=== PATIENT | female | born 1940 | race Caucasian/White ===

== ENCOUNTER 2020-05-02 23:45 | Emergency (ER) | payer MEDICARE ==
[2020-05-03 00:02] VITALS: PULSE 72; TEMP 98.1
[2020-05-03 00:11] LABS: Glucose,Whole Blood 257 mg/dL (75-99)
[2020-05-03] MEDS ORDERED: ONDANSETRON 4 MG/2 ML VIAL IVP STA (01:34)
[2020-05-03] MEDS ORDERED: SODIUM CHLORIDE 0.9% 500 ML 500 ML IV STA (01:34)
--- NOTE | 2020-05-03 01:41 | ED ---
Nausea/Vomiting/Diarrhea HPI - General Chief complaint: Nausea/Vomiting/Diarrhea Stated complaint: dehydration Source: EMS Mode of arrival: EMS Limitations: no limitations - History of Present Illness Initial comments: This patient is a 79-year-old woman who presents to be evaluated for nausea. Patient reports that she had some milk that she thought was bad yesterday. As result she has been feeling nauseated and going on 24 hours. She also had some loose bowel movements. Patient denies seeing any blood or tarry stools. There has been no vomiting. The patient denies abdominal pain but states she has had some intermittent cramping. MD complaint: nausea, diarrhea Onset/Timin -: days(s) Description of Diarrhea: water Associated Abdominal Pain: No Radiation: none Quality: cramping Consistency: intermittent, now resolved Improves with: none Worsens with: none Context: possible food poisoning Associated Symptoms: denies other symptoms - Related Data Allergies Allergy/AdvReac Type Severity Reaction Status Date / Time nitrofurantoin Allergy Nausea & Verified 05/03/20 00:04 [From Macrobid] Vomiting & Diarrhea Penicillins Allergy Rash/Hives Verified 05/03/20 00:04 Sulfa (Sulfonamide Allergy Nausea & Verified 05/03/20 00:04 Antibiotics) Vomiting & Diarrhea Review of Systems ROS Statement: Those systems with pertinent positive or pertinent negative responses have been documented in the HPI. ROS Other: All systems not noted in ROS Statement are negative. Constitutional: Denies: fever, chills, weakness Respiratory: Denies: cough, dyspnea Cardiovascular: Denies: chest pain, palpitations, edema Gastrointestinal: Reports: as per HPI, nausea, diarrhea. Denies: vomiting, constipation, melena, hematochezia Genitourinary: Denies: dysuria, hematuria Musculoskeletal: Denies: back pain Skin: Denies: rash Neurological: Denies: headache, weakness Past Medical History Past Medical History: Chest Pain / Angina, COPD, Diabetes Mellitus, Hypertension Past Psychological History: Anxiety, Depression Smoking Status: Current every day smoker Past Alcohol Use History: None Reported Past Drug Use History: None Reported General Exam Limitations: no limitations General appearance: alert, in no apparent distress Head exam: Present: atraumatic, normocephalic Eye exam: Present: normal appearance ENT exam: Present: mucous membranes dry Neck exam: Present: normal inspection Respiratory exam: Present: normal lung sounds bilaterally. Absent: respiratory distress, wheezes, rales, rhonchi, stridor Cardiovascular Exam: Present: regular rate, normal rhythm, normal heart sounds. Absent: systolic murmur, diastolic murmur, rubs, gallop GI/Abdominal exam: Present: soft. Absent: distended, tenderness, guarding, rebound, rigid, mass Extremities exam: Present: normal inspection, normal capillary refill. Absent: pedal edema, calf tenderness Back exam: Present: normal inspection. Absent: CVA tenderness (R), CVA tenderness (L) Neurological exam: Present: alert Skin exam: Present: warm, dry, intact, normal color. Absent: rash Course Vital Signs 05/02/20 05/03/20 23:46 01:46 Temperature 98.1 F Pulse Rate 72 72 Respiratory 18 16 Rate Blood Pressure 190/63 173/54 O2 Sat by Pulse 96 96 Oximetry Medical Decision Making - Medical Decision Making Patient is feeling better, following Zofran and did tolerate oral intake. Again at this the abdominal examination there is no tenderness. The patient would like to go home. I discussed appropriate follow-up as well as return parameters. Also reinforced diabetic diet. - Lab Data Result diagrams: 05/03/20 01:37 05/03/20 01:37 Lab Results 05/03/20 05/03/20 05/03/20 Range/Units 00:09 01:37 01:37 WBC 11.9 H (3.8-10.6) k/uL RBC 5.03 (3.80-5.40) m/uL Hgb 15.3 (11.4-16.0) gm/dL Hct 46.8 H (34.0-46.0) % MCV 93.2 (80.0-100.0) fL MCH 30.4 (25.0-35.0) pg MCHC 32.6 (31.0-37.0) g/dL RDW 13.3 (11.5-15.5) % Plt Count 329 (150-450) k/uL Neutrophils % 64 % Lymphocytes % 26 % Monocytes % 6 % Eosinophils % 1 % Basophils % 1 % Neutrophils # 7.6 (1.3-7.7) k/uL Lymphocytes # 3.1 (1.0-4.8) k/uL Monocytes # 0.8 (0-1.0) k/uL Eosinophils # 0.2 (0-0.7) k/uL Basophils # 0.1 (0-0.2) k/uL Sodium 138 (137-145) mmol/L Potassium 3.9 (3.5-5.1) mmol/L Chloride 107 (98-107) mmol/L Carbon Dioxide 22 (22-30) mmol/L Anion Gap 9 mmol/L BUN 13 (7-17) mg/dL Creatinine 0.44 L (0.52-1.04) mg/dL Est GFR (CKD-EPI)AfAm >90 (>60 ml/min/1.73 sqM) Est GFR (CKD-EPI)NonAf >90 (>60 ml/min/1.73 sqM) Glucose 259 H (74-99) mg/dL POC Glucose (mg/dL) 257 H (75-99) mg/dL POC Glu [employer] Supervisor ID Yun Loya Calcium 9.0 (8.4-10.2) mg/dL Total Bilirubin 0.3 (0.2-1.3) mg/dL AST 16 (14-36) U/L ALT 14 (4-34) U/L Alkaline Phosphatase 47 (38-126) U/L Total Protein 6.6 (6.3-8.2) g/dL Albumin 3.9 (3.5-5.0) g/dL Amylase 31 (30-110) U/L Lipase 79 (23-300) U/L Urine Color Urine Appearance (Clear) Urine pH (5.0-8.0) Ur Specific [place] (1.001-1.035) Urine Protein (Negative) Urine Glucose (UA) (Negative) Urine Ketones (Negative) Urine Blood (Negative) Urine Nitrite (Negative) Urine Bilirubin (Negative) Urine Urobilinogen (<2.0) mg/dL Ur Leukocyte Esterase (Negative) Urine RBC (0-5) /hpf Urine WBC (0-5) /hpf Ur Squamous Epith Cells (0-4) /hpf 05/03/20 Range/Units 02:00 WBC (3.8-10.6) k/uL RBC (3.80-5.40) m/uL Hgb (11.4-16.0) gm/dL Hct (34.0-46.0) % MCV (80.0-100.0) fL MCH (25.0-35.0) pg MCHC (31.0-37.0) g/dL RDW (11.5-15.5) % Plt Count (150-450) k/uL Neutrophils % % Lymphocytes % % Monocytes % % Eosinophils % % Basophils % % Neutrophils # (1.3-7.7) k/uL Lymphocytes # (1.0-4.8) k/uL Monocytes # (0-1.0) k/uL Eosinophils # (0-0.7) k/uL Basophils # (0-0.2) k/uL Sodium (137-145) mmol/L Potassium (3.5-5.1) mmol/L Chloride (98-107) mmol/L Carbon Dioxide (22-30) mmol/L Anion Gap mmol/L BUN (7-17) mg/dL Creatinine (0.52-1.04) mg/dL Est GFR (CKD-EPI)AfAm (>60 ml/min/1.73 sqM) Est GFR (CKD-EPI)NonAf (>60 ml/min/1.73 sqM) Glucose (74-99) mg/dL POC Glucose (mg/dL) (75-99) mg/dL POC Glu Volunteer Services Supervisor ID Calcium (8.4-10.2) mg/dL Total Bilirubin (0.2-1.3) mg/dL AST (14-36) U/L ALT (4-34) U/L Alkaline Phosphatase (38-126) U/L Total Protein (6.3-8.2) g/dL Albumin (3.5-5.0) g/dL Amylase (30-110) U/L Lipase (23-300) U/L Urine Color Yellow Urine Appearance Clear (Clear) Urine pH 5.5 (5.0-8.0) Ur Specific [place] 1.013 (1.001-1.035) Urine Protein Trace H (Negative) Urine Glucose (UA) 3+ H (Negative) Urine Ketones Negative (Negative) Urine Blood Negative (Negative) Urine Nitrite Negative (Negative) Urine Bilirubin Negative (Negative) Urine Urobilinogen <2.0 (<2.0) mg/dL Ur Leukocyte Esterase Moderate H (Negative) Urine RBC 2 (0-5) /hpf Urine WBC 11 H (0-5) /hpf Ur Squamous Epith Cells <1 (0-4) /hpf Disposition Clinical Impression: Nausea, Hyperglycemia Disposition: HOME SELF-CARE Condition: Good Instructions (If sedation given, give patient instructions): Acute Nausea and Vomiting (ED) Is patient prescribed a controlled substance at d/c from ED?: No Referrals: Veena Spain DO [Primary Care Provider] - 1-2 days
[2020-05-03 01:47] VITALS: BP 173/54; RESP 16
[2020-05-03 01:47] LABS: Basophils # (A) 0.1 k/uL (0-0.2); Basophils % (A) 1 %; Eosinophils # (A) 0.2 k/uL (0-0.7); Eosinophils % (A) 1 %; HCT 46.8 % (34.0-46.0); HGB 15.3 gm/dL (11.4-16.0); Lymphocytes # (A) 3.1 k/uL (1.0-4.8); Lymphocytes % (A) 26 %; MCH 30.4 pg (25.0-35.0); MCHC 32.6 g/dL (31.0-37.0); MCV 93.2 fL (80.0-100.0); Mean Platelet Volume 8.1; Monocytes # (A) 0.8 k/uL (0-1.0); Monocytes % (A) 6 %; Neutrophils # (A) 7.6 k/uL (1.3-7.7); Neutrophils % (A) 64 %; Platelet Count 329 k/uL (150-450); RBC 5.03 m/uL (3.80-5.40); RDW 13.3 % (11.5-15.5); WBC 11.9 k/uL (3.8-10.6)
[2020-05-03 01:53] LABS: ALT 14 U/L (4-34); AST 16 U/L (14-36); African American GFR (CKD) >90 (>60 ml/min/1.73 sqM); Albumin 3.9 g/dL (3.5-5.0); Alkaline Phosphatase 47 U/L (38-126); Amylase 31 U/L (30-110); Anion Gap 9 mmol/L; Blood Urea Nitrogen 13 mg/dL (7-17); Carbon Dioxide 22 mmol/L (22-30); Chloride 107 mmol/L (98-107); Glucose 259 mg/dL (74-99); Non-African American GFR(CKD) >90 (>60 ml/min/1.73 sqM); Potassium 3.9 mmol/L (3.5-5.1); Sodium 138 mmol/L (137-145); Total Bilirubin 0.3 mg/dL (0.2-1.3); Total Protein 6.6 g/dL (6.3-8.2)
[2020-05-03 02:09] LABS: Appearance,Urine Clear (Clear); Bilirubin,Urine Negative (Negative); Blood,Urine Negative (Negative); Color,Urine Yellow; Glucose,Urine (UA) 3+ (Negative); Ketones,Urine Negative (Negative); Leukocyte Esterase,Urine Moderate (Negative); Nitrite,Urine Negative (Negative); PH, Urine 5.5 (5.0-8.0); Protein,Urine Trace (Negative); RBC,Urine 2 /hpf (0-5); Specific Gravity,Urine 1.013 (1.001-1.035); Squamous Epithelial Cell,Urine <1 /hpf (0-4); Urobilinogen,Urine <2.0 mg/dL (<2.0); WBC,Urine 11 /hpf (0-5)
== END 2020-05-03 02:34 | disposition home or self-care (01) ==
LOC: EC 23:45
DX: E11.65 Type 2 diabetes mellitus with hyperglycemia (principal); R19.7 Diarrhea, unspecified; E86.0 Dehydration; F17.200 Nicotine dependence, unspecified, uncomplicated; Z88.1 Allergy status to other antibiotic agents; Z88.0 Allergy status to penicillin; Z88.2 Allergy status to sulfonamides
CPT/HCPCS: 99284; 96374; 96361; 36415; 80053; 82150; 83690; 85025; 81001; 87086; 87077; 87186; J2405

== ENCOUNTER 2020-06-06 10:35 | Inpatient (IN) | payer MEDICARE ==
--- NOTE | 2020-06-06 10:47 | ED ---
General Adult HPI - General Chief complaint: Fall Stated complaint: Fall Time Seen by Provider: 06/06/20 10:40 Source: EMS Mode of arrival: EMS Limitations: no limitations - History of Present Illness Initial comments: 80-year-old female with history of NIDDM, COPD- home oxygen dependent presenting today with chief complaint of left hip pain after fall patient states she fell around 2:33 AM she called EMS who put her back in bed she states that she did not want to come to the hospital that time she denied hitting her head having neck pain or low back pain. Denies any loss of bowel bladder control. Patient states that she could not walk or get out of bed when she woke up and had severe left hip pain. Patient denies numbness, tingling or loss of sensation of the extremity. Denies knee, ankle or foot pain. Patient denies syncopal episode, chest pain or SOB prior to or after falling. Patient brought in by EMS for evaluation. - Related Data Home Medications Medication Instructions Recorded Confirmed Baclofen [Lioresal] 10 mg PO DAILY 06/06/20 06/06/20 DULoxetine HCL [Cymbalta] 60 mg PO DAILY 06/06/20 06/06/20 Empagliflozin [Jardiance] 10 mg PO DAILY 06/06/20 06/06/20 Glimepiride [Amaryl] 4 mg PO AC-BID 06/06/20 06/06/20 Isosorbide Mononitrate [Ismo] 10 mg PO BID 06/06/20 06/06/20 LORazepam [Ativan] 1 mg PO TID 06/06/20 06/06/20 lisinopriL 40 mg PO DAILY 06/06/20 06/06/20 sitaGLIPtin PHOS/metFORMIN HCL 1 tab PO DAILY 06/06/20 06/06/20 [Janumet Xr 100-1,000 mg Tablet] traMADol HCl [Ultram] 50 mg PO QID 06/06/20 06/06/20 Allergies Allergy/AdvReac Type Severity Reaction Status Date / Time doxycycline Allergy Unknown Verified 06/06/20 11:32 nitrofurantoin Allergy Nausea & Verified 06/06/20 11:25 [From Macrobid] Vomiting & Diarrhea Penicillins AdvReac Rash/Hives Verified 06/06/20 11:25 Sulfa (Sulfonamide AdvReac Nausea & Verified 06/06/20 11:25 Antibiotics) Vomiting & Diarrhea Review of Systems ROS Statement: Those systems with pertinent positive or pertinent negative responses have been documented in the HPI. ROS Other: All systems not noted in ROS Statement are negative. Past Medical History Past Medical History: Chest Pain / Angina, COPD, Diabetes Mellitus, Hypertension Past Surgical History: Unable to Obtain Past Psychological History: Anxiety, Depression Smoking Status: Former smoker Past Alcohol Use History: None Reported Past Drug Use History: None Reported General Exam - General Exam Comments Initial Comments: General: The patient is awake and alert, grimaces when moved Eye: +3 mm pupils are equal, round and reactive to light, extra-ocular movements are intact. No nystagmus. There is normal conjunctiva bilaterally. No signs of icterus. Ears, nose, mouth and throat: There are moist mucous membranes and no oral lesions. No raccoon or vidal sign. Neck: The neck is supple, there is no tenderness or JVD. No midline tenderness palpation of the cervical spine full range of motion the cervical spine Cardiovascular: There is a regular rate and rhythm. No murmur, rub or gallop is appreciated. Respiratory: Lungs are clear to auscultation, respirations are non-labored, breath sounds are equal. No wheezes, stridor, rales, or rhonchi. Gastrointestinal: Soft, non-distended, non-tender abdomen without masses or organomegaly noted. There is no rebound or guarding present. Musculoskeletal: Normal ROM, no tenderness. Strength 5/5. Sensation intact. Radial and DP pulses equal bilaterally 2+. Neurological: A&O x 3. CN II-XII intact, There are no obvious motor or sensory deficits. Coordination appears grossly intact. Speech is normal. Skin: Skin is warm and dry and no rashes or lesions are noted. No scalp hematoma. Psychiatric: Cooperative, appropriate mood & affect, normal judgment. Limitations: no limitations Course Vital Signs 06/06/20 06/06/20 10:37 12:40 Temperature 98.1 F 97.4 F L Pulse Rate 89 90 Respiratory 18 18 Rate Blood Pressure 173/80 160/76 O2 Sat by Pulse 94 L 91 L Oximetry Medical Decision Making - Medical Decision Making 80-year-old feel presenting today for chief complaint of trip and fall patient states she was up at 3AM tripped and fell. Patient could not ambulate--called ems brought to ER. She is neurovascularly intact. Nose shortening or rotation is appreciated. Denies any head or neck injury. XR no obvious fracture. CT revealed a nondisplaced left femoral neck. Patient given pain medications in the ER. Patient case discussed with orthodontic lab technician orthopedic PA working with Dr. Rollins who is agreeable to admission. Dr. Pizano agreeable to admission and care plan. - Lab Data Result diagrams: 06/06/20 11:31 06/06/20 11:31 Lab Results 06/06/20 06/06/20 06/06/20 Range/Units 11:31 11:31 11:31 WBC 20.4 H (3.8-10.6) k/uL RBC 5.22 (3.80-5.40) m/uL Hgb 15.4 (11.4-16.0) gm/dL Hct 48.4 H (34.0-46.0) % MCV 92.8 (80.0-100.0) fL MCH 29.5 (25.0-35.0) pg MCHC 31.7 (31.0-37.0) g/dL RDW 13.4 (11.5-15.5) % Plt Count 314 (150-450) k/uL Neutrophils % 82 % Lymphocytes % 10 % Monocytes % 5 % Eosinophils % 1 % Basophils % 1 % Neutrophils # 16.7 H (1.3-7.7) k/uL Lymphocytes # 2.1 (1.0-4.8) k/uL Monocytes # 1.1 H (0-1.0) k/uL Eosinophils # 0.2 (0-0.7) k/uL Basophils # 0.2 (0-0.2) k/uL PT 10.1 (9.0-12.0) sec INR 1.0 (<1.2) APTT 23.6 (22.0-30.0) sec Sodium 137 (137-145) mmol/L Potassium 4.9 (3.5-5.1) mmol/L Chloride 104 (98-107) mmol/L Carbon Dioxide 24 (22-30) mmol/L Anion Gap 9 mmol/L BUN 21 H (7-17) mg/dL Creatinine 0.47 L (0.52-1.04) mg/dL Est GFR (CKD-EPI)AfAm >90 (>60 ml/min/1.73 sqM) Est GFR (CKD-EPI)NonAf >90 (>60 ml/min/1.73 sqM) Glucose 434 H (74-99) mg/dL Calcium 9.0 (8.4-10.2) mg/dL Total Bilirubin 0.6 (0.2-1.3) mg/dL AST 27 (14-36) U/L ALT 25 (4-34) U/L Alkaline Phosphatase 70 (38-126) U/L Total Protein 6.7 (6.3-8.2) g/dL Albumin 4.0 (3.5-5.0) g/dL Disposition Clinical Impression: Fall, Fracture of femoral neck, left, Left hip pain, Chronic obstructive pulmonary disease, Elevated glucose Disposition: ADMITTED IP TO THIS [facility] Condition: Stable Is patient prescribed a controlled substance at d/c from ED?: No Time of Disposition: 12:22 Decision to Admit Reason: Admit from EC Decision Date: 06/06/20 Decision Time: 12:22
[2020-06-06] MEDS ORDERED: MORPHINE SULFATE 4 MG/ML SYRINGE IVP STA (11:22)
--- NOTE | 2020-06-06 11:23 | XR ---
EXAMINATION TYPE: XR Hip LT and AP Pelvis DATE OF EXAM: 06/06/2020 COMPARISON: NONE HISTORY: Pain TECHNIQUE: A single AP view of the pelvis is obtained. Two views of the left hip are obtained. FINDINGS: There is severe arthropathy of the hips bilaterally with hypertrophic changes involving th e acetabulum. Diffuse osteopenia. There is a findings suspicious for femoral acetabular impingement. Visualized pubic rami appear to be intact. SI joints symmetric sclerosis involving the SI joints like ly post arthritic. IMPRESSION: 1. 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 No acute fracture. If clinical roberson spicion is high correlate with CT scan.
[2020-06-06 11:39] LABS: Basophils # (A) 0.2 k/uL (0-0.2); Basophils % (A) 1 %; Eosinophils # (A) 0.2 k/uL (0-0.7); Eosinophils % (A) 1 %; HCT 48.4 % (34.0-46.0); HGB 15.4 gm/dL (11.4-16.0); Lymphocytes # (A) 2.1 k/uL (1.0-4.8); Lymphocytes % (A) 10 %; MCH 29.5 pg (25.0-35.0); MCHC 31.7 g/dL (31.0-37.0); MCV 92.8 fL (80.0-100.0); Mean Platelet Volume 8.6; Monocytes # (A) 1.1 k/uL (0-1.0); Monocytes % (A) 5 %; Neutrophils # (A) 16.7 k/uL (1.3-7.7); Neutrophils % (A) 82 %; Platelet Count 314 k/uL (150-450); RBC 5.22 m/uL (3.80-5.40); RDW 13.4 % (11.5-15.5); WBC 20.4 k/uL (3.8-10.6)
[2020-06-06 11:48] LABS: ALT 25 U/L (4-34); AST 27 U/L (14-36); African American GFR (CKD) >90 (>60 ml/min/1.73 sqM); Alkaline Phosphatase 70 U/L (38-126); Anion Gap 9 mmol/L; Blood Urea Nitrogen 21 mg/dL (7-17); Carbon Dioxide 24 mmol/L (22-30); Chloride 104 mmol/L (98-107); Glucose 434 mg/dL (74-99); Non-African American GFR(CKD) >90 (>60 ml/min/1.73 sqM); Potassium 4.9 mmol/L (3.5-5.1); Sodium 137 mmol/L (137-145); Total Bilirubin 0.6 mg/dL (0.2-1.3); Total Protein 6.7 g/dL (6.3-8.2)
[2020-06-06 11:52] LABS: Partial Thromboplastin Time 23.6 sec (22.0-30.0); Prothrombin Time 10.1 sec (9.0-12.0)
--- NOTE | 2020-06-06 12:12 | CT ---
EXAMINATION TYPE: CT hip LT wo con DATE OF EXAM: 06/06/2020 COMPARISON: Left hip and pelvis radiograph 06/06/2020 HISTORY: Left hip pain post fall CT DLP: 519.8 mGycm Automated exposure control for dose reduction was used. TECHNIQUE: Axial imaging of the left hip obtained without intravenous contrast. Coronal and sagittal reformatted images were obtained. FINDINGS: There is a nondisplaced fracture of the anterior cortex of the transverse left femoral neck. No evide nce of dislocation of the left hip. Diffusely decreased osseous mineralization. Severe arthropathy of the left hip. Degenerative change of the left sacroiliac joint and visualized spine. IMPRESSION: 1. Incomplete fracture of the anterior cortex of the left femoral neck. No significant displacement. 2. Severe left hip arthropathy. 3. Decreased osseous mineralization.
--- NOTE | 2020-06-06 12:12 | XR ---
EXAMINATION TYPE: XR femur LT DATE OF EXAM: 06/06/2020 CLINICAL HISTORY: Fall injury with pain. TECHNIQUE: Two views of the left femur are obtained. COMPARISON: Same day pelvic and left hip x-ray and CT. FINDINGS: There is no acute fracture or dislocation clearly seen in the left femur on x-ray. Left ac etabular overgrowth redemonstrated. Osseous structures are demineralized. Mild to moderate tricompart ment joint space loss in the left knee The overlying soft tissue appears unremarkable. IMPRESSION: Seen best on CT there is acute nondisplaced fracture through the anterior aspect femoral neck in the left proximal femur. No additional acute fracture identified mid to distal left femur
[2020-06-06] MEDS ORDERED: NALOXONE 0.4 MG/ML 1 ML VIAL IV PRN (12:22)
[2020-06-06 12:48] LABS: Appearance,Urine Clear (Clear); Bacteria,Urine Moderate /hpf; Bilirubin,Urine Negative (Negative); Blood,Urine Negative (Negative); Color,Urine Light Yellow; Glucose,Urine (UA) 4+ (Negative); Ketones,Urine 1+ (Negative); Leukocyte Esterase,Urine Trace (Negative); Mucus,Urine Rare /hpf; Nitrite,Urine Positive (Negative); Protein,Urine Trace (Negative); RBC,Urine <1 /hpf (0-5); Specific Gravity,Urine 1.031 (1.001-1.035); Squamous Epithelial Cell,Urine <1 /hpf (0-4); Urobilinogen,Urine <2.0 mg/dL (<2.0); WBC,Urine 7 /hpf (0-5)
[2020-06-06 13:07] LABS: Glucose,Whole Blood 400 mg/dL (75-99)
[2020-06-06] MEDS ORDERED: MORPHINE SULFATE 2 MG/ML SYRINGE IVP PRN (14:19)
[2020-06-06 14:49] LABS: Glucose,Whole Blood 397 mg/dL (75-99)
[2020-06-06] MEDS ORDERED: INSULIN ASPART (NovoLOG) 100 UNIT/ML VIAL SQ ONE ×2 (15:03→19:00)
[2020-06-06] MEDS: MORPHINE SULFATE 2 MG/ML SYRINGE IVP PRN ×2 (15:16→19:21)
[2020-06-06] MEDS ORDERED: HYDROcodone/APAP 5-325MG 1 EACH TAB PO PRN (15:24)
[2020-06-06] MEDS ORDERED: ACETAMINOPHEN TAB 500 MG TAB PO PRN (15:25)
--- NOTE | 2020-06-06 16:30 | P.HPOR ---
<Cortney Chandra - Last Filed: 06/06/20 16:15> History of Present Illness H&P Date: 06/06/20 Chief Complaint: Left hip fracture The patient is a 80-year-old female with a past medical history including asthma, diabetes, hypertension, COPD, anxiety, and depression who presented to the emergency department today after sustaining a fall at home early this morning. EMS was called to her house and she requested that they put her back in bed because she did not want to come to the hospital at that time. Later today, EMS was called and she was brought to the ER for further evaluation. the patient states she did not hit her head and she denies any other injuries. X- rays of the left hip revealed no fracture. CT of the left hip revealed a nondisplaced femoral neck fracture. The patient was admitted to orthopedics for pain control and further orthopedic evaluation. Internal medicine has been consulted for surgical clearance and medical management. UA reveals a possible UTI and a culture has been sent. Veloz catheter in place. Review of Systems Constitutional: Denies chills, Denies fever Cardiovascular: Denies chest pain, Denies shortness of breath Respiratory: Denies cough Gastrointestinal: Denies abdominal pain, Denies diarrhea, Denies nausea, Denies vomiting Musculoskeletal: left: hip pain, hip stiffness, hip swelling Past Medical History Past Medical History: Asthma, Chest Pain / Angina, COPD, Diabetes Mellitus, GERD/Reflux, Hypertension, Pneumonia, Respiratory Disorder, Skin Disorder Additional Past Medical History / Comment(s): Home oxygen at 4L/NC ATC, bronchit is, NIDDM type II, neuropathy bilateral feet, falls, IBS, diverticular disease, hiatal hernia, chronic low back pain, eczema History of Any Multi-Drug Resistant Organisms: None Reported Past Surgical History: Cholecystectomy, Hysterectomy, Tonsillectomy Additional Past Surgical History / Comment(s): colonoscopy Past Anesthesia/Blood Transfusion Reactions: No Reported Reaction Additional Past Anesthesia/Blood Transfusion Reaction / Comment(s): Pt states she has never received blood. Smoking Status: Current every day smoker - Past Family History Father Family Medical History: Cancer Additional Family Medical History / Comment(s): Father of colon cancer at the age of 54 yrs. Mother Family Medical History: CVA/TIA, Hyperlipidemia, Hypertension Additional Family Medical History / Comment(s): Mother lived to be 96yrs old. Medications and Allergies Home Medications Medication Instructions Recorded Confirmed Type Baclofen [Lioresal] 10 mg PO DAILY 06/06/20 06/06/20 History DULoxetine HCL [Cymbalta] 60 mg PO DAILY 06/06/20 06/06/20 History Empagliflozin [Jardiance] 10 mg PO DAILY 06/06/20 06/06/20 History Glimepiride [Amaryl] 4 mg PO AC-BID 06/06/20 06/06/20 History Isosorbide Mononitrate [Ismo] 10 mg PO BID 06/06/20 06/06/20 History LORazepam [Ativan] 1 mg PO TID 06/06/20 06/06/20 History lisinopriL 40 mg PO DAILY 06/06/20 06/06/20 History sitaGLIPtin PHOS/metFORMIN HCL 1 tab PO DAILY 06/06/20 06/06/20 History [Janumet Xr 100-1,000 mg Tablet] traMADol HCl [Ultram] 50 mg PO QID 06/06/20 06/06/20 History Allergies Allergy/AdvReac Type Severity Reaction Status Date / Time doxycycline Allergy Unknown Verified 06/06/20 11:32 nitrofurantoin Allergy Nausea & Verified 06/06/20 11:25 [From Macrobid] Vomiting & Diarrhea Penicillins AdvReac Rash/Hives Verified 06/06/20 11:25 Sulfa (Sulfonamide AdvReac Nausea & Verified 06/06/20 11:25 Antibiotics) Vomiting & Diarrhea Physical Examination The patient is a 80 year old female that is no acute distress. She is alert and oriented x3. She is very hard of hearing. The patient's head is normocephalic and atraumatic. Exam of the cervical spine reveals no pain upon palpation or r sukhi of motion. Exam of the bilateral upper extremities reveal no obvious deformities or pain upon range of motion. Exam of the right lower extremity reveals no pain upon palpation. Exam of the left lower extremity reveals no obvious deformity. Pain upon palpation to the lateral hip. There is pain upon logrolling and any range of motion of the leg. Bilateral calves are soft and nontender. Patient has good foot and ankle motion bilaterally. There is severe excoriation in her bilateral groin areas and onto her pannus. Neurological and circulatory status is intact. Results - Labs Labs: Abnormal Lab Results - Last 24 Hours (Table) 06/06/20 06/06/20 06/06/20 Range/Units 11:31 11:31 12:29 WBC 20.4 H (3.8-10.6) k/uL Hct 48.4 H (34.0-46.0) % Neutrophils # 16.7 H (1.3-7.7) k/uL Monocytes # 1.1 H (0-1.0) k/uL BUN 21 H (7-17) mg/dL Creatinine 0.47 L (0.52-1.04) mg/dL Glucose 434 H (74-99) mg/dL POC Glucose (mg/dL) (75-99) mg/dL Urine Protein Trace H (Negative) Urine Glucose (UA) 4+ H (Negative) Urine Ketones 1+ H (Negative) Urine Nitrite Positive H (Negative) Ur Leukocyte Esterase Trace H (Negative) Urine WBC 7 H (0-5) /hpf Urine WBC Clumps Few H (None) /hpf Urine Bacteria Moderate H (None) /hpf Urine Mucus Rare H (None) /hpf 06/06/20 06/06/20 Range/Units 13:04 14:43 WBC (3.8-10.6) k/uL Hct (34.0-46.0) % Neutrophils # (1.3-7.7) k/uL Monocytes # (0-1.0) k/uL BUN (7-17) mg/dL Creatinine (0.52-1.04) mg/dL Glucose (74-99) mg/dL POC Glucose (mg/dL) 400 H 397 H (75-99) mg/dL Urine Protein (Negative) Urine Glucose (UA) (Negative) Urine Ketones (Negative) Urine Nitrite (Negative) Ur Leukocyte Esterase (Negative) Urine WBC (0-5) /hpf Urine WBC Clumps (None) /hpf Urine Bacteria (None) /hpf Urine Mucus (None) /hpf H & H 06/06/20 Range/Units 11:31 Hgb 15.4 (11.4-16.0) gm/dL Hct 48.4 H (34.0-46.0) % Coagulation 06/06/20 Range/Units 11:31 INR 1.0 (<1.2) Result Diagrams: 06/06/20 11:31 06/06/20 11:31 - Diagnostic results Hip x-ray: image reviewed (x-rays of the left hip reveal no acute fracture seen. Osteoarthritis with spurring present) Hip CT: image reviewed (CT of the left hip reveals a nondisplaced anterior cortex left femoral neck fracture.) Assessment and Plan (1) Diabetes mellitus Current Visit: Yes Status: Acute Code(s): E11.9 - TYPE 2 DIABETES MELLITUS WITHOUT COMPLICATIONS SNOMED Code(s): 37964554 (2) Hypertension Current Visit: Yes Status: Acute Code(s): I10 - ESSENTIAL (PRIMARY) HYPERTENSION SNOMED Code(s): 83713124 (3) Anxiety Current Visit: Yes Status: Acute Code(s): F41.9 - ANXIETY DISORDER, UNSPECI FIED SNOMED Code(s): 84185200 (4) Depression Current Visit: Yes Status: Acute Code(s): F32.9 - MAJOR DEPRESSIVE DISORDER, SINGLE EPISODE, UNSPECIFIED SNOMED Code(s): 26942601 (5) Chronic obstructive pulmonary disease Current Visit: Yes Status: Acute Code(s): J44.9 - CHRONIC OBSTRUCTIVE PULMONARY DISEASE, UNSPECIFIED SNOMED Code(s): 68788675 (6) Elevated glucose Current Visit: Yes Status: Acute Code(s): R73.09 - OTHER ABNORMAL GLUCOSE SNOMED Code(s): 10165540 (7) Fall Current Visit: Yes Status: Acute Code(s): W19.XXXA - UNSPECIFIED FALL, INITIAL ENCOUNTER SNOMED Code(s): 1242272 (8) Fracture of femoral neck, left Current Visit: Yes Status: Acute Code(s): S72.002A - FRACTURE OF UNSP PART OF NECK OF LEFT FEMUR, INIT SNOMED Code(s): 2367340 (9) Left hip pain Current Visit: Yes Status: Acute Code(s): M25.552 - PAIN IN LEFT HIP SNOMED Code(s): 52849675 (10) Asthma Current Visit: Yes Status: Acute Code(s): J45.909 - UNSPECIFIED ASTHMA, UNCOMPLICATED SNOMED Code(s): 519126154 Plan: The clinical and x-ray findings were discussed with the patient. The case was also discussed at length with Dr. Rollins. No family is at the bedside at this time. This type of fracture requires surgical fixation to ensure stabilization of the femoral neck. The patient will remain on bedrest. Continue pain control as needed. Continue Veloz catheter. The patient will be NPO t onight. The patient will be scheduled for a left hip cephalomedullary nail tomorrow afternoon. We will await surgical clearance by internal medicine. We will continue to follow patient closely and make further recommendations as needed. <RiaMark Batool - Last Filed: 06/06/20 21:16> Results - Labs Labs: Abnormal Lab Results - Last 24 Hours (Table) 06/06/20 06/06/20 06/06/20 Range/Units 11:31 11:31 12:29 WBC 20.4 H (3.8-10.6) k/uL Hct 48.4 H (34.0-46.0) % Neutrophils # 16.7 H (1.3-7.7) k/uL Monocytes # 1.1 H (0-1.0) k/uL BUN 21 H (7-17) mg/dL Creatinine 0.47 L (0.52-1.04) mg/dL Glucose 434 H (74-99) mg/dL POC Glucose (mg/dL) (75-99) mg/dL Urine Protein Trace H (Negative) Urine Glucose (UA) 4+ H (Negative) Urine Ketones 1+ H (Negative) Urine Nitrite Positive H (Negative) Ur Leukocyte Esterase Trace H (Negative) Urine WBC 7 H (0-5) /hpf Urine WBC Clumps Few H (None) /hpf Urine Bacteria Moderate H (None) /hpf Urine Mucus Rare H (None) /hpf 06/06/20 06/06/20 06/06/20 Range/Units 13:04 14:43 16:56 WBC (3.8-10.6) k/uL Hct (34.0-46.0) % Neutrophils # (1.3-7.7) k/uL Monocytes # (0-1.0) k/uL BUN (7-17) mg/dL Creatinine (0.52-1.04) mg/dL Glucose (74-99) mg/dL POC Glucose (mg/dL) 400 H 397 H 318 H (75-99) mg/dL Urine Protein (Negative) Urine Glucose (UA) (Negative) Urine Ketones (Negative) Urine Nitrite (Negative) Ur Leukocyte Esterase (Negative) Urine WBC (0-5) /hpf Urine WBC Clumps (None) /hpf Urine Bacteria (None) /hpf Urine Mucus (None) /hpf 06/06/20 Range/Units 19:53 WBC (3.8-10.6) k/uL Hct (34.0-46.0) % Neutrophils # (1.3-7.7) k/uL Monocytes # (0-1.0) k/uL BUN (7-17) mg/dL Creatinine (0.52-1.04) mg/dL Glucose (74-99) mg/dL POC Glucose (mg/dL) 293 H (75-99) mg/dL Urine Protein (Negative) Urine Glucose (UA) (Negative) Urine Ketones (Negative) Urine Nitrite (Negative) Ur Leukocyte Esterase (Negative) Urine WBC (0-5) /hpf Urine WBC Clumps (None) /hpf Urine Bacteria (None) /hpf Urine Mucus (None) /hpf H & H 06/06/20 Range/Units 11:31 Hgb 15.4 (11.4-16.0) gm/dL Hct 48.4 H (34.0-46.0) % Coagulation 06/06/20 Range/Units 11:31 INR 1.0 (<1.2) Result Diagrams: 06/06/20 11:31 06/06/20 11:31 Assessment and Plan Plan: Discussed with CATHRYN Chandra and agree with above. The patient was also seen and examined by me. S: The patient states that she does not know specifically how she fell but she landed on her left side. She was unable to bear weight afterwards. She does admit to a fall about two weeks ago but was able to ambulate afterwards without difficulty. She typically uses either cane or walker to get around the house. She is currently on 4 L of home O2. She states that she does not take insulin for diabetes but her blood sugars have been over 400 since admission. O: No tenderness to palpation at the greater trochanter. Moderately significant pain with logroll as well as attempted active and passive hip flexion. Subjectively intact light touch sensation throughout the distal dermatomes of the left lower extremity. Intact gross motor function to the tibialis anterior, EHL and gastrocsoleus complex. Dorsalis pedis pulse is 2+. Imaging: Nondisplaced fracture involving the anterior cortex of the femoral neck with extension to the level of the lesser trochanter. Subtle trabecular disruption seen on axial cuts suggesting extension into the greater trochanter as well. A: 1. Nondisplaced incomplete left femoral neck fracture with intertrochanteric extension 2. Diabetes mellitus - poorly controlled 3. UTI 4. COPD on home oxygen 5. Prerenal azotemia P: I discussed the diagnosis and radiographic findings with the patient. We reviewed the pertinent anatomy and pathophysiology of the fracture. We discussed treatment options and I explained the rationale behind surgical intervention. She is quite symptomatic on exam. Given the intertrochanteric component of the fracture, I recommended surgical stabilization with a ceph alomedullary nail. We discussed the surgical plan as well as the expected postoperative course. Risks and benefits were reviewed including (but not limited to) the risks of infection, bleeding, blood clots, delayed or nonunion, anesthesia-related complications and possible need for additional surgery. Questions were invited and answered. The patient expressed understanding and wishes to proceed with surgery. The patient will be kept on bedrest. Continue PRN pain management. NPO after midnight. We will plan for surgery after preoperative evaluation by internal medicine. Thank you for allowing me to participate in the care of this patient. Mark Rollins D.O. [facility]
[2020-06-06 17:14] LABS: Glucose,Whole Blood 318 mg/dL (75-99)
[2020-06-06] MEDS: INSULIN ASPART (NovoLOG) 100 UNIT/ML VIAL SQ SCH ×2 (17:17→21:15)
[2020-06-06] MEDS ORDERED: IPRATROPIUM-ALBUTEROL 3 ML NEB INHALATION PRN (19:26)
[2020-06-06 19:54] LABS: Glucose,Whole Blood 293 mg/dL (75-99)
--- NOTE | 2020-06-06 20:17 | XR ---
EXAMINATION: XR chest 1V portable DATE AND TIME: 06/06/2020 7:22 PM CLINICAL INDICATION: PHH; surgery clearence TECHNIQUE: AP upright portable COMPARISON: None FINDINGS: The lungs are clear. The pleural spaces are negative. The cardiac silhouette is not enlarged. The remainder of the mediastinal silhouette is unremarkable. The skeletal structures and soft tissues are negative for acute findings. IMPRESSION: NO ACUTE PROCESS.
[2020-06-06] MEDS: BUDESONIDE 1 MG/2 ML NEBU INHALATION SCH (20:27)
[2020-06-06] MEDS: FORMOTEROL FUMARATE 20 MCG/2 ML NEBU INHALATION SCH (20:27)
[2020-06-06] MEDS: IPRATROPIUM-ALBUTEROL 3 ML NEB INHALATION SCH (20:27)
[2020-06-06] MEDS: SODIUM CHLORIDE 0.9% 1,000 ML IV SCH (21:14)
[2020-06-06] MEDS: ISOSORBIDE MONONITRATE 10 MG TAB PO SCH (21:15)
[2020-06-06] MEDS: INSULIN DETEMIR (LEVEMIR) 100 UNIT/ML SYR SQ SCH (21:15)
[2020-06-06] MEDS: HEPARIN SODIUM,PORCINE 5,000 UNIT/ML 1 ML VIAL SQ SCH (21:15)
[2020-06-06] MEDS: HYDROmorphone 0.5 MG/0.5 ML SYRINGE IVP PRN (21:16)
--- NOTE | 2020-06-06 21:20 | CONS ---
CONSULTATION REASON FOR CONSULTATION: Advice regarding COPD and multiple other medical problems and preoperative clearance requested by Orthopedic Surgery. HISTORY OF PRESENT ILLNESS: This 80-year-old woman with a past history of asthma, COPD, diabetes, GERD, history of chronic hypoxic respiratory failure being followed by Dr. Spain in the outpatient setting apparently had a fall yesterday. The patient was unable to get up. The patient complaining of left hip pain. The fall happened about 2:30 am and the EMS put her back into the bed and she says she does not want to come to the hospital. In the morning, the patient was not able to get out of the bed because of severe left hip pain and the patient taken to [facility] and the patient was admitted for further evaluation and treatment. The further evaluation including hip, pelvis x-rays and CT scan revealed severe arthropathy and as well as acute nondisplaced fracture through the anterior aspect of the femoral neck in the left proximal femur. Orthopedics planning surgery tomorrow. The blood sugars were more than 440, with insulin is coming down. The patient also had some shortness of breath also. White count is elevated to 24. UA shows evidence of UTI. The chest x-ray which was reviewed by me personally showed minimal increased bronchovascular markings. No acute changes. There is no history of fever, rigors or chills. No history of headache, loss of consciousness, seizures. PAST MEDICAL HISTORY: History of asthma, COPD, diabetes, hypertension, pneumonia, history of chronic hypoxic respiratory on 4 L nasal cannula. MEDICATIONS: 1. Ultram. 2. Ativan. 3. Jardiance. 4. Janumet. 5. Lisinopril. 6. ISMO. 8. Cymbalta. 9. Lioresal. ALLERGIES: DOXYCYCLINE, MACROBID, PENICILLIN, SULFA. FAMILY HISTORY: History of colon cancer in the family. SOCIAL HISTORY: History of smoking, continued ongoing. No history of alcohol intake. REVIEW OF SYSTEMS: ENT diminished vision. Diminished vision. CARDIOVASCULAR system as mentioned earlier. RESPIRATORY: As mentioned earlier. GI no nausea or vomiting. no dysuria. NERVOUS SYSTEM: No numbness or weakness. ALLERGY/IMMUNOLOGY: No asthma or hayfever. MUSCULOSKELETAL as mentioned earlier. HEMATOLOGY/ONCOLOGY: No history of anemia. ENDOCRINE: As mentioned earlier. CONSTITUTIONAL: As mentioned earlier. DERMATOLOGY: Negative. RHEUMATOLOGY: Negative. PSYCHIATRY: As mentioned earlier. PHYSICAL EXAMINATION: Alert and oriented times three. Pulse is 87. Blood pressure 117/70, respiration 20, temperature 97.6, pulse ox 98% on room air. HEENT is conjunctivae normal. NECK: No JVD. CARDIOVASCULAR: S1, S2 muffled. RESPIRATION: Breath sounds diminished in the bases. A few scattered rhonchi and crackles. ABDOMEN: Soft, nontender. No mass palpable. LEGS: Significant pain on movement of the left hip present. NERVOUS SYSTEM: Higher functions as mentioned earlier. Moves all 4 limbs except left lower limbs. Otherwise no focal deficits. LYMPHATICS: No lymph nodes palpable in the neck, axillae or groin. SKIN: No ulcer, no rashes and no bleeding. JOINTS: No active deforming arthropathy. LABS: WBC 20.5, hemoglobin 15.4, glucose 434, 400, 318. UA noted. ASSESSMENT: 1. Fall and acute nondisplaced left hip fracture with severe pain. 2. Diabetes mellitus type 2 uncontrolled with hyperglycemia. 3. Acute urinary tract infection present on admission. 4. Increased WBC. 5. Gait dysfunction. 6. History of asthma, chronic obstructive pulmonary disease. 7. Gastroesophageal reflux disease. 8. Hypertension. 9. History of chronic hypoxic respiratory on 4 L nasal cannula. 10.History of peripheral neuropathy. 11.History of irritable bowel syndrome. 12.History of cholecystectomy. 13.History of anxiety, depression. 14.History of nicotine dependence. 15.FULL CODE. RECOMMENDATIONS AND DISCUSSION: This 80-year-old woman who presented with multiple medical issues, at this time. We will optimize bronchodilator treatment. Otherwise, I would recommend resume the home medications and also recommend to control the blood sugar with insulin. Small dose of Lantus may be started at night for better sugar control. Otherwise, I would recommend to optimize the bronchodilator treatment. Patient cleared for surgery with some added risk because of the above mentioned medical issues and we will follow the patient closely with orthopedic surgery. See orders for details. MMODL / IJN: [id number] / MTDD
[2020-06-06] MEDS ORDERED: LORazepam 1 MG TAB PO PRN (22:00)
[2020-06-07 01:31] LABS: Hemoglobin A1C 12.4 % (4.0-6.0)
[2020-06-07] MEDS: HYDROmorphone 0.5 MG/0.5 ML SYRINGE IVP PRN ×6 (03:27→19:30)
[2020-06-07] MEDS: SODIUM CHLORIDE 0.9% 1,000 ML IV SCH ×2 (05:14→21:18)
[2020-06-07 07:02] LABS: Glucose,Whole Blood 309 mg/dL (75-99)
[2020-06-07] MEDS: GLIMEPIRIDE 4 MG TAB PO SCH ×2 (07:11→17:20)
[2020-06-07] MEDS: INSULIN ASPART (NovoLOG) 100 UNIT/ML VIAL SQ SCH ×4 (07:11→21:19)
[2020-06-07] MEDS: metFORMIN 500 MG TAB PO SCH ×2 (07:11→17:20)
[2020-06-07] MEDS: PANTOPRAZOLE 40 MG TABLET PO SCH (07:12)
[2020-06-07] MEDS: BUDESONIDE 1 MG/2 ML NEBU INHALATION SCH ×2 (07:26→20:45)
[2020-06-07] MEDS: FORMOTEROL FUMARATE 20 MCG/2 ML NEBU INHALATION SCH ×2 (07:26→20:45)
[2020-06-07] MEDS: IPRATROPIUM-ALBUTEROL 3 ML NEB INHALATION SCH ×4 (07:26→20:45)
[2020-06-07] MEDS: DULoxetine HCL 60 MG CAPSULE.DR PO SCH (08:27)
[2020-06-07] MEDS: lisinopriL 20 MG TAB PO SCH (08:27)
[2020-06-07] MEDS: HEPARIN SODIUM,PORCINE 5,000 UNIT/ML 1 ML VIAL SQ SCH ×2 (08:27→21:19)
[2020-06-07] MEDS: BACLOFEN 10 MG TAB PO SCH (08:27)
[2020-06-07] MEDS: LINAGLIPTIN 5 MG TABLET PO SCH (08:27)
[2020-06-07] MEDS: Empagliflozin [Jardiance] PO SCH (08:27)
[2020-06-07] MEDS: ISOSORBIDE MONONITRATE 10 MG TAB PO SCH ×2 (08:30→21:19)
[2020-06-07] MEDS ORDERED: INSULIN ASPART (NovoLOG) 100 UNIT/ML VIAL SQ ONE ×2 (11:11→11:25)
[2020-06-07 11:17] LABS: Glucose,Whole Blood 236 mg/dL (75-99)
[2020-06-07 11:37] LABS: Basophils # (A) 0.1 k/uL (0-0.2); Basophils % (A) 1 %; Eosinophils # (A) 0.1 k/uL (0-0.7); Eosinophils % (A) 1 %; HCT 43.1 % (34.0-46.0); HGB 13.7 gm/dL (11.4-16.0); Lymphocytes # (A) 1.8 k/uL (1.0-4.8); Lymphocytes % (A) 11 %; MCHC 31.7 g/dL (31.0-37.0); MCV 94.4 fL (80.0-100.0); Mean Platelet Volume 8.6; Monocytes # (A) 1.3 k/uL (0-1.0); Monocytes % (A) 8 %; Neutrophils # (A) 12.2 k/uL (1.3-7.7); Neutrophils % (A) 78 %; Platelet Count 279 k/uL (150-450); RBC 4.56 m/uL (3.80-5.40); RDW 13.4 % (11.5-15.5); WBC 15.6 k/uL (3.8-10.6)
[2020-06-07 11:46] LABS: African American GFR (CKD) >90 (>60 ml/min/1.73 sqM); Anion Gap 5 mmol/L; Blood Urea Nitrogen 29 mg/dL (7-17); Calcium 8.4 mg/dL (8.4-10.2); Carbon Dioxide 26 mmol/L (22-30); Chloride 107 mmol/L (98-107); Glucose 243 mg/dL (74-99); Non-African American GFR(CKD) 82 (>60 ml/min/1.73 sqM); Potassium 4.3 mmol/L (3.5-5.1); Sodium 138 mmol/L (137-145)
[2020-06-07 12:39] LABS: Glucose,Whole Blood 249 mg/dL (75-99)
--- NOTE | 2020-06-07 13:00 | P.CNPUL ---
History of Present Illness Consult date: 06/07/20 Reason for consult: COPD History of present illness: 80-year-old female patient with chronic hypoxic respiratory failure attributed to COPD and addition to diabetes and hypertension, comes in to the emergency department after sustaining a fall and a fracture to her left hip. Initial x- ray did not reveal the fracture and subsequent CAT scan of the left hip revealed a nondisplaced femoral neck fracture. The patient will be admitted to the op erating room at a later stage. In terms of her breathing, the patient has been smoking around a pack of cigarettes a day. She carries at least 50-[id number] smoking history. Chest x-ray shows no acute abnormalities. She has no cough or sputum production at this point in time. No signs of any respiratory distress. No acute bronchospasm or wheezing. No aspiration. She did not lose consciousne ss. She essentially tripped and fell. No angina. No palpitation. Hemodynamically stable. She is currently on 5 L of oxygen by nasal cannula which is essentially her baseline. Review of Systems Constitutional: Reports weakness Eyes: denies as per HPI, denies blurred vision, denies bulging eye, denies decreased vision, denies diplopia, denies discharge, denies dry eye, denies irritation, denies itching, denies pain, denies photophobia, denies loss of peripheral vision, denies loss of vision, denies tunnel vision/blind spots Ears: deny: decreased hearing, ear discharge, earache, tinnitus Ears, nose, mouth and throat: Reports as per HPI Breasts: absent: as per HPI, change in shape, gynecomastia, masses, nipple discharge, pain, skin changes, swelling Cardiovascular: Reports decreased exercise tolerance, Reports dyspnea on e xertion Respiratory: Reports dyspnea Gastrointestinal: Reports as per HPI Genitourinary: Reports as per HPI Menstruation: Reports as per HPI Musculoskeletal: Reports as per HPI Musculoskeletal: absent: ankle pain, ankle stiffness, ankle swelling Integumentary: Reports as per HPI Neurological: Reports as per HPI Psychiatric: Reports as per HPI Endocrine: Reports as per HPI Hematologic/Lymphatic: Reports as per HPI Allergic/Immunologic: Reports as per HPI Past Medical History Past Medical History: Asthma, Chest Pain / Angina, COPD, Diabetes Mellitus, GERD/Reflux, Hypertension, Pneumonia, Respiratory Disorder, Skin Disorder Additional Past Medical History / Comment(s): Home oxygen at 4L/[place] ATC, bronchitis, NIDDM type II, neuropathy bilateral feet, falls, IBS, diverticular disease, hiatal hernia, chronic low back pain, eczema History of Any Multi-Drug Resistant Organisms: None Reported Past Surgical History: Cholecystectomy, Hysterectomy, Tonsillectomy Additional Past Surgical History / Comment(s): colonoscopy Past Anesthesia/Blood Transfusion Reactions: No Reported Reaction Additional Past Anesthesia/Blood Transfusion Reaction / Comment(s): Pt states she has never received blood. Smoking Status: Current every day smoker - Past Family History Father Family Medical History: Cancer Additional Family Medical History / Comment(s): Father of colon cancer at the age of 54 yrs. Mother Family Medical History: CVA/TIA, Hyperlipidemia, Hypertension Additional Family Medical History / Comment(s): Mother lived to be 96yrs old. Medications and Allergies Home Medications Medication Instructions Recorded Confirmed Type Baclofen [Lioresal] 10 mg PO DAILY 06/06/20 06/06/20 History DULoxetine HCL [Cymbalta] 60 mg PO DAILY 06/06/20 06/06/20 History Empagliflozin [Jardiance] 10 mg PO DAILY 06/06/20 06/06/20 History Glimepiride [Amaryl] 4 mg PO AC-BID 06/06/20 06/06/20 History Isosorbide Mononitrate [Ismo] 10 mg PO BID 06/06/20 06/06/20 History LORazepam [Ativan] 1 mg PO TID 06/06/20 06/06/20 History lisinopriL 40 mg PO DAILY 06/06/20 06/06/20 History sitaGLIPtin PHOS/metFORMIN HCL 1 tab PO DAILY 06/06/20 06/06/20 History [Janumet Xr 100-1,000 mg Tablet] traMADol HCl [Ultram] 50 mg PO QID 06/06/20 06/06/20 History Allergies Allergy/AdvReac Type Severity Reaction Status Date / Time doxycycline Allergy Unknown Verified 06/06/20 11:32 nitrofurantoin Allergy Nausea & Verified 06/06/20 11:25 [From Macrobid] Vomiting & Diarrhea Penicillins AdvReac Rash/Hives Verified 06/06/20 11:25 Sulfa (Sulfonamide AdvReac Nausea & Verified 06/06/20 11:25 Antibiotics) Vomiting & Diarrhea Physical Exam Vitals: Vital Signs Temp Pulse Pulse Resp BP Pulse Ox 06/07/20 11:35 80 06/07/20 11:26 86 06/07/20 07:47 88 06/07/20 07:40 92 06/07/20 07:39 92 06/07/20 07:28 90 06/07/20 07:02 97.9 F 82 21 174/78 92 L 06/07/20 03:56 18 06/07/20 01:04 98.8 F 84 178/66 91 L 06/07/20 00:00 18 06/06/20 20:51 86 06/06/20 20:44 89 06/06/20 20:42 89 06/06/20 20:30 87 90 L 06/06/20 19:20 18 06/06/20 18:39 98.6 F 88 161/75 91 L 06/06/20 14:49 87 20 06/06/20 14:10 97.6 F 87 20 176/71 90 L Intake and Output 06/06/20 06/07/20 06/07/20 22:59 06:59 14:59 Intake Total 200 Output Total 200 125 Balance 0 -125 Intake: Oral 200 Output: Urine 200 125 Other: Voiding Method Indwelling Catheter Indwelling Catheter Indwelling Catheter The patient appeared well nourished and normally developed. Vital signs as documented. Head exam is unremarkable. No scleral icterus or corneal arcus noted. Neck is without jugular venous distension, thyromegaly, or carotid bruits. Carotid upstrokes are brisk bilaterally. Lungs are diminished breath sounds bilaterally yet there is no significant bronchospasm or wheezing. Cardiac exam reveals the PMI to be normally sized and situated. Rhythm is regular. First and second heart sounds normal. No murmurs, rubs or gallops. Abdominal exam reveals normal bowel sounds, no masses, no organomegaly and no aortic enlargement. Extremities are nonedematous and both femoral and pedal pulses are normal. Examination of the skin revealed no evidence of significant rashes, suspicious appearing nevi or other concerning lesions. Neurologically, the patient is awake and alert and the patient does not have any focal neurological deficit. Cranial nerves are essentially intact. Results - Laboratory Findings CBC and BMP: 06/07/20 11:20 06/07/20 11:20 PT/INR, D-dimer PT 10.1 sec (9.0-12.0) 06/06/20 11:31 INR 1.0 (<1.2) 06/06/20 11:31 Abnormal lab findings: Abnormal Labs 06/06/20 06/06/20 06/06/20 11:31 11:31 11:31 WBC 20.4 H Hct 48.4 H Neutrophils # 16.7 H Monocytes # 1.1 H BUN 21 H Creatinine 0.47 L Glucose 434 H POC Glucose (mg/dL) Hemoglobin A1c 12.4 H Urine Protein Urine Glucose (UA) Urine Ketones Urine Nitrite Ur Leukocyte Esterase Urine WBC Urine WBC Clumps Urine Bacteria Urine Mucus 06/06/20 06/06/20 06/06/20 12:29 13:04 14:43 WBC Hct Neutrophils # Monocytes # BUN Creatinine Glucose POC Glucose (mg/dL) 400 H 397 H Hemoglobin A1c Urine Protein Trace H Urine Glucose (UA) 4+ H Urine Ketones 1+ H Urine Nitrite Positive H Ur Leukocyte Esterase Trace H Urine WBC 7 H Urine WBC Clumps Few H Urine Bacteria Moderate H Urine Mucus Rare H 06/06/20 06/06/20 06/07/20 16:56 19:53 07:00 WBC Hct Neutrophils # Monocytes # BUN Creatinine Glucose POC Glucose (mg/dL) 318 H 293 H 309 H Hemoglobin A1c Urine Protein Urine Glucose (UA) Urine Ketones Urine Nitrite Ur Leukocyte Esterase Urine WBC Urine WBC Clumps Urine Bacteria Urine Mucus 06/07/20 06/07/20 06/07/20 11:16 11:20 11:20 WBC 15.6 H Hct Neutrophils # 12.2 H Monocytes # 1.3 H BUN 29 H Creatinine Glucose 243 H POC Glucose (mg/dL) 236 H Hemoglobin A1c Urine Protein Urine Glucose (UA) Urine Ketones Urine Nitrite Ur Leukocyte Esterase Urine WBC Urine WBC Clumps Urine Bacteria Urine Mucus 06/07/20 12:37 WBC Hct Neutrophils # Monocytes # BUN Creatinine Glucose POC Glucose (mg/dL) 249 H Hemoglobin A1c Urine Protein Urine Glucose (UA) Urine Ketones Urine Nitrite Ur Leukocyte Esterase Urine WBC Urine WBC Clumps Urine Bacteria Urine Mucus - Diagnostic Findings Chest x-ray: image reviewed Assessment and Plan Plan: 1 acute fall with subsequent nondisplaced incomplete left femoral neck fracture 2 advanced oxygen-dependent COPD currently inactive and stable. 3 chronic hypoxic respiratory failure maintained on oxygen between 4 and 5 L 4 diabetes mellitus, probably poorly controlled with peripheral neuropathy 5 hypertension 6 peripheral neuropathy 7 history of falls 8 history of diverticular disease in addition to IBS 9 chronic back pain Plan No pulmonary contraindications for this patient undergoes surgery. Spinal anesthesia preferred. Keep oxygen at 4 extremities with cannula and titrate the flow to maintain a saturation above 92% Offered the patient DuoNeb nebulized treatments around the clock Incentive spirometer Heparin subcu for DVT prophylaxis Dilantin for pain control Blood sugar management per medicine We'll continue to follow
[2020-06-07 13:55] VITALS: BMI 26.6
--- NOTE | 2020-06-07 16:35 | PN ---
PROGRESS NOTE DATE OF SERVICE: 06/07/2020 This is a 80-year-old woman who was admitted with left femoral fracture, had COPD. The patient also had elevated blood sugars. COPD has been optimized and sugars also improving significantly, WBC 15.2. Cultures are negative at this time. Multiple consultants are following the patient. The patient is slated for surgery today. PAST MEDICAL HISTORY: Reviewed. REVIEW OF SYSTEMS: CARDIOVASCULAR SYSTEM: As mentioned earlier. RESPIRATION: As mentioned earlier. GI: As mentioned earlier. : No dysuria. NERVOUS SYSTEM: No numbness or weakness. CURRENT MEDICATIONS ARE: Reviewed and include: 1. Tylenol p.r.n. 2. Anderson 5 mg. 3. DuoNeb. 4. Lioresal. 5. Pulmicort. 6. Symbicort. 7. Perforomist. 8. Heparin. 9. Dilaudid. 10.NovoLog. 11.Levemir. 12.ISMO. 13.Tradjenta. 14.Zestril. 15.Glucophage. 16.Narcan. 17.Protonix. PHYSICAL EXAM: Patient is alert and oriented x3. Pulse is 82. Blood pressure 130/60, respiration 16, temperature 97.9, pulse ox 91% on 5 L. HEENT: Conjunctivae normal. Oral mucosa moist. NECK: No jugular venous distension. CARDIOVASCULAR: S1, S2, muffled. RESPIRATION: Breath sounds diminished at the bases. Bilateral scattered rhonchi, no crackles. ABDOMEN: Soft, nontender. LEGS: No edema. No swelling. NERVOUS SYSTEM: No focal deficits. LABS: WBC is 15.6, glucose 143. The chest x-ray showed some minimal increased bronchovascular markings. ASSESSMENT: 1. Fall and acute nondisplaced left hip fracture with severe pain. 2. Diabetes mellitus type 2, uncontrolled with hyperglycemia. 3. Chronic obstructive pulmonary disease acute exacerbation with acute hypoxic respiratory failure, present on admission. 4. Acute urinary tract infection, present on admission. 5. Increased WBC. 6. Gait dysfunction. 7. History of asthma. 8. Gastroesophageal reflux disease. 9. Hypertension. 10.History of chronic hypoxic respiratory failure on 4 L nasal cannula. 11.History of peripheral neuropathy. 12.History of irritable bowel syndrome. 13.History of cholecystectomy. 14.History of anxiety, depression. 15.History of nicotine dependence. 16.FULL CODE. RECOMMENDATION: Recommend to continue current medications, symptomatic treatment. Otherwise, optimize bronchodilator treatment. Chest x-ray reviewed, did not show any evidence of any CHF at this time. Otherwise, incentive spirometry, DVT prophylaxis, closely follow. He is cleared for surgery with some extra risk because of the above-mentioned medical issues. Will closely monitor. Further recommendations to follow. LEONILA / LORNAN: [id number] /
--- NOTE | 2020-06-07 16:37 | P.PN ---
Subjective Progress Note Date: 06/07/20 The patient states that the hip pain is well-controlled at rest but still hurts when she moves. She denies chest pain, difficulty breathing, nausea or vomiting. She denies any other issues or concerns. Objective - Vital Signs Vital signs: Vital Signs Temp 97.9 F 06/07/20 13:45 Pulse 84 06/07/20 15:20 Resp 16 06/07/20 13:45 BP 130/67 06/07/20 13:45 Pulse Ox 91 L 06/07/20 13:45 Intake & Output 06/06/20 06/07/20 06/07/20 18:59 06:59 18:59 Intake Total 200 480 Output Total 325 Balance 200 -325 480 Weight 66.224 kg 66.224 kg Intake: Intake, IV Titration 480 Amount Sodium Chloride 0.9% 1, 480 000 ml @ 60 mls/hr IV . [id number] [facility] Rx#:[id number] Oral 200 Output: Urine 325 Other: Voiding Method Indwelling Catheter Indwelling Catheter Indwelling Catheter - Exam Geneneral: Patient is sitting reclines in bed. No acute distress Pulmonary: Mild conversational dyspnea. No audible wheeze. Abdomen: Soft and nontender Musculoskeletal: No ecchymosis about the left hip. Prominent pain with logroll. Leg lengths appear symmetric. Intact light touch sensation gross motor function distally. Foot is warm and dry. - Labs CBC & Chem 7: 06/07/20 11:20 06/07/20 11:20 Labs: Abnormal Lab Results - Last 24 Hours (Table) 06/06/20 06/06/20 06/06/20 Range/Units 11:31 16:56 19:53 WBC (3.8-10.6) k/uL Neutrophils # (1.3-7.7) k/uL Monocytes # (0-1.0) k/uL BUN (7-17) mg/dL Glucose (74-99) mg/dL POC Glucose (mg/dL) 318 H 293 H (75-99) mg/dL Hemoglobin A1c 12.4 H (4.0-6.0) % 06/07/20 06/07/20 06/07/20 Range/Units 07:00 11:16 11:20 WBC 15.6 H (3.8-10.6) k/uL Neutrophils # 12.2 H (1.3-7.7) k/uL Monocytes # 1.3 H (0-1.0) k/uL BUN (7-17) mg/dL Glucose (74-99) mg/dL POC Glucose (mg/dL) 309 H 236 H (75-99) mg/dL Hemoglobin A1c (4.0-6.0) % 06/07/20 06/07/20 Range/Units 11:20 12:37 WBC (3.8-10.6) k/uL Neutrophils # (1.3-7.7) k/uL Monocytes # (0-1.0) k/uL BUN 29 H (7-17) mg/dL Glucose 243 H (74-99) mg/dL POC Glucose (mg/dL) 249 H (75-99) mg/dL Hemoglobin A1c (4.0-6.0) % Microbiology - Last 24 Hours (Table) 06/06/20 14:57 Urine Culture - Preliminary Urine,Clean Catch Assessment and Plan Assessment: 1. Nondisplaced incomplete left femoral neck fracture with intertrochanteric extension 2. Diabetes mellitus - poorly controlled 3. UTI 4. COPD on home oxygen Plan: P: The case was rescheduled for tomorrow due to other urgent operative cases. Continue present care with IV fluid supplementation, oxygen therapy and as- needed pain management. Nonweightbearing - left lower extremity. Hold anticoagulants in preparation for planned spinal anesthesia. NPO after midnight.
[2020-06-07 16:51] LABS: Glucose,Whole Blood 150 mg/dL (75-99)
[2020-06-07 20:18] LABS: Glucose,Whole Blood 205 mg/dL (75-99)
[2020-06-07] MEDS: INSULIN DETEMIR (LEVEMIR) 100 UNIT/ML SYR SQ SCH (21:19)
[2020-06-08] MEDS: HYDROmorphone 0.5 MG/0.5 ML SYRINGE IVP PRN ×3 (05:32→21:39)
[2020-06-08 06:46] LABS: Glucose,Whole Blood 213 mg/dL (75-99)
[2020-06-08] MEDS: IPRATROPIUM-ALBUTEROL 3 ML NEB INHALATION SCH ×4 (07:39→20:48)
[2020-06-08] MEDS: FORMOTEROL FUMARATE 20 MCG/2 ML NEBU INHALATION SCH ×2 (07:39→20:48)
[2020-06-08] MEDS: BUDESONIDE 1 MG/2 ML NEBU INHALATION SCH ×2 (07:39→20:48)
[2020-06-08] MEDS: INSULIN ASPART (NovoLOG) 100 UNIT/ML VIAL SQ SCH ×4 (08:20→20:44)
[2020-06-08] MEDS: metFORMIN 500 MG TAB PO SCH ×2 (08:24→18:15)
[2020-06-08] MEDS: Empagliflozin [Jardiance] PO SCH (08:24)
[2020-06-08] MEDS: HEPARIN SODIUM,PORCINE 5,000 UNIT/ML 1 ML VIAL SQ SCH (08:24)
[2020-06-08] MEDS: PANTOPRAZOLE 40 MG TABLET PO SCH (08:24)
[2020-06-08] MEDS: GLIMEPIRIDE 4 MG TAB PO SCH ×2 (08:24→18:15)
[2020-06-08 08:49] LABS: Basophils # (A) 0.1 k/uL (0-0.2); Basophils % (A) 1 %; Eosinophils # (A) 0.1 k/uL (0-0.7); Eosinophils % (A) 1 %; HGB 14.7 gm/dL (11.4-16.0); Lymphocytes # (A) 2.6 k/uL (1.0-4.8); Lymphocytes % (A) 16 %; MCH 29.1 pg (25.0-35.0); MCHC 30.7 g/dL (31.0-37.0); MCV 94.7 fL (80.0-100.0); Mean Platelet Volume 8.8; Monocytes # (A) 1.1 k/uL (0-1.0); Monocytes % (A) 7 %; Neutrophils % (A) 74 %; Platelet Count 277 k/uL (150-450); RBC 5.06 m/uL (3.80-5.40); RDW 13.6 % (11.5-15.5); WBC 16.2 k/uL (3.8-10.6)
[2020-06-08 08:57] LABS: African American GFR (CKD) >90 (>60 ml/min/1.73 sqM); Anion Gap 4 mmol/L; Blood Urea Nitrogen 25 mg/dL (7-17); Calcium 8.4 mg/dL (8.4-10.2); Carbon Dioxide 23 mmol/L (22-30); Chloride 110 mmol/L (98-107); Glucose 218 mg/dL (74-99); Non-African American GFR(CKD) >90 (>60 ml/min/1.73 sqM); Sodium 137 mmol/L (137-145)
[2020-06-08 09:02] LABS: Potassium 4.5 mmol/L (3.5-5.1)
[2020-06-08] MEDS: LINAGLIPTIN 5 MG TABLET PO SCH (09:58)
[2020-06-08] MEDS: lisinopriL 20 MG TAB PO SCH (09:59)
[2020-06-08] MEDS: ISOSORBIDE MONONITRATE 10 MG TAB PO SCH ×2 (11:05→20:20)
[2020-06-08 11:13] LABS: Glucose,Whole Blood 201 mg/dL (75-99)
[2020-06-08] MEDS ORDERED: fentaNYL (PF) 50 MCG/ML 2 ML AMP IV PRN (11:51)
[2020-06-08] MEDS ORDERED: MIDAZOLAM 2 MG/2 ML VIAL IV PRN (11:51)
[2020-06-08] MEDS: SODIUM CHLORIDE 0.9% 1,000 ML IV SCH ×2 (12:12→16:33)
[2020-06-08] MEDS: DULoxetine HCL 60 MG CAPSULE.DR PO SCH (12:13)
--- NOTE | 2020-06-08 12:16 | P.PN ---
Subjective Progress Note Date: 06/08/20 Principal diagnosis: Acute exacerbation of COPD. Acute left hip fracture 80-year-old female patient with chronic hypoxic respiratory failure attributed to COPD and addition to diabetes and hypertension, comes in to the emergency department after sustaining a fall and a fracture to her left hip. Initial x- ray did not reveal the fracture and subsequent CAT scan of the left hip revealed a nondisplaced femoral neck fracture. The patient will be admitted to the operating room at a later stage. In terms of her breathing, the patient has been smoking around a pack of cigarettes a day. She carries at least 16-[id number] smoking history. Chest x-ray shows no acute abnormalities. She has no cough or sputum production at this point in time. No signs of any respiratory distress. No acute bronchospasm or wheezing. No aspiration. She did not lose consciousness. She essentially tripped and fell. No angina. No palpitation. Hemodynamically stable. She is currently on 5 L of oxygen by nasal cannula which is essentially her baseline. The patient is seen today 06/08/2020 in follow-up on the regular medical floor. She is awake and alert in no acute distress. No worsening shortness of breath, cough or congestion. She is maintaining O2 saturations in the low 90s on 3 L/m per nasal cannula. She remains afebrile. Urine culture positive for gram- negative bacilli. White count 16.2. Hemoglobin 14.7. Sodium 137. Potassium 4.5. Creatinine 0.49. Plan is for surgical repair of the left hip fracture today. Objective - Vital Signs Vital signs: Vital Signs Temp 98.3 F 06/08/20 07:00 Pulse 80 06/08/20 11:19 Resp 16 06/08/20 07:00 BP 175/68 06/08/20 07:00 Pulse Ox 91 L 06/08/20 07:00 Intake & Output 06/07/20 06/08/20 06/08/20 18:59 06:59 18:59 Intake Total 480 400 Output Total 425 Balance 480 -25 Weight 66.224 kg Intake: Intake, IV Titration 480 200 Amount Sodium Chloride 0.9% 1, 480 200 000 ml @ 60 mls/hr IV . [id number] [facility] Rx#:[id number] Oral 200 Output: Urine 425 Other: Voiding Method Indwelling Catheter Indwelling Catheter Indwelling Catheter # Bowel Movements 1 - Exam The patient appeared well nourished and normally developed 80-year-old female patient. Vital signs as documented. Head exam is unremarkable. No scleral icterus or corneal arcus noted. Neck is without jugular venous distension, thyromegaly, or carotid bruits. Carotid upstrokes are brisk bilaterally. Lungs are diminished breath sounds bilaterally yet there is no significant bronchospasm or wheezing. Cardiac exam reveals the PMI to be normally sized and situated. Rhythm is regular. First and second heart sounds normal. No murmurs, rubs or gallops. Abdominal exam reveals normal bowel sounds, no masses, no organomegaly and no aortic enlargement. Extremities are nonedematous and both femoral and pedal pulses are normal. Examination of the skin revealed no evid ence of significant rashes, suspicious appearing nevi or other concerning lesions. Neurologically, the patient is awake and alert and the patient does not have any focal neurological deficit. Cranial nerves are essentially intact. - Labs CBC & Chem 7: 06/08/20 08:10 06/08/20 08:10 Labs: Abnormal Lab Results - Last 24 Hours (Table) 06/07/20 06/07/20 06/07/20 Range/Units 12:37 16:49 20:17 WBC (3.8-10.6) k/uL Hct (34.0-46.0) % MCHC (31.0-37.0) g/dL Neutrophils # (1.3-7.7) k/uL Monocytes # (0-1.0) k/uL Chloride (98-107) mmol/L BUN (7-17) mg/dL Creatinine (0.52-1.04) mg/dL Glucose (74-99) mg/dL POC Glucose (mg/dL) 249 H 150 H 205 H (75-99) mg/dL 06/08/20 06/08/20 06/08/20 Range/Units 06:44 08:10 08:10 WBC 16.2 H (3.8-10.6) k/uL Hct 48.0 H (34.0-46.0) % MCHC 30.7 L (31.0-37.0) g/dL Neutrophils # 12.0 H (1.3-7.7) k/uL Monocytes # 1.1 H (0-1.0) k/uL Chloride 110 H (98-107) mmol/L BUN 25 H (7-17) mg/dL Creatinine 0.49 L (0.52-1.04) mg/dL Glucose 218 H (74-99) mg/dL POC Glucose (mg/dL) 213 H (75-99) mg/dL 06/08/20 Range/Units 11:12 WBC (3.8-10.6) k/uL Hct (34.0-46.0) % MCHC (31.0-37.0) g/dL Neutrophils # (1.3-7.7) k/uL Monocytes # (0-1.0) k/uL Chloride (98-107) mmol/L BUN (7-17) mg/dL Creatinine (0.52-1.04) mg/dL Glucose (74-99) mg/dL POC Glucose (mg/dL) 201 H (75-99) mg/dL Microbiology - Last 24 Hours (Table) 06/06/20 14:57 Urine Culture - Preliminary Urine,Clean Catch Gram Neg Bacilli Assessment and Plan Assessment: 1 acute fall with subsequent nondisplaced incomplete left femoral neck fracture 2 advanced oxygen-dependent COPD currently inactive and stable. 3 chronic hypoxic respiratory failure maintained on oxygen between 4 and 5 L 4 diabetes mellitus, probably poorly controlled with peripheral neuropathy 5 hypertension 6 peripheral neuropathy 7 history of falls 8 history of diverticular disease in addition to IBS 9 chronic back pain 10 gram-negative bacilli UTI Plan The patient was seen and evaluated by Dr. Khoury She is stable from the pulmonary standpoint Plan is for surgical repair of the hip fracture today. Spinal anesthesia prefered Gram negative bacilli UTI, initiate Rocephin We'll continue to follow I, the cosigning physician, performed a history & physical examination of the patient. Lungs sounds are clear, diminished. Maintaining good O2 saturations in the 90s on 3 L/m per nasal cannula. I discussed the assessment and plan of care with my nurse practitioner, Karen Barahona. I attest to the above note as dictated by her.
[2020-06-08] MEDS ORDERED: IV FLUID CONTINUATION 1,000 ML IV ONE (14:18)
[2020-06-08] MEDS ORDERED: ONDANSETRON 4 MG/2 ML VIAL IVP ONE (14:34)
[2020-06-08] MEDS ORDERED: SODIUM CHLORIDE 0.9% 1,000 ML IV ONE (14:54)
[2020-06-08] MEDS ORDERED: MIDAZOLAM 2 MG/2 ML VIAL ONE (14:55)
[2020-06-08] MEDS ORDERED: PROPOFOL 10 MG/ML 20 ML VIAL IV ONE (14:55)
[2020-06-08] MEDS ORDERED: KETAMINE 10 MG/ML 20 ML VIAL ONE (14:55)
[2020-06-08] MEDS ORDERED: ONDANSETRON 4 MG/2 ML VIAL IVP PRN (15:01)
[2020-06-08] MEDS ORDERED: HYDROmorphone 0.5 MG/0.5 ML SYRINGE IVP PRN ×2 (15:01)
[2020-06-08] MEDS ORDERED: HYDROcodone/APAP 5-325MG 1 EACH TAB PO PRN (15:01)
[2020-06-08] MEDS ORDERED: MAGNESIUM HYDROXIDE 2,400 MG/10 ML CUP PO PRN (15:01)
[2020-06-08] MEDS ORDERED: NALOXONE 0.4 MG/ML 1 ML VIAL IV PRN (15:01)
[2020-06-08] MEDS ORDERED: SODIUM CHLORIDE 0.9% 50 ML with ceFAZolin 1,000 MG IV ONE ×2 (15:14)
--- NOTE | 2020-06-08 15:54 | P.OP ---
Date of Procedure: 06/08/20 Preoperative Diagnosis: Intertrochanteric fracture left hip Postoperative Diagnosis: Intertrochanteric fracture left hip Procedure(s) Performed: Close reduction and intramedullary nailing of the left hip Implants: [employer] Intertan nail 125, 11.5 mm x 18 cm. [employer] Intertan integrated-interlocking lag screw, 90 mm lag screw, 85 mm compression screw. [employer] L-P screw, 5.0 mm x 30 mm. Anesthesia: spinal Surgeon: García Saunders Aging Room Hand #1: Teresa Barron Estimated Blood Loss (ml): 100 Pathology: none sent Condition: stable Disposition: PACU Indications for Procedure: This is a 80-year-old female that slipped and fell and sustained a minimally displaced intertrochanteric fracture of her left hip. The fracture is confirmed with computed tomography scan. After discussing the surgical and nonsurgical treatment options with her at length I've recommended a close reduction and intramedullary hip nailing of her left hip. Informed consent was obtained. Operative Findings: The operative findings are consistent with a minimally displaced intertrochanteric fracture of the left hip. Description of Procedure: The patient was seen in the preoperative area, consent was reviewed, and the operative site was marked with a skin marker. The surgical procedure was discussed at length with both the patient and the family at the bedside. All questions were answered to the best of my ability. The patient was brought to the operating room and placed on the fracture table. Anesthesia was administered by the anesthesia department. 2 g of Ancef were administered intravenously. The patient was placed supine on the fracture table with the fractured extremity in traction boot. The other extremity was placed in a well leg august and the bony prominences were well padded. A universal timeout was then performed which confirmed the patient's name, surgical site, ALLERGIES, and consent. Fracture reduction was performed with a traction and abduction maneuver which was confirmed with fluoroscopy, both AP and lateral views.. After reduction was performed, the extremity was then prepped with ChloraPrep solution and draped in the usual sterile fashion. Utilizing fluoroscopy to identify the tip of the greater trochanter, a 3 cm longitudinal incision was made just proximal to the greater trochanter. Incision was carried through the fascia to the tip of the greater trochanter. Utilizing a curved awl, the entry point was created at the tip of the greater trochanter and centralized in the AP and lateral planes. These locations were confirmed by fluoroscopy. A guidewire was then inserted down the medullary canal. Sequentially reaming of the femur was performed to 13 mm distally and 17 mm proximally with the channel reamer. After reaming, appropriate size nail was inserted over the guidewire. The nail was inserted to the appropriate depth and the guidewire was removed. Placement of the aniyah was confirmed with both AP and lateral fluoroscopic views. The lag screw drill sleeve was placed in the jig and a small skin incision was made on the lateral aspect of the leg and the lag screw drill sleeve was locked into the guide. The 3.2 mm guide pin sleeve was inserted through the lag screw drill sleeve down to bone. A 3.2 mm distally threaded guidewire was inserted through the guide pin sleeve. The guidewire was inserted in the desired position in the femoral head, both anterior and posterior. The lag screw length cage was inserted over the guidepin to the back of the lag screw drill sleeve. Lag screw length was then measured from the cage. Next, the 7.0 mm compression screw starter drill was inserted in the lag screw drill sleeve beneath the guidepin. The compression screw starter drill was advanced under power until it abutted the back and of the lag screw drill sleeve. The 7.0 mm compression screw drill was inserted through the lag screw drill sleeve into the hole created by the compression screw starter drill. This was advanced under fluoroscopy to a depth 5 mm less and the measurement taken for the guidepin. The compression screw drill was removed and the antirotation bar was inserted into the same hole. The 3.2 mm guide pin sleeve was then removed from the drill guide. The lag screw drill was then inserted to a depth that was measured by the lag screw gauge. This was done under fluoroscopy. The lag screw was inserted over the guidewire to the appropriate depth using fluoroscopy. Traction was then released. The antirotation bar was then removed and the compression screw was advanced through the lag screw drill sleeve beneath the lag screw. This was advanced to the appropriate compression was achieved. The proximal drill guide was then removed and the distal drill guide was then inserted in the jig. Skin incision was made down to bone and the distal drill guide was then placed. Distal hole was then drilled with a 4.0 mm drill an d measured to the appropriate depth. Distal screw was then placed. The entire assembly was then removed and final fluoroscopic x-rays were obtained. The wounds were then irrigated copiously with saline solution. Fascia was closed with 0-Vicryl. Subcutaneous tissues were closed with 2-0 Vicryl and the skin was closed with sheela. Sterile dressings were applied. The patient was transported to the recovery room in stable condition. The assistant financial accountant IOANA Robbins was required due the complexity of surgery the need for skilled surgical assistant certified for positioning draping retraction and fracture reduction.
--- NOTE | 2020-06-08 16:16 | XR ---
EXAMINATION TYPE: XR Hip Limited LT DATE OF EXAM: 06/08/2020 COMPARISON: 06/06/2020 HISTORY: Hip surgery TECHNIQUE: Single view FINDINGS: There is intramedullary aniyah in the proximal femur with transverse screws fixing the intertr ochanteric left femur. Components are in good position. IMPRESSION: No complicating process seen.
[2020-06-08] MEDS: BACLOFEN 10 MG TAB PO SCH (16:29)
[2020-06-08 16:30] LABS: Glucose,Whole Blood 147 mg/dL (75-99)
[2020-06-08 17:09] LABS: Glucose,Whole Blood 153 mg/dL (75-99)
[2020-06-08 17:20] LABS: Basophils # (A) 0.1 k/uL (0-0.2); Basophils % (A) 1 %; Eosinophils # (A) 0.2 k/uL (0-0.7); Eosinophils % (A) 1 %; HCT 47.4 % (34.0-46.0); HGB 14.6 gm/dL (11.4-16.0); Hypochromasia Slight; Lymphocytes # (A) 2.4 k/uL (1.0-4.8); Lymphocytes % (A) 12 %; MCH 29.7 pg (25.0-35.0); MCHC 30.8 g/dL (31.0-37.0); MCV 96.3 fL (80.0-100.0); Mean Platelet Volume 9.1; Monocytes # (A) 1.3 k/uL (0-1.0); Monocytes % (A) 6 %; Neutrophils # (A) 16.2 k/uL (1.3-7.7); Neutrophils % (A) 80 %; Platelet Count 293 k/uL (150-450); RBC 4.92 m/uL (3.80-5.40); RDW 13.3 % (11.5-15.5); WBC 20.4 k/uL (3.8-10.6)
[2020-06-08] MEDS: CLINDAMYCIN 900 MG in DEXTROSE 5% IN WATER 50 ML IVPB SCH ×2 (18:15)
[2020-06-08] MEDS: LACTATED RINGERS 1,000 ML IV SCH (18:16)
[2020-06-08] MEDS: NICOTINE 14MG/24HR PATCH TRANSDERM SCH (19:14)
[2020-06-08] MEDS: HYDROcodone/APAP 5-325MG 1 EACH TAB PO PRN (19:14)
[2020-06-08 20:08] LABS: Glucose,Whole Blood 145 mg/dL (75-99)
[2020-06-08] MEDS: SENNOSIDES-DOCUSATE SODIUM 1 EACH TAB PO SCH (20:20)
[2020-06-08] MEDS: INSULIN DETEMIR (LEVEMIR) 100 UNIT/ML SYR SQ SCH (20:44)
--- NOTE | 2020-06-08 23:44 | P.PN ---
Subjective Progress Note Date: 06/08/20 Principal diagnosis: left hip fracture, UTI Ms. Hassan is a 80-year-old female with a past medical history of asthma, COPD, diabetes mellitus, GERD, hypertension, chronic respiratory failure on 4 L of oxygen at home admitted to the hospital with left femur fracture. Patient had closed reduction and intramedullary nailing of the left hip done today. She is comfortably resting in bed her is at bedside. Patient's vitals postop have been stable. Patient denies having any new complaints. Labs from this morning show an elevated white count of 20.4 her blood sugars have been running on the higher side in 200s to 300s.On review of systems patient denies having any fevers chills or rigors. No cough or difficulty breathing. She is on 4 L of nasal cannula at home. No chest pain or palpitations. Denies having any abdominal pain nausea vomiting or diarrhea. Active Medications Acetaminophen (Tylenol Tab) 500 mg PO Q4HR PRN PRN Reason: Fever and/ or Pain Hydrocodone Bitart/Acetaminophen ([place] 5-325) 1 each PO Q6HR PRN PRN Reason: Pain Scale 1 to 5 Hydrocodone Bitart/Acetaminophen ([place] 5-325) 2 each PO Q6HR PRN PRN Reason: Pain Scale 6 to 10 Last Admin: 06/09/20 11:54 Dose: 2 each Documented by: Albuterol/Ipratropium (Duoneb 0.5 Mg-3 Mg/3 Ml Soln) 3 ml INHALATION RT-QID [facility] Last Admin: 06/09/20 12:34 Dose: 3 ml Documented by: Albuterol/Ipratropium (Duoneb 0.5 Mg-3 Mg/3 Ml Soln) 3 ml INHALATION RT-QID PRN PRN Reason: Shortness Of Breath Or Wheezing Baclofen (Lioresal) 10 mg PO DAILY [facility] Last Admin: 06/09/20 10:24 Dose: 10 mg Documented by: Budesonide (Pulmicort) 1 mg INHALATION RT-BID [facility] Last Admin: 06/09/20 09:17 Dose: 1 mg Documented by: Duloxetine HCl (Cymbalta) 60 mg PO DAILY [facility] Last Admin: 06/09/20 10:24 Dose: 60 mg Documented by: Formoterol Fumarate (Perforomist) 20 mcg INHALATION RT-BID [facility] Last Admin: 06/09/20 09:17 Dose: 20 mcg Documented by: Glimepiride (Amaryl) 4 mg PO AC-BID [facility] Last Admin: 06/09/20 08:29 Dose: Not Given Documented by: Hydromorphone HCl (Dilaudid) 0.125 mg IVP Q3HR PRN PRN Reason: Pain Scale 1 to 3 Hydromorphone HCl (Dilaudid) 0.25 mg IVP Q3HR PRN PRN Reason: Pain Scale 4 to 6 Last Admin: 06/09/20 00:46 Dose: 0.25 mg Documented by: Hydromorphone HCl (Dilaudid) 0.5 mg IVP Q3HR PRN PRN Reason: Pain Scale 7 to 10 Last Admin: 06/09/20 07:45 Dose: 0.5 mg Documented by: Ceftriaxone Sodium 1 gm/ (Sodium Chloride) 50 mls @ 100 mls/hr IVPB Q24HR [facility] Last Admin: 06/09/20 10:24 Dose: 100 mls/hr Documented by: Lactated Ringer's (Lactated Ringers) 1,000 mls @ 20 mls/hr IV .Q24H [facility] Last Admin: 06/09/20 12:26 Dose: Not Given Documented by: Sodium Chloride (Saline 0.9%) 1,000 mls @ 65 mls/hr IV .[id number] [facility] Last Admin: 06/09/20 10:24 Dose: 65 mls/hr Documented by: Insulin Aspart (Novolog) 0 unit SQ ACHS [facility]; Protocol Last Admin: 06/09/20 12:23 Dose: 3 unit Documented by: Insulin Detemir (Levemir) 15 unit SQ HS [facility] Last Admin: 06/08/20 20:44 Dose: 15 unit Documented by: Isosorbide Mononitrate (Ismo) 10 mg PO BID [facility] Last Admin: 06/09/20 10:25 Dose: 10 mg Documented by: Linagliptin (Tradjenta) 5 mg PO DAILY [facility] Last Admin: 06/09/20 08:29 Dose: Not Given Documented by: Lisinopril (Zestril) 40 mg PO DAILY [facility] Last Admin: 06/09/20 10:25 Dose: 40 mg Documented by: Lorazepam (Ativan) 1 mg PO TID PRN PRN Reason: Anxiety Magnesium Hydroxide (Milk Of Magnesia) 2,400 mg PO DAILY PRN PRN Reason: Constipation Metformin HCl (Glucophage) 500 mg PO BID-W/MEALS [facility] Last Admin: 06/09/20 10:24 Dose: 500 mg Documented by: Naloxone HCl (Narcan) 0.2 mg IV Q2M PRN PRN Reason: Opioid Reversal Nicotine (Habitrol 14mg/24hr Patch) 1 patch TRANSDERM DAILY [facility] Last Admin: 06/09/20 10:27 Dose: Not Given Documented by: Empagliflozin [ (Jardiance]) 10 mg PO DAILY [facility] Last Admin: 06/09/20 10:25 Dose: Not Given Documented by: Ondansetron HCl (Zofran) 4 mg IVP Q8H PRN PRN Reason: Nausea And Vomiting Pantoprazole Sodium (Protonix) 40 mg PO AC-BRKFST [facility] Last Admin: 06/09/20 10:25 Dose: 40 mg Documented by: Rivaroxaban (Xarelto) 10 mg PO DAILY [facility] Last Admin: 06/09/20 10:24 Dose: 10 mg Documented by: Senna/Docusate Sodium (Senokot-S) 2 each PO HS [facility] Last Admin: 06/08/20 20:20 Dose: 2 each Documented by: Objective - Vital Signs Vital signs: Vital Signs Temp 97.6 F 06/08/20 16:44 Pulse 85 06/08/20 16:44 Resp 16 06/08/20 16:31 BP 161/83 06/08/20 16:44 Pulse Ox 93 L 06/08/20 16:44 Intake & Output 06/07/20 06/08/20 06/08/20 18:59 06:59 18:59 Intake Total 480 400 850 Output Total 425 800 Balance 480 -25 50 Weight 66.224 kg Intake: IV 850 Intake, IV Titration 480 200 Amount Sodium Chloride 0.9% 1, 480 200 000 ml @ 60 mls/hr IV . [id number] [facility] Rx#:[id number] Oral 200 Output: Urine 425 700 Estimated Blood Loss 100 Other: Voiding Method Indwelling Catheter Indwelling Catheter Indwelling Catheter # Bowel Movements 1 - Exam PHYSICAL EXAM General: The patient is awake and alert, no acute distress HEENT: No pallor, no icterus, Cardiovascular: There is a regular rate and rhythm. No murmur, rub or gallop is appreciated. Respiratory: diminished breath sounds at the lower lung morrison. No wheezes. Gastrointestinal: Soft, non-distended, non-tender abdomen without masses or org anomegaly noted. Veloz's catheter in place. Musculoskeletal: Left leg neurovascularly intact . No pedla edema. Neurological: A&O x 3. No obvious motor or sensory or focal deficits. Psychiatric: Cooperative, appropriate mood & affect, normal judgment. - Labs CBC & Chem 7: 06/09/20 06:57 06/09/20 06:57 Labs: Abnormal Lab Results - Last 24 Hours (Table) 06/07/20 06/08/20 06/08/20 Range/Units 20:17 06:44 08:10 WBC 16.2 H (3.8-10.6) k/uL Hct 48.0 H (34.0-46.0) % MCHC 30.7 L (31.0-37.0) g/dL Neutrophils # 12.0 H (1.3-7.7) k/uL Monocytes # 1.1 H (0-1.0) k/uL Chloride (98-107) mmol/L BUN (7-17) mg/dL Creatinine (0.52-1.04) mg/dL Glucose (74-99) mg/dL POC Glucose (mg/dL) 205 H 213 H (75-99) mg/dL 06/08/20 06/08/20 06/08/20 Range/Units 08:10 11:12 16:28 WBC (3.8-10.6) k/uL Hct (34.0-46.0) % MCHC (31.0-37.0) g/dL Neutrophils # (1.3-7.7) k/uL Monocytes # (0-1.0) k/uL Chloride 110 H (98-107) mmol/L BUN 25 H (7-17) mg/dL Creatinine 0.49 L (0.52-1.04) mg/dL Glucose 218 H (74-99) mg/dL POC Glucose (mg/dL) 201 H 147 H (75-99) mg/dL 06/08/20 06/08/20 Range/Units 16:58 17:07 WBC 20.4 H (3.8-10.6) k/uL Hct 47.4 H (34.0-46.0) % MCHC 30.8 L (31.0-37.0) g/dL Neutrophils # 16.2 H (1.3-7.7) k/uL Monocytes # 1.3 H (0-1.0) k/uL Chloride (98-107) mmol/L BUN (7-17) mg/dL Creatinine (0.52-1.04) mg/dL Glucose (74-99) mg/dL POC Glucose (mg/dL) 153 H (75-99) mg/dL Microbiology - Last 24 Hours (Table) 06/06/20 14:57 Urine Culture - Preliminary Urine,Clean Catch Gram Neg Bacilli Assessment and Plan Assessment: ASSESSMENT Acute nondisplaced displaced left hip fracture status post fall Status post closed reduction and intramedullary nailing of the left hip done today Acute hypoxic respiratory failure due to acute COPD exacerbation Acute UTI GERD Chronic hypoxic respiratory failure on 4 L of nasal cannula Peripheral neuropathy Irritable bowel syndrome Anxiety with depression Current everyday smoker PLAN: Patient had closed reduction and intramedullary nailing of the left hip done today. Patient will be continued on ceftriaxone for UTI. As the patient's blood sugars have been running high will adjust the dose of insulin. Continue with breathing treatments and further recommendations to follow depending on the progress of the patient.
[2020-06-09] MEDS: CLINDAMYCIN 900 MG in DEXTROSE 5% IN WATER 50 ML IVPB SCH ×2 (00:46)
[2020-06-09] MEDS: HYDROcodone/APAP 5-325MG 1 EACH TAB PO PRN ×3 (04:19→18:02)
[2020-06-09 07:34] LABS: Basophils # (A) 0.1 k/uL (0-0.2); Basophils % (A) 1 %; Eosinophils # (A) 0.1 k/uL (0-0.7); Eosinophils % (A) 1 %; HCT 42.4 % (34.0-46.0); HGB 13.2 gm/dL (11.4-16.0); Lymphocytes # (A) 2.4 k/uL (1.0-4.8); Lymphocytes % (A) 15 %; MCH 29.2 pg (25.0-35.0); MCHC 31.1 g/dL (31.0-37.0); MCV 94.1 fL (80.0-100.0); Mean Platelet Volume 9.1; Monocytes # (A) 1.3 k/uL (0-1.0); Monocytes % (A) 8 %; Neutrophils # (A) 12.5 k/uL (1.3-7.7); Neutrophils % (A) 75 %; Platelet Count 277 k/uL (150-450); RDW 13.5 % (11.5-15.5); WBC 16.6 k/uL (3.8-10.6)
[2020-06-09] MEDS: INSULIN ASPART (NovoLOG) 100 UNIT/ML VIAL SQ SCH ×4 (07:35→20:47)
[2020-06-09] MEDS: HYDROmorphone 0.5 MG/0.5 ML SYRINGE IVP PRN (07:45)
[2020-06-09 07:48] LABS: African American GFR (CKD) >90 (>60 ml/min/1.73 sqM); Anion Gap 6 mmol/L; Blood Urea Nitrogen 20 mg/dL (7-17); Carbon Dioxide 23 mmol/L (22-30); Chloride 112 mmol/L (98-107); Glucose 63 mg/dL (74-99); Non-African American GFR(CKD) 90 (>60 ml/min/1.73 sqM); Sodium 141 mmol/L (137-145)
[2020-06-09 08:00] LABS: Glucose,Whole Blood 76 mg/dL (75-99)
[2020-06-09 08:00] LABS: Glucose,Whole Blood 69 mg/dL (75-99)
[2020-06-09] MEDS: GLIMEPIRIDE 4 MG TAB PO SCH ×2 (08:29→18:03)
[2020-06-09] MEDS: LINAGLIPTIN 5 MG TABLET PO SCH (08:29)
--- NOTE | 2020-06-09 08:51 | XR ---
EXAMINATION TYPE: XR Hip Complete LT DATE OF EXAM: 06/08/2020 COMPARISON: Left femur radiograph 06/06/2020 HISTORY: ORIF left hip TECHNIQUE: Fluoroscopy. FINDINGS: Fluoroscopic guidance was provided during procedure performed by Dr. Saunders. A total of 47 seconds of fluoroscopic time was utilized during the procedure and 2 spot images was acquired. Pl ease see operative report for additional details. IMPRESSION: As Above.
[2020-06-09] MEDS: BUDESONIDE 1 MG/2 ML NEBU INHALATION SCH ×2 (09:17→19:05)
[2020-06-09] MEDS: FORMOTEROL FUMARATE 20 MCG/2 ML NEBU INHALATION SCH ×2 (09:17→19:17)
[2020-06-09] MEDS: IPRATROPIUM-ALBUTEROL 3 ML NEB INHALATION SCH ×4 (09:17→19:05)
--- NOTE | 2020-06-09 09:52 | P.PN ---
Subjective Progress Note Date: 06/09/20 This is a 80-year-old female who is status post closed reduction and intramedullary nailing of the left hip. This is postoperative day #1 and patient is seen and evaluated at bedside. Patient is confused this morning. No acute events overnight. Objective - Vital Signs Vital signs: Vital Signs Temp 98.2 F 06/09/20 08:15 Pulse 84 06/09/20 09:39 Resp 20 06/09/20 08:15 BP 180/63 06/09/20 08:15 Pulse Ox 90 L 06/09/20 08:15 Intake & Output 06/08/20 06/09/20 06/09/20 18:59 06:59 18:59 Intake Total 850 Output Total 800 1375 Balance 50 -1375 Intake: IV 850 Output: Urine 700 1375 Estimated Blood Loss 100 Other: Voiding Method Indwelling Catheter Indwelling Catheter # Bowel Movements 1 1 - Exam Vital signs are stable. Patient is in no acute distress and is alert and oriented 3. Calf is soft and nontender to palpation. Dressing is clean, dry, and intact. Patient has full foot and ankle motion without pain or difficulty. Neurovascular status and circulatory status are intact. - Labs CBC & Chem 7: 06/09/20 06:57 06/09/20 06:57 Labs: Abnormal Lab Results - Last 24 Hours (Table) 06/08/20 06/08/20 06/08/20 Range/Units 11:12 16:28 16:58 WBC 20.4 H (3.8-10.6) k/uL Hct 47.4 H (34.0-46.0) % MCHC 30.8 L (31.0-37.0) g/dL Neutrophils # 16.2 H (1.3-7.7) k/uL Monocytes # 1.3 H (0-1.0) k/uL Chloride (98-107) mmol/L BUN (7-17) mg/dL Glucose (74-99) mg/dL POC Glucose (mg/dL) 201 H 147 H (75-99) mg/dL Calcium (8.4-10.2) mg/dL 06/08/20 06/08/20 06/09/20 Range/Units 17:07 20:05 06:57 WBC 16.6 H (3.8-10.6) k/uL Hct (34.0-46.0) % MCHC (31.0-37.0) g/dL Neutrophils # 12.5 H (1.3-7.7) k/uL Monocytes # 1.3 H (0-1.0) k/uL Chloride (98-107) mmol/L BUN (7-17) mg/dL Glucose (74-99) mg/dL POC Glucose (mg/dL) 153 H 145 H (75-99) mg/dL Calcium (8.4-10.2) mg/dL 06/09/20 06/09/20 Range/Units 06:57 07:29 WBC (3.8-10.6) k/uL Hct (34.0-46.0) % MCHC (31.0-37.0) g/dL Neutrophils # (1.3-7.7) k/uL Monocytes # (0-1.0) k/uL Chloride 112 H (98-107) mmol/L BUN 20 H (7-17) mg/dL Glucose 63 L (74-99) mg/dL POC Glucose (mg/dL) 69 L (75-99) mg/dL Calcium 8.0 L (8.4-10.2) mg/dL Microbiology - Last 24 Hours (Table) 06/06/20 14:57 Urine Culture - Final Urine,Clean Catch Escherichia coli Assessment and Plan Assessment: Status post closed reduction and intramedullary nailing of the left hip. (1) Closed left hip fracture Current Visit: Yes Status: Acute Code(s): S72.002A - FRACTURE OF UNSP PART OF NECK OF LEFT FEMUR, INIT SNOMED Code(s): 416325538 (2) Fall Current Visit: Yes Status: Acute Code(s): W19.XXXA - UNSPECIFIED FALL, INITIAL ENCOUNTER SNOMED Code(s): 1671963 Plan: Continue routine postop care and pain control. Continue anticoagulation with Xarelto. Weightbearing as tolerated with a walker. Daily dressing changes. Appreciate input from medicine. Anticipate discharge to [facility] in the next 24-48 hours.
[2020-06-09] MEDS: SODIUM CHLORIDE 0.9% 1,000 ML IV SCH (10:24)
[2020-06-09] MEDS: metFORMIN 500 MG TAB PO SCH ×2 (10:24→18:02)
[2020-06-09] MEDS: DULoxetine HCL 60 MG CAPSULE.DR PO SCH (10:24)
[2020-06-09] MEDS: BACLOFEN 10 MG TAB PO SCH (10:24)
[2020-06-09] MEDS: RIVAROXABAN 10 MG TAB PO SCH (10:24)
[2020-06-09] MEDS: PANTOPRAZOLE 40 MG TABLET PO SCH (10:25)
[2020-06-09] MEDS: Empagliflozin [Jardiance] PO SCH (10:25)
[2020-06-09] MEDS: lisinopriL 20 MG TAB PO SCH (10:25)
[2020-06-09] MEDS: ISOSORBIDE MONONITRATE 10 MG TAB PO SCH ×2 (10:25→20:49)
[2020-06-09] MEDS: NICOTINE 14MG/24HR PATCH TRANSDERM SCH (10:27)
--- NOTE | 2020-06-09 11:55 | P.PN ---
Subjective Progress Note Date: 06/09/20 Principal diagnosis: Acute exacerbation of COPD. Acute left hip fracture 80-year-old female patient with chronic hypoxic respiratory failure attributed to COPD and addition to diabetes and hypertension, comes in to the emergency department after sustaining a fall and a fracture to her left hip. Initial x- ray did not reveal the fracture and subsequent CAT scan of the left hip revealed a nondisplaced femoral neck fracture. The patient will be admitted to the operating room at a later stage. In terms of her breathing, the patient has been smoking around a pack of cigarettes a day. She carries at least 27-tolo-pfth smoking history. Chest x-ray shows no acute abnormalities. She has no cough or sputum production at this point in time. No signs of any respiratory distress. No acute bronchospasm or wheezing. No aspiration. She did not lose consciousness. She essentially tripped and fell. No angina. No palpitation. Hemodynamically stable. She is currently on 5 L of oxygen by nasal cannula which is essentially her baseline. The patient is seen today 06/08/2020 in follow-up on the regular medical floor. She is awake and alert in no acute distress. No worsening shortness of breath, cough or congestion. She is maintaining O2 saturations in the low 90s on 3 L/m per nasal cannula. She remains afebrile. Urine culture positive for gram- negative bacilli. White count 16.2. Hemoglobin 14.7. Sodium 137. Potassium 4.5. Creatinine 0.49. Plan is for surgical repair of the left hip fracture today. The patient is seen today 06/19/2020 follow-up on the regular medical floor. She is currently sitting up in a chair at the bedside. She is awake and alert in no acute distress. She did undergo closed reduction and intramedullary nailing of the left hip yesterday. She tolerated procedure well. She currently denies any worsening shortness of breath, cough or congestion. She is working well with the incentive spirometer. Maintaining O2 saturations in the low 90s on 4 L/m per nasal cannula. She's afebrile. Urine culture was positive for E. coli. She remains on ceftriaxone. White count 16.6. Hemoglobin 13.2. Sodium 141. Potassium 4.0. Creatinine 0.55. She remains on bronchodilators, NicoDerm patch in place, anticoagulated with Xarelto. Objective - Vital Signs Vital signs: Vital Signs Temp 98.2 F 06/09/20 08:15 Pulse 84 06/09/20 09:39 Resp 20 06/09/20 08:15 BP 180/63 06/09/20 08:15 Pulse Ox 90 L 06/09/20 08:15 Intake & Output 06/08/20 06/09/20 06/09/20 18:59 06:59 18:59 Intake Total 850 Output Total 800 1375 Balance 50 -1375 Intake: IV 850 Output: Urine 700 1375 Estimated Blood Loss 100 Other: Voiding Method Indwelling Catheter Indwelling Catheter Indwelling Catheter # Bowel Movements 1 1 - Exam The patient appeared well nourished and normally developed 80-year-old female patient. Vital signs as documented. Head exam is unremarkable. No scleral icterus or corneal arcus noted. Neck is without jugular venous distension, thyromegaly, or carotid bruits. Carotid upstrokes are brisk bilaterally. Lungs are diminished breath sounds bilaterally yet there is no significant bronchospasm or wheezing. Cardiac exam reveals the PMI to be normally sized and situated. Rhythm is regular. First and second heart sounds normal. No murmurs, rubs or gallops. Abdominal exam reveals normal bowel sounds, no masses, no organomegaly and no aortic enlargement. Dressing to the left hip is dry and intact. Extremities are nonedematous and both femoral and pedal pulses are normal. Examination of the skin revealed no evidence of significant rashes, suspicious appearing nevi or other concerning lesions. Neurologically, the patient is awake and alert and the patient does not have any focal neurological deficit. Cranial nerves are essentially intact. - Labs CBC & Chem 7: 06/09/20 06:57 06/09/20 06:57 Labs: Abnormal Lab Results - Last 24 Hours (Table) 06/08/20 06/08/20 06/08/20 Range/Units 16:28 16:58 17:07 WBC 20.4 H (3.8-10.6) k/uL Hct 47.4 H (34.0-46.0) % MCHC 30.8 L (31.0-37.0) g/dL Neutrophils # 16.2 H (1.3-7.7) k/uL Monocytes # 1.3 H (0-1.0) k/uL Chloride (98-107) mmol/L BUN (7-17) mg/dL Glucose (74-99) mg/dL POC Glucose (mg/dL) 147 H 153 H (75-99) mg/dL Calcium (8.4-10.2) mg/dL 06/08/20 06/09/20 06/09/20 Range/Units 20:05 06:57 06:57 WBC 16.6 H (3.8-10.6) k/uL Hct (34.0-46.0) % MCHC (31.0-37.0) g/dL Neutrophils # 12.5 H (1.3-7.7) k/uL Monocytes # 1.3 H (0-1.0) k/uL Chloride 112 H (98-107) mmol/L BUN 20 H (7-17) mg/dL Glucose 63 L (74-99) mg/dL POC Glucose (mg/dL) 145 H (75-99) mg/dL Calcium 8.0 L (8.4-10.2) mg/dL 06/09/20 Range/Units 07:29 WBC (3.8-10.6) k/uL Hct (34.0-46.0) % MCHC (31.0-37.0) g/dL Neutrophils # (1.3-7.7) k/uL Monocytes # (0-1.0) k/uL Chloride (98-107) mmol/L BUN (7-17) mg/dL Glucose (74-99) mg/dL POC Glucose (mg/dL) 69 L (75-99) mg/dL Calcium (8.4-10.2) mg/dL Microbiology - Last 24 Hours (Table) 06/06/20 14:57 Urine Culture - Final Urine,Clean Catch Escherichia coli Assessment and Plan Assessment: 1 acute fall with subsequent nondisplaced incomplete left femoral neck fracture, status post closed reduction and intramedullary nailing. Postoperative day #1. 2 advanced oxygen-dependent COPD currently inactive and stable. 3 chronic hypoxic respiratory failure maintained on oxygen between 4 and 5 L 4 diabetes mellitus, probably poorly controlled with peripheral neuropathy 5 hypertension 6 peripheral neuropathy 7 history of falls 8 history of diverticular disease in addition to IBS 9 chronic back pain 10 gram-negative bacilli UTI Plan The patient was seen and evaluated by Dr. Khoury She is stable from the pulmonary standpoint Encouraged regarding the increased use of the incentive spirometer and cough and deep breathing exercises Again educated regarding the importance of complete smoking cessation, NicoDerm patches in place Increase her activity as tolerated We'll continue to follow I, the cosigning physician, performed a history & physical examination of the patient. Lungs sounds are clear, diminished. Maintaining good O2 saturations in the 90s on 4 L/m per nasal cannula. I discussed the assessment and plan of care with my nurse practitioner, Karen Barahona. I attest to the above note as dictated by her.
[2020-06-09 12:02] LABS: Glucose,Whole Blood 222 mg/dL (75-99)
[2020-06-09] MEDS: LACTATED RINGERS 1,000 ML IV SCH (12:26)
--- NOTE | 2020-06-09 14:45 | P.PN ---
Subjective Progress Note Date: 06/09/20 Principal diagnosis: left hip fracture, UTI Ms. Hassan is a 80-year-old female with a past medical history of asthma, COPD, diabetes mellitus, GERD, hypertension, chronic respiratory failure on 4 L of oxygen at home admitted to the hospital with left femur fracture. Patient had closed reduction and intramedullary nailing of the left hip done today. She is comfortably resting in bed her is at bedside. Patient's vitals postop have been stable. Patient denies having any new complaints. Labs from this morning show an elevated white count of 20.4 her blood sugars have been running on the higher side in 200s to 300s.On review of systems patient denies having any fevers chills or rigors. No cough or difficulty breathing. She is on 4 L of nasal cannula at home. No chest pain or palpitations. Denies having any abdominal pain nausea vomiting or diarrhea. Active medications Acetaminophen (Tylenol Tab) 500 mg PO Q4HR PRN PRN Reason: Fever and/ or Pain Hydrocodone Bitart/Acetaminophen ([place] 5-325) 1 each PO Q6HR PRN PRN Reason: Pain Scale 1 to 5 Hydrocodone Bitart/Acetaminophen ([place] 5-325) 2 each PO Q6HR PRN PRN Reason: Pain Scale 6 to 10 Last Admin: 06/09/20 11:54 Dose: 2 each Documented by: Albuterol/Ipratropium (Duoneb 0.5 Mg-3 Mg/3 Ml Soln) 3 ml INHALATION RT-QID [facility] Last Admin: 06/09/20 12:34 Dose: 3 ml Documented by: Albuterol/Ipratropium (Duoneb 0.5 Mg-3 Mg/3 Ml Soln) 3 ml INHALATION RT-QID PRN PRN Reason: Shortness Of Breath Or Wheezing Baclofen (Lioresal) 10 mg PO DAILY [facility] Last Admin: 06/09/20 10:24 Dose: 10 mg Documented by: Budesonide (Pulmicort) 1 mg INHALATION RT-BID [facility] Last Admin: 06/09/20 09:17 Dose: 1 mg Documented by: Duloxetine HCl (Cymbalta) 60 mg PO DAILY [facility] Last Admin: 06/09/20 10:24 Dose: 60 mg Documented by: Formoterol Fumarate (Perforomist) 20 mcg INHALATION RT-BID [facility] Last Admin: 06/09/20 09:17 Dose: 20 mcg Documented by: Glimepiride (Amaryl) 4 mg PO AC-BID [facility] Last Admin: 06/09/20 08:29 Dose: Not Given Documented by: Hydromorphone HCl (Dilaudid) 0.125 mg IVP Q3HR PRN PRN Reason: Pain Scale 1 to 3 Hydromorphone HCl (Dilaudid) 0.25 mg IVP Q3HR PRN PRN Reason: Pain Scale 4 to 6 Last Admin: 06/09/20 00:46 Dose: 0.25 mg Documented by: Hydromorphone HCl (Dilaudid) 0.5 mg IVP Q3HR PRN PRN Reason: Pain Scale 7 to 10 Last Admin: 06/09/20 07:45 Dose: 0.5 mg Documented by: Ceftriaxone Sodium 1 gm/ (Sodium Chloride) 50 mls @ 100 mls/hr IVPB Q24HR [facility] Last Admin: 06/09/20 10:24 Dose: 100 mls/hr Documented by: Lactated Ringer's (Lactated Ringers) 1,000 mls @ 20 mls/hr IV .Q24H [facility] Last Admin: 06/09/20 12:26 Dose: Not Given Documented by: Sodium Chloride (Saline 0.9%) 1,000 mls @ 65 mls/hr IV .[id number] [facility] Last Admin: 06/09/20 10:24 Dose: 65 mls/hr Documented by: Insulin Aspart (Novolog) 0 unit SQ ACHS [facility]; Protocol Last Admin: 06/09/20 12:23 Dose: 3 unit Documented by: Insulin Detemir (Levemir) 15 unit SQ HS [facility] Last Admin: 06/08/20 20:44 Dose: 15 unit Documented by: Isosorbide Mononitrate (Ismo) 10 mg PO BID [facility] Last Admin: 06/09/20 10:25 Dose: 10 mg Documented by: Linagliptin (Tradjenta) 5 mg PO DAILY [facility] Last Admin: 06/09/20 08:29 Dose: Not Given Documented by: Lisinopril (Zestril) 40 mg PO DAILY [facility] Last Admin: 06/09/20 10:25 Dose: 40 mg Documented by: Lorazepam (Ativan) 1 mg PO TID PRN PRN Reason: Anxiety Magnesium Hydroxide (Milk Of Magnesia) 2,400 mg PO DAILY PRN PRN Reason: Constipation Metformin HCl (Glucophage) 500 mg PO BID-W/MEALS [facility] Last Admin: 06/09/20 10:24 Dose: 500 mg Documented by: Naloxone HCl (Narcan) 0.2 mg IV Q2M PRN PRN Reason: Opioid Reversal Nicotine (Habitrol 14mg/24hr Patch) 1 patch TRANSDERM DAILY [facility] Last Admin: 06/09/20 10:27 Dose: Not Given Documented by: Empagliflozin [ (Jardiance]) 10 mg PO DAILY [facility] Last Admin: 06/09/20 10:25 Dose: Not Given Documented by: Ondansetron HCl (Zofran) 4 mg IVP Q8H PRN PRN Reason: Nausea And Vomiting Pantoprazole Sodium (Protonix) 40 mg PO AC-BRKFST [facility] Last Admin: 06/09/20 10:25 Dose: 40 mg Documented by: Rivaroxaban (Xarelto) 10 mg PO DAILY [facility] Last Admin: 06/09/20 10:24 Dose: 10 mg Documented by: Senna/Docusate Sodium (Senokot-S) 2 each PO HS [facility] Last Admin: 06/08/20 20:20 Dose: 2 each Documented by: Objective - Vital Signs Vital signs: Vital Signs Temp 98.2 F 06/09/20 08:15 Pulse 88 06/09/20 12:45 Resp 20 06/09/20 08:15 BP 180/63 06/09/20 08:15 Pulse Ox 90 L 06/09/20 08:15 Intake & Output 06/08/20 06/09/20 06/09/20 18:59 06:59 18:59 Intake Total 850 520 Output Total 800 1375 Balance 50 -1375 520 Intake: IV 850 520 Sodium Chloride 0.9% 1, 520 000 ml @ 65 mls/hr IV . [id number] [facility] Rx#:[id number] Output: Urine 700 1375 Estimated Blood Loss 100 Other: Voiding Method Indwelling Catheter Indwelling Catheter Indwelling Catheter # Bowel Movements 1 1 - Exam PHYSICAL EXAM General: The patient is awake and alert, no acute distress HEENT: No pallor, no icterus, Cardiovascular: There is a regular rate and rhythm. No murmur, rub or gallop is appreciated. Respiratory: diminished breath sounds at the lower lung morrison. No wheezes. Gastrointestinal: Soft, non-distended, non-tender abdomen without masses or organomegaly noted. Veloz's catheter in place. Musculoskeletal: Left leg neurovascularly intact . No pedla edema. Neurological: A&O x 3. No obvious motor or sensory or focal deficits. Skin: the skin around her vaginal area looks raw and inflamed. Psychiatric: Cooperative, appropriate mood & affect, normal judgment. - Labs CBC & Chem 7: 06/09/20 06:57 06/09/20 06:57 Labs: Abnormal Lab Results - Last 24 Hours (Table) 06/08/20 06/08/20 06/08/20 Range/Units 16:28 16:58 17:07 WBC 20.4 H (3.8-10.6) k/uL Hct 47.4 H (34.0-46.0) % MCHC 30.8 L (31.0-37.0) g/dL Neutrophils # 16.2 H (1.3-7.7) k/uL Monocytes # 1.3 H (0-1.0) k/uL Chloride (98-107) mmol/L BUN (7-17) mg/dL Glucose (74-99) mg/dL POC Glucose (mg/dL) 147 H 153 H (75-99) mg/dL Calcium (8.4-10.2) mg/dL 06/08/20 06/09/20 06/09/20 Range/Units 20:05 06:57 06:57 WBC 16.6 H (3.8-10.6) k/uL Hct (34.0-46.0) % MCHC (31.0-37.0) g/dL Neutrophils # 12.5 H (1.3-7.7) k/uL Monocytes # 1.3 H (0-1.0) k/uL Chloride 112 H (98-107) mmol/L BUN 20 H (7-17) mg/dL Glucose 63 L (74-99) mg/dL POC Glucose (mg/dL) 145 H (75-99) mg/dL Calcium 8.0 L (8.4-10.2) mg/dL 06/09/20 06/09/20 Range/Units 07:29 11:56 WBC (3.8-10.6) k/uL Hct (34.0-46.0) % MCHC (31.0-37.0) g/dL Neutrophils # (1.3-7.7) k/uL Monocytes # (0-1.0) k/uL Chloride (98-107) mmol/L BUN (7-17) mg/dL Glucose (74-99) mg/dL POC Glucose (mg/dL) 69 L 222 H (75-99) mg/dL Calcium (8.4-10.2) mg/dL Microbiology - Last 24 Hours (Table) 06/06/20 14:57 Urine Culture - Final Urine,Clean Catch Escherichia coli Assessment and Plan Assessment: ASSESSMENT Acute nondisplaced displaced left hip fracture status post fall Status post closed reduction and intramedullary nailing of the left hip done today Acute hypoxic respiratory failure due to acute COPD exacerbation Acute UTI GERD Chronic hypoxic respiratory failure on 4 L of nasal cannula Peripheral neuropathy Irritable bowel syndrome Anxiety with depression Current everyday smoker PLAN: Patient had closed reduction and intramedullary nailing of the left hip done today. Patient will be continued on ceftriaxone for UTI, urine cultures positive for E. coli, pending susceptibilities. As the patient's blood sugars have been running high will adjust the dose of insulin. Continue with breathing treatments and further recommendations to follow depending on the progress of the patient.
--- NOTE | 2020-06-09 15:07 | FL ---
EXAMINATION TYPE: FL guidance operating room DATE OF EXAM: 06/08/2020 COMPARISON: Left femur radiograph 06/06/2020 HISTORY: ORIF left hip TECHNIQUE: Fluoroscopy. FINDINGS: Fluoroscopic guidance was provided during procedure for performing physician Dr. Saunders. A total of 47 seconds of fluoroscopic time was utilized during the procedure and 2 spot images was a cquired. Please see operative report for additional details. IMPRESSION: As Above.
[2020-06-09 17:18] LABS: Glucose,Whole Blood 169 mg/dL (75-99)
[2020-06-09 20:37] LABS: Glucose,Whole Blood 194 mg/dL (75-99)
[2020-06-09] MEDS: INSULIN DETEMIR (LEVEMIR) 100 UNIT/ML SYR SQ SCH (20:49)
[2020-06-09] MEDS: SENNOSIDES-DOCUSATE SODIUM 1 EACH TAB PO SCH (20:50)
[2020-06-10] MEDS: HYDROcodone/APAP 5-325MG 1 EACH TAB PO PRN ×3 (02:24→13:07)
[2020-06-10] MEDS: SODIUM CHLORIDE 0.9% 1,000 ML IV SCH ×2 (02:26→02:27)
[2020-06-10 07:03] LABS: Glucose,Whole Blood 69 mg/dL (75-99)
[2020-06-10] MEDS: metFORMIN 500 MG TAB PO SCH (07:08)
[2020-06-10] MEDS: INSULIN ASPART (NovoLOG) 100 UNIT/ML VIAL SQ SCH ×2 (07:08→12:02)
[2020-06-10] MEDS: GLIMEPIRIDE 4 MG TAB PO SCH (07:08)
[2020-06-10] MEDS: Empagliflozin [Jardiance] PO SCH (07:09)
[2020-06-10] MEDS: LINAGLIPTIN 5 MG TABLET PO SCH (07:09)
[2020-06-10] MEDS: NICOTINE 14MG/24HR PATCH TRANSDERM SCH ×2 (07:18→07:19)
[2020-06-10] MEDS: BACLOFEN 10 MG TAB PO SCH (07:18)
[2020-06-10] MEDS: ISOSORBIDE MONONITRATE 10 MG TAB PO SCH (07:19)
[2020-06-10] MEDS: lisinopriL 20 MG TAB PO SCH (07:19)
[2020-06-10] MEDS: PANTOPRAZOLE 40 MG TABLET PO SCH (07:19)
[2020-06-10] MEDS: RIVAROXABAN 10 MG TAB PO SCH (07:19)
[2020-06-10] MEDS: DULoxetine HCL 60 MG CAPSULE.DR PO SCH (07:20)
[2020-06-10 07:37] LABS: Glucose,Whole Blood 122 mg/dL (75-99)
[2020-06-10 07:52] VITALS: RESP 20; TEMP 98.2
[2020-06-10] MEDS: BUDESONIDE 1 MG/2 ML NEBU INHALATION SCH (07:56)
[2020-06-10] MEDS: IPRATROPIUM-ALBUTEROL 3 ML NEB INHALATION SCH ×3 (07:57→15:46)
[2020-06-10] MEDS: FORMOTEROL FUMARATE 20 MCG/2 ML NEBU INHALATION SCH (07:57)
[2020-06-10 08:09] LABS: Basophils # (A) 0.1 k/uL (0-0.2); Basophils % (A) 1 %; Eosinophils # (A) 0.2 k/uL (0-0.7); Eosinophils % (A) 1 %; HCT 37.4 % (34.0-46.0); HGB 11.5 gm/dL (11.4-16.0); Hypochromasia Moderate; Lymphocytes # (A) 1.8 k/uL (1.0-4.8); Lymphocytes % (A) 14 %; MCH 29.5 pg (25.0-35.0); MCHC 30.7 g/dL (31.0-37.0); Mean Platelet Volume 9.3; Monocytes # (A) 1.1 k/uL (0-1.0); Monocytes % (A) 8 %; Neutrophils # (A) 9.6 k/uL (1.3-7.7); Neutrophils % (A) 74 %; Platelet Count 311 k/uL (150-450); RDW 13.5 % (11.5-15.5); WBC 13.1 k/uL (3.8-10.6)
[2020-06-10 08:22] LABS: African American GFR (CKD) >90 (>60 ml/min/1.73 sqM); Anion Gap 5 mmol/L; Blood Urea Nitrogen 16 mg/dL (7-17); Calcium 7.7 mg/dL (8.4-10.2); Carbon Dioxide 20 mmol/L (22-30); Chloride 114 mmol/L (98-107); Glucose 126 mg/dL (74-99); Non-African American GFR(CKD) >90 (>60 ml/min/1.73 sqM); Potassium 4.2 mmol/L (3.5-5.1); Sodium 139 mmol/L (137-145)
[2020-06-10 08:38] VITALS: BP 143/93
[2020-06-10] MEDS: LACTATED RINGERS 1,000 ML IV SCH (08:53)
[2020-06-10 11:27] LABS: Glucose,Whole Blood 209 mg/dL (75-99)
--- NOTE | 2020-06-10 11:49 | P.DS ---
Providers Date of admission: 06/06/20 12:19 Expected date of discharge: 06/10/20 Attending physician: García Saunders Consults: 06/06/20 14:13 Consult Physician Routine Consulting Provider: Delmer Graham Consult Reason/Comments: New admission, medical Do you want consulting provider notified?: Already Contacted 06/06/20 19:27 Consult Physician Routine Consulting Provider: Lyudmila Khoury Consult Reason/Comments: copd Do you want consulting provider notified?: Yes Primary care physician: Veena Spain - Discharge Diagnosis(es) (1) Closed left hip fracture Current Visit: Yes Status: Acute (2) Fall Current Visit: Yes Status: Acute Hospital Course: This is a 80-year-old female who sustained an intertrochanteric fracture of the left femur after a fall on 06/06/2020. The patient presented for evaluation in the emergency room. After discussion and consideration patient elects to proceed with closed reduction and intramedullary nailing of the left hip. The patient is seen preoperatively by Dr. Saunedrs and cleared for surgery by internal medicine. Patient is admitted to [facility] on 06/06/2020 and closed reduction and intramedullary nailing of the left hip is performed on 06/08/2020. The procedures performed without complication or sequelae. The patient is doing well postoperatively. Labs and vital signs are stable on day of discharge. On day of discharge patient's hip incision is healing well. There is minimal erythema. There is no drainage noted at this time. There is minimal soft tissue swelling to the hip and thigh. Patient has full foot and ankle motion without difficulty or pain. Neurovascular status to the left lower extremity is intact. Patient is discharged to rehab in good condition. Please see med rec for accurate list of home medications. Patient Condition at Discharge: Stable Plan - Discharge Summary Discharge Rx Participant: No New Discharge Prescriptions: New HYDROcodone/APAP 5-325MG [[place] 5-325] 1 - 2 tab PO Q6HR PRN #48 tab PRN Reason: Pain Sennosides [Senokot] 2 tab PO DAILY PRN #60 tablet PRN Reason: Constipation Rivaroxaban [Xarelto] 10 mg PO DAILY #33 tab No Action traMADol HCl [Ultram] 50 mg PO QID LORazepam [Ativan] 1 mg PO TID sitaGLIPtin PHOS/metFORMIN HCL [Janumet Xr 100-1,000 mg Tablet] 1 tab PO DAILY lisinopriL 40 mg PO DAILY Isosorbide Mononitrate [Ismo] 10 mg PO BID Glimepiride [Amaryl] 4 mg PO AC-BID DULoxetine HCL [Cymbalta] 60 mg PO DAILY Baclofen [Lioresal] 10 mg PO DAILY Empagliflozin [Jardiance] 10 mg PO DAILY Discharge Medication List Baclofen [Lioresal] 10 mg PO DAILY 06/06/20 [History] DULoxetine HCL [Cymbalta] 60 mg PO DAILY 06/06/20 [History] Empagliflozin [Jardiance] 10 mg PO DAILY 06/06/20 [History] Glimepiride [Amaryl] 4 mg PO AC-BID 06/06/20 [History] Isosorbide Mononitrate [Ismo] 10 mg PO BID 06/06/20 [History] LORazepam [Ativan] 1 mg PO TID 06/06/20 [History] lisinopriL 40 mg PO DAILY 06/06/20 [History] sitaGLIPtin PHOS/metFORMIN HCL [Janumet Xr 100-1,000 mg Tablet] 1 tab PO DAILY 06/06/20 [History] traMADol HCl [Ultram] 50 mg PO QID 06/06/20 [History] HYDROcodone/APAP 5-325MG [[place] 5-325] 1 - 2 tab PO Q6HR PRN #48 tab 06/10/20 [Rx] Rivaroxaban [Xarelto] 10 mg PO DAILY #33 tab 06/10/20 [Rx] Sennosides [Senokot] 2 tab PO DAILY PRN #60 tablet 06/10/20 [Rx] Follow up Appointment(s)/Referral(s): Veena Spain DO [Primary Care Provider] - 1-2 days García Saunders DO [Doctor of Osteopathic Medicine] - 1 Week [facility] Visiting Nurse, [NON-STAFF] - 1-2 Days Activity/Diet/Wound Care/Special Instructions: Weightbearing as tolerated with walker. Daily dressing changes. The shower in 24-48 hours if no drainage from the incision. Please take medications as prescribed. Recommend use of compression stockings daily until follow up to help prevent swelling and blood clots. May remove at night before sleeping. Please follow-up with [facility] in 2 weeks and call with any questions or concerns, . Discharge Disposition: TRANSFER TO SNF/ECF
--- NOTE | 2020-06-10 13:35 | P.PN ---
Subjective Progress Note Date: 06/10/20 Principal diagnosis: Acute exacerbation of COPD, acute left hip fracture 80-year-old female patient with chronic hypoxic respiratory failure attributed to COPD and addition to diabetes and hypertension, comes in to the emergency department after sustaining a fall and a fracture to her left hip. Initial x- ray did not reveal the fracture and subsequent CAT scan of the left hip revealed a nondisplaced femoral neck fracture. The patient will be admitted to the operating room at a later stage. In terms of her breathing, the patient has been smoking around a pack of cigarettes a day. She carries at least [id number] smoking history. Chest x-ray shows no acute abnormalities. She has no cough or sputum production at this point in time. No signs of any respiratory distress. No acute bronchospasm or wheezing. No aspiration. She did not lose consciousness. She essentially tripped and fell. No angina. No palpitation. Hemodynamically stable. She is currently on 5 L of oxygen by nasal cannula which is essentially her baseline. The patient is seen today 06/08/2020 in follow-up on the regular medical floor. She is awake and alert in no acute distress. No worsening shortness of breath, cough or congestion. She is maintaining O2 saturations in the low 90s on 3 L/m per nasal cannula. She remains afebrile. Urine culture positive for gram- negative bacilli. White count 16.2. Hemoglobin 14.7. Sodium 137. Potassium 4.5. Creatinine 0.49. Plan is for surgical repair of the left hip fracture today. The patient is seen today 06/19/2020 follow-up on the regular medical floor. She is currently sitting up in a chair at the bedside. She is awake and alert in no acute distress. She did undergo closed reduction and intramedullary nailing of the left hip yesterday. She tolerated procedure well. She currently denies any worsening shortness of breath, cough or congestion. She is working well with the incentive spirometer. Maintaining O2 saturations in the low 90s on 4 L/m per nasal cannula. She's afebrile. Urine culture was positive for E. coli. She remains on ceftriaxone. White count 16.6. Hemoglobin 13.2. Sodium 141. Potassium 4.0. Creatinine 0.55. She remains on bronchodilators, NicoDerm patch in place, anticoagulated with Xarelto. On 06/10/2020 patient seen in follow-up on [facility], she is awake alert, she sitting up in the chair, she is on 4 L of oxygen and this is the amount of oxygen she is usually on at home. Denies any pain, vital signs are stable, no fever or chills, her left hip covered with surgical dressing, patient has been participating with physical therapy, she has had no acute events overnight, he is on nebulized bronchodilators including Pulmicort and Perforomist, she is on antibiotics in the form of Rocephin for E. coli urinary tract infection, her breathing is comfortable, no chest pain or palpitations, no abdominal pain and nausea vomiting or diarrhea. Objective - Vital Signs Vital signs: Vital Signs Temp 98.2 F 06/10/20 07:00 Pulse 106 H 06/10/20 08:38 Resp 20 06/10/20 07:00 BP 143/93 06/10/20 08:38 Pulse Ox 92 L 06/10/20 07:00 Intake & Output 06/09/20 06/10/20 06/10/20 18:59 06:59 18:59 Intake Total 520 840 250 Output Total 450 Balance 520 390 250 Intake: IV 520 Sodium Chloride 0.9% 1, 520 000 ml @ 65 mls/hr IV . [id number] [facility] Rx#:[id number] Intake, IV Titration 750 Amount Sodium Chloride 0.9% 1, 750 000 ml @ 65 mls/hr IV . [id number] [facility] Rx#:[id number] Oral 90 250 Output: Urine 450 Other: Voiding Method Indwelling Catheter Diaper Diaper Incontinent Incontinent # Voids 1 - Exam GENERAL EXAM: Alert, very pleasant, 80-year-old white female, in 4 L of oxygen with a pulse ox of 92% comfortable in no apparent distress. HEAD: Normocephalic/atraumatic. EYES: Normal reaction of pupils, equal size. Conjunctiva pink, sclera white. NOSE: Clear with pink turbinates. THROAT: No erythema or exudates. NECK: No masses, no JVD, no thyroid enlargement, no adenopathy. CHEST: No chest wall deformity. Symmetrical expansion. LUNGS: Equal air entry with no crackles, wheeze, rhonchi or dullness. CVS: Regular rate and rhythm, normal S1 and S2, no gallops, no murmurs, no rubs ABDOMEN: Soft, nontender. No hepatosplenomegaly, normal bowel sounds, no guarding or rigidity. EXTREMITIES: No clubbing, no edema, no cyanosis, 2+ pulses and upper and lower extremities. MUSCULOSKELETAL: Muscle strength and tone normal. SPINE: No scoliosis or deformity SKIN: No rashes left hip incision clean dry and intact, covered with surgical dressing CENTRAL NERVOUS SYSTEM: Alert and oriented -3. No focal deficits, tone is normal in all 4 extremities. PSYCHIATRIC: Alert and oriented -3. Appropriate affect. Intact judgment and insight. - Labs CBC & Chem 7: 06/10/20 07:40 06/10/20 07:40 Labs: Abnormal Lab Results - Last 24 Hours (Table) 06/09/20 06/09/20 06/10/20 Range/Units 17:04 20:35 06:57 WBC (3.8-10.6) k/uL MCHC (31.0-37.0) g/dL Neutrophils # (1.3-7.7) k/uL Monocytes # (0-1.0) k/uL Chloride (98-107) mmol/L Carbon Dioxide (22-30) mmol/L Creatinine (0.52-1.04) mg/dL Glucose (74-99) mg/dL POC Glucose (mg/dL) 169 H 194 H 69 L (75-99) mg/dL Calcium (8.4-10.2) mg/dL 06/10/20 06/10/20 06/10/20 Range/Units 07:29 07:40 07:40 WBC 13.1 H (3.8-10.6) k/uL MCHC 30.7 L (31.0-37.0) g/dL Neutrophils # 9.6 H (1.3-7.7) k/uL Monocytes # 1.1 H (0-1.0) k/uL Chloride 114 H (98-107) mmol/L Carbon Dioxide 20 L (22-30) mmol/L Creatinine 0.42 L (0.52-1.04) mg/dL Glucose 126 H (74-99) mg/dL POC Glucose (mg/dL) 122 H (75-99) mg/dL Calcium 7.7 L (8.4-10.2) mg/dL 08/10/20 Range/Units 11:26 WBC (3.8-10.6) k/uL MCHC (31.0-37.0) g/dL Neutrophils # (1.3-7.7) k/uL Monocytes # (0-1.0) k/uL Chloride (98-107) mmol/L Carbon Dioxide (22-30) mmol/L Creatinine (0.52-1.04) mg/dL Glucose (74-99) mg/dL POC Glucose (mg/dL) 209 H (75-99) mg/dL Calcium (8.4-10.2) mg/dL Assessment and Plan Plan: Assessment: 1 acute fall with subsequent nondisplaced incomplete left femoral neck fracture, status post closed reduction and intramedullary nailing. Postoperative day #2. 2 advanced oxygen-dependent COPD currently inactive and stable. 3 chronic hypoxic respiratory failure maintained on oxygen between 4 and 5 L 4 diabetes mellitus, probably poorly controlled with peripheral neuropathy 5 hypertension 6 peripheral neuropathy 7 history of falls 8 history of diverticular disease in addition to IBS 9 chronic back pain 10 E. coli urinary tract infection on Rocephin Plan: Patient is doing well, stable from pulmonary perspective, she is on her home oxygen at 4 L, she is maintaining stable O2 saturations, encourage deep b reathing and coughing, continue nebulized bronchodilators, no acute events overnight, she is on antibiotics for urinary tract infection, she is anticipated to be discharged home, follow-up with Dr. Khoury in the office in 7-10 days I performed a history & physical examination of the patient and discussed their management with my nurse practitioner, Lydia Taylor. I reviewed the nurse practitioner's note and agree with the documented findings and plan of care. Lung sounds are positive for diffuse wheezes throughout the lung morrison. The findings and the impression was discussed with the patient. I attest to the documentation by the nurse practitioner. Time with Patient: Less than 30
[2020-06-10 15:59] VITALS: PULSE 82
[2020-06-10 16:31] LABS: Glucose,Whole Blood 209 mg/dL (75-99)
--- NOTE | 2020-06-10 22:44 | P.PN ---
Subjective Progress Note Date: 06/10/20 Principal diagnosis: Left hip fracture, UTI Ms. Hassan is a 80-year-old female with a past medical history of asthma, COPD, diabetes mellitus, GERD, hypertension, chronic respiratory failure on 4 L of oxygen at home admitted to the hospital with left femur fracture. Patient had closed reduction and intramedullary nailing of the left hip done on 06/08/20 . On 06/10/2020 -patient is comfortably sitting in the bed. No acute events reported overnight. Appears to be in no acute distress. She is saturating on 4 L of oxygen, which is what she is on at home. Patient's last set of vitals showing temperature of 98.2, blood pressure 143.83, satting at 92% on 4 L. Patient's urine culture is positive for E. coli. On reviewing her labs from this morning there is a downtrend of white count of 13.1. Her electrolytes have been within normal limits. She is being discharged by orthopedic surgery to [facility] today. Objective - Vital Signs Vital signs: Vital Signs Temp 98.2 F 06/10/20 07:00 Pulse 106 H 06/10/20 08:38 Resp 20 06/10/20 07:00 BP 143/93 06/10/20 08:38 Pulse Ox 92 L 06/10/20 07:00 Intake & Output 06/09/20 06/10/20 06/10/20 18:59 06:59 18:59 Intake Total 520 840 250 Output Total 450 Balance 520 390 250 Intake: IV 520 Sodium Chloride 0.9% 1, 520 000 ml @ 65 mls/hr IV . [id number] BALDEV Rx#:[id number] Intake, IV Titration 750 Amount Sodium Chloride 0.9% 1, 750 000 ml @ 65 mls/hr IV . [id number] BALDEV Rx#:[id number] Oral 90 250 Output: Urine 450 Other: Voiding Method Indwelling Catheter Diaper Diaper Incontinent Incontinent # Voids 1 - Exam PHYSICAL EXAM General: The patient is awake and alert, no acute distress HEENT: No pallor, no icterus, Cardiovascular: There is a regular rate and rhythm. No murmur, rub or gallop is appreciated. Respiratory: diminished breath sounds at the lower lung morrison. No wheezes. Gastrointestinal: Soft, non-distended, non-tender abdomen without masses or organomegaly noted. Musculoskeletal: Left leg neurovascularly intact . No pedal edema. Neurological: A&O x 3. No obvious motor or sensory or focal deficits. Psychiatric: Cooperative, appropriate mood & affect, normal judgment. - Labs CBC & Chem 7: 06/10/20 07:40 06/10/20 07:40 Labs: Abnormal Lab Results - Last 24 Hours (Table) 06/09/20 06/09/20 06/10/20 Range/Units 17:04 20:35 06:57 WBC (3.8-10.6) k/uL MCHC (31.0-37.0) g/dL Neutrophils # (1.3-7.7) k/uL Monocytes # (0-1.0) k/uL Chloride (98-107) mmol/L Carbon Dioxide (22-30) mmol/L Creatinine (0.52-1.04) mg/dL Glucose (74-99) mg/dL POC Glucose (mg/dL) 169 H 194 H 69 L (75-99) mg/dL Calcium (8.4-10.2) mg/dL 06/10/20 06/10/20 06/10/20 Range/Units 07:29 07:40 07:40 WBC 13.1 H (3.8-10.6) k/uL MCHC 30.7 L (31.0-37.0) g/dL Neutrophils # 9.6 H (1.3-7.7) k/uL Monocytes # 1.1 H (0-1.0) k/uL Chloride 114 H (98-107) mmol/L Carbon Dioxide 20 L (22-30) mmol/L Creatinine 0.42 L (0.52-1.04) mg/dL Glucose 126 H (74-99) mg/dL POC Glucose (mg/dL) 122 H (75-99) mg/dL Calcium 7.7 L (8.4-10.2) mg/dL 06/10/20 Range/Units 11:26 WBC (3.8-10.6) k/uL MCHC (31.0-37.0) g/dL Neutrophils # (1.3-7.7) k/uL Monocytes # (0-1.0) k/uL Chloride (98-107) mmol/L Carbon Dioxide (22-30) mmol/L Creatinine (0.52-1.04) mg/dL Glucose (74-99) mg/dL POC Glucose (mg/dL) 209 H (75-99) mg/dL Calcium (8.4-10.2) mg/dL Assessment and Plan Assessment: ASSESSMENT Acute nondisplaced displaced left hip fracture status post fall Status post closed reduction and intramedullary nailing of the left hip done today Acute hypoxic respiratory failure due to acute COPD exacerbation Acute UTI GERD Chronic hypoxic respiratory failure on 4 L of nasal cannula Peripheral neuropathy Irritable bowel syndrome Anxiety with depression Current everyday smoker PLAN: Patient had closed reduction and intramedullary nailing of the left hip done today. Patient will be continued on ceftriaxone for UTI, urine cultures positive for E. coli.Patient's urine culture is back with susceptibilities it is resistant to ciprofloxacin, levofloxacin and Bactrim. It is sensitive to second-generation cephalosporins. So she is being discharged on Ceftin 500 mg p.o. twice daily for 4 more days.Patient's medication reconciliation has been d one at the time of discharge.
--- NOTE | 2020-06-11 13:06 | CDI ---
Documentation Clarification Form Date: 06/11/20 From: Mildred Driver Phone: If you have a question about this query, please contact Rebecca Luna, Machine Whitener at [phone] between 8am and 5pm. Admit Date: 06/06/20 Discharge Date:06/10/20 Patient Name: Sabina Hassan Visit Number: [id number] ATTENTION: The Clinical Documentation Specialists (CDI) and [facility] Coding Staff appreciate your assistance in clarifying documentation. Please respond to the clarification below the line at the bottom and electronically sign. The CDI & [facility] Coding staff will review the response and follow-up if needed. Please note: Queries are made part of the Legal Health Record. If you have any questions, please contact the author of this message via ITS. Dear Dr. Nunes Your patient has a documented diagnosis of acute hypoxic respiratory failure due to acute COPD exacerbation - which may lack sufficient clinical evidence/support. History/Risk Factors: Chronic hypoxic respiratory failure, COPD, anxiety, fracture of left hip Clinical Indicators: Shortness of breath Tobacco Use: Current cigarette smoker Home Oxygen: Home oxygen dependent at 4L/NC ATC Vital signs: T. 98.1, P. 89, R. 18, BP 173/80 Pulse Ox: 94% on admit, then down to 90% later in the day Lung/Breathing assessment: Breath sounds diminished at the bases. bilateral scattered rhonchi, no crackles. Treatment: Breathing tx: Optimize bronchodilator treatement O2: 3L/min by NC at admit. 6 L/min by NC on 06/08 Based on the clinical evidence and your professional judgment, do you feel Acute Respiratory Failure is a valid diagnosis? Yes, acute hypoxic respiratory failure present/active during this admission as evidence by (additional clinical support): No, acute hypoxic respiratory failure was ruled out. Other (please specify diagnosis) Unable to determine No, acute hypoxic respiratory failure was ruled out. MTDD
--- NOTE | 2020-07-03 07:31 | CDI ---
Documentation Clarification Form Date: 07/03/20 From: Mildred Driver Phone: If you have a question about this query, please contact Rebecca Luna, Finance Controller at [phone] between 8am and 5pm. Admit Date: 06/06/20 Discharge Date:06/10/20 Patient Name: Sabina Hassan Visit Number: [id number] ATTENTION: The Clinical Documentation Specialists (CDI) and [facility] Coding Staff appreciate your assistance in clarifying documentation. Please respond to the clarification below the line at the bottom and electronically sign. The CDI & [facility] Coding staff will review the response and follow-up if needed. Please note: Queries are made part of the Legal Health Record. If you have any questions, please contact the author of this message via ITS. Dear Dr. Saunders Patient is confused this morning was documented in your 06/09 progress note. History/Risk Factors: Closed left hip fracture, status post closed reduction and IM nailing, UTI from E.coli, DM uncontrolled with hyperglycemia Clinical Indicators: Confused Labs: Glucose 63, chloride 112, WBC 16.2 Treatment: IV Ceftriaxone, Insulin adjustment on 06/09 for elevated blood sugar In your professional opinion, please clarify the etiology of the Altered Mental Status, if known. Delirium (specify cause): Dementia (if know, specify Type and if with/without Behavioral Disturbance) Encephalopathy (specify Type and Underlying Medical Illness) Other condition (please specify) Unable to determine this is a query for the medical doctor MTDD
--- NOTE | 2020-07-05 14:13 | CDI ---
Documentation Clarification Form Date: 07/05/20 From: Mildred Driver Phone: If you have a question about this query, please contact Rebecca Luna, Lye Treater at [phone] between 8am and 5pm. Admit Date: 06/06/20 Discharge Date:06/10/20 Patient Name: Sabina Hassan Visit Number: [id number] ATTENTION: The Clinical Documentation Specialists (CDI) and [facility] Coding Staff appreciate your assistance in clarifying documentation. Please respond to the clarification below the line at the bottom and electronically sign. The CDI & [facility] Coding staff will review the response and follow-up if needed. Please note: Queries are made part of the Legal Health Record. If you have any questions, please contact the author of this message via ITS. Dear Dr. Saunders Thank you for signing the previous query. Please document a response before signing this query. Patient is confused this morning was documented in your 06/09 progress note. History/Risk Factors: Closed left hip fracture, status post closed reduction and IM nailing, UTI from E.coli, DM uncontrolled with hyperglycemia Clinical Indicators: Confused Labs: Glucose 63, chloride 112, WBC 16.2 Treatment: IV Ceftriaxone, Insulin adjustment on 06/09 for elevated blood sugar In your professional opinion, please clarify the etiology of the Altered Mental Status, if known. Delirium (specify cause): Dementia (if know, specify Type and if with/without Behavioral Disturbance) Encephalopathy (specify Type and Underlying Medical Illness) Other condition (please specify) Unable to determine This is a question for medicine, not orthopedics MTDD
--- NOTE | 2020-07-12 10:02 | CDI ---
Documentation Clarification Form Date: 07/12/20 From: Mildred Driver Phone: If you have a question about this query, please contact Rebecca Luna, Plastic Products Sales Representative at [phone] between 8am and 5pm. Admit Date: 06/06/20 Discharge Date:06/10/20 Patient Name: Sabina Hassan Visit Number: [id number] ATTENTION: The Clinical Documentation Specialists (CDI) and [facility] Coding Staff appreciate your assistance in clarifying documentation. Please respond to the clarification below the line at the bottom and electronically sign. The CDI & [facility] Coding staff will review the response and follow-up if needed. Please note: Queries are made part of the Legal Health Record. If you have any questions, please contact the author of this message via ITS. Dear Dr. Graham Patient is confused this morning was documented in the orthopedic 06/09 progress note. History/Risk Factors: Closed left hip fracture, status post closed reduction and IM nailing, UTI from E.coli, DM uncontrolled with hyperglycemia Clinical Indicators: Confused Labs: Glucose 63, chloride 112, WBC 16.2 Treatment: IV Ceftriaxone, Insulin adjustment on 06/09 for elevated blood sugar In your professional opinion, please clarify the etiology of the Altered Mental Status, if known. Delirium (specify cause): Dementia (if know, specify Type and if with/without Behavioral Disturbance) Encephalopathy (specify Type and Underlying Medical Illness) Other condition (please specify) Unable to determine Delirium multifactorial MTDD
== END 2020-06-10 17:49 | DRG 481 ==
LOC: EC 10:35 → 4SSUR 12:19
PROVIDERS: ADMIT Orthopaedic Surgery; ATTEND Orthopaedic Surgery
PROC: 0QS736Z Reposition Left Upper Femur with Intramedullary Internal Fixation Device, Percutaneous Approach (ICD-10-PCS; principal; 2020-06-08 13:45)
DX: S72.142A Displaced intertrochanteric fracture of left femur, initial encounter for closed fracture (principal); J44.1 Chronic obstructive pulmonary disease with (acute) exacerbation; J96.11 Chronic respiratory failure with hypoxia; N39.0 Urinary tract infection, site not specified; E11.42 Type 2 diabetes mellitus with diabetic polyneuropathy; E11.65 Type 2 diabetes mellitus with hyperglycemia; B96.20 Unspecified Escherichia coli [E. coli] as the cause of diseases classified elsewhere; F17.210 Nicotine dependence, cigarettes, uncomplicated; Z20.828 Contact with and (suspected) exposure to other viral communicable diseases; R41.0 Disorientation, unspecified; F41.9 Anxiety disorder, unspecified; F32.9 Major depressive disorder, single episode, unspecified; G89.29 Other chronic pain; I10 Essential (primary) hypertension; R32 Unspecified urinary incontinence; K21.9 Gastro-esophageal reflux disease without esophagitis; K58.9 Irritable bowel syndrome, unspecified; K44.9 Diaphragmatic hernia without obstruction or gangrene; K57.90 Diverticulosis of intestine, part unspecified, without perforation or abscess without bleeding; M54.5 Low back pain; R26.9 Unspecified abnormalities of gait and mobility; L30.9 Dermatitis, unspecified; R79.89 Other specified abnormal findings of blood chemistry; H54.7 Unspecified visual loss; H91.90 Unspecified hearing loss, unspecified ear; D72.829 Elevated white blood cell count, unspecified; Z79.01 Long term (current) use of anticoagulants; Z79.899 Other long term (current) drug therapy; Z79.84 Long term (current) use of oral hypoglycemic drugs; Z79.891 Long term (current) use of opiate analgesic; Z99.81 Dependence on supplemental oxygen; Z91.81 History of falling; Z90.710 Acquired absence of both cervix and uterus; Z90.49 Acquired absence of other specified parts of digestive tract; Z87.01 Personal history of pneumonia (recurrent); Z88.1 Allergy status to other antibiotic agents; Z88.0 Allergy status to penicillin; Z88.2 Allergy status to sulfonamides; Z80.0 Family history of malignant neoplasm of digestive organs; Z82.49 Family history of ischemic heart disease and other diseases of the circulatory system; Z82.3 Family history of stroke; Z83.49 Family history of other endocrine, nutritional and metabolic diseases; W01.0XXA Fall on same level from slipping, tripping and stumbling without subsequent striking against object, initial encounter; Y92.009 Unspecified place in unspecified non-institutional (private) residence as the place of occurrence of the external cause
CPT/HCPCS: 36415; 71045; 73501; 73502; 80048; 80053; 81001; 82550; 82553; 83036; 85025; 85610; 85730; 87077; 87086; 87186; 93005; 94640; 94760; 96374; 99285

== ENCOUNTER 2020-08-20 21:33 | Emergency (ER) | payer MEDICARE ==
[2020-08-20] MEDS ORDERED: SODIUM CHLORIDE 0.9% 1,000 ML IV STA (22:11)
[2020-08-20 22:41] LABS: Basophils # (A) 0.2 k/uL (0-0.2); Basophils % (A) 1 %; Eosinophils # (A) 0.3 k/uL (0-0.7); Eosinophils % (A) 2 %; HCT 43.9 % (34.0-46.0); HGB 14.3 gm/dL (11.4-16.0); Lymphocytes # (A) 3.2 k/uL (1.0-4.8); Lymphocytes % (A) 23 %; MCH 30.6 pg (25.0-35.0); MCHC 32.5 g/dL (31.0-37.0); MCV 94.3 fL (80.0-100.0); Mean Platelet Volume 7.9; Monocytes # (A) 0.8 k/uL (0-1.0); Monocytes % (A) 6 %; Neutrophils # (A) 9.8 k/uL (1.3-7.7); Neutrophils % (A) 68 %; Platelet Count 419 k/uL (150-450); RBC 4.65 m/uL (3.80-5.40); RDW 13.6 % (11.5-15.5); WBC 14.4 k/uL (3.8-10.6)
[2020-08-20 22:50] LABS: ALT 12 U/L (4-34); AST 21 U/L (14-36); African American GFR (CKD) >90 (>60 ml/min/1.73 sqM); Anion Gap 5 mmol/L; Blood Urea Nitrogen 19 mg/dL (7-17); Calcium 9.6 mg/dL (8.4-10.2); Carbon Dioxide 22 mmol/L (22-30); Chloride 111 mmol/L (98-107); Glucose 133 mg/dL (74-99); Non-African American GFR(CKD) 86 (>60 ml/min/1.73 sqM); Potassium 4.5 mmol/L (3.5-5.1); Sodium 138 mmol/L (137-145); Total Bilirubin 0.4 mg/dL (0.2-1.3); Total Protein 6.8 g/dL (6.3-8.2)
[2020-08-20 22:51] LABS: Alkaline Phosphatase 56 U/L (38-126)
[2020-08-20] MEDS ORDERED: LORazepam 1 MG TAB PO STA (23:05)
[2020-08-20 23:06] LABS: Appearance,Urine Turbid (Clear); Bacteria,Urine Many /hpf; Bilirubin,Urine Negative (Negative); Blood,Urine Trace (Negative); Budding Yeast,Urine Occasional /hpf; Color,Urine Yellow; Glucose,Urine (UA) 4+ (Negative); Hyaline Casts,Urine 6 /lpf (0-2); Ketones,Urine Trace (Negative); Leukocyte Esterase,Urine Large (Negative); Mucus,Urine Occasional /hpf; Nitrite,Urine Positive (Negative); Protein,Urine 1+ (Negative); RBC,Urine 15 /hpf (0-5); Squamous Epithelial Cell,Urine 15 /hpf (0-4); Urobilinogen,Urine <2.0 mg/dL (<2.0); WBC,Urine 35 /hpf (0-5)
[2020-08-20] MEDS ORDERED: cefTRIAXone IN SWFI 1,000 MG/10 ML SYRINGE IVP STA (23:16)
--- NOTE | 2020-08-20 23:53 | ED ---
Female Urogenital HPI - General Chief complaint: Urogenital Stated complaint: Fever Time Seen by Provider: 08/20/20 21:44 Source: patient, EMS Mode of arrival: ambulatory - History of Present Illness Initial comments: Patient is a 80-year-old female, history heart disease, COPD, on home oxygen, presenting to the emergency department via EMS with complaints of a possible UTI. Patient states she has a history of UTIs and generally knows when she is starting to get one. Patient states yesterday she started feeling a little weak, no appetite. Patient states today she noticed burning with urination and continues to feel weak. Patient denies any fever, chills, abdominal pain or vomiting. Patient states she lives with her son who is just recovering from Covid and she is also nervous about that. She has history of COPD but does not feel like she is having any changes in her breathing. She denies any chest pain. She has no further complaints at this time. Upon arrival to the ER, her vital signs are stable, afebrile. - Related Data Home Medications Medication Instructions Recorded Confirmed Baclofen [Lioresal] 10 mg PO DAILY 06/06/20 06/06/20 DULoxetine HCL [Cymbalta] 60 mg PO DAILY 06/06/20 06/06/20 Empagliflozin [Jardiance] 10 mg PO DAILY 06/06/20 06/06/20 Glimepiride [Amaryl] 4 mg PO AC-BID 06/06/20 06/06/20 Isosorbide Mononitrate [Ismo] 10 mg PO BID 06/06/20 06/06/20 lisinopriL 40 mg PO DAILY 06/06/20 06/06/20 sitaGLIPtin PHOS/metFORMIN HCL 1 tab PO DAILY 06/06/20 06/06/20 [Janumet Xr 100-1,000 mg Tablet] Previous Rx's Medication Instructions Recorded Budesonide [Pulmicort] 1 mg INHALATION RT-BID #25 ml 06/10/20 Cefuroxime Axetil [Ceftin] 500 mg PO BID 4 Days #8 tab 06/10/20 HYDROcodone/APAP 5-325MG [[place] 1 - 2 tab PO Q6HR PRN #48 tab 06/10/20 5-325] Nicotine 14Mg/24Hr Patch [Habitrol] 1 patch TRANSDERM DAILY 30 Days 06/10/20 #30 patch Rivaroxaban [Xarelto] 10 mg PO DAILY #33 tab 06/10/20 Sennosides [Senokot] 2 tab PO DAILY PRN #60 tablet 06/10/20 Cephalexin [Keflex] 500 mg PO BID 7 Days #14 cap 08/20/20 Allergies Allergy/AdvReac Type Severity Reaction Status Date / Time doxycycline Allergy Unknown Verified 06/06/20 11:32 nitrofurantoin Allergy Nausea & Verified 06/06/20 11:25 [From Macrobid] Vomiting & Diarrhea Penicillins AdvReac Rash/Hives Verified 06/06/20 11:25 Sulfa (Sulfonamide AdvReac Nausea & Verified 06/06/20 11:25 Antibiotics) Vomiting & Diarrhea Review of Systems ROS Statement: Those systems with pertinent positive or pertinent negative responses have been documented in the HPI. ROS Other: All systems not noted in ROS Statement are negative. Past Medical History Past Medical History: Asthma, Chest Pain / Angina, COPD, Diabetes Mellitus, GERD/Reflux, Hypertension, Pneumonia, Respiratory Disorder, Skin Disorder Additional Past Medical History / Comment(s): Home oxygen at 4L/NC ATC, bronchitis, NIDDM type II, neuropathy bilateral feet, falls, IBS, diverticular disease, hiatal hernia, chronic low back pain, eczema History of Any Multi-Drug Resistant Organisms: None Reported Past Surgical History: Cholecystectomy, Hysterectomy, Tonsillectomy Additional Past Surgical History / Comment(s): colonoscopy Past Anesthesia/Blood Transfusion Reactions: No Reported Reaction Additional Past Anesthesia/Blood Transfusion Reaction / Comment(s): Pt states she has never received blood. Past Psychological History: Anxiety, Depression Smoking Status: Current every day smoker - Past Family History Father Family Medical History: Cancer Additional Family Medical History / Comment(s): Father of colon cancer at the age of 54 yrs. Mother Family Medical History: CVA/TIA, Hyperlipidemia, Hypertension Additional Family Medical History / Comment(s): Mother lived to be 96yrs old. General Exam - General Exam Comments Initial Comments: GENERAL: Patient is well-developed and well-nourished. Patient is nontoxic and in no acute distress. HEAD: Atraumatic, normocephalic. EYES: Pupils equal round and reactive to light, extraocular movements intact, sclera anicteric, conjunctiva are normal. Eyelids were unremarkable. ENT: TMs normal, nares patent, oropharynx clear without exudates. Moist mucous membranes. NECK: Normal range of motion, supple without lymphadenopathy or JVD. LUNGS: Unlabored respirations. Breath sounds clear to auscultation bilaterally and equal. No wheezes rales or rhonchi. HEART: Regular rate and rhythm without murmurs, rubs or gallops. ABDOMEN: Soft, nontender, normoactive bowel sounds. No guarding, no rebound. No masses appreciated. : Deferred MUSCULOSKELETAL: Normal extremities with adequate strength and normal range of motion, no pitting or edema. No clubbing or cyanosis. NEUROLOGICAL: Patient is alert and oriented x 3. Motor and sensory are also intact. Normal speech, normal gait. PSYCH: Normal mood, normal affect. SKIN: Warm, Dry, normal turgor, no rashes or lesions noted. Course Vital Signs 08/20/20 08/21/20 21:37 00:14 Temperature 98.8 F 98.7 F Pulse Rate 84 82 Respiratory 16 22 Rate Blood Pressure 120/73 149/59 O2 Sat by Pulse 95 98 Oximetry Medical Decision Making - Medical Decision Making Patient is a 80-year-old female here for signs and symptoms consistent with a UTI. Her son is also recovering from Covid and she is nervous that she is weak because of possible COVID. Her vital signs are stable upon arrival. Her exam is unremarkable. Labs reveal slight leukocytosis of 14.4, kidney function is stable. Urine does show signs of a significant UTI with positive nitrates, WBCs, many bacteria. COVID test is pending. I did give patient a liter bolus as well as 1 g or Rocephin. Patient has been eating and drinking water in the ER. She is stable for discharge. I will continue her on Keflex outpatient. She will follow up with his PCP. She is in agreement with this plan of care. Return parameters were discussed with the patient and she verbalized understanding. Case discussed with Dr. Schwab. - Lab Data Result diagrams: 08/20/20 22:32 08/20/20 22:32 Lab Results 08/20/20 08/20/20 08/20/20 Range/Units 22:32 22:32 22:53 WBC 14.4 H (3.8-10.6) k/uL RBC 4.65 (3.80-5.40) m/uL Hgb 14.3 (11.4-16.0) gm/dL Hct 43.9 (34.0-46.0) % MCV 94.3 (80.0-100.0) fL MCH 30.6 (25.0-35.0) pg MCHC 32.5 (31.0-37.0) g/dL RDW 13.6 (11.5-15.5) % Plt Count 419 (150-450) k/uL Neutrophils % 68 % Lymphocytes % 23 % Monocytes % 6 % Eosinophils % 2 % Basophils % 1 % Neutrophils # 9.8 H (1.3-7.7) k/uL Lymphocytes # 3.2 (1.0-4.8) k/uL Monocytes # 0.8 (0-1.0) k/uL Eosinophils # 0.3 (0-0.7) k/uL Basophils # 0.2 (0-0.2) k/uL Sodium 138 (137-145) mmol/L Potassium 4.5 (3.5-5.1) mmol/L Chloride 111 H (98-107) mmol/L Carbon Dioxide 22 (22-30) mmol/L Anion Gap 5 mmol/L BUN 19 H (7-17) mg/dL Creatinine 0.63 (0.52-1.04) mg/dL Est GFR (CKD-EPI)AfAm >90 (>60 ml/min/1.73 sqM) Est GFR (CKD-EPI)NonAf 86 (>60 ml/min/1.73 sqM) Glucose 133 H (74-99) mg/dL Calcium 9.6 (8.4-10.2) mg/dL Total Bilirubin 0.4 (0.2-1.3) mg/dL AST 21 (14-36) U/L ALT 12 (4-34) U/L Alkaline Phosphatase 56 (38-126) U/L Total Protein 6.8 (6.3-8.2) g/dL Albumin 4.0 (3.5-5.0) g/dL Urine Color Yellow Urine Appearance Turbid H (Clear) Urine pH 5.0 (5.0-8.0) Ur Specific [place] 1.030 (1.001-1.035) Urine Protein 1+ H (Negative) Urine Glucose (UA) 4+ H (Negative) Urine Ketones Trace H (Negative) Urine Blood Trace H (Negative) Urine Nitrite Positive H (Negative) Urine Bilirubin Negative (Negative) Urine Urobilinogen <2.0 (<2.0) mg/dL Ur Leukocyte Esterase Large H (Negative) Urine RBC 15 H (0-5) /hpf Urine WBC 35 H (0-5) /hpf Ur Squamous Epith Cells 15 H (0-4) /hpf Urine Bacteria Many H (None) /hpf Hyaline Casts 6 H (0-2) /lpf Urine Mucus Occasional H (None) /hpf Urine Yeast (Budding) Occasional H (None) /hpf Disposition Clinical Impression: Urinary tract infection Disposition: HOME SELF-CARE Condition: Stable Instructions (If sedation given, give patient instructions): Urinary Tract Infection in Women (ED) Additional Instructions: Please return to the Emergency Department if symptoms worsen or any other concerns. Take antibiotics as prescribed, please finish all medication. Drink plenty of fluids. Follow-up with PCP. Prescriptions: Cephalexin [Keflex] 500 mg PO BID 7 Days #14 cap Is patient prescribed a controlled substance at d/c from ED?: No Referrals: Veena Spain DO [Primary Care Provider] - 1-2 days
[2020-08-21 00:15] VITALS: BP 149/59; PULSE 82; RESP 22; TEMP 98.7
== END 2020-08-21 00:20 | disposition home or self-care (01) ==
LOC: EC 21:33
DX: N39.0 Urinary tract infection, site not specified (principal); U07.1 COVID-19; D72.829 Elevated white blood cell count, unspecified; K21.9 Gastro-esophageal reflux disease without esophagitis; I10 Essential (primary) hypertension; J44.9 Chronic obstructive pulmonary disease, unspecified; I25.2 Old myocardial infarction; E11.42 Type 2 diabetes mellitus with diabetic polyneuropathy; F41.9 Anxiety disorder, unspecified; F32.9 Major depressive disorder, single episode, unspecified; Z79.899 Other long term (current) drug therapy; Z79.84 Long term (current) use of oral hypoglycemic drugs; Z88.1 Allergy status to other antibiotic agents; Z88.8 Allergy status to other drugs, medicaments and biological substances; Z88.0 Allergy status to penicillin; Z88.2 Allergy status to sulfonamides; Z99.81 Dependence on supplemental oxygen; Z90.49 Acquired absence of other specified parts of digestive tract
CPT/HCPCS: 36415; 80053; 85025; 81001; 87086; 87077; 87186; 99283; 96374; 96361; U0003; J0696

== ENCOUNTER 2021-05-13 04:50 | Observation (INO) | payer MEDICARE ==
[2021-05-13 06:23] LABS: Appearance,Urine Clear (Clear); Color,Urine Light Yellow; PH, Urine 5.5 (5.0-8.0); Protein,Urine Negative (Negative); Specific Gravity,Urine 1.012 (1.001-1.035)
[2021-05-13 06:24] LABS: Bacteria,Urine Rare /hpf; Bilirubin,Urine Negative (Negative); Blood,Urine Negative (Negative); Glucose,Urine (UA) 4+ (Negative); Hyaline Casts,Urine 1 /lpf (0-2); Ketones,Urine Negative (Negative); Leukocyte Esterase,Urine Moderate (Negative); Mucus,Urine Rare /hpf; Nitrite,Urine Negative (Negative); RBC,Urine 2 /hpf (0-5); Squamous Epithelial Cell,Urine 1 /hpf (0-4); Urobilinogen,Urine <2.0 mg/dL (<2.0); WBC,Urine 49 /hpf (0-5)
[2021-05-13] MEDS ORDERED: Acetaminophen-Codeine 300-30mg TAB PO STA (07:06)
--- NOTE | 2021-05-13 07:10 | ED ---
General Adult HPI - General Chief complaint: Urogenital Stated complaint: ABD Pain Time Seen by Provider: 05/13/21 05:20 Source: patient, EMS Mode of arrival: EMS Limitations: no limitations - History of Present Illness Initial comments: This patient is an 81-year-old woman who presents to be evaluated for which she believes is urinary tract infection. She states she had been seen by her clinic doctor and started Keflex yesterday but has not had improvement yet. She states that she is having bilateral arm and leg aches as well. She has also been feeling cold at times. She has not noted a fever. No chest pain, dyspnea, cough, nausea or vomiting. No change in bowel movements. Onset/Timin -: days(s) Location: left, right, upper extremity, lower extremity Radiation: non-radiation Quality: aching Consistency: constant Improves with: none Worsens with: none - Related Data Home Medications Medication Instructions Recorded Confirmed Baclofen [Lioresal] 10 mg PO DAILY 06/06/20 06/06/20 DULoxetine HCL [Cymbalta] 60 mg PO DAILY 06/06/20 06/06/20 Empagliflozin [Jardiance] 10 mg PO DAILY 06/06/20 06/06/20 Glimepiride [Amaryl] 4 mg PO AC-BID 06/06/20 06/06/20 Isosorbide Mononitrate [Ismo] 10 mg PO BID 06/06/20 06/06/20 lisinopriL 40 mg PO DAILY 06/06/20 06/06/20 sitaGLIPtin PHOS/metFORMIN HCL 1 tab PO DAILY 06/06/20 06/06/20 [Janumet Xr 100-1,000 mg Tablet] Previous Rx's Medication Instructions Recorded Budesonide [Pulmicort] 1 mg INHALATION RT-BID #25 ml 06/10/20 Cefuroxime Axetil [Ceftin] 500 mg PO BID 4 Days #8 tab 06/10/20 HYDROcodone/APAP 5-325MG [[place] 1 - 2 tab PO Q6HR PRN #48 tab 06/10/20 5-325] Nicotine 14Mg/24Hr Patch [Habitrol] 1 patch TRANSDERM DAILY 30 Days 06/10/20 #30 patch Rivaroxaban [Xarelto] 10 mg PO DAILY #33 tab 06/10/20 Sennosides [Senokot] 2 tab PO DAILY PRN #60 tablet 06/10/20 Cephalexin [Keflex] 500 mg PO BID 7 Days #14 cap 08/20/20 Allergies Allergy/AdvReac Type Severity Reaction Status Date / Time doxycycline Allergy Unknown Verified 06/06/20 11:32 nitrofurantoin Allergy Nausea & Verified 06/06/20 11:25 [From Macrobid] Vomiting & Diarrhea Penicillins AdvReac Rash/Hives Verified 06/06/20 11:25 Sulfa (Sulfonamide AdvReac Nausea & Verified 06/06/20 11:25 Antibiotics) Vomiting & Diarrhea Review of Systems ROS Statement: Those systems with pertinent positive or pertinent negative responses have been documented in the HPI. ROS Other: All systems not noted in ROS Statement are negative. Constitutional: Reports: chills. Denies: fever Respiratory: Denies: cough, dyspnea Cardiovascular: Denies: chest pain, palpitations, syncope Gastrointestinal: Denies: abdominal pain, nausea, vomiting, diarrhea, constipation Genitourinary: Reports: as per HPI, dysuria, frequency Musculoskeletal: Reports: as per HPI, myalgia. Denies: back pain Skin: Denies: rash Neurological: Denies: headache, weakness Past Medical History Past Medical History: Asthma, Chest Pain / Angina, COPD, Diabetes Mellitus, GERD/Reflux, Hypertension, Pneumonia, Respiratory Disorder, Skin Disorder Additional Past Medical History / Comment(s): Home oxygen at 4L/[place] ATC, bronchitis, NIDDM type II, neuropathy bilateral feet, falls, IBS, diverticular disease, hiatal hernia, chronic low back pain, eczema History of Any Multi-Drug Resistant Organisms: None Reported Past Surgical History: Cholecystectomy, Hysterectomy, Tonsillectomy Additional Past Surgical History / Comment(s): colonoscopy Past Anesthesia/Blood Transfusion Reactions: No Reported Reaction Additional Past Anesthesia/Blood Transfusion Reaction / Comment(s): Pt states she has never received blood. Past Psychological History: Anxiety, Depression Smoking Status: Current every day smoker Past Alcohol Use History: Rare Past Drug Use History: None Reported - Past Family History Father Family Medical History: Cancer Additional Family Medical History / Comment(s): Father of colon cancer at the age of 54 yrs. Mother Family Medical History: CVA/TIA, Hyperlipidemia, Hypertension Additional Family Medical History / Comment(s): Mother lived to be 96yrs old. General Exam Limitations: no limitations General appearance: alert, in no apparent distress Head exam: Present: atraumatic, normocephalic Eye exam: Present: normal appearance. Absent: scleral icterus, conjunctival injection Neck exam: Present: normal inspection Respiratory exam: Present: normal lung sounds bilaterally. Absent: respiratory distress, wheezes, rales, rhonchi, stridor Cardiovascular Exam: Present: regular rate, normal rhythm, normal heart sounds. Absent: systolic murmur, diastolic murmur, rubs, gallop GI/Abdominal exam: Present: soft. Absent: distended, tenderness, guarding, rebound, rigid, mass Extremities exam: Present: normal inspection, normal capillary refill. Absent: pedal edema, calf tenderness Back exam: Present: normal inspection. Absent: CVA tenderness (R), CVA tenderness (L) Neurological exam: Present: alert Skin exam: Present: warm, dry, intact, normal color. Absent: rash Course Vital Signs 05/13/21 04:52 Temperature 97.8 F Pulse Rate 82 Respiratory 18 Rate Blood Pressure 151/66 O2 Sat by Pulse 93 L Oximetry Medical Decision Making - Medical Decision Making This patient is an 81-year-old woman with urinary tract infection. I did offer admission to the patient, at this point she would prefer to continue antibiotic treatment as outpatient. She states she is here today to see if we can give her something to help with the aches she is having. - Lab Data Lab Results 05/13/21 Range/Units 05:50 Urine Color Light Yellow Urine Appearance Clear (Clear) Urine pH 5.5 (5.0-8.0) Ur Specific [place] 1.012 (1.001-1.035) Urine Protein Negative (Negative) Urine Glucose (UA) 4+ H (Negative) Urine Ketones Negative (Negative) Urine Blood Negative (Negative) Urine Nitrite Negative (Negative) Urine Bilirubin Negative (Negative) Urine Urobilinogen <2.0 (<2.0) mg/dL Ur Leukocyte Esterase Moderate H (Negative) Urine RBC 2 (0-5) /hpf Urine WBC 49 H (0-5) /hpf Urine WBC Clumps Rare H (None) /hpf Ur Squamous Epith Cells 1 (0-4) /hpf Urine Bacteria Rare H (None) /hpf Hyaline Casts 1 (0-2) /lpf Urine Mucus Rare H (None) /hpf Disposition Clinical Impression: Urinary tract infection Disposition: HOME SELF-CARE Condition: Good Instructions (If sedation given, give patient instructions): Urinary Tract Infection in Women (ED) Is patient prescribed a controlled substance at d/c from ED?: No Referrals: Veena Spain DO [Primary Care Provider] - 1-2 days
[2021-05-13 07:36] LABS: Basophils # (A) 0.1 k/uL (0-0.2); Basophils % (A) 1 %; Eosinophils # (A) 0.2 k/uL (0-0.7); Eosinophils % (A) 2 %; HCT 45.1 % (34.0-46.0); HGB 14.9 gm/dL (11.4-16.0); Lymphocytes # (A) 2.6 k/uL (1.0-4.8); Lymphocytes % (A) 24 %; MCH 29.8 pg (25.0-35.0); MCV 90.2 fL (80.0-100.0); Mean Platelet Volume 7.8; Monocytes # (A) 0.6 k/uL (0-1.0); Monocytes % (A) 6 %; Neutrophils # (A) 7.1 k/uL (1.3-7.7); Neutrophils % (A) 66 %; Platelet Count 339 k/uL (150-450); RDW 13.7 % (11.5-15.5); WBC 10.8 k/uL (3.8-10.6)
[2021-05-13 07:54] LABS: ALT 14 U/L (4-34); AST 19 U/L (14-36); African American GFR (CKD) >90 (>60 ml/min/1.73 sqM); Albumin 3.8 g/dL (3.5-5.0); Alkaline Phosphatase 53 U/L (38-126); Anion Gap 5 mmol/L; Blood Urea Nitrogen 15 mg/dL (7-17); Calcium 8.9 mg/dL (8.4-10.2); Carbon Dioxide 26 mmol/L (22-30); Chloride 111 mmol/L (98-107); Glucose 116 mg/dL (74-99); Non-African American GFR(CKD) >90 (>60 ml/min/1.73 sqM); Potassium 4.1 mmol/L (3.5-5.1); Sodium 142 mmol/L (137-145); Total Bilirubin 0.2 mg/dL (0.2-1.3); Total Protein 6.2 g/dL (6.3-8.2)
[2021-05-13] MEDS ORDERED: NALOXONE 0.4 MG/ML 1 ML VIAL IV PRN (08:00)
[2021-05-13 08:49] LABS: Glucose,Whole Blood 112 mg/dL (75-99)
[2021-05-13] MEDS: SODIUM CHLORIDE 0.9% 1,000 ML IV SCH (10:09)
[2021-05-13] MEDS: traMADol 50 MG TAB PO PRN ×2 (10:35→17:03)
[2021-05-13] MEDS ORDERED: NYSTATIN 100,000UNIT/GM CREAM 30 GM TUBE TOPICAL PRN (11:58)
[2021-05-13] MEDS ORDERED: polyethylene glycoL 3350 17 GM POWD.PACK PO PRN (11:58)
[2021-05-13] MEDS ORDERED: HYDROCORTISONE 1% CREAM 30 GM TUBE TOPICAL PRN (11:58)
[2021-05-13] MEDS ORDERED: traMADol 50 MG TAB PO PRN (12:00)
--- NOTE | 2021-05-13 12:13 | P.HPIM ---
History of Present Illness 81-year-old female came in with compensative generalized body aches patient denied any fever chills patient doesn't have any leukocytosis patient was seen by Dr. Ny her primary care physician and the she was told that patient has urinary tract infection because of which patient was started on Keflex and patient believes patient is not improving with Keflex because of which patient came to ER. Patient symptoms of for generalized body aches started yesterday. Patient continues to smoke and does have history of COPD uses around the 4 L of oxygen at home lives with the and son who takes care of the patient. Patient is usually functional, does use walker. She denied any dysuria or increased urinary frequency and suprapubic pain. Patient doesn't have any leukocytosis or fever here patient TIA is minimally abn ormal with the white blood cell in the urine. Patient's urine cultures in 2019 showed pansensitive E. coli. Patient had UTIs in the past. REVIEW OF SYSTEMS: CONSTITUTIONAL: No fever, no malaise, no fatigue. HEENT: No recent visual problems or hearing problems. Denied any sore throat. CARDIOVASCULAR: No chest pain, orthopnea, PND, no palpitations, no syncope. PULMONARY: No shortness of breath, no cough, no hemoptysis. GASTROINTESTINAL: No diarrhea, no nausea, no vomiting, no abdominal pain. NEUROLOGICAL: No headaches, no weakness, no numbness. HEMATOLOGICAL: Denies any bleeding or petechiae. GENITOURINARY: Denies any burning micturition, frequency, or urgency. MUSCULOSKELETAL/RHEUMATOLOGICAL: Denies any joint pain, swelling, or any muscle pain. ENDOCRINE: Denies any polyuria or polydipsia. The rest of the 14-point review of systems is negative. PHYSICAL EXAMINATION: GENERAL: The patient is alert and oriented x3, not in any acute distress. Well developed, well nourished. HEENT: Pupils are round and equally reacting to light. EOMI. No scleral icterus. No conjunctival pallor. Normocephalic, atraumatic. No pharyngeal erythema. No thyromegaly. CARDIOVASCULAR: S1 and S2 present. No murmurs, rubs, or gallops. PULMONARY: He missed air entry into bilateral lung morrison ABDOMEN: Soft, nontender, nondistended, normoactive bowel sounds. No palpable organomegaly. MUSCULOSKELETAL: No joint swelling or deformity. EXTREMITIES: No cyanosis, clubbing, or pedal edema. NEUROLOGICAL: Gross neurological examination did not reveal any focal deficits. SKIN: No rashes. Assessment and plan -Generalized body aches: Etiology is not clear we'll obtain a chest x-ray to rule out any viral pneumonia . Covid 19 test will be obtained. Monitor her for overnight. Fevers my suspicion for UTIs low as patient doesn't have any symptoms patient may have a symptomatically bacteriuria. For now will continue with antibiotics. -Mostly symptomatic bacteriuria patient will be continued on antibiotics for now but I do not expect Urine cultures to be positive considering the patient is already on Keflex at home. 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 Patient yet and Past Medical History Past Medical History: Asthma, Chest Pain / Angina, COPD, Diabetes Mellitus, GERD/Reflux, Hypertension, Pneumonia, Respiratory Disorder, Skin Disorder Additional Past Medical History / Comment(s): Home oxygen at 4L/[place] ATC, bronchitis, NIDDM type II, neuropathy bilateral feet, falls, IBS, diverticular disease, hiatal hernia, chronic low back pain, eczema History of Any Multi-Drug Resistant Organisms: None Reported Past Surgical History: Cholecystectomy, Hysterectomy, Tonsillectomy Additional Past Surgical History / Comment(s): colonoscopy Past Anesthesia/Blood Transfusion Reactions: No Reported Reaction Additional Past Anesthesia/Blood Transfusion Reaction / Comment(s): Pt states she has never received blood. Past Psychological History: Anxiety, Depression Smoking Status: Current every day smoker Past Alcohol Use History: Rare Past Drug Use History: None Reported - Past Family History Father Family Medical History: Cancer Additional Family Medical History / Comment(s): Father of colon cancer at the age of 54 yrs. Mother Family Medical History: CVA/TIA, Hyperlipidemia, Hypertension Additional Family Medical History / Comment(s): Mother lived to be 96yrs old. Medications and Allergies Home Medications Medication Instructions Recorded Confirmed Type Baclofen [Lioresal] 10 mg PO DAILY 06/06/20 05/13/21 History DULoxetine HCL [Cymbalta] 60 mg PO DAILY 06/06/20 05/13/21 History Glimepiride [Amaryl] 4 mg PO BID 06/06/20 05/13/21 History Isosorbide Mononitrate [Ismo] 10 mg PO BID 06/06/20 05/13/21 History lisinopriL 40 mg PO DAILY 06/06/20 05/13/21 History Rivaroxaban [Xarelto] 10 mg PO DAILY #33 tab 06/10/20 05/13/21 Rx Aspirin EC [Ecotrin Low Dose] 81 mg PO DAILY 05/13/21 05/13/21 History Budesonide/Formoterol Fumarate 2 puff INHALATION RT-BID 05/13/21 05/13/21 History [Symbicort 160-4.5 Mcg Inhaler] Cephalexin [Keflex] 500 mg PO BID 05/13/21 05/13/21 History Empagliflozin [Jardiance] 25 mg PO DAILY 05/13/21 05/13/21 History Hydrocortisone Cream 1 applic TOPICAL DAILY PRN 05/13/21 05/13/21 History [Hydrocortisone 1% Cream] LORazepam [Ativan] 1 mg PO TID 05/13/21 05/13/21 History Nystatin 1 applic TOPICAL BID PRN 05/13/21 05/13/21 History amLODIPine [Norvasc] 10 mg PO HS 05/13/21 05/13/21 History hydrALAZINE HCL [Apresoline] 25 mg PO TID 05/13/21 05/13/21 History polyethylene glycoL 3350 [Miralax] 17 gm PO DAILY PRN 05/13/21 05/13/21 History sitaGLIPtin PHOS/metFORMIN HCL 1 tab PO BID 05/13/21 05/13/21 History [Janumet Xr 50-1,000 mg Tablet] traMADol HCL 50 mg PO BID PRN 05/13/21 05/13/21 History Allergies Allergy/AdvReac Type Severity Reaction Status Date / Time doxycycline Allergy Unknown Verified 05/13/21 08:51 nitrofurantoin Allergy Nausea & Verified 05/13/21 08:51 [From Macrobid] Vomiting & Diarrhea Penicillins AdvReac Rash/Hives Verified 05/13/21 08:51 Sulfa (Sulfonamide AdvReac Nausea & Verified 05/13/21 08:51 Antibiotics) Vomiting & Diarrhea Physical Exam Vitals: Vital Signs Temp Pulse Pulse Resp BP BP Pulse Ox 05/13/21 10:13 98.8 F 74 18 157/54 100 05/13/21 04:52 97.8 F 82 18 151/66 93 L Intake and Output 05/12/21 05/13/21 05/13/21 22:59 06:59 14:59 Other: Weight 58.06 kg Results CBC & Chem 7: 05/13/21 07:22 05/13/21 07:22 Labs: Abnormal Lab Results - Last 24 Hours (Table) 05/13/21 05/13/21 05/13/21 Range/Units 05:50 07:22 07:22 WBC 10.8 H (3.8-10.6) k/uL Chloride 111 H (98-107) mmol/L Creatinine 0.50 L (0.52-1.04) mg/dL Glucose 116 H (74-99) mg/dL POC Glucose (mg/dL) (75-99) mg/dL Total Protein 6.2 L (6.3-8.2) g/dL Urine Glucose (UA) 4+ H (Negative) Ur Leukocyte Esterase Moderate H (Negative) Urine WBC 49 H (0-5) /hpf Urine WBC Clumps Rare H (None) /hpf Urine Bacteria Rare H (None) /hpf Urine Mucus Rare H (None) /hpf 05/13/21 Range/Units 08:47 WBC (3.8-10.6) k/uL Chloride (98-107) mmol/L Creatinine (0.52-1.04) mg/dL Glucose (74-99) mg/dL POC Glucose (mg/dL) 112 H (75-99) mg/dL Total Protein (6.3-8.2) g/dL Urine Glucose (UA) (Negative) Ur Leukocyte Esterase (Negative) Urine WBC (0-5) /hpf Urine WBC Clumps (None) /hpf Urine Bacteria (None) /hpf Urine Mucus (None) /hpf Microbiology - Last 24 Hours (Table) 05/13/21 05:50 Urine Culture - Preliminary Urine,Voided
--- NOTE | 2021-05-13 14:30 | XR ---
EXAMINATION TYPE: XR chest 2V DATE OF EXAM: 05/13/2021 COMPARISON: 06/06/2020 HISTORY: Pneumonia TECHNIQUE: Frontal and lateral views of the chest are obtained. FINDINGS: There are possible nodular densities in the lateral left mid and lower lung zone. CT may be helpful f or further evaluation. Cardiac silhouette is not enlarged. IMPRESSION: There are possible nodular densities in the lateral left mid and lower lung zone. CT may be helpful f or further evaluation.
[2021-05-13 17:02] LABS: Glucose,Whole Blood 116 mg/dL (75-99)
[2021-05-13] MEDS: DULoxetine HCL 60 MG CAPSULE.DR PO SCH (17:03)
[2021-05-13] MEDS: NICOTINE 14MG/24HR PATCH TRANSDERM SCH (17:04)
[2021-05-13] MEDS: INSULIN ASPART (NovoLOG) 100 UNIT/ML VIAL SQ SCH ×2 (17:53→20:15)
[2021-05-13] MEDS: GLIMEPIRIDE 4 MG TAB PO SCH (17:56)
[2021-05-13] MEDS ORDERED: ONDANSETRON 4 MG/2 ML VIAL IVP PRN (19:19)
[2021-05-13 20:07] LABS: Glucose,Whole Blood 157 mg/dL (75-99)
[2021-05-13] MEDS: ISOSORBIDE MONONITRATE 10 MG TAB PO SCH (20:16)
[2021-05-13] MEDS: HYDROcodone/APAP 5-325MG 1 EACH TAB PO PRN (20:16)
[2021-05-13] MEDS: SYMBICORT 160-4.5 MCG INHALER INHALATION SCH (20:31)
[2021-05-13] MEDS ORDERED: amLODIPine 10 MG TAB PO SCH (21:00)
[2021-05-14] MEDS: HYDROcodone/APAP 5-325MG 1 EACH TAB PO PRN (02:14)
[2021-05-14 07:07] LABS: Glucose,Whole Blood 98 mg/dL (75-99)
[2021-05-14 07:44] VITALS: RESP 18
[2021-05-14] MEDS: INSULIN ASPART (NovoLOG) 100 UNIT/ML VIAL SQ SCH ×2 (07:47→13:42)
[2021-05-14] MEDS: SYMBICORT 160-4.5 MCG INHALER INHALATION SCH (07:50)
[2021-05-14] MEDS: NICOTINE 14MG/24HR PATCH TRANSDERM SCH (07:57)
[2021-05-14] MEDS: DULoxetine HCL 60 MG CAPSULE.DR PO SCH (07:58)
[2021-05-14] MEDS: ISOSORBIDE MONONITRATE 10 MG TAB PO SCH (07:58)
[2021-05-14] MEDS: GLIMEPIRIDE 4 MG TAB PO SCH (07:58)
[2021-05-14] MEDS ORDERED: NON FORMULARY DRUG (Lisinopril [Lisinopril] 40 MG Tablet) PO SCH (09:00)
[2021-05-14] MEDS ORDERED: RIVAROXABAN 10 MG TAB PO SCH (09:00)
[2021-05-14] MEDS ORDERED: BACLOFEN 10 MG TAB PO SCH (09:00)
[2021-05-14] MEDS ORDERED: lisinopriL 10 MG TAB PO SCH (09:00)
[2021-05-14] MEDS ORDERED: ASPIRIN 81 MG PO SCH (09:00)
[2021-05-14] MEDS: SODIUM CHLORIDE 0.9% 1,000 ML IV SCH (10:03)
[2021-05-14 11:53] LABS: Glucose,Whole Blood 147 mg/dL (75-99)
[2021-05-14 14:26] VITALS: BP 122/55; TEMP 98.1
[2021-05-14 14:27] VITALS: PULSE 72
[2021-05-14 15:02] VITALS: BMI 23.3
--- NOTE | 2021-05-14 15:16 | P.DS ---
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 Patient will follow-up with Dr. Escalante in the outpatient setting upon discharge. Total time taken is greater than 35 minutes. Hospital course 81-year-old female came in with compensative generalized body aches patient denied any fever chills patient doesn't have any leukocytosis patient was seen by Dr. Escalante her primary care physician and the she was told that patient has urinary tract infection because of which patient was started on Keflex and patient believes patient is not improving with Keflex because of which patient came to ER. Patient symptoms of for generalized body aches started yesterday. Patient continues to smoke and does have history of COPD uses around the 4 L of oxygen at home lives with the and son who takes care of the patient. Patient is usually functional, does use walker. She denied any dysuria or increased urinary frequency and suprapubic pain. Patient doesn't have any leukocytosis or fever here patient urine is minimally abnormal with the white blood cell in the urine. Patient's urine cultures in 2019 showed pansensitive E. coli. Patient had UTIs in the past. 05/14/2021 Patient is seen in follow-up this morning and was given a dose of ceftriaxone. Urine cultures finalized showing no growth. Patient denies any dysuria or difficulty in urination or pain with urination. Patient states she felt overall tired with generalized body aches but improved from yesterday. Currently no reports of chest pain, shortness of breath, or palpitations. Patient is afebrile. No reports of nausea or vomiting and patient is tolerating diet. Patient will be discharged home today. On exam vital signs are stable. Cardio S1, S2 are muffled. Respiratory system shows diminished breath sounds at the bases with no wheezing or rhonchi noted. Abdomen is soft and nontender. Nervous system shows no focal deficits. Please refer to medication reconciliation sheet for a list of medications. Patient Condition at Discharge: Good Plan - Discharge Summary New Discharge Prescriptions: New Nicotine 14Mg/24Hr Patch [Habitrol] 1 patch TRANSDERM DAILY #20 patch Lisinopril [Zestril] 20 mg PO DAILY 30 Days #60 tab HYDROcodone/APAP 5-325MG [[place] 5-325] 1 each PO Q6HR PRN #10 tab PRN Reason: Pain Continue Isosorbide Mononitrate [Ismo] 10 mg PO BID Glimepiride [Amaryl] 4 mg PO BID DULoxetine HCL [Cymbalta] 60 mg PO DAILY Baclofen [Lioresal] 10 mg PO DAILY Budesonide/Formoterol Fumarate [Symbicort 160-4.5 Mcg Inhaler] 2 puff INHALATION RT-BID amLODIPine [Norvasc] 10 mg PO HS Hydrocortisone Cream [Hydrocortisone 1% Cream] 1 applic TOPICAL DAILY PRN PRN Reason: Rash polyethylene glycoL 3350 [Miralax] 17 gm PO DAILY PRN PRN Reason: Constipation traMADol HCL 50 mg PO BID PRN PRN Reason: Pain Nystatin 1 applic TOPICAL BID PRN PRN Reason: Rash LORazepam [Ativan] 1 mg PO TID Empagliflozin [Jardiance] 25 mg PO DAILY sitaGLIPtin PHOS/metFORMIN HCL [Janumet Xr 50-1,000 mg Tablet] 1 tab PO BID Aspirin EC [Ecotrin Low Dose] 81 mg PO DAILY Discontinued lisinopriL 40 mg PO DAILY Rivaroxaban [Xarelto] 10 mg PO DAILY #33 tab Cephalexin [Keflex] 500 mg PO BID hydrALAZINE HCL [Apresoline] 25 mg PO TID Discharge Medication List Baclofen [Lioresal] 10 mg PO DAILY 06/06/20 [History] DULoxetine HCL [Cymbalta] 60 mg PO DAILY 06/06/20 [History] Glimepiride [Amaryl] 4 mg PO BID 06/06/20 [History] Isosorbide Mononitrate [Ismo] 10 mg PO BID 06/06/20 [History] Aspirin EC [Ecotrin Low Dose] 81 mg PO DAILY 05/13/21 [History] Budesonide/Formoterol Fumarate [Symbicort 160-4.5 Mcg Inhaler] 2 puff INHALATION RT-BID 05/13/21 [History] Empagliflozin [Jardiance] 25 mg PO DAILY 05/13/21 [History] Hydrocortisone Cream [Hydrocortisone 1% Cream] 1 applic TOPICAL DAILY PRN 05/13/21 [History] LORazepam [Ativan] 1 mg PO TID 05/13/21 [History] Nystatin 1 applic TOPICAL BID PRN 05/13/21 [History] amLODIPine [Norvasc] 10 mg PO HS 05/13/21 [History] polyethylene glycoL 3350 [Miralax] 17 gm PO DAILY PRN 05/13/21 [History] sitaGLIPtin PHOS/metFORMIN HCL [Janumet Xr 50-1,000 mg Tablet] 1 tab PO BID 05/13/21 [History] traMADol HCL 50 mg PO BID PRN 05/13/21 [History] HYDROcodone/APAP 5-325MG [[place] 5-325] 1 each PO Q6HR PRN #10 tab 05/14/21 [Rx] Lisinopril [Zestril] 20 mg PO DAILY 30 Days #60 tab 05/14/21 [Rx] Nicotine 14Mg/24Hr Patch [Habitrol] 1 patch TRANSDERM DAILY #20 patch 05/14/21 [Rx] Follow up Appointment(s)/Referral(s): Veena Escalante DO [Primary Care Provider] - 05/16/21 8:40 am Patient Instructions/Handouts: Urinary Tract Infection in Women (ED), Heart Healthy Diet (DC), Meal Planning with Diabetes Exchanges (DC) Activity/Diet/Wound Care/Special Instructions: Activity Limited until follow-up Follow-up with primary care provider upon discharge Continue with medications as prescribed continue heart healthy consistent carbohydrate diet Encourage fluids Discharge Disposition: HOME SELF-CARE
== END 2021-05-14 16:25 | disposition home or self-care (01) ==
LOC: EC 04:50 → 6NMEDSUR 08:00
PROVIDERS: ADMIT Hospitalist; ATTEND Hospitalist
DX: R82.71 Bacteriuria (principal); M79.602 Pain in left arm; M79.601 Pain in right arm; M79.605 Pain in left leg; M79.604 Pain in right leg; E11.9 Type 2 diabetes mellitus without complications; I10 Essential (primary) hypertension; J44.9 Chronic obstructive pulmonary disease, unspecified; J96.12 Chronic respiratory failure with hypercapnia; E11.42 Type 2 diabetes mellitus with diabetic polyneuropathy; K21.9 Gastro-esophageal reflux disease without esophagitis; G89.29 Other chronic pain; M54.5 Low back pain; K44.9 Diaphragmatic hernia without obstruction or gangrene; K57.90 Diverticulosis of intestine, part unspecified, without perforation or abscess without bleeding; K58.9 Irritable bowel syndrome, unspecified; L30.9 Dermatitis, unspecified; F32.9 Major depressive disorder, single episode, unspecified; F41.9 Anxiety disorder, unspecified; F17.200 Nicotine dependence, unspecified, uncomplicated; D72.829 Elevated white blood cell count, unspecified; Z20.822 Contact with and (suspected) exposure to COVID-19; Z79.01 Long term (current) use of anticoagulants; Z79.84 Long term (current) use of oral hypoglycemic drugs; Z79.82 Long term (current) use of aspirin; Z79.51 Long term (current) use of inhaled steroids; Z79.899 Other long term (current) drug therapy; Z88.0 Allergy status to penicillin; Z88.1 Allergy status to other antibiotic agents; Z88.2 Allergy status to sulfonamides; Z87.01 Personal history of pneumonia (recurrent); Z87.440 Personal history of urinary (tract) infections; Z91.81 History of falling; Z90.49 Acquired absence of other specified parts of digestive tract; Z90.710 Acquired absence of both cervix and uterus; Z98.890 Other specified postprocedural states; Z82.3 Family history of stroke; Z83.49 Family history of other endocrine, nutritional and metabolic diseases; Z82.49 Family history of ischemic heart disease and other diseases of the circulatory system; Z80.0 Family history of malignant neoplasm of digestive organs
CPT/HCPCS: 96365; 99285; 36415; 94640 ×2; 80053; 85025; 81001; 87086; 87635; 71046; G0378 ×2; S4990 ×2; J0696

== ENCOUNTER 2021-05-20 15:12 | Emergency (ER) | payer MEDICARE ==
[2021-05-20 15:26] VITALS: RESP 18
[2021-05-20] MEDS ORDERED: SODIUM CHLORIDE 0.9% 500 ML 500 ML IV STA (15:35)
[2021-05-20] MEDS ORDERED: SODIUM CHLORIDE 0.9% 1,000 ML IV STA (15:35)
[2021-05-20 16:19] LABS: Basophils # (A) 0.1 k/uL (0-0.2); Basophils % (A) 1 %; Eosinophils # (A) 0.1 k/uL (0-0.7); Eosinophils % (A) 1 %; HCT 47.6 % (34.0-46.0); HGB 14.8 gm/dL (11.4-16.0); Lymphocytes # (A) 3.2 k/uL (1.0-4.8); Lymphocytes % (A) 24 %; MCH 29.6 pg (25.0-35.0); Mean Platelet Volume 7.9; Monocytes # (A) 0.6 k/uL (0-1.0); Monocytes % (A) 5 %; Neutrophils % (A) 68 %; Platelet Count 330 k/uL (150-450); RBC 4.99 m/uL (3.80-5.40); RDW 13.8 % (11.5-15.5); WBC 13.3 k/uL (3.8-10.6)
[2021-05-20 16:28] LABS: INR 0.9 (<1.2); Partial Thromboplastin Time 24.1 sec (22.0-30.0); Prothrombin Time 10.2 sec (9.0-12.0)
[2021-05-20 16:31] LABS: ALT 14 U/L (4-34); AST 17 U/L (14-36); African American GFR (CKD) >90 (>60 ml/min/1.73 sqM); Albumin 4.1 g/dL (3.5-5.0); Alkaline Phosphatase 62 U/L (38-126); Anion Gap 6 mmol/L; Blood Urea Nitrogen 14 mg/dL (7-17); Calcium 8.8 mg/dL (8.4-10.2); Carbon Dioxide 27 mmol/L (22-30); Chloride 109 mmol/L (98-107); Glucose 98 mg/dL (74-99); Magnesium 1.9 mg/dL (1.6-2.3); Non-African American GFR(CKD) >90 (>60 ml/min/1.73 sqM); Phosphorus 3.8 mg/dL (2.5-4.5); Potassium 4.5 mmol/L (3.5-5.1); Sodium 142 mmol/L (137-145); Total Bilirubin 0.2 mg/dL (0.2-1.3); Total Protein 6.7 g/dL (6.3-8.2)
[2021-05-20 16:38] LABS: MCV 95.4 fL (80.0-100.0)
[2021-05-20 17:33] LABS: Appearance,Urine Clear (Clear); Bilirubin,Urine Negative (Negative); Blood,Urine Negative (Negative); Color,Urine Light Yellow; Glucose,Urine (UA) 3+ (Negative); Ketones,Urine Negative (Negative); Leukocyte Esterase,Urine Negative (Negative); Nitrite,Urine Negative (Negative); PH, Urine 5.5 (5.0-8.0); Protein,Urine Negative (Negative); Specific Gravity,Urine 1.014 (1.001-1.035); Urobilinogen,Urine <2.0 mg/dL (<2.0)
[2021-05-20] MEDS ORDERED: PHENAZOPYRIDINE 200 MG TAB PO STA (18:10)
--- NOTE | 2021-05-20 18:15 | ED ---
Female Urogenital HPI - General Chief complaint: Urogenital Stated complaint: UTI, dehydration Source: patient, EMS Mode of arrival: EMS Limitations: no limitations - History of Present Illness Initial comments: This 81-year-old female presents with a complaint of some urinary frequency and urgency. She states that this started over the last 2 days. She was just hospitalized last week with a possible urinary tract infection although her cultures eventually came back negative. She complains of some diffuse myalgias. She does complain of some mild fatigue as well. She relates that she has had intermittent urinary tract infections for the last 2 years. She had previously seen a urologist out of [place]. She is looking for urologist in this area. She denies any abdominal or flank pain. There has been no fevers. No other complaints or modifying factors. - Related Data Home Medications Medication Instructions Recorded Confirmed Baclofen [Lioresal] 10 mg PO DAILY 06/06/20 05/20/21 DULoxetine HCL [Cymbalta] 60 mg PO DAILY 06/06/20 05/20/21 Glimepiride [Amaryl] 4 mg PO BID 06/06/20 05/20/21 Isosorbide Mononitrate [Ismo] 10 mg PO BID 06/06/20 05/20/21 Aspirin EC [Ecotrin Low Dose] 81 mg PO DAILY 05/13/21 05/20/21 Budesonide/Formoterol Fumarate 2 puff INHALATION RT-BID 05/13/21 05/20/21 [Symbicort 160-4.5 Mcg Inhaler] Empagliflozin [Jardiance] 25 mg PO DAILY 05/13/21 05/20/21 Hydrocortisone Cream 1 applic TOPICAL DAILY PRN 05/13/21 05/20/21 [Hydrocortisone 1% Cream] LORazepam [Ativan] 1 mg PO TID 05/13/21 05/20/21 Nystatin 1 applic TOPICAL BID PRN 05/13/21 05/20/21 amLODIPine [Norvasc] 10 mg PO HS 05/13/21 05/20/21 polyethylene glycoL 3350 [Miralax] 17 gm PO DAILY PRN 05/13/21 05/20/21 sitaGLIPtin PHOS/metFORMIN HCL 1 tab PO BID 05/13/21 05/20/21 [Janumet Xr 50-1,000 mg Tablet] traMADol HCL 50 mg PO BID PRN 05/13/21 05/20/21 HYDROcodone/APAP 5-325MG [[place] 1 tab PO Q6HR PRN 05/20/21 05/20/21 5-325] Nicotine 14Mg/24Hr Patch [Habitrol] 1 patch TRANSDERM DAILY PRN 05/20/21 05/20/21 lisinopriL 20 mg PO DAILY 05/20/21 05/20/21 Previous Rx's Medication Instructions Recorded Phenazopyridine [Pyridium] 200 mg PO TID #9 tablet 05/20/21 Allergies Allergy/AdvReac Type Severity Reaction Status Date / Time doxycycline Allergy Unknown Verified 05/20/21 15:26 nitrofurantoin Allergy Nausea & Verified 05/20/21 15:26 [From Macrobid] Vomiting & Diarrhea Penicillins AdvReac Rash/Hives Verified 05/20/21 15:26 Sulfa (Sulfonamide AdvReac Nausea & Verified 05/20/21 15:26 Antibiotics) Vomiting & Diarrhea Review of Systems ROS Statement: Those systems with pertinent positive or pertinent negative responses have been documented in the HPI. ROS Other: All systems not noted in ROS Statement are negative. Past Medical History Past Medical History: Asthma, Chest Pain / Angina, COPD, Diabetes Mellitus, GERD/Reflux, Hypertension, Pneumonia, Respiratory Disorder, Skin Disorder Additional Past Medical History / Comment(s): Home oxygen at 4L/[place] ATC, bronchitis, NIDDM type II, neuropathy bilateral feet, falls, IBS, diverticular disease, hiatal hernia, chronic low back pain, eczema History of Any Multi-Drug Resistant Organisms: None Reported Past Surgical History: Cholecystectomy, Hysterectomy, Tonsillectomy Additional Past Surgical History / Comment(s): colonoscopy. 12/03/2020 surgery for bowel obstruction at [facility] Past Anesthesia/Blood Transfusion Reactions: No Reported Reaction Additional Past Anesthesia/Blood Transfusion Reaction / Comment(s): Pt states she has never received blood. Past Psychological History: Anxiety, Depression Smoking Status: Current every day smoker, Heavy tobacco smoker Past Alcohol Use History: Rare Past Drug Use History: None Reported - Past Family History Father Family Medical History: Cancer Additional Family Medical History / Comment(s): Father of colon cancer at the age of 54 yrs. Mother Family Medical History: CVA/TIA, Hyperlipidemia, Hypertension Additional Family Medical History / Comment(s): Mother lived to be 96yrs old. General Exam - General Exam Comments Initial Comments: GENERAL: The patient is well nourished and well hydrated. VITAL SIGNS: Heart rate, blood pressure, respiratory rate reviewed as recorded in nurse's notes. EYES: Pupils are round and reactive. Extraocular movements are intact. No conjunctival / lid redness or swelling. ENT: No external evidence of injury, swelling, or ecchymosis. Airway is patent. Throat is clear. NECK: Nontender. No swelling or evidence of injury. No subcutaneous emphysema. Trachea is midline. No thyroid mass. HEART: Regular rate and rhythm. Good peripheral pulses. LUNGS/CHEST: Breath sounds clear and equal bilaterally. No rales, rhonchi, or wheezes. No ecchymosis, subcutaneous emphysema, or tenderness. ABDOMEN: Abdomen soft without tenderness. No palpable masses or organomegaly. No peritoneal signs. No abdominal wall swelling or ecchymosis. EXTREMITIES: No extremity tenderness. Normal muscle tone and function. No thoracolumbar tenderness. NEUROLOGIC: Sensation is grossly intact. Cranial nerve exam reveals face is symmetrical, tongue is midline, speech is clear. SKIN: No abrasions or ecchymosis is noted. No induration or masses noted. PSYCHIATRIC: Alert and oriented. Appropriate behavior and judgment. Limitations: no limitations Course Vital Signs 05/20/21 15:23 Pulse Rate 70 Respiratory 18 Rate Blood Pressure 148/63 O2 Sat by Pulse 98 Oximetry Medical Decision Making - Medical Decision Making The patient was seen and examined. All diagnostics were reviewed. The EKG shows a normal sinus rhythm at a rate of 69. There is no acute ST-T wave changes identified. The TN intervals 154, castration is 82, and the QTC intervals 437. The patient's laboratory was all essentially within normal limits except for a slight leukocytosis which appears to be a degree chronic for her. The urinalysis did not show any evidence of infection. She is still taking Keflex currently. The exact cause of her dysuria and frequency is not definitively determine but it is felt as though she stable for discharge home. She may benefit from a trial of Pyridium. She is agreeable with this plan. She requests referral to urologist in our area due to her recurrence of urinary tract infection symptoms. Return parameters are discussed. Close follow-up recommended. - Lab Data Result diagrams: 05/20/21 16:06 05/20/21 16:06 Lab Results 05/20/21 05/20/21 05/20/21 Range/Units 16:06 16:06 16:06 WBC 13.3 H (3.8-10.6) k/uL RBC 4.99 (3.80-5.40) m/uL Hgb 14.8 (11.4-16.0) gm/dL Hct 47.6 H (34.0-46.0) % MCV 95.4 D (80.0-100.0) fL MCH 29.6 (25.0-35.0) pg MCHC 31.0 (31.0-37.0) g/dL RDW 13.8 (11.5-15.5) % Plt Count 330 (150-450) k/uL MPV 7.9 Neutrophils % 68 % Lymphocytes % 24 % Monocytes % 5 % Eosinophils % 1 % Basophils % 1 % Neutrophils # 9.0 H (1.3-7.7) k/uL Lymphocytes # 3.2 (1.0-4.8) k/uL Monocytes # 0.6 (0-1.0) k/uL Eosinophils # 0.1 (0-0.7) k/uL Basophils # 0.1 (0-0.2) k/uL PT 10.2 (9.0-12.0) sec INR 0.9 (<1.2) APTT 24.1 (22.0-30.0) sec Sodium 142 (137-145) mmol/L Potassium 4.5 (3.5-5.1) mmol/L Chloride 109 H (98-107) mmol/L Carbon Dioxide 27 (22-30) mmol/L Anion Gap 6 mmol/L BUN 14 (7-17) mg/dL Creatinine 0.49 L (0.52-1.04) mg/dL Est GFR (CKD-EPI)AfAm >90 (>60 ml/min/1.73 sqM) Est GFR (CKD-EPI)NonAf >90 (>60 ml/min/1.73 sqM) Glucose 98 (74-99) mg/dL Plasma Lactic Acid Collins (0.7-2.0) mmol/L Calcium 8.8 (8.4-10.2) mg/dL Phosphorus 3.8 (2.5-4.5) mg/dL Magnesium 1.9 (1.6-2.3) mg/dL Total Bilirubin 0.2 (0.2-1.3) mg/dL AST 17 (14-36) U/L ALT 14 (4-34) U/L Alkaline Phosphatase 62 (38-126) U/L Total Protein 6.7 (6.3-8.2) g/dL Albumin 4.1 (3.5-5.0) g/dL Urine Color Urine Appearance (Clear) Urine pH (5.0-8.0) Ur Specific [place] (1.001-1.035) Urine Protein (Negative) Urine Glucose (UA) (Negative) Urine Ketones (Negative) Urine Blood (Negative) Urine Nitrite (Negative) Urine Bilirubin (Negative) Urine Urobilinogen (<2.0) mg/dL Ur Leukocyte Esterase (Negative) 05/20/21 05/20/21 Range/Units 16:06 17:26 WBC (3.8-10.6) k/uL RBC (3.80-5.40) m/uL Hgb (11.4-16.0) gm/dL Hct (34.0-46.0) % MCV (80.0-100.0) fL MCH (25.0-35.0) pg MCHC (31.0-37.0) g/dL RDW (11.5-15.5) % Plt Count (150-450) k/uL MPV Neutrophils % % Lymphocytes % % Monocytes % % Eosinophils % % Basophils % % Neutrophils # (1.3-7.7) k/uL Lymphocytes # (1.0-4.8) k/uL Monocytes # (0-1.0) k/uL Eosinophils # (0-0.7) k/uL Basophils # (0-0.2) k/uL PT (9.0-12.0) sec INR (<1.2) APTT (22.0-30.0) sec Sodium (137-145) mmol/L Potassium (3.5-5.1) mmol/L Chloride (98-107) mmol/L Carbon Dioxide (22-30) mmol/L Anion Gap mmol/L BUN (7-17) mg/dL Creatinine (0.52-1.04) mg/dL Est GFR (CKD-EPI)AfAm (>60 ml/min/1.73 sqM) Est GFR (CKD-EPI)NonAf (>60 ml/min/1.73 sqM) Glucose (74-99) mg/dL Plasma Lactic Acid Collins 1.0 (0.7-2.0) mmol/L Calcium (8.4-10.2) mg/dL Phosphorus (2.5-4.5) mg/dL Magnesium (1.6-2.3) mg/dL Total Bilirubin (0.2-1.3) mg/dL AST (14-36) U/L ALT (4-34) U/L Alkaline Phosphatase (38-126) U/L Total Protein (6.3-8.2) g/dL Albumin (3.5-5.0) g/dL Urine Color Light Yellow Urine Appearance Clear (Clear) Urine pH 5.5 (5.0-8.0) Ur Specific [place] 1.014 (1.001-1.035) Urine Protein Negative (Negative) Urine Glucose (UA) 3+ H (Negative) Urine Ketones Negative (Negative) Urine Blood Negative (Negative) Urine Nitrite Negative (Negative) Urine Bilirubin Negative (Negative) Urine Urobilinogen <2.0 (<2.0) mg/dL Ur Leukocyte Esterase Negative (Negative) Disposition Clinical Impression: Urinary frequency, Dysuria Disposition: HOME SELF-CARE Condition: Good Instructions (If sedation given, give patient instructions): Dysuria (ED) Prescriptions: Phenazopyridine [Pyridium] 200 mg PO TID #9 tablet Is patient prescribed a controlled substance at d/c from ED?: No Referrals: Veena Spain DO [Primary Care Provider] - 1-2 days Mark Nice MD [STAFF PHYSICIAN] - 1-2 days Time of Disposition: 18:15
[2021-05-20 18:32] VITALS: BP 130/76; PULSE 74; TEMP 98
== END 2021-05-20 19:05 | disposition home or self-care (01) ==
LOC: EC 15:12
DX: R35.0 Frequency of micturition (principal); R30.0 Dysuria; R39.15 Urgency of urination; M79.10 Myalgia, unspecified site; I10 Essential (primary) hypertension; J44.9 Chronic obstructive pulmonary disease, unspecified; E11.40 Type 2 diabetes mellitus with diabetic neuropathy, unspecified; K21.9 Gastro-esophageal reflux disease without esophagitis; K58.9 Irritable bowel syndrome, unspecified; F41.9 Anxiety disorder, unspecified; F32.9 Major depressive disorder, single episode, unspecified; F17.210 Nicotine dependence, cigarettes, uncomplicated; Z87.440 Personal history of urinary (tract) infections; Z79.51 Long term (current) use of inhaled steroids; Z79.82 Long term (current) use of aspirin; Z79.84 Long term (current) use of oral hypoglycemic drugs; Z79.899 Other long term (current) drug therapy; Z88.0 Allergy status to penicillin; Z88.1 Allergy status to other antibiotic agents; Z88.2 Allergy status to sulfonamides
CPT/HCPCS: 36415; 80053; 81003; 83605; 83735; 84100; 85025; 85610; 85730; 93005; 96360; 96361; 99284

== ENCOUNTER 2021-05-27 18:10 | Inpatient (IN) | payer MEDICARE ==
[2021-05-27] MEDS ORDERED: LORazepam 2 MG/ML INJ IV STA (18:37)
--- NOTE | 2021-05-27 19:08 | ED ---
Psych HPI - General Chief Complaint: Psychiatric Symptoms Stated Complaint: suicidal ideations Time Seen by Provider: 05/27/21 18:15 Source: patient, EMS Mode of arrival: EMS - History of Present Illness Initial Comments: Sabina is an 81-year-old female is brought to the ER today by ambulance for suicidal thoughts. Patient is 81 years old she lives at home with her elderly , they have become unable to care for themselves, the stay is supposed to ride a performance improvement director but has not been available. Patient states she hasn't been taking her medications. She states that she thinks God is mad at her because she allowed her 16-year-old daughter have an . - Related Data Home Medications Medication Instructions Recorded Confirmed Baclofen [Lioresal] 10 mg PO DAILY 06/06/20 05/27/21 DULoxetine HCL [Cymbalta] 60 mg PO DAILY 06/06/20 05/27/21 Glimepiride [Amaryl] 4 mg PO BID 06/06/20 05/27/21 Isosorbide Mononitrate [Ismo] 10 mg PO BID 06/06/20 05/27/21 Aspirin EC [Ecotrin Low Dose] 81 mg PO DAILY 05/13/21 05/27/21 Budesonide/Formoterol Fumarate 2 puff INHALATION RT-BID 05/13/21 05/27/21 [Symbicort 160-4.5 Mcg Inhaler] Empagliflozin [Jardiance] 25 mg PO DAILY 05/13/21 05/27/21 Hydrocortisone Cream 1 applic TOPICAL DAILY PRN 05/13/21 05/27/21 [Hydrocortisone 1% Cream] LORazepam [Ativan] 1 mg PO TID 05/13/21 05/27/21 Nystatin 1 applic TOPICAL BID PRN 05/13/21 05/27/21 amLODIPine [Norvasc] 10 mg PO HS 05/13/21 05/27/21 polyethylene glycoL 3350 [Miralax] 17 gm PO DAILY PRN 05/13/21 05/27/21 sitaGLIPtin PHOS/metFORMIN HCL 1 tab PO BID 05/13/21 05/27/21 [Janumet Xr 50-1,000 mg Tablet] traMADol HCL 50 mg PO BID PRN 05/13/21 05/27/21 HYDROcodone/APAP 5-325MG [[place] 1 tab PO Q6HR PRN 05/20/21 05/27/21 5-325] Nicotine 14Mg/24Hr Patch [Habitrol] 1 patch TRANSDERM DAILY PRN 05/20/21 05/27/21 lisinopriL 20 mg PO DAILY 05/20/21 05/27/21 Previous Rx's Medication Instructions Recorded Phenazopyridine [Pyridium] 200 mg PO TID #9 tablet 05/20/21 Allergies Allergy/AdvReac Type Severity Reaction Status Date / Time doxycycline Allergy Unknown Verified 05/27/21 19:01 nitrofurantoin Allergy Nausea & Verified 05/27/21 19:01 [From Macrobid] Vomiting & Diarrhea Penicillins AdvReac Rash/Hives Verified 05/27/21 19:01 Sulfa (Sulfonamide AdvReac Nausea & Verified 05/27/21 19:01 Antibiotics) Vomiting & Diarrhea Review of Systems ROS Statement: Those systems with pertinent positive or pertinent negative responses have been documented in the HPI. ROS Other: All systems not noted in ROS Statement are negative. Past Medical History Past Medical History: Asthma, Chest Pain / Angina, COPD, Diabetes Mellitus, GERD/Reflux, Hypertension, Pneumonia, Respiratory Disorder, Skin Disorder Additional Past Medical History / Comment(s): Home oxygen at 4L/[place] ATC, bronchitis, NIDDM type II, neuropathy bilateral feet, falls, IBS, diverticular disease, hiatal hernia, chronic low back pain, eczema History of Any Multi-Drug Resistant Organisms: None Reported Past Surgical History: Cholecystectomy, Hysterectomy, Tonsillectomy Additional Past Surgical History / Comment(s): colonoscopy. 12/03/2020 surgery for bowel obstruction at [facility] Past Anesthesia/Blood Transfusion Reactions: No Reported Reaction Additional Past Anesthesia/Blood Transfusion Reaction / Comment(s): Pt states she has never received blood. Past Psychological History: Anxiety, Depression Smoking Status: Current every day smoker, Heavy tobacco smoker Past Alcohol Use History: Rare Past Drug Use History: None Reported - Past Family History Father Family Medical History: Cancer Additional Family Medical History / Comment(s): Father of colon cancer at the age of 54 yrs. Mother Family Medical History: CVA/TIA, Hyperlipidemia, Hypertension Additional Family Medical History / Comment(s): Mother lived to be 96yrs old. General Exam - General Exam Comments Initial Comments: Physical Exam GENERAL: Elderly female, crying Poor personal hygiene HENT: Normocephalic, Atraumatic. EYES: PERRL, EOMI PULMONARY: Unlabored respirations. CARDIOVASCULAR: RRR Warm and well perfused extremities ABDOMEN: Non-distended SKIN: No rashes or bruising : skin breakdown of external genitalia NEUROLOGIC: Alert and oriented MUSCULOSKELETAL: Moving all extremities with no apparent injury PSYCHIATRIC: Tearful crying, states she wants to Limitations: no limitations Course Vital Signs 05/27/21 18:15 Temperature 98.6 F Pulse Rate 79 Respiratory 22 Rate Blood Pressure 166/53 O2 Sat by Pulse 89 L Oximetry Medical Decision Making - Medical Decision Making Patient seen and evaluated 81-year-old female, she is very unclean on arrival she is tearful she states she can't care for herself at home Patient has underpants that of been soiled, she has some skin breakdown in her perineal region Labs are obtained she is mild leukocytosis, mildly elevated potassium likely related to hemolysis Patient urinated in bed multiple times unable to provide a urine sample straight cath ordered She'll be admitted for failure to thrive because of the psychiatry for depression and consult to social work - Lab Data Result diagrams: 05/27/21 19:13 05/27/21 19:13 Lab Results 05/27/21 05/27/21 Range/Units 19:13 19:13 WBC 12.0 H (3.8-10.6) k/uL RBC 5.29 (3.80-5.40) m/uL Hgb 15.5 (11.4-16.0) gm/dL Hct 50.2 H (34.0-46.0) % MCV 94.9 (80.0-100.0) fL MCH 29.3 (25.0-35.0) pg MCHC 30.8 L (31.0-37.0) g/dL RDW 14.2 (11.5-15.5) % Plt Count 376 (150-450) k/uL MPV 8.0 Neutrophils % 65 % Lymphocytes % 26 % Monocytes % 5 % Eosinophils % 2 % Basophils % 1 % Neutrophils # 7.8 H (1.3-7.7) k/uL Lymphocytes # 3.1 (1.0-4.8) k/uL Monocytes # 0.6 (0-1.0) k/uL Eosinophils # 0.2 (0-0.7) k/uL Basophils # 0.1 (0-0.2) k/uL Sodium 143 (137-145) mmol/L Potassium 5.4 H (3.5-5.1) mmol/L Chloride 111 H (98-107) mmol/L Carbon Dioxide 22 (22-30) mmol/L Anion Gap 10 mmol/L BUN 23 H (7-17) mg/dL Creatinine 0.46 L (0.52-1.04) mg/dL Est GFR (CKD-EPI)AfAm >90 (>60 ml/min/1.73 sqM) Est GFR (CKD-EPI)NonAf >90 (>60 ml/min/1.73 sqM) Glucose 135 H (74-99) mg/dL Calcium 9.4 (8.4-10.2) mg/dL Total Bilirubin 0.6 (0.2-1.3) mg/dL AST 33 (14-36) U/L ALT 15 (4-34) U/L Alkaline Phosphatase 51 (38-126) U/L Total Protein 7.3 (6.3-8.2) g/dL Albumin 4.5 (3.5-5.0) g/dL TSH 0.865 (0.465-4.680) mIU/L Salicylates <1.0 mg/dL Acetaminophen <10.0 ug/mL Serum Alcohol <10 mg/dL Disposition Clinical Impression: Depression, Adjustment reaction of adult life, Leukocytosis, Urinary incontinence Disposition: ADMITTED IP TO THIS [facility] Condition: Stable Is patient prescribed a controlled substance at d/c from ED?: No Referrals: Veena Spain DO [Primary Care Provider] - 1-2 days
[2021-05-27 19:17] LABS: Basophils # (A) 0.1 k/uL (0-0.2); Basophils % (A) 1 %; Eosinophils # (A) 0.2 k/uL (0-0.7); Eosinophils % (A) 2 %; HCT 50.2 % (34.0-46.0); HGB 15.5 gm/dL (11.4-16.0); Lymphocytes # (A) 3.1 k/uL (1.0-4.8); Lymphocytes % (A) 26 %; MCH 29.3 pg (25.0-35.0); MCHC 30.8 g/dL (31.0-37.0); MCV 94.9 fL (80.0-100.0); Monocytes # (A) 0.6 k/uL (0-1.0); Monocytes % (A) 5 %; Neutrophils # (A) 7.8 k/uL (1.3-7.7); Neutrophils % (A) 65 %; Platelet Count 376 k/uL (150-450); RBC 5.29 m/uL (3.80-5.40); RDW 14.2 % (11.5-15.5)
[2021-05-27 19:25] LABS: ALT 15 U/L (4-34); AST 33 U/L (14-36); Acetaminophen <10.0 ug/mL; African American GFR (CKD) >90 (>60 ml/min/1.73 sqM); Albumin 4.5 g/dL (3.5-5.0); Alcohol <10 mg/dL; Alkaline Phosphatase 51 U/L (38-126); Anion Gap 10 mmol/L; Blood Urea Nitrogen 23 mg/dL (7-17); Calcium 9.4 mg/dL (8.4-10.2); Carbon Dioxide 22 mmol/L (22-30); Chloride 111 mmol/L (98-107); Glucose 135 mg/dL (74-99); Non-African American GFR(CKD) >90 (>60 ml/min/1.73 sqM); Potassium 5.4 mmol/L (3.5-5.1); Salicylate <1.0 mg/dL; Sodium 143 mmol/L (137-145); Total Bilirubin 0.6 mg/dL (0.2-1.3); Total Protein 7.3 g/dL (6.3-8.2)
[2021-05-27] MEDS ORDERED: NALOXONE 0.4 MG/ML 1 ML VIAL IV PRN (22:50)
[2021-05-28] MEDS ORDERED: diphenhydrAMINE 50 MG/ML 1 ML VIAL IVP PRN (06:17)
[2021-05-28] MEDS ORDERED: IPRATROPIUM-ALBUTEROL 3 ML NEB INHALATION STA (06:17)
[2021-05-28] MEDS ORDERED: MORPHINE SULFATE 4 MG/ML SYRINGE IVP STA (06:17)
[2021-05-28] MEDS ORDERED: diphenhydrAMINE 50 MG/ML 1 ML VIAL IVP STA (06:17)
[2021-05-28] MEDS ORDERED: LORazepam 2 MG/ML INJ IV STA (06:17)
[2021-05-28 11:24] LABS: African American GFR (CKD) >90 (>60 ml/min/1.73 sqM); Anion Gap 8 mmol/L; Blood Urea Nitrogen 25 mg/dL (7-17); Calcium 9.4 mg/dL (8.4-10.2); Carbon Dioxide 24 mmol/L (22-30); Chloride 111 mmol/L (98-107); Glucose 257 mg/dL (74-99); Non-African American GFR(CKD) >90 (>60 ml/min/1.73 sqM); Sodium 143 mmol/L (137-145)
[2021-05-28 11:25] LABS: Basophils # (A) 0.1 k/uL (0-0.2); Basophils % (A) 1 %; Eosinophils # (A) 0.2 k/uL (0-0.7); Eosinophils % (A) 1 %; HCT 48.6 % (34.0-46.0); HGB 15.2 gm/dL (11.4-16.0); Lymphocytes # (A) 3.4 k/uL (1.0-4.8); Lymphocytes % (A) 26 %; MCH 29.9 pg (25.0-35.0); MCHC 31.3 g/dL (31.0-37.0); MCV 95.5 fL (80.0-100.0); Mean Platelet Volume 9.1; Monocytes % (A) 7 %; Neutrophils # (A) 8.1 k/uL (1.3-7.7); Neutrophils % (A) 63 %; Platelet Count 284 k/uL (150-450); RBC 5.09 m/uL (3.80-5.40); RDW 13.7 % (11.5-15.5); WBC 12.9 k/uL (3.8-10.6)
[2021-05-28 11:30] LABS: Potassium 4.6 mmol/L (3.5-5.1)
[2021-05-28] MEDS: MORPHINE SULFATE 4 MG/ML SYRINGE IVP PRN ×3 (12:07→20:21)
--- NOTE | 2021-05-28 12:35 | P.CN ---
Psychiatric Consult - . Consult date: 05/28/21 Consult:: 05/28/21 10:58 IDENTIFYING DATA: This patient is a 81-year-old female who currently lives at home with her REASON FOR REFERRAL: Psychiatry was consulted for depression HISTORY OF PRESENT ILLNESS: The patient presented to the hospital via EMS for suicidal ideations according to ER report. Patient had claimed that she had been living with her and they are unable to take care of themselves. She apparently has not been taking her medications and was found to be fairly tearful, unkempt and wearing soiled clothing. She is admitted to the medical floors for failure to thrive. Patient was seen today by database report writer today at the bedside and had a one-to-one sitter at her side. Patient appeared to be disheveled in appearance, was tearful and had different stains all over her clothing. She was concrete and appeared to be depressed. She claimed that she "didn't want to live anymore". She states that she signed a for her 16-year-old daughter and "can't forgive myself". She states that her daughter did forgive her however she's been struggling with this "my whole life". She also claims that she does want to live to see her new baby great-grandson. She does claim that she is feeling depressed and anxious and admits to not taking her medications. She states that she was on Cymbalta and Ativan however believes that the Cymbalta has not been helping her. She was alert and oriented 3 and knows who the current president is. At this time patient denies any current suicidal or homical ideations, intent or plan. Patient denies any auditory, visual hallucinations and denies any paranoia or delusions. Patients admits to using cigarettes daily however no other recreational drugs. PAST PSYCHIATRIC HISTORY: Patient has a a history of depression and anxiety. Patient was previously on Cymbalta 60 mg daily and Ativan 1 mg 3 times a day. Patient denies any previous psychiatric hospitalizations. Patient denies any psychiatric outpatient follow-up. Patient denies any history of suicide attempts in the past. PAST MEDICAL HISTORY: Asthma, Chest Pain / Angina, COPD, Diabetes Mellitus, GERD/Reflux, Hypertension, Pneumonia, Respiratory Disorder, Skin Disorder Additional Past Medical History / Comment(s): Home oxygen at 4L/[place] ATC, bronchitis, NIDDM type II, neuropathy bilateral feet, falls, IBS, diverticular disease, hiatal hernia, chronic low back pain, eczema ALLERGIES: as per EMR. CHEMICAL DEPENDENCY HISTORY: as per HPI. FAMILY PSYCHIATRIC/SUBSTANCE USE HISTORY: She states that her father had some form of mental illness. SOCIAL HISTORY: Patient was born and raised in [facility]. She states that she completed high school. 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 She claims that she currently lives with her in a home and her son helps take care of them. MENTAL STATUS EXAM: General Appearance: Patient appears to be elderly, disheveled in appearance, unkempt, alert, tearful however attempts to cooperate. Patient appears to have poor hygiene and grooming wearing hospital gown with fair eye contact. Behavior: Patient is tearful however cooperative. Speech: Patient's speech is fluent and nonpressured. concrete Mood/Affect: Patient reports their mood is "depressed", affect is congruent and tearful Suicidality/Homicidality: Patient denies having any suicidal or homicidal ideation intent or plan. Perceptions: Patient denies any visual hallucinations and denies any auditory hallucinations Though content/process: There is no evidence of any delusional thought content. themes of guilt. concrete. Memory and concentration: AOX3, grossly intact for the purposes of this session. fair attention span Judgment and insight: poor IMPRESSIONS: Failure to thrive Major depressive disorder, without psychotic features anxiety disorder unspecified nicotine dependence PLAN: -At this time patient DOES NOT meet criteria for inpatient psychiatric however patient is clinically depressed and will require psychiatric treatment while she is on the medical floors. -Delirium precautions recommended with patient including - avoiding use of narcotics and [employer]UN[employer] HE[employer] NAVIGATOR sedatives, limit anticholinergic medications when possible, frequent re-orientation, minimize use of restraints, open window shades during the day and close them at night -Would recommend the following medication changes/additions: Start Zoloft 25 mg by mouth daily for mood/anxiety with plan to titrate up as needed/tolerated. Remeron 15 mg daily at bedtime for insomnia/appetite/mood. -Continue 1:1 sitter for safety. This can be reevaluated tomorrow to see if it can be discontinued or not. -telephone sex worker to provide patient with outpatient mental health/psychiatry resources for appropriate follow up upon discharge -telephone sex worker consult to asses failure to thrive and home envt, to collect furhter collateral info and if it is safe for patient to return or if she will need placement. -Communicated plan to patient's nurse -Will continue to follow along -Please contact with any questions.
[2021-05-28] MEDS: SERTRALINE 25 MG TAB PO SCH (13:41)
[2021-05-28] MEDS: LORazepam 2 MG/ML INJ IV PRN (18:01)
[2021-05-28] MEDS: IPRATROPIUM-ALBUTEROL 3 ML NEB INHALATION PRN (18:17)
[2021-05-28] MEDS: NICOTINE 21MG/24HR PATCH TRANSDERM SCH (18:26)
[2021-05-28] MEDS: MIRTAZAPINE 15 MG TAB PO SCH (20:21)
--- NOTE | 2021-05-28 23:17 | P.HPIM ---
History of Present Illness H&P Date: 05/28/21 Chief Complaint: Depression Patient is a 81-year-old female with a known history of COPD on 4 L oxygen via nasal cannula, diabetes type 2 szv-auqucyk-jnknvcira, diabetic peripheral neuropathy GERD, hypertension, chronic low back pain, anxiety/depression and currently everyday smoker and other multiple medical problems was brought to the hospital by ER by ambulance due to suicidal thoughts. Patient is currently staying with her elderly and is unable to to take care of themselves. They were not able to arrange a planning consultant. Patient is very depressed and was having suicidal thoughts. Patient also states that she signed for her 16-year-old daughter to have an and is feeling depressed about it. Patient also became emotional and was crying at times. Otherwise denied any chest pain or shortness of breath. No nausea vomiting or abdominal pain or diarrhea. No cough or sputum production. No fever no chills. Patient was recently admitted to hospital due to E. coli urinary tract infection. Laboratory data showed WBC 12.0 hemoglobin 15.5 and platelets 376 Sodium 143 potassium 5.4 chloride 111 BUN 29. Creatinine 0.46 Serum drug screen is negative. Alcohol less than 10. Review of Systems Complete review of systems could not be obtained from the patient except as per HPI. Past Medical History Past Medical History: Asthma, Chest Pain / Angina, COPD, Diabetes Mellitus, GERD/Reflux, Hypertension, Pneumonia, Respiratory Disorder, Skin Disorder Additional Past Medical History / Comment(s): Home oxygen at 4L/[place] ATC, bronchitis, NIDDM type II, neuropathy bilateral feet, falls, IBS, diverticular disease, hiatal hernia, chronic low back pain, eczema History of Any Multi-Drug Resistant Organisms: None Reported Past Surgical History: Cholecystectomy, Hysterectomy, Tonsillectomy Additional Past Surgical History / Comment(s): colonoscopy. 12/03/2020 surgery for bowel obstruction at [facility] Past Anesthesia/Blood Transfusion Reactions: No Reported Reaction Additional Past Anesthesia/Blood Transfusion Reaction / Comment(s): Pt states she has never received blood. Past Psychological History: Anxiety, Depression Smoking Status: Current every day smoker, Heavy tobacco smoker Past Alcohol Use History: Rare Past Drug Use History: None Reported - Past Family History Father Family Medical History: Cancer Additional Family Medical History / Comment(s): Father of colon cancer at the age of 54 yrs. Mother Family Medical History: CVA/TIA, Hyperlipidemia, Hypertension Additional Family Medical History / Comment(s): Mother lived to be 96yrs old. Medications and Allergies Home Medications Medication Instructions Recorded Confirmed Type Baclofen [Lioresal] 10 mg PO DAILY 06/06/20 05/27/21 History DULoxetine HCL [Cymbalta] 60 mg PO DAILY 06/06/20 05/27/21 History Glimepiride [Amaryl] 4 mg PO BID 06/06/20 05/27/21 History Isosorbide Mononitrate [Ismo] 10 mg PO BID 06/06/20 05/27/21 History Aspirin EC [Ecotrin Low Dose] 81 mg PO DAILY 05/13/21 05/27/21 History Budesonide/Formoterol Fumarate 2 puff INHALATION RT-BID 05/13/21 05/27/21 History [Symbicort 160-4.5 Mcg Inhaler] Empagliflozin [Jardiance] 25 mg PO DAILY 05/13/21 05/27/21 History Hydrocortisone Cream 1 applic TOPICAL DAILY PRN 05/13/21 05/27/21 History [Hydrocortisone 1% Cream] LORazepam [Ativan] 1 mg PO TID 05/13/21 05/27/21 History Nystatin 1 applic TOPICAL BID PRN 05/13/21 05/27/21 History amLODIPine [Norvasc] 10 mg PO HS 05/13/21 05/27/21 History polyethylene glycoL 3350 [Miralax] 17 gm PO DAILY PRN 05/13/21 05/27/21 History sitaGLIPtin PHOS/metFORMIN HCL 1 tab PO BID 05/13/21 05/27/21 History [Janumet Xr 50-1,000 mg Tablet] traMADol HCL 50 mg PO BID PRN 05/13/21 05/27/21 History HYDROcodone/APAP 5-325MG [[place] 1 tab PO Q6HR PRN 05/20/21 05/27/21 History 5-325] Nicotine 14Mg/24Hr Patch [Habitrol] 1 patch TRANSDERM DAILY PRN 05/20/21 05/27/21 History Phenazopyridine [Pyridium] 200 mg PO TID #9 tablet 05/20/21 05/27/21 Rx lisinopriL 20 mg PO DAILY 05/20/21 05/27/21 History Allergies Allergy/AdvReac Type Severity Reaction Status Date / Time doxycycline Allergy Unknown Verified 05/27/21 19:01 nitrofurantoin Allergy Nausea & Verified 05/27/21 19:01 [From Macrobid] Vomiting & Diarrhea Penicillins AdvReac Rash/Hives Verified 05/27/21 19:01 Sulfa (Sulfonamide AdvReac Nausea & Verified 05/27/21 19:01 Antibiotics) Vomiting & Diarrhea Physical Exam Vitals: Vital Signs Temp Pulse Resp BP Pulse Ox 05/28/21 09:49 77 16 142/76 97 05/28/21 07:41 72 16 173/67 94 L 05/28/21 07:20 74 16 05/28/21 07:07 70 16 05/27/21 18:15 98.6 F 79 22 166/53 89 L Intake and Output 05/27/21 05/28/21 05/28/21 22:59 06:59 14:59 Other: Weight 58.06 kg PHYSICAL EXAMINATION: Patient is lying in the bed comfortably, no acute distress, awake alert and oriented.. HEENT: Normocephalic. Neck is supple. Pupils reactive. Nostrils clear. Oral cavity is moist. Neck reveals no JVD, carotid bruits, or thyromegaly. CHEST EXAMINATION: Trachea is central. Symmetrical expansion. Lung morrison clear to auscultation and percussion. CARDIAC: Normal S1, S2 with no gallops. No murmurs ABDOMEN: Soft. Bowel sounds normal. No organomegaly. No abdominal bruits. Extremities: reveal no edema. No clubbing or cyanosis Neurologically awake, alert, oriented x2-3 with well-coordinated movements. No focal deficits noted Skin: No rash or skin lesions. Psychiatric: Coperative. depressed Musculoskeletal: No joint swelling or deformity. Normal range of motion. Results CBC & Chem 7: 05/28/21 11:00 05/28/21 11:00 Labs: Abnormal Lab Results - Last 24 Hours (Table) 05/27/21 05/27/21 05/28/21 Range/Units 19:13 19:13 11:00 WBC 12.0 H 12.9 H (3.8-10.6) k/uL Hct 50.2 H 48.6 H (34.0-46.0) % MCHC 30.8 L (31.0-37.0) g/dL Neutrophils # 7.8 H 8.1 H (1.3-7.7) k/uL Potassium 5.4 H (3.5-5.1) mmol/L Chloride 111 H (98-107) mmol/L BUN 23 H (7-17) mg/dL Creatinine 0.46 L (0.52-1.04) mg/dL Glucose 135 H (74-99) mg/dL 05/28/21 Range/Units 11:00 WBC (3.8-10.6) k/uL Hct (34.0-46.0) % MCHC (31.0-37.0) g/dL Neutrophils # (1.3-7.7) k/uL Potassium (3.5-5.1) mmol/L Chloride 111 H (98-107) mmol/L BUN 25 H (7-17) mg/dL Creatinine 0.47 L (0.52-1.04) mg/dL Glucose 257 H (74-99) mg/dL Thrombosis Risk Factor Assmnt - DVT/VTE Prophylaxis DVT/VTE Prophylaxis: Pharmacologic Prophylaxis ordered Assessment and Plan Assessment: Major depression with suicidal thoughts. Failure to thrive Recent admission with urinary tract infection E. coli COPD on home oxygen at 4 L via nasal cannula Ongoing nicotine addiction Diabetes type 2 [id number]-sclodjfiz Hyperglycemia GERD Hypertension Diabetic peripheral neuropathy Anxiety/depression history DVT prophylaxis with heparin subcu Plan: Patient will be continued suicide precautions. Psychiatry was consulted. Was started on Remeron and Zoloft. Patient does not meet inpatient psychiatric admission criteria. Patient is unable to take care of herself at home. We will check TSH, A1c and folate and B12 levels. Continue to follow closely. Currently denying suicidal ideation. Social work was consulted and may need placement. Time with Patient: Greater than 30
[2021-05-29] MEDS: LORazepam 2 MG/ML INJ IV PRN ×4 (01:39→23:55)
[2021-05-29 02:29] LABS: Appearance,Urine Clear (Clear); Bilirubin,Urine Negative (Negative); Blood,Urine Negative (Negative); Color,Urine Light Yellow; Glucose,Urine (UA) 4+ (Negative); Ketones,Urine Negative (Negative); Leukocyte Esterase,Urine Negative (Negative); Nitrite,Urine Negative (Negative); PH, Urine 5.5 (5.0-8.0); Protein,Urine Negative (Negative); Specific Gravity,Urine 1.017 (1.001-1.035); Urobilinogen,Urine <2.0 mg/dL (<2.0)
[2021-05-29] MEDS: MORPHINE SULFATE 4 MG/ML SYRINGE IVP PRN ×2 (05:54→10:53)
[2021-05-29 06:09] LABS: Basophils # (A) 0.1 k/uL (0-0.2); Basophils % (A) 1 %; Eosinophils # (A) 0.2 k/uL (0-0.7); Eosinophils % (A) 2 %; HGB 13.8 gm/dL (11.4-16.0); Lymphocytes # (A) 2.8 k/uL (1.0-4.8); Lymphocytes % (A) 32 %; MCH 30.2 pg (25.0-35.0); MCHC 31.4 g/dL (31.0-37.0); Mean Platelet Volume 8.8; Monocytes # (A) 0.7 k/uL (0-1.0); Monocytes % (A) 8 %; Neutrophils # (A) 4.7 k/uL (1.3-7.7); Neutrophils % (A) 55 %; Platelet Count 297 k/uL (150-450); RBC 4.58 m/uL (3.80-5.40); RDW 13.6 % (11.5-15.5); WBC 8.7 k/uL (3.8-10.6)
[2021-05-29] MEDS: IPRATROPIUM-ALBUTEROL 3 ML NEB INHALATION PRN ×3 (07:13→15:23)
[2021-05-29 07:34] LABS: Glucose,Whole Blood 172 mg/dL (75-99)
[2021-05-29] MEDS: NICOTINE 21MG/24HR PATCH TRANSDERM SCH (07:57)
[2021-05-29] MEDS: SERTRALINE 25 MG TAB PO SCH (07:57)
[2021-05-29] MEDS: INSULIN ASPART (NovoLOG) 100 UNIT/ML VIAL SQ SCH ×4 (07:58→20:32)
[2021-05-29] MEDS ORDERED: NYSTATIN 100,000UNIT/GM CREAM 30 GM TUBE TOPICAL PRN (11:47)
[2021-05-29] MEDS ORDERED: polyethylene glycoL 3350 17 GM POWD.PACK PO PRN (11:47)
[2021-05-29] MEDS ORDERED: HYDROCORTISONE 1% CREAM 30 GM TUBE TOPICAL PRN (11:47)
[2021-05-29 12:13] LABS: Glucose,Whole Blood 183 mg/dL (75-99)
[2021-05-29] MEDS: GLIMEPIRIDE 4 MG TAB PO SCH ×2 (12:46→20:32)
[2021-05-29] MEDS: HYDROcodone/APAP 5-325MG 1 EACH TAB PO PRN (12:46)
[2021-05-29] MEDS: lisinopriL 20 MG TAB PO SCH (12:46)
--- NOTE | 2021-05-29 14:37 | P.PN ---
Subjective Progress Note Date: 05/29/21 Patient is a 81-year-old female with a known history of COPD on 4 L oxygen via nasal cannula, diabetes type 2 [id number], diabetic peripheral neuropathy GERD, hypertension, chronic low back pain, anxiety/depression and currently everyday smoker and other multiple medical problems was brought to the hospital by ER by ambulance due to suicidal thoughts. Patient is currently staying with her elderly and is unable to to take care of themselves. They were not able to arrange a plastic boat patcher. Patient is very depressed and was having suicidal thoughts. Patient also states that she signed for her 16-year-old daughter to have an and is feeling depressed about it. Patient also became emotional and was crying at times. Otherwise denied any chest pain or shortness of breath. No nausea vomiting or abdominal pain or diarrhea. No cough or sputum production. No fever no chills. Patient was recently admitted to hospital due to E. coli urinary tract infection. Laboratory data showed WBC 12.0 hemoglobin 15.5 and platelets 376 Sodium 143 potassium 5.4 chloride 111 BUN 29. Creatinine 0.46 Serum drug screen is negative. Alcohol less than 10. 05/29/2021 Patient is seen in follow-up this morning continues with a suicide sitter at the bedside and awaiting for psychiatry reevaluation. Patient states she is not suicidal or having any thoughts of suicide or harming herself or others. Patient continues to be weak and will have PT/OT evaluate the patient for possible ECF for strength and mobility. Patient blood sugars have been variable and elevated and will continue sliding scale along with some oral antidiabetic agents. Hemoglobin A1c was ordered and pending. Discussed with patient about possible ECF as patient has been having difficulty managing her self-care and being compliant with medications. Patient does have chronic pain and takes multiple medications including narcotics and will limit the use if possible. Patient continues to state she has bilateral leg pain and weakness and gait dysfunction. Patient is afebrile. No reports of chest pain or shortness of breath noted. Patient continues on 3 L of oxygen via nasal cannula and states she does use this at home as she has COPD. Review of systems: Constitutional: reports of fatigue, no reports of fever, or chills Cardiovascular: No reports of chest pain or palpitations Respiratory: No reports of shortness of breath or cough GI: No reports of nausea, vomiting, or diarrhea : No reports of dysuria or retention Neurovascular: Ports generalized weakness and bilateral leg pain right more than left All medications have been reviewed Objective - Vital Signs Vital signs: Vital Signs Temp 97.9 F 05/29/21 04:22 Pulse 68 05/29/21 11:13 Resp 16 05/29/21 04:22 BP 169/75 05/29/21 04:22 Pulse Ox 98 05/29/21 04:22 Intake & Output 05/28/21 05/29/21 05/29/21 18:59 06:59 18:59 Intake Total 600 Balance 600 Weight 58.06 kg Intake: Oral 600 Other: Voiding Method Diaper Diaper Incontinent Incontinent # Voids 1 - Exam Patient is lying in the bed comfortably, no acute distress, awake alert and oriented.. HEENT: Normocephalic. Neck is supple. Pupils reactive. Nostrils clear. Oral cavity is moist. Neck reveals no JVD, carotid bruits, or thyromegaly. CHEST EXAMINATION: Trachea is central. Symmetrical expansion. Diminished breath sounds bilaterally with some mild expiratory wheezing noted CARDIAC: Normal S1, S2 with no gallops. No murmurs ABDOMEN: Soft. Bowel sounds normal. No organomegaly. No abdominal bruits. Extremities: reveal no edema. No clubbing or cyanosis Neurologically awake, alert, oriented x2-3 with well-coordinated movements. No focal deficits noted, few slightly weak Skin: No rash or skin lesions. Psychiatric: Cooperative. depressed, denies suicidal ideation Musculoskeletal: No joint swelling or deformity. Normal range of motion. - Labs CBC & Chem 7: 05/29/21 05:06 05/28/21 11:00 Labs: Abnormal Lab Results - Last 24 Hours (Table) 05/29/21 05/29/21 Range/Units 02:00 07:33 POC Glucose (mg/dL) 172 H (75-99) mg/dL Urine Glucose (UA) 4+ H (Negative) Assessment and Plan Assessment: Major depression with suicidal thoughts. Failure to thrive Recent admission with urinary tract infection E. coli COPD on home oxygen at 4 L via nasal cannula Ongoing nicotine addiction Diabetes type 2 lhz-tepnnck-aoqwwcemu, uncontrolled with hyperglycemia GERD Hypertension Diabetic peripheral neuropathy Anxiety/depression history DVT prophylaxis with heparin subcu Full code Plan: Patient will be continued suicide precautions. Psychiatry following. Patient denies thoughts of suicide or wanting to harm herself or others. Was started on Remeron and Zoloft. Patient does not meet inpatient psychiatric admission criteria. Patient is unable to take care of herself at home. Discussed with the patient about possible ECF placement she continues to be weak and have gait dysfunction and will have PT/OT evaluate the patient. Patient is agreeable to possible rehab for strength and mobility. TSH, A1c and folate and B12 levels pending. White blood count within normal limits at 8.7. Urinalysis is negative. Continue to follow closely. Social work consulted and following and working on placement for accepting facilities pending PT/OT therapy notes and possible insurance authorization. Will continue to monitor closely. Prognosis is guarded.
--- NOTE | 2021-05-29 15:36 | P.CON ---
Consult Note - . Consult date: 05/29/21 Assessment/Plan:: Clinical Problems: Unspecified depressive disorder, inability to care for herself and her elderly , rule out major depressive disorder, tobacco use disorder Interim history: I reviewed the medical record and interviewed the patient. She is an 81-year-old female admitted to medicine with a diagnosis of failure to thrive. She presented to the ED initially with complaints of suicidal ideation that she attributed to her inability to care for herself, her home or care for her elderly disabled . According to history she had not been caring for herself, take her medication and was found tearful, unkempt and wearing soiled clothing. When I asked her about suicidal thoughts she responded that she is not suicidal she "just doesn't want to live like this anymore." She denied that she had suicidal plan or intent. She talked about no longer being able to take care of herself or her . The only assistance she receives is from her disabled son. She does note receive home care services including assistance with meals, housekeeping, or medical assistance for her or her . As we talked about possible home care services for mood brightened substantially. She replied that if she would greatly appreciate any help at home for her and her . She denied side effects to the current dose is Zoloft or Remeron. Mental status exam: She presented as a frail and disheveled appearing elderly woman who was sitting comfortably in bed. She had audible wheezing. She made eye contact and appeared to attend to interview. She was very hard hearing and I had to shout for her to understand. She had a depressed but reactive facial expression. She was alert and oriented to person, place and time. She had psychomotor retardation but no abnormal involuntary movements. Her speech was spontaneous and she appeared dyspneic when she spoke. Her affect was depressed and slightly reactive. She denied suicidal ideation but expressed wishes. She denied homicidal ideation. She expressed feelings of helplessness and hopelessness but denied feeling worthless. She ruminated about her physical disability and her inability to care for herself with her . She did not express ideas reference, paranoid ideation or delusions. Her thinking was abstract and associations were coherent, logical and goal directed. She denied hallucinations did not appear to be responding to internal stimuli. Global impression is average. We completed the [employer] Orientation Memory and Concentration Test. Her total weighted error score was 4; total weighted error score greater than 10 is consistent with a dementia. She knew the month and the year. She was able to repeat the memory phrase "Jayme Ahuja, [address] [place] [address]." She is able to count backwards from 20-1 and name the months of the year in reverse beginning with October. She recalled 3 elements of memory phrase. Assessment: She is an elderly woman with multiple medical problems who [facility] with complaints of suicidal ideation, impaired self-care and complained of inability to care for herself or . She expressed wishes that she related to her on inability to care for herself or her . There is no evidence of confusion or fluctuations of attention suggestive of delirium. There is no evidence of dementia. She has signs and symptoms of depressive disorder. However, her mood brightened only talked about the possibility of home care services. Plan: She does not need inpatient mental health services at this time. Discontinue one-to-one supervision. Continue Zoloft 25 mg daily and Remeron 50 mg at bedtime. Both medications will need to be titrated as an outpatient. She is referred for outpatient mental health services and for home care services. Psychiatry will follow.
[2021-05-29] MEDS: ACETAMINOPHEN TAB 325 MG TAB PO PRN (15:59)
[2021-05-29 17:15] LABS: Glucose,Whole Blood 160 mg/dL (75-99)
[2021-05-29 17:25] LABS: Hemoglobin A1C 7.6 % (4.0-6.0)
[2021-05-29] MEDS: SYMBICORT 160-4.5 MCG INHALER INHALATION SCH (19:56)
[2021-05-29 20:06] LABS: African American GFR (CKD) 99.8 (60.0-200.0); Anion Gap 11.8 mmol/L (4.00-12.00); BUN/Creat Ratio 46.67 Ratio (12.00-20.00); Carbon Dioxide 21.2 mmol/L (21.6-31.8); Non-African American GFR(CKD) 86.1 (60.0-200.0); Potassium 4.6 mmol/L (3.5-5.5)
[2021-05-29 20:30] LABS: Glucose,Whole Blood 146 mg/dL (75-99)
[2021-05-29] MEDS: amLODIPine 10 MG TAB PO SCH (20:32)
[2021-05-29] MEDS: ISOSORBIDE MONONITRATE 10 MG TAB PO SCH (20:32)
[2021-05-29] MEDS: traMADol 50 MG TAB PO PRN (21:12)
[2021-05-29] MEDS: MIRTAZAPINE 15 MG TAB PO SCH (21:12)
[2021-05-30 01:27] LABS: Urine Alcohol Negative (Negative); Urine Barbiturate Negative (Negative); Urine Cocaine Negative (Negative); Urine Methadone Negative (Negative); Urine Opiates Positive (Negative); Urine Phencyclidine Negative (Negative)
[2021-05-30] MEDS: HYDROcodone/APAP 5-325MG 1 EACH TAB PO PRN ×2 (04:17→18:14)
[2021-05-30 07:29] LABS: Glucose,Whole Blood 173 mg/dL (75-99)
[2021-05-30] MEDS: GLIMEPIRIDE 4 MG TAB PO SCH ×2 (08:06→20:28)
[2021-05-30] MEDS: SERTRALINE 25 MG TAB PO SCH (08:06)
[2021-05-30] MEDS: ISOSORBIDE MONONITRATE 10 MG TAB PO SCH ×2 (08:06→20:28)
[2021-05-30] MEDS: NICOTINE 21MG/24HR PATCH TRANSDERM SCH (08:06)
[2021-05-30] MEDS: INSULIN ASPART (NovoLOG) 100 UNIT/ML VIAL SQ SCH ×4 (08:06→20:28)
[2021-05-30] MEDS: traMADol 50 MG TAB PO PRN (08:07)
[2021-05-30] MEDS: lisinopriL 20 MG TAB PO SCH (08:07)
[2021-05-30] MEDS: ASPIRIN 81 MG PO SCH (08:07)
[2021-05-30] MEDS: SYMBICORT 160-4.5 MCG INHALER INHALATION SCH ×2 (08:23→19:05)
[2021-05-30] MEDS: LORazepam 2 MG/ML INJ IV PRN ×2 (10:47→20:28)
[2021-05-30 11:58] LABS: Glucose,Whole Blood 189 mg/dL (75-99)
[2021-05-30] MEDS: MORPHINE SULFATE 4 MG/ML SYRINGE IVP PRN (13:43)
--- NOTE | 2021-05-30 16:05 | P.PN ---
Subjective Progress Note Date: 05/30/21 Patient is a 81-year-old female with a known history of COPD on 4 L oxygen via nasal cannula, diabetes type 2 [id number]-ubxhmpscf, diabetic peripheral neuropathy GERD, hypertension, chronic low back pain, anxiety/depression and currently everyday smoker and other multiple medical problems was brought to the hospital by ER by ambulance due to suicidal thoughts. Patient is currently staying with her elderly and is unable to to take care of themselves. They were not able to arrange a veterinary pathologist. Patient is very depressed and was having suicidal thoughts. Patient also states that she signed for her 16-year-old daughter to have an and is feeling depressed about it. Patient also became emotional and was crying at times. Otherwise denied any chest pain or shortness of breath. No nausea vomiting or abdominal pain or diarrhea. No cough or sputum production. No fever no chills. Patient was recently admitted to hospital due to E. coli urinary tract infection. Laboratory data showed WBC 12.0 hemoglobin 15.5 and platelets 376 Sodium 143 potassium 5.4 chloride 111 BUN 29. Creatinine 0.46 Serum drug screen is negative. Alcohol less than 10. 05/29/2021 Patient is seen in follow-up this morning continues with a suicide sitter at the bedside and awaiting for psychiatry reevaluation. Patient states she is not suicidal or having any thoughts of suicide or harming herself or others. Patient continues to be weak and will have PT/OT evaluate the patient for possible ECF for strength and mobility. Patient blood sugars have been variable and elevated and will continue sliding scale along with some oral antidiabetic agents. Hemoglobin A1c was ordered and pending. Discussed with patient about possible ECF as patient has been having difficulty managing her self-care and being compliant with medications. Patient does have chronic pain and takes multiple medications including narcotics and will limit the use if possible. Patient continues to state she has bilateral leg pain and weakness and gait dysfunction. Patient is afebrile. No reports of chest pain or shortness of breath noted. Patient continues on 3 L of oxygen via nasal cannula and states she does use this at home as she has COPD. 05/30/2021 Patient is seen in follow-up with no acute overnight issues. Suicide sitter has been discontinued and psychiatry evaluated the patient. Patient continues to be weak requiring assistance with gait and has been accepted at [facility] pending insurance authorization. Patient has recently had multiple hospitalizations and visits to the emergency room related to inability to care for herself and noncompliance with medications and follow-up and will require more than a two night hospitalization stay while awaiting for placement. Patient continues to have lower extremity pain and lower back pain which is chronic. Patient is tolerating diet with no reports of nausea or vomiting noted. Patient denies any suicidal ideations at this time. Review of systems: Constitutional: reports of fatigue, no reports of fever, or chills Cardiovascular: No reports of chest pain or palpitations Respiratory: No reports of shortness of breath or cough GI: No reports of nausea, vomiting, or diarrhea : No reports of dysuria or retention Neurovascular: Reports generalized weakness and bilateral leg pain right more than left along with chronic back pain All medications have been reviewed Objective - Vital Signs Vital signs: Vital Signs Temp 98.3 F 05/30/21 04:18 Pulse 69 05/30/21 04:18 Resp 18 05/30/21 04:18 BP 147/66 05/30/21 04:18 Pulse Ox 94 L 05/30/21 04:18 Intake & Output 05/29/21 05/30/21 05/30/21 18:59 06:59 18:59 Intake Total 1600 Balance 1600 Intake: Oral 1600 Other: Voiding Method Diaper Diaper Diaper Incontinent Incontinent Incontinent # Voids 3 5 - Exam Patient is sitting up in the bed comfortably, no acute distress, awake alert and oriented.. HEENT: Normocephalic. Neck is supple. Pupils reactive. Nostrils clear. Oral cavity is moist. Neck reveals no JVD, carotid bruits, or thyromegaly. CHEST EXAMINATION: Trachea is central. Symmetrical expansion. Diminished breath sounds bilaterally with some mild expiratory wheezing noted CARDIAC: Normal S1, S2 with no gallops. No murmurs ABDOMEN: Soft. Bowel sounds normal. No organomegaly. No abdominal bruits. Extremities: reveal no edema. No clubbing or cyanosis Neurologically awake, alert, oriented x2-3 with well-coordinated movements. No focal deficits noted, diffusely weak Skin: No rash or skin lesions. Psychiatric: Cooperative. depressed, denies suicidal ideation Musculoskeletal: No joint swelling or deformity. Normal range of motion. - Labs CBC & Chem 7: 05/29/21 05:06 05/29/21 05:06 Labs: Abnormal Lab Results - Last 24 Hours (Table) 05/29/21 05/29/21 05/29/21 Range/Units 02:00 05:06 05:06 Chloride 112 H (96-109) mmol/L Carbon Dioxide 21.2 L (21.6-31.8) mmol/L BUN 28.0 H (9.0-27.0) mg/dL BUN/Creatinine Ratio 46.67 H (12.00-20.00) Ratio Glucose 164 H (70-110) mg/dL POC Glucose (mg/dL) (75-99) mg/dL Hemoglobin A1c 7.6 H (4.0-6.0) % Urine Opiates Screen Positive A (Negative) ng/mL 05/29/21 05/29/21 05/29/21 Range/Units 12:12 17:13 20:28 Chloride (96-109) mmol/L Carbon Dioxide (21.6-31.8) mmol/L BUN (9.0-27.0) mg/dL BUN/Creatinine Ratio (12.00-20.00) Ratio Glucose (70-110) mg/dL POC Glucose (mg/dL) 183 H 160 H 146 H (75-99) mg/dL Hemoglobin A1c (4.0-6.0) % Urine Opiates Screen (Negative) ng/mL 05/30/21 Range/Units 07:27 Chloride (96-109) mmol/L Carbon Dioxide (21.6-31.8) mmol/L BUN (9.0-27.0) mg/dL BUN/Creatinine Ratio (12.00-20.00) Ratio Glucose (70-110) mg/dL POC Glucose (mg/dL) 173 H (75-99) mg/dL Hemoglobin A1c (4.0-6.0) % Urine Opiates Screen (Negative) ng/mL Assessment and Plan Assessment: Major depression with suicidal thoughts. Failure to thrive Recent admission with urinary tract infection E. coli COPD on home oxygen at 4 L via nasal cannula Ongoing nicotine addiction Diabetes type 2 smp-tddrbne-hepzjgtrd, uncontrolled with hyperglycemia GERD Hypertension Diabetic peripheral neuropathy Anxiety/depression history DVT prophylaxis with heparin subcu Full code Plan: Patient denies thoughts of suicide or wanting to harm herself or others and psychiatry has evaluated the patient. Suicide sitter removed. Patient continues to be weak requiring assistance and will be going to ECF with an accepting facility and currently awaiting insurance authorization. Patient has a history of multiple hospitalizations recently due to noncompliance of medications and follow-up and inability care for herself. Continue current medication regimen. Will repeat labs in continue to monitor closely. Patient is unable to take care of herself at home. Patient will require more than 2 night stay in the hospital. Social work following and working on placement for accepting facilities and insurance authorization. Will continue to monitor closely. Prognosis is guarded.
[2021-05-30 17:17] LABS: Glucose,Whole Blood 95 mg/dL (75-99)
[2021-05-30 19:59] LABS: Glucose,Whole Blood 238 mg/dL (75-99)
[2021-05-30] MEDS: MIRTAZAPINE 15 MG TAB PO SCH (20:28)
[2021-05-30] MEDS: amLODIPine 10 MG TAB PO SCH (20:28)
[2021-05-31] MEDS: HYDROcodone/APAP 5-325MG 1 EACH TAB PO PRN ×3 (04:27→23:38)
[2021-05-31 07:19] LABS: Glucose,Whole Blood 178 mg/dL (75-99)
[2021-05-31] MEDS: SYMBICORT 160-4.5 MCG INHALER INHALATION SCH ×2 (07:23→19:19)
[2021-05-31] MEDS: INSULIN ASPART (NovoLOG) 100 UNIT/ML VIAL SQ SCH ×4 (08:18→20:43)
[2021-05-31] MEDS: lisinopriL 20 MG TAB PO SCH (08:19)
[2021-05-31] MEDS: ISOSORBIDE MONONITRATE 10 MG TAB PO SCH ×2 (08:19→20:43)
[2021-05-31] MEDS: GLIMEPIRIDE 4 MG TAB PO SCH ×2 (08:19→20:43)
[2021-05-31] MEDS: ASPIRIN 81 MG PO SCH (08:19)
[2021-05-31] MEDS: SERTRALINE 25 MG TAB PO SCH (08:19)
[2021-05-31] MEDS: NICOTINE 21MG/24HR PATCH TRANSDERM SCH (08:20)
[2021-05-31 12:02] LABS: Glucose,Whole Blood 238 mg/dL (75-99)
[2021-05-31 12:13] LABS: African American GFR (CKD) >90 (>60 ml/min/1.73 sqM); Anion Gap 10 mmol/L; Blood Urea Nitrogen 36 mg/dL (7-17); Calcium 9.7 mg/dL (8.4-10.2); Carbon Dioxide 24 mmol/L (22-30); Chloride 106 mmol/L (98-107); Glucose 298 mg/dL (74-99); Non-African American GFR(CKD) 88 (>60 ml/min/1.73 sqM); Potassium 5.6 mmol/L (3.5-5.1); Sodium 140 mmol/L (137-145)
[2021-05-31] MEDS: LORazepam 1 MG TAB PO PRN ×2 (12:36→19:14)
[2021-05-31 17:05] LABS: Glucose,Whole Blood 195 mg/dL (75-99)
[2021-05-31 20:33] LABS: Glucose,Whole Blood 284 mg/dL (75-99)
[2021-05-31] MEDS: MIRTAZAPINE 15 MG TAB PO SCH (20:43)
[2021-05-31] MEDS: amLODIPine 10 MG TAB PO SCH (20:43)
[2021-06-01 07:09] LABS: Glucose,Whole Blood 174 mg/dL (75-99)
[2021-06-01] MEDS: IPRATROPIUM-ALBUTEROL 3 ML NEB INHALATION PRN ×3 (07:42→17:39)
[2021-06-01] MEDS: SYMBICORT 160-4.5 MCG INHALER INHALATION SCH ×2 (07:42→17:39)
[2021-06-01] MEDS: GLIMEPIRIDE 4 MG TAB PO SCH ×2 (08:19→20:41)
[2021-06-01] MEDS: SERTRALINE 25 MG TAB PO SCH (08:20)
[2021-06-01] MEDS: INSULIN ASPART (NovoLOG) 100 UNIT/ML VIAL SQ SCH ×4 (08:20→20:42)
[2021-06-01] MEDS: NICOTINE 21MG/24HR PATCH TRANSDERM SCH (08:20)
[2021-06-01] MEDS: ISOSORBIDE MONONITRATE 10 MG TAB PO SCH ×2 (08:20→20:41)
[2021-06-01] MEDS: lisinopriL 20 MG TAB PO SCH (08:20)
[2021-06-01] MEDS: ASPIRIN 81 MG PO SCH (08:20)
[2021-06-01] MEDS: LORazepam 1 MG TAB PO PRN ×2 (10:31→18:47)
[2021-06-01] MEDS: HYDROcodone/APAP 5-325MG 1 EACH TAB PO PRN ×2 (10:37→16:18)
[2021-06-01 11:42] LABS: Glucose,Whole Blood 215 mg/dL (75-99)
[2021-06-01 17:21] LABS: Glucose,Whole Blood 184 mg/dL (75-99)
[2021-06-01] MEDS ORDERED: SODIUM POLYSTYRENE SULFONATE 15 GM/60 ML BOTTLE PO ONE (18:05)
[2021-06-01 20:09] LABS: Glucose,Whole Blood 282 mg/dL (75-99)
[2021-06-01] MEDS: amLODIPine 10 MG TAB PO SCH (20:41)
[2021-06-01] MEDS: MIRTAZAPINE 15 MG TAB PO SCH (20:41)
[2021-06-01] MEDS: ACETAMINOPHEN TAB 325 MG TAB PO PRN (20:41)
[2021-06-02] MEDS: LORazepam 1 MG TAB PO PRN ×2 (00:36→09:20)
--- NOTE | 2021-06-02 00:59 | P.PN ---
Subjective Progress Note Date: 05/31/21 Patient is a 81-year-old female with a known history of COPD on 4 L oxygen via nasal cannula, diabetes type 2 [id number]-[id number], diabetic peripheral neuropathy GERD, hypertension, chronic low back pain, anxiety/depression and currently everyday smoker and other multiple medical problems was brought to the hospital by ER by ambulance due to suicidal thoughts. Patient is currently staying with her elderly and is unable to to take care of themselves. They were not able to arrange a school services officer. Patient is very depressed and was having suicidal thoughts. Patient also states that she signed for her 16-year-old daughter to have an and is feeling depressed about it. Patient also became emotional and was crying at times. Otherwise denied any chest pain or shortness of breath. No nausea vomiting or abdominal pain or diarrhea. No cough or sputum production. No fever no chills. Patient was recently admitted to hospital due to E. coli urinary tract infection. Laboratory data showed WBC 12.0 hemoglobin 15.5 and platelets 376 Sodium 143 potassium 5.4 chloride 111 BUN 29. Creatinine 0.46 Serum drug screen is negative. Alcohol less than 10. 05/29/2021 Patient is seen in follow-up this morning continues with a suicide sitter at the bedside and awaiting for psychiatry reevaluation. Patient states she is not suicidal or having any thoughts of suicide or harming herself or others. Patient continues to be weak and will have PT/OT evaluate the patient for possible ECF for strength and mobility. Patient blood sugars have been variable and elevated and will continue sliding scale along with some oral antidiabetic agents. Hemoglobin A1c was ordered and pending. Discussed with patient about possible ECF as patient has been having difficulty managing her self-care and being compliant with medications. Patient does have chronic pain and takes multiple medications including narcotics and will limit the use if possible. Patient continues to state she has bilateral leg pain and weakness and gait dysfunction. Patient is afebrile. No reports of chest pain or shortness of breath noted. Patient continues on 3 L of oxygen via nasal cannula and states she does use this at home as she has COPD. 05/30/2021 Patient is seen in follow-up with no acute overnight issues. Suicide sitter has been discontinued and psychiatry evaluated the patient. Patient continues to be weak requiring assistance with gait and has been accepted at [facility] pending insurance authorization. Patient has recently had multiple hospitalizations and visits to the emergency room related to inability to care for herself and noncompliance with medications and follow-up and will require more than a two night hospitalization stay while awaiting for placement. Patient continues to have lower extremity pain and lower back pain which is chronic. Patient is tolerating diet with no reports of nausea or vomiting noted. Patient denies any suicidal ideations at this time. 05/31/2021 Patient is currently sitting on the side of the bed. Awake alert but confused. Patient was seen by psychiatry and recommends no inpatient psychiatric admission. Continue with Zoloft and Remeron. Recommends outpatient mental health clinic follow-up. Otherwise patient denied any complaints of chest pain or shortness breath. Tolerating oral diet. No nausea vomiting abdominal pain or diarrhea. Creatinine to be transferred to external care facility. Review of systems: Constitutional: reports of fatigue, no reports of fever, or chills Cardiovascular: No reports of chest pain or palpitations Respiratory: No reports of shortness of breath or cough GI: No reports of nausea, vomiting, or diarrhea : No reports of dysuria or retention Neurovascular: Reports generalized weakness and bilateral leg pain right more than left along with chronic back pain All medications have been reviewed Objective - Vital Signs Vital signs: Vital Signs Temp 98.1 F 05/31/21 19:55 Pulse 71 05/31/21 19:55 Resp 16 05/31/21 19:55 BP 150/67 05/31/21 19:55 Pulse Ox 93 L 05/31/21 19:55 Intake & Output 05/31/21 05/31/21 06/01/21 06:59 18:59 06:59 Intake Total 240 Balance 240 Intake: Oral 240 Other: Voiding Method Diaper Diaper Incontinent Incontinent # Voids 1 1 # Bowel Movements 1 1 - Exam Patient is sitting up in the bed comfortably, no acute distress, awake alert and oriented.. HEENT: Normocephalic. Neck is supple. Pupils reactive. Nostrils clear. Oral cavity is moist. Neck reveals no JVD, carotid bruits, or thyromegaly. CHEST EXAMINATION: Trachea is central. Symmetrical expansion. Diminished breath sounds bilaterally with some mild expiratory wheezing noted CARDIAC: Normal S1, S2 with no gallops. No murmurs ABDOMEN: Soft. Bowel sounds normal. No organomegaly. No abdominal bruits. Extremities: reveal no edema. No clubbing or cyanosis Neurologically awake, alert, oriented x2-3 with well-coordinated movements. No focal deficits noted, diffusely weak Skin: No rash or skin lesions. Psychiatric: Cooperative. depressed, denies suicidal ideation Musculoskeletal: No joint swelling or deformity. Normal range of motion. - Labs CBC & Chem 7: 05/29/21 05:06 06/01/21 17:17 Labs: Abnormal Lab Results - Last 24 Hours (Table) 05/31/21 05/31/21 05/31/21 Range/Units 07:16 11:01 11:56 Potassium 5.6 H (3.5-5.1) mmol/L BUN 36 H (7-17) mg/dL Glucose 298 H (74-99) mg/dL POC Glucose (mg/dL) 178 H 238 H (75-99) mg/dL 05/31/21 05/31/21 Range/Units 16:56 20:31 Potassium (3.5-5.1) mmol/L BUN (7-17) mg/dL Glucose (74-99) mg/dL POC Glucose (mg/dL) 195 H 284 H (75-99) mg/dL Assessment and Plan Assessment: Major depression with suicidal thoughts. Failure to thrive Recent admission with urinary tract infection E. coli COPD on home oxygen at 4 L via nasal cannula Ongoing nicotine addiction Diabetes type 2 zud-oyyafrz-idteyxqzp, uncontrolled with hyperglycemia GERD Hypertension Diabetic peripheral neuropathy Anxiety/depression history DVT prophylaxis with heparin subcu Full code Plan: Patient will be continued suicide precautions. Psychiatry following. Patient denies thoughts of suicide or wanting to harm herself or others. Was started on Remeron and Zoloft. Patient does not meet inpatient psychiatric admission criteria. Patient is unable to take care of herself at home. Discussed with the patient about possible ECF placement she continues to be weak and have gait dysfunction and will have PT/OT evaluate the patient. Patient is agreeable to possible rehab for strength and mobility. TSH, A1c and folate and B12 levels pending. White blood count within normal limits at 8.7. Urinalysis is negative. Continue to follow closely. Social work consulted and following and working on placement for accepting facilities pending PT/OT therapy notes and possible insurance authorization. Will continue to monitor closely. Prognosis is guarded.
--- NOTE | 2021-06-02 01:02 | P.PN ---
Subjective Progress Note Date: 06/01/21 Patient is a 81-year-old female with a known history of COPD on 4 L oxygen via nasal cannula, diabetes type 2 [id number]-yyzqvbrzc, diabetic peripheral neuropathy GERD, hypertension, chronic low back pain, anxiety/depression and currently everyday smoker and other multiple medical problems was brought to the hospital by ER by ambulance due to suicidal thoughts. Patient is currently staying with her elderly and is unable to to take care of themselves. They were not able to arrange a acquisition advisor. Patient is very depressed and was having suicidal thoughts. Patient also states that she signed for her 16-year-old daughter to have an and is feeling depressed about it. Patient also became emotional and was crying at times. Otherwise denied any chest pain or shortness of breath. No nausea vomiting or abdominal pain or diarrhea. No cough or sputum production. No fever no chills. Patient was recently admitted to hospital due to E. coli urinary tract infection. Laboratory data showed WBC 12.0 hemoglobin 15.5 and platelets 376 Sodium 143 potassium 5.4 chloride 111 BUN 29. Creatinine 0.46 Serum drug screen is negative. Alcohol less than 10. 05/29/2021 Patient is seen in follow-up this morning continues with a suicide sitter at the bedside and awaiting for psychiatry reevaluation. Patient states she is not suicidal or having any thoughts of suicide or harming herself or others. Patient continues to be weak and will have PT/OT evaluate the patient for possible ECF for strength and mobility. Patient blood sugars have been variable and elevated and will continue sliding scale along with some oral antidiabetic agents. Hemoglobin A1c was ordered and pending. Discussed with patient about possible ECF as patient has been having difficulty managing her self-care and being compliant with medications. Patient does have chronic pain and takes multiple medications including narcotics and will limit the use if possible. Patient continues to state she has bilateral leg pain and weakness and gait dysfunction. Patient is afebrile. No reports of chest pain or shortness of breath noted. Patient continues on 3 L of oxygen via nasal cannula and states she does use this at home as she has COPD. 05/30/2021 Patient is seen in follow-up with no acute overnight issues. Suicide sitter has been discontinued and psychiatry evaluated the patient. Patient continues to be weak requiring assistance with gait and has been accepted at [facility] pending insurance authorization. Patient has recently had multiple hospitalizations and visits to the emergency room related to inability to care for herself and noncompliance with medications and follow-up and will require more than a two night hospitalization stay while awaiting for placement. Patient continues to have lower extremity pain and lower back pain which is chronic. Patient is tolerating diet with no reports of nausea or vomiting noted. Patient denies any suicidal ideations at this time. 05/31/2021 Patient is currently sitting on the side of the bed. Awake alert but confused. Patient was seen by psychiatry and recommends no inpatient psychiatric admission. Continue with Zoloft and Remeron. Recommends outpatient mental health clinic follow-up. Otherwise patient denied any complaints of chest pain or shortness breath. Tolerating oral diet. No nausea vomiting abdominal pain or diarrhea. Creatinine to be transferred to external care facility. 06/01/2021 Patient is currently sitting on side of the bed.. No complaints of chest pain or shortness of. No nausea vomiting or abdominal pain. Patient has been afebrile. Blood sugar is still elevated at 230. Potassium is 5.7 today. Patient was given a dose of Kayexalate. Denies any complaints of nausea or vomiting. will hold lisinopril we will repeat potassium levels still elevated. Continued on insulin sliding scale for better blood sugar control. Review of systems: Constitutional: reports of fatigue, no reports of fever, or chills Cardiovascular: No reports of chest pain or palpitations Respiratory: No reports of shortness of breath or cough GI: No reports of nausea, vomiting, or diarrhea : No reports of dysuria or retention Neurovascular: Reports generalized weakness and bilateral leg pain right more than left along with chronic back pain All medications have been reviewed Objective - Vital Signs Vital signs: Vital Signs Temp 97.7 F 06/01/21 19:48 Pulse 71 06/01/21 19:48 Resp 16 06/01/21 19:48 BP 133/84 06/01/21 19:48 Pulse Ox 90 L 06/01/21 19:48 Intake & Output 06/01/21 06/01/21 06/02/21 06:59 18:59 06:59 Intake Total 360 Balance 360 Intake: Oral 360 Other: Voiding Method Diaper Diaper Diaper Incontinent Incontinent Incontinent # Voids 2 1 # Bowel Movements 1 - Exam Patient is sitting up in the bed comfortably, no acute distress, awake alert and oriented.. HEENT: Normocephalic. Neck is supple. Pupils reactive. Nostrils clear. Oral cavity is moist. Neck reveals no JVD, carotid bruits, or thyromegaly. CHEST EXAMINATION: Trachea is central. Symmetrical expansion. Diminished breath sounds bilaterally with some mild expiratory wheezing noted CARDIAC: Normal S1, S2 with no gallops. No murmurs ABDOMEN: Soft. Bowel sounds normal. No organomegaly. No abdominal bruits. Extremities: reveal no edema. No clubbing or cyanosis Neurologically awake, alert, oriented x2-3 with well-coordinated movements. No focal deficits noted, diffusely weak Skin: No rash or skin lesions. Psychiatric: Cooperative. depressed, denies suicidal ideation Musculoskeletal: No joint swelling or deformity. Normal range of motion. - Labs CBC & Chem 7: 05/29/21 05:06 06/01/21 17:17 Labs: Abnormal Lab Results - Last 24 Hours (Table) 06/01/21 06/01/21 06/01/21 Range/Units 07:04 11:09 17:16 Potassium (3.5-5.1) mmol/L POC Glucose (mg/dL) 174 H 215 H 184 H (75-99) mg/dL 06/01/21 06/01/21 Range/Units 17:17 20:07 Potassium 5.7 H (3.5-5.1) mmol/L POC Glucose (mg/dL) 282 H (75-99) mg/dL Assessment and Plan Assessment: Major depression with suicidal thoughts. Failure to thrive Recent admission with urinary tract infection E. coli COPD on home oxygen at 4 L via nasal cannula Ongoing nicotine addiction Diabetes type 2 tno-fkurhrm-izztvwhrx, uncontrolled with hyperglycemia GERD Hypertension Diabetic peripheral neuropathy Anxiety/depression history DVT prophylaxis with heparin subcu Full code Plan: Patient will be continued suicide precautions. Psychiatry following. Patient denies thoughts of suicide or wanting to harm herself or others. Was started on Remeron and Zoloft. Patient does not meet inpatient psychiatric admission criteria. Patient is unable to take care of herself at home. Discussed with the patient about possible ECF placement she continues to be weak and have gait dysfunction and will have PT/OT evaluate the patient. Patient is agreeable to possible rehab for strength and mobility. TSH, A1c and folate and B12 levels pending. White blood count within normal limits at 8.7. Urinalysis is negative. Continue to follow closely. Social work consulted and following and working on placement for accepting facilities pending PT/OT therapy notes and possible insurance authorization. Will continue to monitor closely. Prognosis is guarded. Time with Patient: Greater than 30
[2021-06-02 05:27] LABS: Basophils # (A) 0.1 k/uL (0-0.2); Basophils % (A) 1 %; Eosinophils # (A) 0.2 k/uL (0-0.7); Eosinophils % (A) 2 %; HCT 43.6 % (34.0-46.0); HGB 13.8 gm/dL (11.4-16.0); Lymphocytes # (A) 2.8 k/uL (1.0-4.8); Lymphocytes % (A) 34 %; MCH 30.4 pg (25.0-35.0); MCHC 31.7 g/dL (31.0-37.0); MCV 95.8 fL (80.0-100.0); Mean Platelet Volume 8.5; Monocytes # (A) 0.6 k/uL (0-1.0); Monocytes % (A) 7 %; Neutrophils # (A) 4.4 k/uL (1.3-7.7); Neutrophils % (A) 54 %; Platelet Count 296 k/uL (150-450); RBC 4.56 m/uL (3.80-5.40); RDW 14.1 % (11.5-15.5); WBC 8.2 k/uL (3.8-10.6)
[2021-06-02 05:33] LABS: ALT 33 U/L (4-34); AST 22 U/L (14-36); African American GFR (CKD) >90 (>60 ml/min/1.73 sqM); Albumin 3.6 g/dL (3.5-5.0); Albumin/Globulin Ratio 1.4; Alkaline Phosphatase 66 U/L (38-126); Anion Gap 7 mmol/L; Blood Urea Nitrogen 45 mg/dL (7-17); Calcium 9.1 mg/dL (8.4-10.2); Carbon Dioxide 25 mmol/L (22-30); Chloride 110 mmol/L (98-107); Globulin 2.5 g/dL; Glucose 196 mg/dL (74-99); Non-African American GFR(CKD) 87 (>60 ml/min/1.73 sqM); Potassium 5.1 mmol/L (3.5-5.1); Sodium 142 mmol/L (137-145); Total Bilirubin <0.1 mg/dL (0.2-1.3); Total Protein 6.1 g/dL (6.3-8.2)
[2021-06-02] MEDS: SYMBICORT 160-4.5 MCG INHALER INHALATION SCH (07:13)
[2021-06-02] MEDS: IPRATROPIUM-ALBUTEROL 3 ML NEB INHALATION PRN ×2 (07:13→10:43)
[2021-06-02 07:23] LABS: Glucose,Whole Blood 176 mg/dL (75-99)
[2021-06-02] MEDS: ISOSORBIDE MONONITRATE 10 MG TAB PO SCH (08:02)
[2021-06-02] MEDS: SERTRALINE 25 MG TAB PO SCH (08:02)
[2021-06-02] MEDS: HYDROcodone/APAP 5-325MG 1 EACH TAB PO PRN (08:02)
[2021-06-02] MEDS: ASPIRIN 81 MG PO SCH (08:02)
[2021-06-02] MEDS: INSULIN ASPART (NovoLOG) 100 UNIT/ML VIAL SQ SCH ×2 (08:02→13:28)
[2021-06-02] MEDS: GLIMEPIRIDE 4 MG TAB PO SCH (08:03)
[2021-06-02] MEDS: NICOTINE 21MG/24HR PATCH TRANSDERM SCH (08:03)
[2021-06-02] MEDS: lisinopriL 20 MG TAB PO SCH (08:03)
[2021-06-02] MEDS: traMADol 50 MG TAB PO PRN (11:42)
[2021-06-02 11:49] LABS: Glucose,Whole Blood 233 mg/dL (75-99)
[2021-06-02 12:21] VITALS: PULSE 68; RESP 19; TEMP 97.8
[2021-06-02 12:23] VITALS: BP 128/56
--- NOTE | 2021-06-02 15:18 | CDI ---
Documentation Clarification Form Date: 06/02/2021 03:02:58 PM From: Maren Best RN CCDS Admit Date: 05/30/2021 04:05:00 PM Patient Name: Sabina Hassan Visit Number: [id number] Discharge Date: ATTENTION: The Clinical Documentation Specialists (CDI) and [facility] Coding Staff appreciate your assistance in clarifying documentation. Please respond to the clarification below the line at the bottom and electronically sign. The CDI & [facility] Coding staff will review the response and follow-up if needed. Please note: Queries are made part of the Legal Health Record. If you have any questions, please contact the author of this message via ITS. Dr. Nona Meadows Your patient has COPD on home oxygen at 4L via nasal cannula, 05/28, H&P. Based on this information and the findings below, is there an additional diagnosis that is clinically appropriate for this patient? History/Risk Factors: 81-year-old female presents to the ED with suicidal thoughts and unable to care for herself. Medical History: Asthma, COPD on 4L oxygen via nasal cannula, DM Type 2 and current everyday smoker. H&P 05/28 Tobacco use: Every day smoker. H&P 05/28 Home oxygen: 4L nasal cannula. H&P 05/28 Clinical Indicators: Vital signs: 05/27 B/P 166/53; HR 79; Temp 98.6F Oral; RR 22; SpO2 89% room air Pulse oximetry: 05/28 RR 16; 94% SpO2 3L nasal cannula. Lung/Breathing assessment: Symmetrical expansion. Lung morrison clear to auscultation and percussion. H&P 05/28 Treatment: 05/29 Symbicort 160-4.5 Mcg Inhaler 2 puff inhalation RT BID BALDEV to current. 05/28 3L oxygen nasal cannula to current. Is there an additional diagnosis that is clinically appropriate for this patient? [ ] Chronic Respiratory Failure [ ] Other Diagnosis, please specify [ ] Unable to determine Documented chronic hypoxic respiratory failure on home oxygen 4L nc ALLISON (INSURANCE BUSINESS ANALYST) Dr. Garcia (Template Last Revised: December 2020) JOSE
[2021-06-02] MEDS: ACETAMINOPHEN TAB 325 MG TAB PO PRN (15:29)
--- NOTE | 2021-06-04 03:01 | P.DS ---
Providers Date of admission: 05/30/21 16:05 Expected date of discharge: 06/02/21 Attending physician: Delmer Graham Consults: 05/27/21 22:51 Consult Physician Routine Consulting Provider: Shoaib Hardy Consult Reason/Comments: depression, states she wants to Do you want consulting provider notified?: Yes, Notify in am Primary care physician: Veena Ny Hospital Course: Final Diagnosis Major depression with suicidal thoughts. Failure to thrive Recent admission with urinary tract infection E. coli COPD, not in acute exacerbation Chronic hypoxic respiratory failure on home oxygen at 4 L via nasal cannula Ongoing nicotine addiction Diabetes type 2 [id number], uncontrolled with hyperglycemia GERD Hypertension Diabetic peripheral neuropathy Anxiety/depression history DVT prophylaxis Full code Discharge disposition Patient is being discharged in a stable condition with guarded prognosis to home and will continue with home care. Patient will follow-up with Dr. Ny in the outpatient setting upon discharge. Total time taken is greater than 35 minutes. Hospital course Patient is a 81-year-old female with a known history of COPD on 4 L oxygen via nasal cannula, diabetes type 2 [id number], diabetic peripheral neuropathy GERD, hypertension, chronic low back pain, anxiety/depression and currently everyday smoker and other multiple medical problems was brought to the hospital by ER by ambulance due to suicidal thoughts. Patient is currently staying with her elderly and is unable to to take care of themselves. They were not able to arrange a funnel setter. Patient is very depressed and was having suicidal thoughts. Patient also states that she signed for her 16-year-old daughter to have an and is feeling depressed about it. Patient also became emotional and was crying at times. Otherwise denied any chest pain or shortness of breath. No nausea vomiting or abdominal pain or diarrhea. No cough or sputum production. No fever no chills. Patient was recently admitted to hospital due to E. coli urinary tract infection. Laboratory data showed WBC 12.0 hemoglobin 15.5 and platelets 376 Sodium 143 potassium 5.4 chloride 111 BUN 29. Creatinine 0.46 Serum drug screen is negative. Alcohol less than 10. 05/29/2021 Patient is seen in follow-up this morning continues with a suicide sitter at the bedside and awaiting for psychiatry reevaluation. Patient states she is not suicidal or having any thoughts of suicide or harming herself or others. Patient continues to be weak and will have PT/OT evaluate the patient for possible ECF for strength and mobility. Patient blood sugars have been variable and elevated and will continue sliding scale along with some oral antidiabetic agents. Hemoglobin A1c was ordered and pending. Discussed with patient about possible ECF as patient has been having difficulty managing her self-care and being compliant with medications. Patient does have chronic pain and takes multiple medications including narcotics and will limit the use if possible. Patient continues to state she has bilateral leg pain and weakness and gait dysfunction. Patient is afebrile. No reports of chest pain or shortness of breath noted. Patient continues on 3 L of oxygen via nasal cannula and states she does use this at home as she has COPD. 05/30/2021 Patient is seen in follow-up with no acute overnight issues. Suicide sitter has been discontinued and psychiatry evaluated the patient. Patient continues to be weak requiring assistance with gait and has been accepted at [facility] pending insurance authorization. Patient has recently had multiple hospitalizations and visits to the emergency room related to inability to care for herself and noncompliance with medications and follow-up and will require more than a two night hospitalization stay while awaiting for placement. Patient continues to have lower extremity pain and lower back pain which is chronic. Patient is tolerating diet with no reports of nausea or vomiting noted. Patient denies any suicidal ideations at this time. 05/31/2021 Patient is currently sitting on the side of the bed. Awake alert but confused. Patient was seen by psychiatry and recommends no inpatient psychiatric admission. Continue with Zoloft and Remeron. Recommends outpatient mental health clinic follow-up. Otherwise patient denied any complaints of chest pain or shortness breath. Tolerating oral diet. No nausea vomiting abdominal pain or diarrhea. Creatinine to be transferred to external care facility. 06/01/2021 Patient is currently sitting on side of the bed.. No complaints of chest pain or shortness of. No nausea vomiting or abdominal pain. Patient has been afebrile. Blood sugar is still elevated at 230. Potassium is 5.7 today. Patient was given a dose of Kayexalate. Denies any complaints of nausea or vomiting. will hold lisinopril we will repeat potassium levels still elevated. Continued on insulin sliding scale for better blood sugar control. 06/02/2021 Patient is seen in follow-up with no acute overnight issues noted. Patient continues to be weak and evaluated by PT/OT recommending [facility] for rehab and attempts of peer to peer for insurance authorization was denied as patient most recent PT notes do not qualify her for continued PT/OT therapy at [facility]. Patient will be set up with community resources along with home care and son will be here to pick her up. Currently no reports of chest pain, shortness of breath, or palpitations. Patient is afebrile. No reports of nausea or vomiting and pat ient is tolerating diet. Patient will be discharged home. Guarded prognosis due to multiple readmissions for non-compliance and failed follow up. On exam vital signs are stable. Cardio S1, S2 are muffled. Respiratory system shows diminished breath sounds at the bases with no wheezing or rhonchi noted. Abdomen is soft and nontender. Nervous system shows no focal deficit. Please refer to medication reconciliation sheet for a list of medications. Patient Condition at Discharge: Stable Plan - Discharge Summary Discharge Rx Participant: No New Discharge Prescriptions: New Acetaminophen Tab [Tylenol] 650 mg PO Q6HR PRN tab PRN Reason: Fever And/ Or Pain Sertraline [Zoloft] 25 mg PO DAILY #30 tab Continue Isosorbide Mononitrate [Ismo] 10 mg PO BID Glimepiride [Amaryl] 4 mg PO BID Budesonide/Formoterol Fumarate [Symbicort 160-4.5 Mcg Inhaler] 2 puff INHALATION RT-BID amLODIPine [Norvasc] 10 mg PO HS Hydrocortisone Cream [Hydrocortisone 1% Cream] 1 applic TOPICAL DAILY PRN PRN Reason: Rash Nicotine 14Mg/24Hr Patch [Habitrol] 1 patch TRANSDERM DAILY PRN PRN Reason: NICOTINE ADDICTION polyethylene glycoL 3350 [Miralax] 17 gm PO DAILY PRN PRN Reason: Constipation traMADol HCL 50 mg PO BID PRN PRN Reason: Pain Nystatin 1 applic TOPICAL BID PRN PRN Reason: Rash LORazepam [Ativan] 1 mg PO TID sitaGLIPtin PHOS/metFORMIN HCL [Janumet Xr 50-1,000 mg Tablet] 1 tab PO BID Aspirin EC [Ecotrin Low Dose] 81 mg PO DAILY lisinopriL 20 mg PO DAILY HYDROcodone/APAP 5-325MG [[place]aven 5-325] 1 tab PO Q6HR PRN PRN Reason: Pain Changed Empagliflozin [Jardiance] 50 mg PO DAILY 30 Days #60 tab Discontinued DULoxetine HCL [Cymbalta] 60 mg PO DAILY Baclofen [Lioresal] 10 mg PO DAILY Phenazopyridine [Pyridium] 200 mg PO TID #9 tablet Discharge Medication List Glimepiride [Amaryl] 4 mg PO BID 06/06/20 [History] Isosorbide Mononitrate [Ismo] 10 mg PO BID 06/06/20 [History] Aspirin EC [Ecotrin Low Dose] 81 mg PO DAILY 05/13/21 [History] Budesonide/Formoterol Fumarate [Symbicort 160-4.5 Mcg Inhaler] 2 puff INHALATION RT-BID 05/13/21 [History] Hydrocortisone Cream [Hydrocortisone 1% Cream] 1 applic TOPICAL DAILY PRN 05/13/21 [History] LORazepam [Ativan] 1 mg PO TID 05/13/21 [History] Nystatin 1 applic TOPICAL BID PRN 05/13/21 [History] amLODIPine [Norvasc] 10 mg PO HS 05/13/21 [History] polyethylene glycoL 3350 [Miralax] 17 gm PO DAILY PRN 05/13/21 [History] sitaGLIPtin PHOS/metFORMIN HCL [Janumet Xr 50-1,000 mg Tablet] 1 tab PO BID 05/13/21 [History] traMADol HCL 50 mg PO BID PRN 05/13/21 [History] HYDROcodone/APAP 5-325MG [[place]aven 5-325] 1 tab PO Q6HR PRN 05/20/21 [History] Nicotine 14Mg/24Hr Patch [Habitrol] 1 patch TRANSDERM DAILY PRN 05/20/21 [History] lisinopriL 20 mg PO DAILY 05/20/21 [History] Acetaminophen Tab [Tylenol] 650 mg PO Q6HR PRN tab 06/02/21 [Rx] Empagliflozin [Jardiance] 50 mg PO DAILY 30 Days #60 tab 06/02/21 [Rx] Sertraline [Zoloft] 25 mg PO DAILY #30 tab 06/02/21 [Rx] Follow up Appointment(s)/Referral(s): [facility] [employer] [Outside] - 06/09/21 8:00 am (Britney or Nereyda would contact patient next week to scheduled an appointment) Grabiel,Veena, DO [Primary Care Provider] - 1-2 days (Please call office to schedule an appointment date/time. ) [facility], [NON-STAFF] - 1 Week (Agency will contact you.) Patient Instructions/Handouts: Depression (DC), Type 2 Diabetes in the Older Adult (DC) Activity/Diet/Wound Care/Special Instructions: Activity Limited until follow-up Follow-up with primary care provider upon discharge and discuss possible psychiatrist outpatient Continue to monitor blood sugars closely and keep a diary for primary care follow-up Take medications as prescribed Follow-up with outpatient psychiatry or counseling with referrals from primary care provider as [facility] is unable to provide services due to having private insurance Continue current diet Continue to avoid tobacco use Discharge Disposition: HOME WITH HOME HEALTH SERVICES
== END 2021-06-02 15:50 | disposition home health service (06) | DRG 881 ==
LOC: EC 18:10 → 6NMEDSUR 22:51 → 5NMEDONC 05-28 13:55 → OBSVTOIN 05-30 16:05
PROVIDERS: ADMIT Hospitalist; ATTEND Hospitalist
DX: F32.9 Major depressive disorder, single episode, unspecified (principal); R45.851 Suicidal ideations; Z79.82 Long term (current) use of aspirin; Z79.84 Long term (current) use of oral hypoglycemic drugs; Z79.51 Long term (current) use of inhaled steroids; F17.200 Nicotine dependence, unspecified, uncomplicated; Z80.0 Family history of malignant neoplasm of digestive organs; Z82.49 Family history of ischemic heart disease and other diseases of the circulatory system; D72.829 Elevated white blood cell count, unspecified; R62.7 Adult failure to thrive; F43.22 Adjustment disorder with anxiety; R32 Unspecified urinary incontinence; K21.9 Gastro-esophageal reflux disease without esophagitis; J44.9 Chronic obstructive pulmonary disease, unspecified; Z82.3 Family history of stroke; E11.42 Type 2 diabetes mellitus with diabetic polyneuropathy; Z91.14 Patient's other noncompliance with medication regimen; G89.29 Other chronic pain; F03.90 Unspecified dementia, unspecified severity, without behavioral disturbance, psychotic disturbance, mood disturbance, and anxiety; E11.65 Type 2 diabetes mellitus with hyperglycemia; I10 Essential (primary) hypertension; Z79.899 Other long term (current) drug therapy; Z90.710 Acquired absence of both cervix and uterus; Z99.81 Dependence on supplemental oxygen
CPT/HCPCS: 36415; 80048; 80053; 80143; 80179; 80306; 80320; 81003; 82075; 82747; 83036; 84132; 84443; 85025; 94640; 94760; 96374; 99285

== ENCOUNTER 2021-06-06 04:01 | Emergency (ER) | payer MEDICARE ==
[2021-06-06 04:26] VITALS: TEMP 97.9
--- NOTE | 2021-06-06 06:54 | ED ---
Psych HPI - General Chief Complaint: Psychiatric Symptoms Stated Complaint: Mental Health Time Seen by Provider: 06/06/21 04:09 Source: patient, EMS Mode of arrival: EMS - History of Present Illness Initial Comments: Patient is an 81-year-old woman here because she is having recurring dreams about her own . She states she is not feeling suicidal but she is having significant anxiety about these recurring nightmares. MD Complaint: feels depressed -: week(s) Associated Psychiatric Symptoms: depression History of same: Yes Quality: getting worse Improves With: none Worsens With: none Associated Symptoms: denies other symptoms - Related Data Home Medications Medication Instructions Recorded Confirmed Glimepiride [Amaryl] 4 mg PO BID 06/06/20 05/27/21 Isosorbide Mononitrate [Ismo] 10 mg PO BID 06/06/20 05/27/21 Aspirin EC [Ecotrin Low Dose] 81 mg PO DAILY 05/13/21 05/27/21 Budesonide/Formoterol Fumarate 2 puff INHALATION RT-BID 05/13/21 05/27/21 [Symbicort 160-4.5 Mcg Inhaler] Hydrocortisone Cream 1 applic TOPICAL DAILY PRN 05/13/21 05/27/21 [Hydrocortisone 1% Cream] LORazepam [Ativan] 1 mg PO TID 05/13/21 05/27/21 Nystatin 1 applic TOPICAL BID PRN 05/13/21 05/27/21 amLODIPine [Norvasc] 10 mg PO HS 05/13/21 05/27/21 polyethylene glycoL 3350 [Miralax] 17 gm PO DAILY PRN 05/13/21 05/27/21 sitaGLIPtin PHOS/metFORMIN HCL 1 tab PO BID 05/13/21 05/27/21 [Janumet Xr 50-1,000 mg Tablet] traMADol HCL 50 mg PO BID PRN 05/13/21 05/27/21 HYDROcodone/APAP 5-325MG [[place] 1 tab PO Q6HR PRN 05/20/21 05/27/21 5-325] Nicotine 14Mg/24Hr Patch [Habitrol] 1 patch TRANSDERM DAILY PRN 05/20/21 05/27/21 lisinopriL 20 mg PO DAILY 05/20/21 05/27/21 Previous Rx's Medication Instructions Recorded Acetaminophen Tab [Tylenol] 650 mg PO Q6HR PRN tab 06/02/21 Empagliflozin [Jardiance] 50 mg PO DAILY 30 Days #60 tab 06/02/21 Sertraline [Zoloft] 25 mg PO DAILY #30 tab 06/02/21 Allergies Allergy/AdvReac Type Severity Reaction Status Date / Time doxycycline Allergy Unknown Verified 05/27/21 19:01 nitrofurantoin Allergy Nausea & Verified 05/27/21 19:01 [From Macrobid] Vomiting & Diarrhea Penicillins AdvReac Rash/Hives Verified 05/27/21 19:01 Sulfa (Sulfonamide AdvReac Nausea & Verified 05/27/21 19:01 Antibiotics) Vomiting & Diarrhea Review of Systems ROS Statement: Those systems with pertinent positive or pertinent negative responses have been documented in the HPI. ROS Other: All systems not noted in ROS Statement are negative. Constitutional: Denies: fever, weakness Respiratory: Denies: cough, dyspnea Cardiovascular: Denies: chest pain, palpitations, syncope Gastrointestinal: Denies: abdominal pain, vomiting, diarrhea Musculoskeletal: Denies: back pain Skin: Denies: rash Neurological: Denies: headache Psychiatric: Reports: anxiety, depression. Denies: auditory hallucinations, visual hallucinations, homicidal thoughts, suicidal thoughts Past Medical History Past Medical History: Asthma, Chest Pain / Angina, COPD, Diabetes Mellitus, GERD/Reflux, Hypertension, Pneumonia, Respiratory Disorder, Skin Disorder Additional Past Medical History / Comment(s): Home oxygen at 4L/[place] ATC, bronchitis, NIDDM type II, neuropathy bilateral feet, falls, IBS, diverticular disease, hiatal hernia, chronic low back pain, eczema History of Any Multi-Drug Resistant Organisms: None Reported Past Surgical History: Cholecystectomy, Hysterectomy, Tonsillectomy Additional Past Surgical History / Comment(s): colonoscopy. 12/03/2020 surgery for bowel obstruction at [facility] Past Anesthesia/Blood Transfusion Reactions: No Reported Reaction Additional Past Anesthesia/Blood Transfusion Reaction / Comment(s): Pt states she has never received blood. Past Psychological History: Anxiety, Depression Smoking Status: Current every day smoker, Heavy tobacco smoker Past Alcohol Use History: Rare Past Drug Use History: None Reported - Past Family History Father Family Medical History: Cancer Additional Family Medical History / Comment(s): Father of colon cancer at the age of 54 yrs. Mother Family Medical History: CVA/TIA, Hyperlipidemia, Hypertension Additional Family Medical History / Comment(s): Mother lived to be 96yrs old. General Exam Limitations: no limitations General appearance: alert, in no apparent distress Head exam: Present: atraumatic, normocephalic Eye exam: Present: normal appearance. Absent: scleral icterus, conjunctival injection Neck exam: Present: normal inspection Respiratory exam: Present: normal lung sounds bilaterally. Absent: respiratory distress, wheezes, rales, rhonchi, stridor Cardiovascular Exam: Present: regular rate, normal rhythm, normal heart sounds. Absent: systolic murmur, diastolic murmur, rubs, gallop GI/Abdominal exam: Present: soft. Absent: distended, tenderness, guarding, rebound, rigid Extremities exam: Present: normal inspection, normal capillary refill Neurological exam: Present: alert, normal gait Psychiatric exam: Present: normal affect. Absent: agitated, anxious, flat affect, manic, homicidal ideation, suicidal ideation Skin exam: Present: warm, dry, intact, normal color. Absent: rash Course Vital Signs 06/06/21 04:18 Temperature 97.9 F Pulse Rate 70 Respiratory 19 Rate Blood Pressure 138/56 O2 Sat by Pulse 93 L Oximetry Disposition Clinical Impression: Acute anxiety Disposition: HOME SELF-CARE Condition: Good Instructions (If sedation given, give patient instructions): Anxiety (ED) Is patient prescribed a controlled substance at d/c from ED?: No Referrals: Veena Spain DO [Primary Care Provider] - 1-2 days
[2021-06-06 08:53] VITALS: RESP 18
[2021-06-06 11:55] VITALS: BP 129/68; PULSE 66
== END 2021-06-06 11:55 | disposition home or self-care (01) ==
LOC: EC 04:01
DX: F41.9 Anxiety disorder, unspecified (principal); F32.9 Major depressive disorder, single episode, unspecified; F51.5 Nightmare disorder; J44.9 Chronic obstructive pulmonary disease, unspecified; I10 Essential (primary) hypertension; E11.40 Type 2 diabetes mellitus with diabetic neuropathy, unspecified; F17.290 Nicotine dependence, other tobacco product, uncomplicated; Z79.82 Long term (current) use of aspirin; Z79.84 Long term (current) use of oral hypoglycemic drugs; Z79.51 Long term (current) use of inhaled steroids
CPT/HCPCS: 82075; 99284

== ENCOUNTER 2021-06-11 19:10 | Emergency (ER) | payer MEDICARE ==
--- NOTE | 2021-06-11 19:47 | ED ---
General Adult HPI <Rivera Mackay - Last Filed: 06/12/21 13:01> - General Source: EMS Mode of arrival: EMS Limitations: no limitations <Wilian Camara - Last Filed: 06/14/21 07:12> - General Chief complaint: Psychiatric Symptoms Stated complaint: Suicidal Time Seen by Provider: 06/11/21 19:18 - History of Present Illness Initial comments: Dictation was produced using [employer] dictation software. please excuse any grammatical, word or spelling errors. Chief Complaint: 81-year-old female presents with suicidal ideation History of Present Illness: Patient is an 81-year-old female presents to the emergency Department for suicidal ideation. Patient was brought here by EMS. She allegedly had made suicidal comments to her son. Sinus while going to sign a petition on patient's behalf. Patient states she is suicidal but does not have a specific plan. She is frustrated because she has insomnia and does not have any Ativan to take at home. Denies any visual or auditory hallucinations The ROS documented in this emergency department record has been reviewed and confirmed by me. Those systems with pertinent positive or negative responses have been documented in the HPI. All other systems are other negative and/or noncontributory. PHYSICAL EXAM: General Impression: Alert and oriented x3, not in acute distress HEENT: Normocephalic atraumatic, extra-ocular movements intact, pupils equal and reactive to light bilaterally, mucous membranes moist. Cardiovascular: Heart regular rate and rhythm Chest: Able to complete full sentences, no retractions, no tachypnea Abdomen: abdomen soft, non-tender, non-distended, no organomegaly Musculoskeletal: Pulses present and equal in all extremities, no peripheral edema Motor: no focal deficits noted Neurological: CN II-XII grossly intact, no focal motor or sensory deficits noted Skin: Intact with no visualized rashes Psych: Normal affect and mood ED course: 81-year-old female presents with suicidal ideation. Vital signs upon arrival are within acceptable limits. Physical examination is benign. Patient medically cleared for EPS evaluation Patient was invited by EPS. They recommend [facility] psychiatric transfer. Cer tification was completed. Psychiatry recommended increasing her Zoloft to 50 mg daily. Pending transfer to inpatient geriatric psychiatry (Wilian Camara) - Related Data Home Medications Medication Instructions Recorded Confirmed Glimepiride [Amaryl] 4 mg PO BID 06/06/20 06/11/21 Isosorbide Mononitrate [Ismo] 10 mg PO BID 06/06/20 06/11/21 Aspirin EC [Ecotrin Low Dose] 81 mg PO DAILY 05/13/21 06/11/21 Budesonide/Formoterol Fumarate 2 puff INHALATION RT-BID 05/13/21 06/11/21 [Symbicort 160-4.5 Mcg Inhaler] Hydrocortisone Cream 1 applic TOPICAL DAILY PRN 05/13/21 06/11/21 [Hydrocortisone 1% Cream] LORazepam [Ativan] 1 mg PO TID 05/13/21 06/11/21 Nystatin 1 applic TOPICAL BID PRN 05/13/21 06/11/21 amLODIPine [Norvasc] 10 mg PO HS 05/13/21 06/11/21 polyethylene glycoL 3350 [Miralax] 17 gm PO DAILY PRN 05/13/21 06/11/21 sitaGLIPtin PHOS/metFORMIN HCL 1 tab PO BID 05/13/21 06/11/21 [Janumet Xr 50-1,000 mg Tablet] traMADol HCL 50 mg PO BID PRN 05/13/21 06/11/21 Nicotine 14Mg/24Hr Patch [Habitrol] 1 patch TRANSDERM DAILY PRN 05/20/21 06/11/21 lisinopriL 40 mg PO DAILY 05/20/21 06/11/21 Previous Rx's Medication Instructions Recorded Acetaminophen Tab [Tylenol] 650 mg PO Q6HR PRN tab 06/02/21 Empagliflozin [Jardiance] 50 mg PO DAILY 30 Days #60 tab 06/02/21 Sertraline [Zoloft] 25 mg PO DAILY #30 tab 06/02/21 Allergies Allergy/AdvReac Type Severity Reaction Status Date / Time doxycycline Allergy Unknown Verified 06/11/21 19:42 Penicillins Allergy Rash/Hives Verified 06/11/21 19:42 nitrofurantoin AdvReac Nausea & Verified 06/11/21 19:42 [From Macrobid] Vomiting & Diarrhea Sulfa (Sulfonamide AdvReac Nausea & Verified 06/11/21 19:42 Antibiotics) Vomiting & Diarrhea Review of Systems ROS Other: All systems not noted in ROS Statement are negative. <Rivera Mackay - Last Filed: 06/12/21 13:01> ROS Other: All systems not noted in ROS Statement are negative. <Wilian Camara - Last Filed: 06/14/21 07:12> ROS Statement: Those systems with pertinent positive or pertinent negative responses have been documented in the HPI. Past Medical History Past Medical History: Asthma, Chest Pain / Angina, COPD, Diabetes Mellitus, GERD/Reflux, Hypertension, Pneumonia, Respiratory Disorder, Skin Disorder Additional Past Medical History / Comment(s): Home oxygen at 4L/[place] ATC, bronchitis, NIDDM type II, neuropathy bilateral feet, falls, IBS, diverticular disease, hiatal hernia, chronic low back pain, eczema History of Any Multi-Drug Resistant Organisms: None Reported Past Surgical History: Cholecystectomy, Hysterectomy, Tonsillectomy Additional Past Surgical History / Comment(s): colonoscopy. 12/03/2020 surgery for bowel obstruction at [facility] Past Anesthesia/Blood Transfusion Reactions: No Reported Reaction Additional Past Anesthesia/Blood Transfusion Reaction / Comment(s): Pt states she has never received blood. Past Psychological History: Anxiety, Depression Smoking Status: Current every day smoker, Heavy tobacco smoker Past Alcohol Use History: Rare Past Drug Use History: None Reported - Past Family History Father Family Medical History: Cancer Additional Family Medical History / Comment(s): Father of colon cancer at the age of 54 yrs. Mother Family Medical History: CVA/TIA, Hyperlipidemia, Hypertension Additional Family Medical History / Comment(s): Mother lived to be 96yrs old. <Wilian Camara - Last Filed: 06/14/21 07:12> General Exam Limitations: no limitations <Wilian Camara - Last Filed: 06/14/21 07:12> Course Vital Signs 06/11/21 06/12/21 06/12/21 19:32 02:20 07:18 Temperature 98.2 F 98.0 F 97.7 F Pulse Rate 69 69 70 Respiratory 20 18 18 Rate Blood Pressure 127/77 149/57 170/69 O2 Sat by Pulse 92 L 93 L 94 L Oximetry 06/12/21 12:48 Temperature Pulse Rate 80 Respiratory 18 Rate Blood Pressure 151/71 O2 Sat by Pulse 93 L Oximetry Medical Decision Making - Lab Data Result diagrams: 06/11/21 22:02 06/11/21 22:02 <Rivera Mackay Last Filed: 06/12/21 13:01> - Lab Data Result diagrams: 06/11/21 22:02 06/11/21 22:02 <Wilian Camara - Last Filed: 06/14/21 07:12> - Medical Decision Making Patient was evaluated by the EPS service and will be transferred to a geriatric psychiatric facility. I did fill out the transfer forms. (Rivera Mackay) - Lab Data Lab Results 06/11/21 06/11/21 06/11/21 Range/Units 20:05 21:52 22:02 WBC 14.2 H (3.8-10.6) k/uL RBC 4.79 (3.80-5.40) m/uL Hgb 14.3 (11.4-16.0) gm/dL Hct 45.1 (34.0-46.0) % MCV 94.2 (80.0-100.0) fL MCH 29.8 (25.0-35.0) pg MCHC 31.6 (31.0-37.0) g/dL RDW 14.1 (11.5-15.5) % Plt Count 403 (150-450) k/uL MPV 8.5 Neutrophils % 65 % Lymphocytes % 25 % Monocytes % 6 % Eosinophils % 2 % Basophils % 1 % Neutrophils # 9.3 H (1.3-7.7) k/uL Lymphocytes # 3.5 (1.0-4.8) k/uL Monocytes # 0.8 (0-1.0) k/uL Eosinophils # 0.3 (0-0.7) k/uL Basophils # 0.1 (0-0.2) k/uL Sodium (137-145) mmol/L Potassium (3.5-5.1) mmol/L Chloride (98-107) mmol/L Carbon Dioxide (22-30) mmol/L Anion Gap mmol/L BUN (7-17) mg/dL Creatinine (0.52-1.04) mg/dL Est GFR (CKD-EPI)AfAm (>60 ml/min/1.73 sqM) Est GFR (CKD-EPI)NonAf (>60 ml/min/1.73 sqM) Glucose (74-99) mg/dL POC Glucose (mg/dL) (75-99) mg/dL POC Glu Business Planner ID Calcium (8.4-10.2) mg/dL Total Bilirubin (0.2-1.3) mg/dL AST (14-36) U/L ALT (4-34) U/L Alkaline Phosphatase (38-126) U/L Total Protein (6.3-8.2) g/dL Albumin (3.5-5.0) g/dL Urine Opiates Screen Detected H (NotDetected) Ur Oxycodone Screen Not Detected (NotDetected) Urine Methadone Screen Not Detected (NotDetected) Ur Propoxyphene Screen Not Detected (NotDetected) Ur Barbiturates Screen Not Detected (NotDetected) U Tricyclic Antidepress Not Detected (NotDetected) Ur Phencyclidine Scrn Not Detected (NotDetected) Ur Amphetamines Screen Not Detected (NotDetected) U Methamphetamines Scrn Not Detected (NotDetected) U Benzodiazepines Scrn Detected H (NotDetected) Urine Cocaine Screen Not Detected (NotDetected) U Marijuana (THC) Screen Not Detected (NotDetected) Coronavirus (PCR) Not Detected (Not Detectd) 06/11/21 06/12/21 Range/Units 22:02 08:28 WBC (3.8-10.6) k/uL RBC (3.80-5.40) m/uL Hgb (11.4-16.0) gm/dL Hct (34.0-46.0) % MCV (80.0-100.0) fL MCH (25.0-35.0) pg MCHC (31.0-37.0) g/dL RDW (11.5-15.5) % Plt Count (150-450) k/uL MPV Neutrophils % % Lymphocytes % % Monocytes % % Eosinophils % % Basophils % % Neutrophils # (1.3-7.7) k/uL Lymphocytes # (1.0-4.8) k/uL Monocytes # (0-1.0) k/uL Eosinophils # (0-0.7) k/uL Basophils # (0-0.2) k/uL Sodium 140 (137-145) mmol/L Potassium 4.0 (3.5-5.1) mmol/L Chloride 109 H (98-107) mmol/L Carbon Dioxide 20 L (22-30) mmol/L Anion Gap 11 mmol/L BUN 19 H (7-17) mg/dL Creatinine 0.58 (0.52-1.04) mg/dL Est GFR (CKD-EPI)AfAm >90 (>60 ml/min/1.73 sqM) Est GFR (CKD-EPI)NonAf 88 (>60 ml/min/1.73 sqM) Glucose 171 H (74-99) mg/dL POC Glucose (mg/dL) 137 H (75-99) mg/dL POC Glu Business Planner ID Madelyn Mayorga Calcium 9.4 (8.4-10.2) mg/dL Total Bilirubin <0.1 L (0.2-1.3) mg/dL AST 18 (14-36) U/L ALT 14 (4-34) U/L Alkaline Phosphatase 59 (38-126) U/L Total Protein 6.5 (6.3-8.2) g/dL Albumin 4.0 (3.5-5.0) g/dL Urine Opiates Screen (NotDetected) Ur Oxycodone Screen (NotDetected) Urine Methadone Screen (NotDetected) Ur Propoxyphene Screen (NotDetected) Ur Barbiturates Screen (NotDetected) U Tricyclic Antidepress (NotDetected) Ur Phencyclidine Scrn (NotDetected) Ur Amphetamines Screen (NotDetected) U Methamphetamines Scrn (NotDetected) U Benzodiazepines Scrn (NotDetected) Urine Cocaine Screen (NotDetected) U Marijuana (THC) Screen (NotDetected) Coronavirus (PCR) (Not Detectd) Disposition <Rivera Mackay - Last Filed: 06/12/21 13:01> <Wilian Camara - Last Filed: 06/14/21 07:12> Clinical Impression: Depression, Suicidal ideation Disposition: TRANSFER TO PSYCH HOSP/UNIT Condition: Stable Referrals: Veena Spain DO [Primary Care Provider] - 1-2 days
[2021-06-11] MEDS ORDERED: ACETAMINOPHEN TAB 500 MG TAB PO STA (20:02)
[2021-06-11 20:25] LABS: Amphetamine Screen,Urine Not Detected (NotDetected); Barbiturate Screen,Urine Not Detected (NotDetected); Benzodiazepines Screen,Urine Detected (NotDetected); Cocaine Screen,Urine Not Detected (NotDetected); Methadone Screen, Urine Not Detected (NotDetected); Opiate Screen,Urine Detected (NotDetected); Oxycodone Screen, Urine Not Detected (NotDetected); Phencyclidine Screen,Urine Not Detected (NotDetected); Tricyclic Antidepressant,Urine Not Detected (NotDetected); Urn Cannabinoid Scrn Not Detected (NotDetected)
[2021-06-11] MEDS ORDERED: traMADol 50 MG TAB PO PRN (21:45)
[2021-06-11] MEDS ORDERED: NICOTINE 14MG/24HR PATCH TRANSDERM PRN (21:45)
[2021-06-11] MEDS ORDERED: ACETAMINOPHEN TAB 325 MG TAB PO PRN (21:45)
[2021-06-11] MEDS ORDERED: polyethylene glycoL 3350 17 GM POWD.PACK PO PRN (21:45)
[2021-06-11] MEDS: LORazepam 1 MG TAB PO SCH (22:09)
[2021-06-11 22:16] LABS: Basophils # (A) 0.1 k/uL (0-0.2); Basophils % (A) 1 %; Eosinophils # (A) 0.3 k/uL (0-0.7); Eosinophils % (A) 2 %; HCT 45.1 % (34.0-46.0); HGB 14.3 gm/dL (11.4-16.0); Lymphocytes # (A) 3.5 k/uL (1.0-4.8); Lymphocytes % (A) 25 %; MCH 29.8 pg (25.0-35.0); MCHC 31.6 g/dL (31.0-37.0); MCV 94.2 fL (80.0-100.0); Mean Platelet Volume 8.5; Monocytes # (A) 0.8 k/uL (0-1.0); Monocytes % (A) 6 %; Neutrophils # (A) 9.3 k/uL (1.3-7.7); Neutrophils % (A) 65 %; Platelet Count 403 k/uL (150-450); RBC 4.79 m/uL (3.80-5.40); RDW 14.1 % (11.5-15.5); WBC 14.2 k/uL (3.8-10.6)
[2021-06-11 22:25] LABS: ALT 14 U/L (4-34); AST 18 U/L (14-36); African American GFR (CKD) >90 (>60 ml/min/1.73 sqM); Alkaline Phosphatase 59 U/L (38-126); Anion Gap 11 mmol/L; Blood Urea Nitrogen 19 mg/dL (7-17); Calcium 9.4 mg/dL (8.4-10.2); Carbon Dioxide 20 mmol/L (22-30); Chloride 109 mmol/L (98-107); Glucose 171 mg/dL (74-99); Non-African American GFR(CKD) 88 (>60 ml/min/1.73 sqM); Sodium 140 mmol/L (137-145); Total Bilirubin <0.1 mg/dL (0.2-1.3); Total Protein 6.5 g/dL (6.3-8.2)
[2021-06-12 02:24] VITALS: RESP 18
[2021-06-12 07:20] VITALS: TEMP 97.7
[2021-06-12] MEDS ORDERED: SIMETHICONE 80 MG CHEWABLE PO STA (07:22)
[2021-06-12] MEDS ORDERED: SYMBICORT 160-4.5 MCG INHALER INHALATION SCH (08:00)
[2021-06-12 08:29] LABS: Glucose,Whole Blood 137 mg/dL (75-99)
[2021-06-12] MEDS: LORazepam 1 MG TAB PO SCH (08:30)
[2021-06-12] MEDS ORDERED: NON FORMULARY DRUG (Empagliflozin [Jardiance] 25 MG Tablet) PO SCH (09:00)
[2021-06-12] MEDS ORDERED: ISOSORBIDE MONONITRATE 10 MG TAB PO SCH (09:00)
[2021-06-12] MEDS ORDERED: ASPIRIN 81 MG PO SCH (09:00)
[2021-06-12] MEDS ORDERED: SERTRALINE 50 MG TAB PO SCH (09:00)
[2021-06-12] MEDS ORDERED: metFORMIN 500 MG TAB PO SCH (09:00)
[2021-06-12] MEDS ORDERED: GLIMEPIRIDE 4 MG TAB PO SCH (09:00)
[2021-06-12] MEDS ORDERED: LINAGLIPTIN 5 MG TABLET PO SCH (09:00)
[2021-06-12] MEDS ORDERED: lisinopriL 20 MG TAB PO SCH (09:00)
[2021-06-12 12:49] VITALS: BP 151/71; PULSE 80
[2021-06-12] MEDS ORDERED: amLODIPine 10 MG TAB PO SCH (21:00)
== END 2021-06-12 13:57 ==
LOC: EC 19:10
DX: R45.851 Suicidal ideations (principal); F32.9 Major depressive disorder, single episode, unspecified; E11.40 Type 2 diabetes mellitus with diabetic neuropathy, unspecified; I10 Essential (primary) hypertension; J44.9 Chronic obstructive pulmonary disease, unspecified; K21.9 Gastro-esophageal reflux disease without esophagitis; F41.9 Anxiety disorder, unspecified; F17.200 Nicotine dependence, unspecified, uncomplicated; Z79.84 Long term (current) use of oral hypoglycemic drugs; Z79.82 Long term (current) use of aspirin; Z79.899 Other long term (current) drug therapy; Z88.0 Allergy status to penicillin; Z88.1 Allergy status to other antibiotic agents; Z88.2 Allergy status to sulfonamides; Z88.8 Allergy status to other drugs, medicaments and biological substances; Z82.49 Family history of ischemic heart disease and other diseases of the circulatory system
CPT/HCPCS: 82075; 36415 ×2; 94640; 80053; 85025; 80306; 87635; 99285; S4990

== ENCOUNTER 2021-06-23 13:20 | Observation (INO) | payer MEDICARE ==
[2021-06-23] MEDS ORDERED: SODIUM CHLORIDE 0.9% 1,000 ML IV STA (14:24)
[2021-06-23 15:01] LABS: Basophils # (A) 0.1 k/uL (0-0.2); Basophils % (A) 1 %; Eosinophils # (A) 0.2 k/uL (0-0.7); Eosinophils % (A) 2 %; HCT 43.3 % (34.0-46.0); HGB 13.9 gm/dL (11.4-16.0); Lymphocytes # (A) 2.9 k/uL (1.0-4.8); Lymphocytes % (A) 22 %; MCHC 32.1 g/dL (31.0-37.0); MCV 93.5 fL (80.0-100.0); Mean Platelet Volume 8.3; Monocytes # (A) 0.7 k/uL (0-1.0); Monocytes % (A) 5 %; Neutrophils # (A) 9.1 k/uL (1.3-7.7); Neutrophils % (A) 69 %; Platelet Count 336 k/uL (150-450); RBC 4.63 m/uL (3.80-5.40); RDW 13.9 % (11.5-15.5); WBC 13.2 k/uL (3.8-10.6)
--- NOTE | 2021-06-23 15:01 | ED ---
General Adult HPI - General Chief complaint: Nausea/Vomiting/Diarrhea Stated complaint: Diarrhea Time Seen by Provider: 06/23/21 14:17 Source: patient, EMS, old records reviewed Mode of arrival: EMS Limitations: physical limitation - History of Present Illness Initial comments: 81-year-old female with history of oxygen-dependent COPD on 4 L at home pres enting to the emergency department with a chief complaint abdominal cramping and diarrhea. Patient reports symptoms and I want since yesterday. States her stools are loose and yellow in color. States she was recently put on multiple medications after being discharged from the psychiatric ac on . Patient reports lower abdominal cramping without any radiation. Denies any vaginal urinary symptoms. Denies any fevers or chills. Denies any nausea vomiting. Still smoker. - Related Data Home Medications Medication Instructions Recorded Confirmed Aspirin EC [Ecotrin Low Dose] 81 mg PO DAILY 05/13/21 06/23/21 LORazepam [Ativan] 1 mg PO TID PRN 05/13/21 06/23/21 Nystatin 1 applic TOPICAL BID PRN 05/13/21 06/23/21 amLODIPine [Norvasc] 10 mg PO HS 05/13/21 06/23/21 polyethylene glycoL 3350 [Miralax] 17 gm PO DAILY PRN 05/13/21 06/23/21 sitaGLIPtin PHOS/metFORMIN HCL 1 tab PO BID 05/13/21 06/23/21 [Janumet Xr 50-1,000 mg Tablet] traMADol HCL 50 mg PO BID PRN 05/13/21 06/23/21 lisinopriL 40 mg PO DAILY 05/20/21 06/23/21 DULoxetine HCL [Cymbalta] 60 mg PO DAILY 06/23/21 06/23/21 Empagliflozin [Jardiance] 25 mg PO DAILY 06/23/21 06/23/21 Glimepiride [Amaryl] 2 mg PO BID 06/23/21 06/23/21 Isosorbide Dinitrate 10 mg PO BID 06/23/21 06/23/21 Linagliptin [Tradjenta] 5 mg PO DAILY 06/23/21 06/23/21 Mirtazapine 7.5 mg PO HS 06/23/21 06/23/21 Sertraline HCl [Zoloft] 100 mg PO DAILY 06/23/21 06/23/21 clonazePAM 0.25 mg PO BID PRN 06/23/21 06/23/21 hydrALAZINE HCL [Apresoline] 25 mg PO TID 06/23/21 06/23/21 metFORMIN HCL [Glucophage] 500 mg PO BID 06/23/21 06/23/21 Previous Rx's Medication Instructions Recorded Acetaminophen Tab [Tylenol] 650 mg PO Q6HR PRN tab 06/02/21 Allergies Allergy/AdvReac Type Severity Reaction Status Date / Time doxycycline Allergy Unknown Verified 06/23/21 17:32 Penicillins Allergy Rash/Hives Verified 06/23/21 17:32 nitrofurantoin AdvReac Nausea & Verified 06/23/21 17:32 [From Macrobid] Vomiting & Diarrhea Sulfa (Sulfonamide AdvReac Nausea & Verified 06/23/21 17:32 Antibiotics) Vomiting & Diarrhea Review of Systems ROS Statement: Those systems with pertinent positive or pertinent negative responses have been documented in the HPI. ROS Other: All systems not noted in ROS Statement are negative. Past Medical History Past Medical History: Asthma, Chest Pain / Angina, COPD, Diabetes Mellitus, GERD/Reflux, Hypertension, Pneumonia, Respiratory Disorder, Skin Disorder Additional Past Medical History / Comment(s): Home oxygen at 4L/[place] ATC, bronchitis, NIDDM type II, neuropathy bilateral feet, falls, IBS, diverticular disease, hiatal hernia, chronic low back pain, eczema History of Any Multi-Drug Resistant Organisms: None Reported Past Surgical History: Cholecystectomy, Hysterectomy, Tonsillectomy Additional Past Surgical History / Comment(s): colonoscopy. 12/03/2020 surgery for bowel obstruction at [facility] Past Anesthesia/Blood Transfusion Reactions: No Reported Reaction Additional Past Anesthesia/Blood Transfusion Reaction / Comment(s): Pt states she has never received blood. Past Psychological History: Anxiety, Depression Smoking Status: Current every day smoker, Heavy tobacco smoker Past Alcohol Use History: Rare Past Drug Use History: None Reported - Past Family History Father Family Medical History: Cancer Additional Family Medical History / Comment(s): Father of colon cancer at the age of 54 yrs. Mother Family Medical History: CVA/TIA, Hyperlipidemia, Hypertension Additional Family Medical History / Comment(s): Mother lived to be 96yrs old. General Exam Limitations: physical limitation General appearance: alert, in no apparent distress Head exam: Present: atraumatic, normocephalic, normal inspection Eye exam: Present: normal appearance, PERRL, EOMI Pupils: Present: normal accommodation ENT exam: Present: normal exam, normal oropharynx, mucous membranes moist Neck exam: Present: normal inspection, full ROM. Absent: tenderness, lymphadeno kassy Respiratory exam: Present: normal lung sounds bilaterally, wheezes (Mild diffuse bilateral wheezing). Absent: respiratory distress, rales, rhonchi, stridor, chest wall tenderness Cardiovascular Exam: Present: regular rate, normal rhythm, normal heart sounds GI/Abdominal exam: Present: soft, tenderness (Lower abdominal tenderness). Absent: distended Extremities exam: Present: normal inspection, full ROM, normal capillary refill. Absent: tenderness Back exam: Present: normal inspection, full ROM. Absent: tenderness Neurological exam: Present: alert, oriented X3 Psychiatric exam: Present: normal affect, normal mood Skin exam: Present: warm, dry, intact, normal color Course Vital Signs 06/23/21 06/23/21 13:49 17:11 Temperature 98.9 F Pulse Rate 70 89 Respiratory 16 18 Rate Blood Pressure 112/73 144/60 O2 Sat by Pulse 89 L 99 Oximetry Medical Decision Making - Medical Decision Making 81-year-old female with history of oxygen-dependent COPD on 4 L at home pre senting to the emergency department with a chief complaint abdominal cramping and diarrhea. On physical examination, patient has minimal diffuse abdominal tenderness. Stool sample is pending. CBC shows mild leukocytosis of 13,000. UA positive for leukocyte esterase, white blood cells and nitrates. Urine culture pending. Patient will be started on Rocephin. CT of abdomen and pelvis is pending. I spoke to Dr. Nunez who will but the patient for further medical management. Case discussed with Social work consult - Lab Data Result diagrams: 06/23/21 14:34 06/23/21 14:34 Lab Results 06/23/21 06/23/21 06/23/21 Range/Units 14:34 14:34 14:34 WBC 13.2 H (3.8-10.6) k/uL RBC 4.63 (3.80-5.40) m/uL Hgb 13.9 (11.4-16.0) gm/dL Hct 43.3 (34.0-46.0) % MCV 93.5 (80.0-100.0) fL MCH 30.0 (25.0-35.0) pg MCHC 32.1 (31.0-37.0) g/dL RDW 13.9 (11.5-15.5) % Plt Count 336 (150-450) k/uL MPV 8.3 Neutrophils % 69 % Lymphocytes % 22 % Monocytes % 5 % Eosinophils % 2 % Basophils % 1 % Neutrophils # 9.1 H (1.3-7.7) k/uL Lymphocytes # 2.9 (1.0-4.8) k/uL Monocytes # 0.7 (0-1.0) k/uL Eosinophils # 0.2 (0-0.7) k/uL Basophils # 0.1 (0-0.2) k/uL Sodium 143 (137-145) mmol/L Potassium 4.4 (3.5-5.1) mmol/L Chloride 115 H (98-107) mmol/L Carbon Dioxide 18 L (22-30) mmol/L Anion Gap 10 mmol/L BUN 23 H (7-17) mg/dL Creatinine 0.57 (0.52-1.04) mg/dL Est GFR (CKD-EPI)AfAm >90 (>60 ml/min/1.73 sqM) Est GFR (CKD-EPI)NonAf 88 (>60 ml/min/1.73 sqM) Glucose 132 H (74-99) mg/dL POC Glucose (mg/dL) (75-99) mg/dL POC Glu Ship Captain ID Calcium 8.9 (8.4-10.2) mg/dL Total Bilirubin 0.2 (0.2-1.3) mg/dL AST 19 (14-36) U/L ALT 15 (4-34) U/L Alkaline Phosphatase 53 (38-126) U/L Total Protein 6.6 (6.3-8.2) g/dL Albumin 3.9 (3.5-5.0) g/dL Lipase 479 H (23-300) U/L Urine Color Yellow Urine Appearance Cloudy H (Clear) Urine pH 5.0 (5.0-8.0) Ur Specific [place] 1.017 (1.001-1.035) Urine Protein Trace H (Negative) Urine Glucose (UA) Negative (Negative) Urine Ketones Negative (Negative) Urine Blood Trace H (Negative) Urine Nitrite Positive H (Negative) Urine Bilirubin Negative (Negative) Urine Urobilinogen <2.0 (<2.0) mg/dL Ur Leukocyte Esterase Large H (Negative) Urine RBC 6 H (0-5) /hpf Urine WBC 87 H (0-5) /hpf Urine WBC Clumps Many H (None) /hpf Ur Squamous Epith Cells 6 H (0-4) /hpf Urine Bacteria Many H (None) /hpf Hyaline Casts 5 H (0-2) /lpf Urine Mucus Occasional H (None) /hpf 06/23/21 Range/Units 16:25 WBC (3.8-10.6) k/uL RBC (3.80-5.40) m/uL Hgb (11.4-16.0) gm/dL Hct (34.0-46.0) % MCV (80.0-100.0) fL MCH (25.0-35.0) pg MCHC (31.0-37.0) g/dL RDW (11.5-15.5) % Plt Count (150-450) k/uL MPV Neutrophils % % Lymphocytes % % Monocytes % % Eosinophils % % Basophils % % Neutrophils # (1.3-7.7) k/uL Lymphocytes # (1.0-4.8) k/uL Monocytes # (0-1.0) k/uL Eosinophils # (0-0.7) k/uL Basophils # (0-0.2) k/uL Sodium (137-145) mmol/L Potassium (3.5-5.1) mmol/L Chloride (98-107) mmol/L Carbon Dioxide (22-30) mmol/L Anion Gap mmol/L BUN (7-17) mg/dL Creatinine (0.52-1.04) mg/dL Est GFR (CKD-EPI)AfAm (>60 ml/min/1.73 sqM) Est GFR (CKD-EPI)NonAf (>60 ml/min/1.73 sqM) Glucose (74-99) mg/dL POC Glucose (mg/dL) 98 (75-99) mg/dL POC Glu Ship Captain ID Shannon Sapp Calcium (8.4-10.2) mg/dL Total Bilirubin (0.2-1.3) mg/dL AST (14-36) U/L ALT (4-34) U/L Alkaline Phosphatase (38-126) U/L Total Protein (6.3-8.2) g/dL Albumin (3.5-5.0) g/dL Lipase (23-300) U/L Urine Color Urine Appearance (Clear) Urine pH (5.0-8.0) Ur Specific [place] (1.001-1.035) Urine Protein (Negative) Urine Glucose (UA) (Negative) Urine Ketones (Negative) Urine Blood (Negative) Urine Nitrite (Negative) Urine Bilirubin (Negative) Urine Urobilinogen (<2.0) mg/dL Ur Leukocyte Esterase (Negative) Urine RBC (0-5) /hpf Urine WBC (0-5) /hpf Urine WBC Clumps (None) /hpf Ur Squamous Epith Cells (0-4) /hpf Urine Bacteria (None) /hpf Hyaline Casts (0-2) /lpf Urine Mucus (None) /hpf Disposition Clinical Impression: Diarrhea, Urinary tract infection, Weakness Disposition: ADMITTED IP TO THIS HOSP Condition: Fair Is patient prescribed a controlled substance at d/c from ED?: No Referrals: Veena Spain DO [Primary Care Provider] - 1-2 days Time of Disposition: 18:05
[2021-06-23 15:07] LABS: Appearance,Urine Cloudy (Clear); Bacteria,Urine Many /hpf; Bilirubin,Urine Negative (Negative); Blood,Urine Trace (Negative); Color,Urine Yellow; Glucose,Urine (UA) Negative (Negative); Hyaline Casts,Urine 5 /lpf (0-2); Ketones,Urine Negative (Negative); Leukocyte Esterase,Urine Large (Negative); Mucus,Urine Occasional /hpf; Nitrite,Urine Positive (Negative); Protein,Urine Trace (Negative); RBC,Urine 6 /hpf (0-5); Specific Gravity,Urine 1.017 (1.001-1.035); Squamous Epithelial Cell,Urine 6 /hpf (0-4); Urobilinogen,Urine <2.0 mg/dL (<2.0); WBC,Urine 87 /hpf (0-5)
[2021-06-23 15:12] LABS: ALT 15 U/L (4-34); AST 19 U/L (14-36); African American GFR (CKD) >90 (>60 ml/min/1.73 sqM); Albumin 3.9 g/dL (3.5-5.0); Alkaline Phosphatase 53 U/L (38-126); Anion Gap 10 mmol/L; Blood Urea Nitrogen 23 mg/dL (7-17); Calcium 8.9 mg/dL (8.4-10.2); Carbon Dioxide 18 mmol/L (22-30); Chloride 115 mmol/L (98-107); Glucose 132 mg/dL (74-99); Lipase 479 U/L (23-300); Non-African American GFR(CKD) 88 (>60 ml/min/1.73 sqM); Potassium 4.4 mmol/L (3.5-5.1); Sodium 143 mmol/L (137-145); Total Bilirubin 0.2 mg/dL (0.2-1.3); Total Protein 6.6 g/dL (6.3-8.2)
[2021-06-23 16:26] LABS: Glucose,Whole Blood 98 mg/dL (75-99)
[2021-06-23] MEDS ORDERED: cefTRIAXone IN SWFI 1,000 MG/10 ML SYRINGE IVP STA (16:51)
[2021-06-23] MEDS ORDERED: NALOXONE 0.4 MG/ML 1 ML VIAL IV PRN (18:01)
[2021-06-23] MEDS: SODIUM CHLORIDE 0.9% 1,000 ML IV SCH (18:37)
--- NOTE | 2021-06-23 18:44 | CT ---
EXAMINATION TYPE: CT abdomen pelvis w con DATE OF EXAM: 06/23/2021 COMPARISON: None HISTORY: Abdominal cramping, diarrhea. CT DLP: 724.6 mGycm Automated exposure control for dose reduction was used. CONTRAST: Performed with IV Contrast, patient injected with 100 mL of Isovue 300. Images obtained from the diaphragm to the floor the pelvis with IV contrast. Lung bases show mild subsegmental atelectasis in the right middle lobe. There is no pleural effusion. Heart size is normal. There is no pericardial effusion. Liver spleen stomach pancreas appear intact. Bile ducts are not dilated. There are clips from cholecy stectomy. There is no adrenal mass. Kidneys show satisfactory contrast opacification. There is no hydronephrosi s. Ureters are not dilated. Abdominal aorta is atheromatous. There is no retroperitoneal adenopathy. Bladder distends smoothly. There is no inguinal hernia. There is left hip nailing fixing proximal lef t femur. The bony pelvis is intact. Sacroiliac joints are intact. There is large bowel fluid extendin g down to the rectum. Appendix is posterior and appears normal. There is no mesenteric edema. There i s no ascites or free air. There is no evidence of a bowel obstruction. The lumbar vertebra show fairl y normal alignment. There is a minimal degenerative first degree L4-5 spondylolisthesis. There is no lumbar compression fracture. There is vacuum disc at L5-S1. IMPRESSION: There is a first-degree L4-5 degenerative spondylolisthesis. Spondylotic changes in the lumbar spine. No acute bony abnormality. Fluid in the large bowel down to the rectum consistent with diarrhea. No evidence of bowel obstructio n. No dilated ducts.
[2021-06-23] MEDS ORDERED: LORazepam 1 MG TAB PO PRN (18:58)
[2021-06-24] MEDS: SODIUM CHLORIDE 0.9% 1,000 ML IV SCH (00:01)
[2021-06-24 07:08] LABS: Glucose,Whole Blood 122 mg/dL (75-99)
[2021-06-24] MEDS: PANTOPRAZOLE 40 MG/10 ML VIAL IV SCH (08:13)
[2021-06-24 11:44] LABS: Glucose,Whole Blood 144 mg/dL (75-99)
[2021-06-24 12:21] VITALS: BMI 21.9
[2021-06-24 16:54] LABS: Glucose,Whole Blood 130 mg/dL (75-99)
[2021-06-24] MEDS ORDERED: polyethylene glycoL 3350 17 GM POWD.PACK PO PRN (18:00)
[2021-06-24] MEDS ORDERED: NYSTATIN 100,000UNIT/GM CREAM 30 GM TUBE TOPICAL PRN (18:00)
[2021-06-24] MEDS ORDERED: NICOTINE 14MG/24HR PATCH TRANSDERM SCH (18:30)
[2021-06-24 20:07] LABS: Glucose,Whole Blood 157 mg/dL (75-99)
[2021-06-24] MEDS: INSULIN ASPART (NovoLOG) 100 UNIT/ML VIAL SQ SCH (20:25)
[2021-06-24] MEDS: GLIMEPIRIDE 2 MG TAB PO SCH (20:25)
[2021-06-24] MEDS: amLODIPine 10 MG TAB PO SCH (20:27)
[2021-06-24] MEDS: ISOSORBIDE DINITRATE 10 MG TAB PO SCH (20:28)
[2021-06-24] MEDS ORDERED: MIRTAZAPINE 15 MG TAB PO SCH (21:00)
[2021-06-24] MEDS: hydrALAZINE HCL 25 MG TAB PO SCH (21:07)
--- NOTE | 2021-06-24 21:21 | P.HPIM ---
History of Present Illness This is a pleasant 81 years old female Presents because of diarrhea 2 days duration with some abdominal cramping associated with mild nausea vomiting, both her diarrhea and vomiting resolved today. She denies any abdominal pain or tenderness and her abdomen looks soft. Patient was recently discharged from the hospital on 06/24 for UTI, depression. She denies active signs symptoms of depression. Denies suicidal ideation She complains from Some urinary discomfort She smokes 1.5 pack per day and she's counseled to quit and she agrees and wants. She is on home oxygen 4 L/m. nicotine patch. She denies alcohol or illicit drugs She is mildly wheezing verbally with some evidence of mild COPD exacerbation No chest pain or dyspnea. No headache or weakness or numbness Vitals on mild hypothermia of 97.3.. Labs showing leukocytosis of 14.2. BMP is unremarkable and glucose controlled. Liver enzymes not elevated. Urine culture is growing gram-negative bacilli CT of the abdomen and pelvis: Showing no acute abnormal explain patient's symptoms On admission she was started on ceftriaxone, normal sinus 75 mL/h Review of Systems CONSTITUTIONAL: No fever, no malaise, no fatigue. HEENT: No recent visual problems or hearing problems. Denied any sore throat. CARDIOVASCULAR: No orthopnea, PND, no palpitations, no syncope. PULMONARY: No shortness of breath, no cough, no hemoptysis. GASTROINTESTINAL: No diarrhea, no nausea, no vomiting, no abdominal pain. Normoactive bowel sounds. NEUROLOGICAL: No headaches, no weakness, no numbness. HEMATOLOGICAL: Denies any bleeding or petechiae. GENITOURINARY: Denies any burning micturition, frequency, or urgency. MUSCULOSKELETAL/RHEUMATOLOGICAL: Denies any joint pain, swelling, or any muscle pain. ENDOCRINE: Denies any polyuria or polydipsia. Past Medical History Past Medical History: Asthma, Chest Pain / Angina, COPD, Diabetes Mellitus, GERD/Reflux, Hypertension, Pneumonia, Respiratory Disorder, Skin Disorder Additional Past Medical History / Comment(s): Home oxygen at 4L/[place] ATC, bronchitis, NIDDM type II, neuropathy bilateral feet, falls, IBS, diverticular disease, hiatal hernia, chronic low back pain, eczema History of Any Multi-Drug Resistant Organisms: None Reported Past Surgical History: Cholecystectomy, Hysterectomy, Tonsillectomy Additional Past Surgical History / Comment(s): colonoscopy. 12/03/2020 surgery for bowel obstruction at [facility] Past Anesthesia/Blood Transfusion Reactions: No Reported Reaction Additional Past Anesthesia/Blood Transfusion Reaction / Comment(s): Pt states she has never received blood. Past Psychological History: Anxiety, Depression Additional Psychological History / Comment(s): Pt resides with her spouse and adult son. She ambulates with a walker. She has home oxygen and a glucometer. Smoking Status: Current every day smoker, Heavy tobacco smoker Past Alcohol Use History: Rare Additional Past Alcohol Use History / Comment(s): Pt started smoking in 1957 and is a ppd smoker. Past Drug Use History: None Reported - Past Family History Father Family Medical History: Cancer Additional Family Medical History / Comment(s): Father of colon cancer at t he age of 54 yrs. Mother Family Medical History: CVA/TIA, Hyperlipidemia, Hypertension Additional Family Medical History / Comment(s): Mother lived to be 96yrs old. Medications and Allergies Home Medications Medication Instructions Recorded Confirmed Type Aspirin EC [Ecotrin Low Dose] 81 mg PO DAILY 05/13/21 06/23/21 History LORazepam [Ativan] 1 mg PO TID PRN 05/13/21 06/23/21 History Nystatin 1 applic TOPICAL BID PRN 05/13/21 06/23/21 History amLODIPine [Norvasc] 10 mg PO HS 05/13/21 06/23/21 History polyethylene glycoL 3350 [Miralax] 17 gm PO DAILY PRN 05/13/21 06/23/21 History sitaGLIPtin PHOS/metFORMIN HCL 1 tab PO BID 05/13/21 06/23/21 History [Janumet Xr 50-1,000 mg Tablet] traMADol HCL 50 mg PO BID PRN 05/13/21 06/23/21 History lisinopriL 40 mg PO DAILY 05/20/21 06/23/21 History Acetaminophen Tab [Tylenol] 650 mg PO Q6HR PRN tab 06/02/21 06/23/21 Rx Empagliflozin [Jardiance] 25 mg PO DAILY 06/23/21 06/23/21 History Glimepiride [Amaryl] 2 mg PO BID 06/23/21 06/23/21 History Isosorbide Dinitrate 10 mg PO BID 06/23/21 06/23/21 History Linagliptin [Tradjenta] 5 mg PO DAILY 06/23/21 06/23/21 History Mirtazapine 7.5 mg PO HS 06/23/21 06/23/21 History Sertraline HCl [Zoloft] 100 mg PO DAILY 06/23/21 06/23/21 History clonazePAM 0.25 mg PO BID PRN 06/23/21 06/23/21 History hydrALAZINE HCL [Apresoline] 25 mg PO TID 06/23/21 06/23/21 History metFORMIN HCL [Glucophage] 500 mg PO BID 06/23/21 06/23/21 History Allergies Allergy/AdvReac Type Severity Reaction Status Date / Time doxycycline Allergy Unknown Verified 06/23/21 17:32 Penicillins Allergy Rash/Hives Verified 06/23/21 17:32 nitrofurantoin AdvReac Nausea & Verified 06/23/21 17:32 [From Macrobid] Vomiting & Diarrhea Sulfa (Sulfonamide AdvReac Nausea & Verified 06/23/21 17:32 Antibiotics) Vomiting & Diarrhea Physical Exam Vitals: Vital Signs Temp Pulse Pulse Resp BP BP Pulse Ox 06/24/21 07:58 97.4 F L 60 18 164/67 98 06/24/21 02:23 97.9 F 58 L 16 162/67 98 06/24/21 02:00 61 17 06/24/21 00:35 98.7 F 61 17 130/52 100 06/23/21 23:41 97.6 F 64 18 159/60 100 06/23/21 19:00 62 18 145/60 98 06/23/21 17:11 89 18 144/60 99 Intake and Output 06/23/21 06/24/21 06/24/21 22:59 06:59 14:59 Other: Voiding Method Diaper Diaper # Voids 3 2 Weight 54.431 kg 54.431 kg GENERAL: The patient is alert and oriented x3, not in any acute distress. Well developed, well nourished. HEENT: Pupils are round and equally reacting to light. EOMI. No scleral icterus. No conjunctival pallor. Normocephalic, atraumatic. No pharyngeal erythema. No thyromegaly. CARDIOVASCULAR: S1 and S2 present. No murmurs, rubs, or gallops. PULMONARY: Chest is clear to auscultation, no wheezing or crackles. ABDOMEN: Soft, nontender, nondistended, normoactive bowel sounds. No palpable organomegaly. MUSCULOSKELETAL: No joint swelling or deformity. EXTREMITIES: No cyanosis, clubbing, or pedal edema. NEUROLOGICAL: Gross neurological examination did not reveal any focal deficits. SKIN: No rashes. No petechiae Results CBC & Chem 7: 06/23/21 14:34 06/23/21 14:34 Labs: Abnormal Lab Results - Last 24 Hours (Table) 06/23/21 06/23/21 06/23/21 Range/Units 14:34 14:34 14:34 WBC 13.2 H (3.8-10.6) k/uL Neutrophils # 9.1 H (1.3-7.7) k/uL Chloride 115 H (98-107) mmol/L Carbon Dioxide 18 L (22-30) mmol/L BUN 23 H (7-17) mg/dL Glucose 132 H (74-99) mg/dL POC Glucose (mg/dL) (75-99) mg/dL Lipase 479 H (23-300) U/L Urine Appearance Cloudy H (Clear) Urine Protein Trace H (Negative) Urine Blood Trace H (Negative) Urine Nitrite Positive H (Negative) Ur Leukocyte Esterase Large H (Negative) Urine RBC 6 H (0-5) /hpf Urine WBC 87 H (0-5) /hpf Urine WBC Clumps Many H (None) /hpf Ur Squamous Epith Cells 6 H (0-4) /hpf Urine Bacteria Many H (None) /hpf Hyaline Casts 5 H (0-2) /lpf Urine Mucus Occasional H (None) /hpf 06/24/21 06/24/21 Range/Units 07:06 11:39 WBC (3.8-10.6) k/uL Neutrophils # (1.3-7.7) k/uL Chloride (98-107) mmol/L Carbon Dioxide (22-30) mmol/L BUN (7-17) mg/dL Glucose (74-99) mg/dL POC Glucose (mg/dL) 122 H 144 H (75-99) mg/dL Lipase (23-300) U/L Urine Appearance (Clear) Urine Protein (Negative) Urine Blood (Negative) Urine Nitrite (Negative) Ur Leukocyte Esterase (Negative) Urine RBC (0-5) /hpf Urine WBC (0-5) /hpf Urine WBC Clumps (None) /hpf Ur Squamous Epith Cells (0-4) /hpf Urine Bacteria (None) /hpf Hyaline Casts (0-2) /lpf Urine Mucus (None) /hpf Microbiology - Last 24 Hours (Table) 06/23/21 14:34 Urine Culture - Preliminary Urine,Voided Thrombosis Risk Factor Assmnt - Choose All That Apply Any of the Below Risk Factors Present?: Yes Each Factor Represents 1 point: Abnormal pulmonary function (COPD) Each Risk Factor Represents 3 Points: Age 75 years or older Thrombosis Risk Factor Assessment Total Risk Factor Score: 4 Thrombosis Risk Factor Assessment Level: Moderate Risk Assessment and Plan Assessment: Acute urinary tract infection secondary to gram-negative bacilli Acute reactive gastroenteritis, resolved Mild COPD exacerbation Chronic hypoxic respiratory failure Diabetes mellitus History of depression, not in activation Nicotine dependence Hypertension Plan: This is a pleasant 81 years old female who presents with UTI and mild COPD. With Rocephin, IV hydration and follow-up urine culture Inhaled steroids Labs and medication were reviewed.. Continue same treatment. Continue with symptomatic treatment. Resume home medication. Monitor lytes and vitals. DVT and GI prophylaxis. Further recommendationsas per clinical course of the patient DVT prophylaxis: Subcutaneous heparin GI Prophylaxis:ppi PT/OT: Pending Prognosis is guarded
[2021-06-25] MEDS: HEPARIN SODIUM,PORCINE/PF 5,000 UNIT/0.5 ML SYRINGE SQ SCH ×3 (03:42→20:37)
[2021-06-25 06:51] LABS: Glucose,Whole Blood 120 mg/dL (75-99)
[2021-06-25] MEDS: SODIUM CHLORIDE 0.9% 1,000 ML IV SCH ×2 (07:13→12:06)
[2021-06-25] MEDS: INSULIN ASPART (NovoLOG) 100 UNIT/ML VIAL SQ SCH ×4 (07:49→20:37)
[2021-06-25] MEDS: PATIENT'S OWN (Empagliflozin [Jardiance] 25 MG Tablet) PO SCH (07:53)
[2021-06-25] MEDS: hydrALAZINE HCL 25 MG TAB PO SCH ×3 (07:54→21:57)
[2021-06-25] MEDS: NICOTINE 21MG/24HR PATCH TRANSDERM SCH (07:55)
[2021-06-25] MEDS: ASPIRIN 81 MG PO SCH (07:55)
[2021-06-25] MEDS: PANTOPRAZOLE 40 MG/10 ML VIAL IV SCH (07:55)
[2021-06-25] MEDS: lisinopriL 20 MG TAB PO SCH (07:55)
[2021-06-25] MEDS: GLIMEPIRIDE 2 MG TAB PO SCH ×2 (07:55→20:37)
[2021-06-25] MEDS: ISOSORBIDE DINITRATE 10 MG TAB PO SCH ×2 (07:55→18:04)
[2021-06-25] MEDS: LINAGLIPTIN 5 MG TABLET PO SCH (07:55)
[2021-06-25] MEDS ORDERED: SERTRALINE 100 MG TAB PO SCH (09:00)
[2021-06-25] MEDS ORDERED: DULoxetine HCL 60 MG CAPSULE.DR PO SCH (09:00)
--- NOTE | 2021-06-25 11:52 | P.PN ---
Subjective This is a pleasant 81 years old female Presents because of diarrhea 2 days duration with some abdominal cramping associated with mild nausea vomiting, both her diarrhea and vomiting resolved today. She denies any abdominal pain or tenderness and her abdomen looks soft. Patient was recently discharged from the hospital on 06/24 for UTI, depression. She denies active signs symptoms of depression. Denies suicidal ideation She complains from Some urinary discomfort She smokes 1.5 pack per day and she's counseled to quit and she agrees and wa nts. She is on home oxygen 4 L/m. nicotine patch. She denies alcohol or illicit drugs She is mildly wheezing verbally with some evidence of mild COPD exacerbation No chest pain or dyspnea. No headache or weakness or numbness Vitals on mild hypothermia of 97.3.. Labs showing leukocytosis of 14.2. BMP is unremarkable and glucose controlled. Liver enzymes not elevated. Urine culture is growing gram-negative bacilli CT of the abdomen and pelvis: Showing no acute abnormal explain patient's sy mptoms On admission she was started on ceftriaxone, normal sinus 75 mL/h Review of Systems CONSTITUTIONAL: No fever, no malaise, no fatigue. HEENT: No recent visual problems or hearing problems. Denied any sore throat. CARDIOVASCULAR: No orthopnea, PND, no palpitations, no syncope. PULMONARY: No shortness of breath, no cough, no hemoptysis. GASTROINTESTINAL: No diarrhea, no nausea, no vomiting, no abdominal pain. Normoactive bowel sounds. NEUROLOGICAL: No headaches, no weakness, no numbness. HEMATOLOGICAL: Denies any bleeding or petechiae. GENITOURINARY: Denies any burning micturition, frequency, or urgency. MUSCULOSKELETAL/RHEUMATOLOGICAL: Denies any joint pain, swelling, or any muscle pain. ENDOCRINE: Denies any polyuria or polydipsia. 06/25/2021 Patient is awake, her breathing is better uncomfortable. No wheezing. No much urinary symptoms. Her weakness is improving her weakness is improving She is at baseline 4 L per minute of oxygen with saturation in the 90s. D ynamically she is stable Repeat CBC today as she has high white cell count 13 K on admission She is eating well about 100% of her diet. Discontinue IV fluids She remains on Rocephin, follow-up urine culture which is growing gram-negative bacilli. And has history of depression and was admitted to mental health unit before. Today she feels depressed and worthless which affects her function, and she wants to see a psychiatrist. However she denies any suicidal or homicidal ideation Objective - Vital Signs Vital signs: Vital Signs Temp 98.2 F 06/25/21 10:59 Pulse 68 06/25/21 10:59 Resp 20 06/25/21 10:59 BP 155/63 06/25/21 10:59 Pulse Ox 98 06/25/21 10:59 Intake & Output 06/24/21 06/25/21 06/25/21 18:59 06:59 18:59 Weight 54.431 kg Other: Voiding Method Diaper # Voids 4 - Exam GENERAL: The patient is alert and oriented x3, not in any acute distress. Well developed, well nourished. HEENT: Pupils are round and equally reacting to light. EOMI. No scleral icterus. No conjunctival pallor. Normocephalic, atraumatic. No pharyngeal erythema. No thyromegaly. CARDIOVASCULAR: S1 and S2 present. No murmurs, rubs, or gallops. PULMONARY: Chest is clear to auscultation, no wheezing or crackles. ABDOMEN: Soft, nontender, nondistended, normoactive bowel sounds. No palpable organomegaly. MUSCULOSKELETAL: No joint swelling or deformity. EXTREMITIES: No cyanosis, clubbing, or pedal edema. NEUROLOGICAL: Gross neurological examination did not reveal any focal deficits. SKIN: No rashes. No petechiae - Labs CBC & Chem 7: 06/23/21 14:34 06/23/21 14:34 Labs: Abnormal Lab Results - Last 24 Hours (Table) 06/24/21 06/24/21 06/25/21 Range/Units 16:48 20:06 06:48 POC Glucose (mg/dL) 130 H 157 H 120 H (75-99) mg/dL Microbiology - Last 24 Hours (Table) 06/23/21 14:34 Urine Culture - Preliminary Urine,Voided Gram Neg Bacilli Assessment and Plan Assessment: Acute urinary tract infection secondary to gram-negative bacilli Acute reactive gastroenteritis, resolved Mild COPD exacerbation, improved Chronic hypoxic respiratory failure Diabetes mellitus depression, no suicidal ideation Nicotine dependence Hypertension Plan: This is a pleasant 81 years old female who presents with UTI and mild COPD. With Rocephin, IV hydration and follow-up urine culture Psychiatric consult Labs and medication were reviewed.. Continue same treatment. Continue with symptomatic treatment. Resume home medication. Monitor lytes and vitals. DVT and GI prophylaxis. Further recommendationsas per clinical course of the patient DVT prophylaxis: Subcutaneous heparin GI Prophylaxis:ppi PT/OT: Pending Prognosis is guarded
[2021-06-25 12:04] LABS: Basophils # (A) 0.07 X 10*3/uL (0.00-0.10); Basophils % (A) 0.7 %; Eosinophils # (A) 0.19 X 10*3/uL (0.04-0.35); Eosinophils % (A) 1.9 %; HCT 40.8 % (37.2-46.3); HGB 12.8 g/dL (12.0-15.0); Lymphocytes # (A) 3.04 X 10*3/uL (0.90-5.00); Lymphocytes % (A) 30.3 %; MCH 29.2 pg (27.0-32.0); MCHC 31.4 g/dL (32.0-37.0); MCV 93.2 fL (80.0-97.0); Mean Platelet Volume 11.4 fL (9.5-12.2); Neutrophils % (A) 58.7 %; Platelet Count 292 X 10*3/uL (140-440); RBC 4.38 X 10*6/uL (4.10-5.20); RDW 13.8 % (11.5-14.5); WBC 10.04 X 10*3/uL (4.50-10.00)
[2021-06-25 12:05] LABS: Glucose,Whole Blood 130 mg/dL (75-99)
[2021-06-25] MEDS ORDERED: SERTRALINE 50 MG TAB PO STA (14:00)
--- NOTE | 2021-06-25 14:09 | P.CN ---
Psychiatric Consult - . Consult date: 06/25/21 Consult:: 06/25/21 12:34 IDENTIFYING DATA: This patient is a 81-year-old female with a history of severe COPD on home oxygen who currently lives with her and her son in a house and she has 3 kids total REASON FOR REFERRAL: Psychiatry was consulted for depression. HISTORY OF PRESENT ILLNESS: The patient presented to the hospital initially for abdominal cramping and diarrhea. She was stating that she had loose stools. She also had mentioned in the ER that she was recently discharged from the psychiatric unit on prior to coming into the hospital. Patient was noted to be on Cymbalta Remeron Zoloft and Klonopin. Patient's urinalysis was positive for a infection and patient was admitted to the medical floors. Patient states that she is been having depression and anxiety for several years. She states that she is "not doing so good" and claims that yesterday she thought that "God was coming to take me". She claims that she has no reason to live however is not feeling actively suicidal. She states that she is hard of hearing. She claims that at home neither her son nor her or herself or able to take care of each other. She claims that her sleep has been fair appetite is been poor. She states that her medications were recently changed at [facility] . At this time patient denies any active suicidal or homical ideations, intent or plan. Patient denies any auditory, visual hallucinations and denies any paranoia or delusions. Patients admits to using cigarettes daily over no other recreational drugs PAST PSYCHIATRIC HISTORY: Patient has a a history of depression and anxiety. Patient was previously on Cymbalta, Klonopin, Zoloft, Remeron. Patient was recently psychiatrically hospitalized in [facility] in [place] last week. Patient was about to follow-up at [facility] for psychiatric care however did not make it to her appointment. Patient denies any history of suicide attempts in the past. Past Medical History: Asthma, Chest Pain / Angina, COPD, Diabetes Mellitus, GERD/Reflux, Hypertension, Pneumonia, Respiratory Disorder, Skin Disorder Additional Past Medical History / Comment(s): Home oxygen at 4L/[place] ATC, bronchitis, NIDDM type II, neuropathy bilateral feet, falls, IBS, diverticular disease, hiatal hernia, chronic low back pain, eczema ALLERGIES: as per EMR. CHEMICAL DEPENDENCY HISTORY: as per HPI. FAMILY PSYCHIATRIC/SUBSTANCE USE HISTORY: She states that her father was [facility] a [facility]". SOCIAL HISTORY: Patient was born and raised in [place] [facility]. She states that she completed high school and worked for a gas company afterwards. 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 She is currently living with her in a house and her son and has 3 kids total. MENTAL STATUS EXAM: General Appearance: Patient appears to be elderly, unkempt, stated age is alert, attempts to cooperate. Patient appears to have poor hygiene and grooming wearing hospital gown with fair eye contact. Behavior: Patient is calmly lying in bed without any agitated behavior. Speech: Patient's speech is fluent and nonpressured. Mood/Affect: Patient reports their mood is "depressed and anxious", affect is congruent Suicidality/Homicidality: Patient denies having any suicidal or homicidal ideation intent or plan. Perceptions: Patient denies any visual hallucinations and denies any auditory hallucinations Though content/process: There is no evidence of any delusional thought content and thought process is linear and goal-directed. Rambles at times Memory and concentration: AOX3, grossly intact for the purposes of this session. Can spell "WORLD" backwards Judgment and insight: poor IMPRESSIONS: Major depressive disorder unspecified Nicotine dependence PLAN: -At this time patient DOES NOT meet criteria for inpatient psychiatric admission. -Delirium precautions recommended with patient including - avoiding use of narcotics and FUNERAL DRIVER sedatives, limit anticholinergic medications when possible, frequent re-orientation, minimize use of restraints, open window shades during the day and close them at night -Would recommend the following medication changes/additions: Increase Zoloft to 150 mg daily for mood/anxiety. Increase Remeron to 15 mg daily at bedtime for insomnia/mood/appetitge -sw to help with disposition -Communicated plan to patient's nurse -Will continue to follow along -Please contact with any questions. 06/25/21 14:01
[2021-06-25 14:49] LABS: African American GFR (CKD) 99.8 (60.0-200.0); Anion Gap 11.7 mmol/L (4.00-12.00); BUN/Creat Ratio 23.33 Ratio (12.00-20.00); Calcium 8.9 mg/dL (8.7-10.3); Carbon Dioxide 18.3 mmol/L (21.6-31.8); Non-African American GFR(CKD) 86.1 (60.0-200.0); Potassium 4.4 mmol/L (3.5-5.5)
[2021-06-25 15:58] LABS: Hemoglobin A1C 7.2 % (4.0-6.0)
[2021-06-25 17:11] LABS: Glucose,Whole Blood 99 mg/dL (75-99)
[2021-06-25 20:24] LABS: Glucose,Whole Blood 140 mg/dL (75-99)
[2021-06-25] MEDS: MIRTAZAPINE 15 MG TAB PO SCH (20:37)
[2021-06-25] MEDS: amLODIPine 10 MG TAB PO SCH (20:37)
[2021-06-26] MEDS: clonazePAM 0.5 MG TAB PO PRN ×2 (01:42→12:38)
[2021-06-26 07:22] LABS: Glucose,Whole Blood 120 mg/dL (75-99)
[2021-06-26] MEDS: INSULIN ASPART (NovoLOG) 100 UNIT/ML VIAL SQ SCH ×4 (07:29→21:04)
[2021-06-26] MEDS: ASPIRIN 81 MG PO SCH (07:32)
[2021-06-26] MEDS: GLIMEPIRIDE 2 MG TAB PO SCH ×2 (07:32→21:04)
[2021-06-26] MEDS: hydrALAZINE HCL 25 MG TAB PO SCH ×3 (07:32→21:04)
[2021-06-26] MEDS: LINAGLIPTIN 5 MG TABLET PO SCH (07:32)
[2021-06-26] MEDS: SERTRALINE 50 MG TAB PO SCH (07:32)
[2021-06-26] MEDS: PANTOPRAZOLE 40 MG/10 ML VIAL IV SCH (07:32)
[2021-06-26] MEDS: HEPARIN SODIUM,PORCINE/PF 5,000 UNIT/0.5 ML SYRINGE SQ SCH ×2 (07:32→21:04)
[2021-06-26] MEDS: PATIENT'S OWN (Empagliflozin [Jardiance] 25 MG Tablet) PO SCH (07:33)
[2021-06-26] MEDS: lisinopriL 20 MG TAB PO SCH (07:33)
[2021-06-26] MEDS: ISOSORBIDE DINITRATE 10 MG TAB PO SCH ×2 (07:33→17:50)
[2021-06-26] MEDS: NICOTINE 21MG/24HR PATCH TRANSDERM SCH (07:34)
[2021-06-26 09:34] LABS: Basophils # (A) 0.1 k/uL (0-0.2); Basophils % (A) 1 %; Eosinophils # (A) 0.2 k/uL (0-0.7); Eosinophils % (A) 2 %; HCT 41.3 % (34.0-46.0); HGB 12.6 gm/dL (11.4-16.0); Lymphocytes # (A) 1.8 k/uL (1.0-4.8); Lymphocytes % (A) 19 %; MCH 29.1 pg (25.0-35.0); MCHC 30.6 g/dL (31.0-37.0); MCV 95.2 fL (80.0-100.0); Mean Platelet Volume 8.7; Monocytes # (A) 0.5 k/uL (0-1.0); Monocytes % (A) 5 %; Neutrophils # (A) 6.6 k/uL (1.3-7.7); Neutrophils % (A) 71 %; Platelet Count 273 k/uL (150-450); RBC 4.34 m/uL (3.80-5.40); RDW 13.8 % (11.5-15.5); WBC 9.2 k/uL (3.8-10.6)
[2021-06-26 09:52] LABS: African American GFR (CKD) >90 (>60 ml/min/1.73 sqM); Anion Gap 3 mmol/L; Blood Urea Nitrogen 18 mg/dL (7-17); Calcium 8.7 mg/dL (8.4-10.2); Carbon Dioxide 24 mmol/L (22-30); Chloride 115 mmol/L (98-107); Glucose 227 mg/dL (74-99); Non-African American GFR(CKD) >90 (>60 ml/min/1.73 sqM); Potassium 4.4 mmol/L (3.5-5.1); Sodium 142 mmol/L (137-145)
[2021-06-26 11:23] LABS: Glucose,Whole Blood 152 mg/dL (75-99)
[2021-06-26] MEDS: DOCUSATE 100 MG CAP PO SCH ×2 (12:38→21:04)
--- NOTE | 2021-06-26 13:17 | P.PN ---
Progress Note - Text Progress Note Date: 06/26/21 Interval History: Patient was seen today for psychiatric follow-up regarding patient's depression. Patient's mother states that patient has been doing mildly better today and is not suicidal. Nurse also claims that patient initially had a difficult time sleeping last night however was able to take her when necessary Klonopin and fall asleep afterwards. Patient was seen sitting in the chair beside her bed and was appearing to be more alert and brighter in her affect today. She states that she is doing better overall with regards to her mood and claims that she is not suicidal. She states that she has a "fear of the unknown" and claims that it is mainly related to her going home and is worried about her family. She states that a social service agency director is going to go to the house with her for an evaluation of the living condition. She states that her sleep was poor last night until she took the Klonopin. She had several questions about her medications which were answered. At this time patient denies any suicidal or homical ideations, intent or plan. Patient denies any auditory, visual hallucinations and denies any paranoia or delusions. Patient denies any side effects from the medications and has been compliant with meds. Mental Status Exam: General Appearance: Patient appears to be elderly, stated age is alert, attempts to cooperate. Patient appears to have improving hygiene and grooming wearing hospital gown with fair eye contact. Behavior: Patient is calmly sitting in her chair without any agitated behavior. Speech: Patient's speech is fluent and nonpressured. Mood/Affect: Patient reports their mood is "better today", affect is congruent and appears brighter. Suicidality/Homicidality: Patient denies having any suicidal or homicidal ideation intent or plan. Perceptions: Patient denies any visual hallucinations and denies any auditory hallucinations Though content/process: There is no evidence of any delusional thought content and thought process is linear and goal-directed. Rambles at times Memory and concentration: AOX3, grossly intact for the purposes of this session. Judgment and insight: Improving Assessment Major depressive disorder unspecified Nicotine dependence Plan: -At this time patient DOES NOT meet criteria for inpatient psychiatric ad mission. -Delirium precautions recommended with patient including - avoiding use of narcotics and COMPUTATIONAL BIOLOGIST sedatives, limit anticholinergic medications when possible, frequent re-orientation, minimize use of restraints, open window shades during the day and close them at night -Would recommend the following medication changes/additions: continue with Zoloft to 150 mg daily for mood/anxiety, Remeron to 15 mg daily at bedtime for insomnia/mood/appetite, added melatonin 3mg qhs for sleep. continue with Klonopin 0.25 mg bid PRN for anxiety -sw to help with disposition -Communicated plan to patient's nurse -Will continue to follow along -Please contact with any questions.
--- NOTE | 2021-06-26 13:39 | P.PN ---
Subjective This is a pleasant 81 years old female Presents because of diarrhea 2 days duration with some abdominal cramping associated with mild nausea vomiting, both her diarrhea and vomiting resolved today. She denies any abdominal pain or tenderness and her abdomen looks soft. Patient was recently discharged from the hospital on 06/24 for UTI, depression. She denies active signs symptoms of depression. Denies suicidal ideation She complains from Some urinary discomfort She smokes 1.5 pack per day and she's counseled to quit and she agrees and wa nts. She is on home oxygen 4 L/m. nicotine patch. She denies alcohol or illicit drugs She is mildly wheezing verbally with some evidence of mild COPD exacerbation No chest pain or dyspnea. No headache or weakness or numbness Vitals on mild hypothermia of 97.3.. Labs showing leukocytosis of 14.2. BMP is unremarkable and glucose controlled. Liver enzymes not elevated. Urine culture is growing gram-negative bacilli CT of the abdomen and pelvis: Showing no acute abnormal explain patient's sy mptoms On admission she was started on ceftriaxone, normal sinus 75 mL/h Review of Systems CONSTITUTIONAL: No fever, no malaise, no fatigue. HEENT: No recent visual problems or hearing problems. Denied any sore throat. CARDIOVASCULAR: No orthopnea, PND, no palpitations, no syncope. PULMONARY: No shortness of breath, no cough, no hemoptysis. GASTROINTESTINAL: No diarrhea, no nausea, no vomiting, no abdominal pain. Normoactive bowel sounds. NEUROLOGICAL: No headaches, no weakness, no numbness. HEMATOLOGICAL: Denies any bleeding or petechiae. GENITOURINARY: Denies any burning micturition, frequency, or urgency. MUSCULOSKELETAL/RHEUMATOLOGICAL: Denies any joint pain, swelling, or any muscle pain. ENDOCRINE: Denies any polyuria or polydipsia. 06/25/2021 Patient is awake, her breathing is better uncomfortable. No wheezing. No much urinary symptoms. Her weakness is improving her weakness is improving She is at baseline 4 L per minute of oxygen with saturation in the 90s. D ynamically she is stable Repeat CBC today as she has high white cell count 13 K on admission She is eating well about 100% of her diet. Discontinue IV fluids She remains on Rocephin, follow-up urine culture which is growing gram-negative bacilli. And has history of depression and was admitted to mental health unit before. Today she feels depressed and worthless which affects her function, and she wants to see a psychiatrist. However she denies any suicidal or homicidal ideation 06/26/2021 Patient clinically is doing better. She is hemodynamically stable. Leukocytosis improved and her creatinine is normal Psychiatrist to the patient and increased her psych medication She is here for UTI on Rocephin however urine culture showing Klebsiella pneumonia but does not finally it. Contacted the lateral says there is another bacteria and is mixed and they have 2 separate these 2 bacteria as and redo the culture which could be finalized tonight or tomorrow. We will consult infectious disease team for antibiotic management Objective - Vital Signs Vital signs: Vital Signs Temp 98.1 F 06/26/21 07:42 Pulse 67 06/26/21 07:42 Resp 16 06/26/21 07:42 BP 157/77 06/26/21 07:42 Pulse Ox 97 06/26/21 07:42 Intake & Output 06/25/21 06/26/21 06/26/21 18:59 06:59 18:59 Other: Voiding Method Diaper Diaper # Voids 1 - Exam GENERAL: The patient is alert and oriented x3, not in any acute distress. Well developed, well nourished. HEENT: Pupils are round and equally reacting to light. EOMI. No scleral icterus. No conjunctival pallor. Normocephalic, atraumatic. No pharyngeal erythema. No thyromegaly. CARDIOVASCULAR: S1 and S2 present. No murmurs, rubs, or gallops. PULMONARY: Chest is clear to auscultation, no wheezing or crackles. ABDOMEN: Soft, nontender, nondistended, normoactive bowel sounds. No palpable organomegaly. MUSCULOSKELETAL: No joint swelling or deformity. EXTREMITIES: No cyanosis, clubbing, or pedal edema. NEUROLOGICAL: Gross neurological examination did not reveal any focal deficits. SKIN: No rashes. No petechiae - Labs CBC & Chem 7: 06/26/21 09:09 06/26/21 09:09 Labs: Abnormal Lab Results - Last 24 Hours (Table) 06/25/21 06/25/21 06/25/21 Range/Units 07:06 07:06 20:22 MCHC (31.0-37.0) g/dL Sodium 146 H (135-145) mmol/L Chloride 116 H (96-109) mmol/L Carbon Dioxide 18.3 L (21.6-31.8) mmol/L BUN (7-17) mg/dL BUN/Creatinine Ratio 23.33 H (12.00-20.00) Ratio Glucose 133 H (70-110) mg/dL POC Glucose (mg/dL) 140 H (75-99) mg/dL Hemoglobin A1c 7.2 H (4.0-6.0) % 06/26/21 06/26/21 06/26/21 Range/Units 07:07 09:09 09:09 MCHC 30.6 L (31.0-37.0) g/dL Sodium (135-145) mmol/L Chloride 115 H (96-109) mmol/L Carbon Dioxide (21.6-31.8) mmol/L BUN 18 H (7-17) mg/dL BUN/Creatinine Ratio (12.00-20.00) Ratio Glucose 227 H (70-110) mg/dL POC Glucose (mg/dL) 120 H (75-99) mg/dL Hemoglobin A1c (4.0-6.0) % 06/26/21 Range/Units 11:17 MCHC (31.0-37.0) g/dL Sodium (135-145) mmol/L Chloride (96-109) mmol/L Carbon Dioxide (21.6-31.8) mmol/L BUN (7-17) mg/dL BUN/Creatinine Ratio (12.00-20.00) Ratio Glucose (70-110) mg/dL POC Glucose (mg/dL) 152 H (75-99) mg/dL Hemoglobin A1c (4.0-6.0) % Microbiology - Last 24 Hours (Table) 06/23/21 14:34 Urine Culture - Preliminary Urine,Voided Klebsiella pneumoniae Assessment and Plan Assessment: Acute urinary tract infection secondary to gram-negative bacilli Acute reactive gastroenteritis, resolved Mild COPD exacerbation, improved Chronic hypoxic respiratory failure Diabetes mellitus depression, no suicidal ideation Nicotine dependence Hypertension Plan: This is a pleasant 81 years old female who presents with UTI and mild COPD. With Rocephin, IV hydration and follow-up urine culture Psychiatric consult Labs and medication were reviewed.. Continue same treatment. Continue with symptomatic treatment. Resume home medication. Monitor lytes and vitals. DVT and GI prophylaxis. Further recommendationsas per clinical course of the patient DVT prophylaxis: Subcutaneous heparin GI Prophylaxis:ppi PT/OT: Pending Prognosis is guarded
[2021-06-26 16:47] LABS: Glucose,Whole Blood 71 mg/dL (75-99)
[2021-06-26 20:42] LABS: Glucose,Whole Blood 166 mg/dL (75-99)
[2021-06-26] MEDS ORDERED: MELATONIN 3 MG TABLET PO SCH (21:00)
[2021-06-26] MEDS: amLODIPine 10 MG TAB PO SCH (21:04)
[2021-06-26] MEDS: MIRTAZAPINE 15 MG TAB PO SCH (21:05)
[2021-06-27] MEDS: clonazePAM 0.5 MG TAB PO PRN (02:28)
--- NOTE | 2021-06-27 06:22 | P.CONS ---
History of Present Illness - Reason for Consult Consult date: 06/26/21 UTI Requesting physician: Margarito E Sheet - Chief Complaint diarrhea x 1 day - History of Present Illness History of present illness : Patient is 81-year-old female presenting to the ER 3 days ago for evaluation of abdominal cramping and diarrhea the patient symptom was going on for a day before presentation to the hospital in this patient who did have multiple loose stool denies have any blood or mucus in the stool she did have a crampy abdominal pain about 4-5 out of 10 no radiation patient denies having any nausea or vomiting did have some urinary burning but no suprapubic or flank pain with this and that the patient has been evaluated by the ER physician on arrival to the ER patient was afebrile patient did have a bottle of 13.2 creatinine was normal liver enzymes were normal patient did have a positive UA with large leukocyte esterase many WBC cultures not showing E. coli and Klebsiella patient has been treated with Rocephin infectious disease wa s consulted for further management of antibiotic therapy patient did have a CT of abdominal pelvis done on admission with no acute intra-abdominal abnormality Review of system: CONSTITUTIONAL: Positive for weakness along with chills denies high-grade fever. EYES: No complaint. ENT: No complaint. RESPIRATORY: No complaint. CARDIOVASCULAR: No complaint. GENITOURINARY: As per history of present illness. GASTROINTESTINAL: As per history of present illness. MUSCULOSKELETAL: No complaint. INTEGUMENTARY: No complaint. PSYCHOLOGIC: No complaint. ENDOCRINE: No complaint. NEUROLOGIC: No complaint. Past medical history : Reviewed, documented below Past surgical history : Reviewed, documented below Social history: Reviewed, documented below Medications: Reviewed, as documented below GENERAL DESCRIPTION: Elderly female up in bed, no distress. No tachypnea or accessory muscle of respiration use. HEENT: Shows Pallor , no scleral icterus. Oral mucous membrane is dry. NECK: Trachea central, no thyromegaly. LUNGS: Unlabored breathing. Clear to auscultation anteriorly. No wheeze or crackle. HEART: S1, S2, regular rate and rhythm. ABDOMEN: Soft, no tenderness , guarding or rigidity EXTREMITIES: No edema of feet. SKIN: No rash, no masses palpable. NEUROLOGICAL: The patient is awake, alert, oriented x3, mood and affect normal. LABS AND RADIOLOGY: Reviewed results see below Assessment : 1-Patient presented to hospital with acute diarrhea did have some urinary symptoms likely asymptomatic urinary tract infection patient currently do not have any tenderness on abdominal examination and CT abdominal pelvis was negative for any acute diverticulitis or concern for colovesical fistula 2- multiple antibiotics allergy Plan: 1-Rocephin 1 g IV daily to continue, with the plan to finish therapy with oral antibiotics 2-gentle IV fluid 3-symptomatic treatment of diarrhea We will follow on clinical condition and cultures to further adjust medication if needed Past Medical History Past Medical History: Asthma, Chest Pain / Angina, COPD, Diabetes Mellitus, GERD/Reflux, Hypertension, Pneumonia, Respiratory Disorder, Skin Disorder Additional Past Medical History / Comment(s): Home oxygen at 4L/[place] ATC, bronchitis, NIDDM type II, neuropathy bilateral feet, falls, IBS, diverticular disease, hiatal hernia, chronic low back pain, eczema History of Any Multi-Drug Resistant Organisms: None Reported Past Surgical History: Cholecystectomy, Hysterectomy, Tonsillectomy Additional Past Surgical History / Comment(s): colonoscopy. 12/03/2020 surgery for bowel obstruction at [facility] Past Anesthesia/Blood Transfusion Reactions: No Reported Reaction Additional Past Anesthesia/Blood Transfusion Reaction / Comm: Pt states she has never received blood. Past Psychological History: Anxiety, Depression Additional Psychological History / Comment(s): Pt resides with her spouse and adult son. She ambulates with a walker. She has home oxygen and a glucometer. Smoking Status: Current every day smoker, Heavy tobacco smoker Past Alcohol Use History: Rare Additional Past Alcohol Use History / Comment(s): Pt started smoking in 1957 and is a ppd smoker. Past Drug Use History: None Reported - Past Family History Father Family Medical History: Cancer Additional Family Medical History / Comment(s): Father of colon cancer at the age of 54 yrs. Mother Family Medical History: CVA/TIA, Hyperlipidemia, Hypertension Additional Family Medical History / Comment(s): Mother lived to be 96yrs old. Medications and Allergies Home Medications Medication Instructions Recorded Confirmed Type Aspirin EC [Ecotrin Low Dose] 81 mg PO DAILY 05/13/21 06/23/21 History LORazepam [Ativan] 1 mg PO TID PRN 05/13/21 06/23/21 History Nystatin 1 applic TOPICAL BID PRN 05/13/21 06/23/21 History amLODIPine [Norvasc] 10 mg PO HS 05/13/21 06/23/21 History polyethylene glycoL 3350 [Miralax] 17 gm PO DAILY PRN 05/13/21 06/23/21 History sitaGLIPtin PHOS/metFORMIN HCL 1 tab PO BID 05/13/21 06/23/21 History [Janumet Xr 50-1,000 mg Tablet] traMADol HCL 50 mg PO BID PRN 05/13/21 06/23/21 History lisinopriL 40 mg PO DAILY 05/20/21 06/23/21 History Acetaminophen Tab [Tylenol] 650 mg PO Q6HR PRN tab 06/02/21 06/23/21 Rx Empagliflozin [Jardiance] 25 mg PO DAILY 06/23/21 06/23/21 History Glimepiride [Amaryl] 2 mg PO BID 06/23/21 06/23/21 History Isosorbide Dinitrate 10 mg PO BID 06/23/21 06/23/21 History Linagliptin [Tradjenta] 5 mg PO DAILY 06/23/21 06/23/21 History Mirtazapine 7.5 mg PO HS 06/23/21 06/23/21 History Sertraline HCl [Zoloft] 100 mg PO DAILY 06/23/21 06/23/21 History clonazePAM 0.25 mg PO BID PRN 06/23/21 06/23/21 History hydrALAZINE HCL [Apresoline] 25 mg PO TID 06/23/21 06/23/21 History metFORMIN HCL [Glucophage] 500 mg PO BID 06/23/21 06/23/21 History Allergies Allergy/AdvReac Type Severity Reaction Status Date / Time doxycycline Allergy Unknown Verified 06/23/21 17:32 Penicillins Allergy Rash/Hives Verified 06/23/21 17:32 nitrofurantoin AdvReac Nausea & Verified 06/23/21 17:32 [From Macrobid] Vomiting & Diarrhea Sulfa (Sulfonamide AdvReac Nausea & Verified 06/23/21 17:32 Antibiotics) Vomiting & Diarrhea Physical Exam Vitals: Vital Signs Temp Pulse Resp BP Pulse Ox 06/26/21 14:00 97.9 F 70 16 154/51 94 L 06/26/21 07:42 98.1 F 67 16 157/77 97 06/26/21 00:36 97.8 F 62 14 151/61 97 06/25/21 19:29 97.9 F 60 14 141/60 97 Intake and Output 06/26/21 06/26/21 06/26/21 06:59 14:59 22:59 Other: Voiding Method Diaper # Voids 1 Results CBC & Chem 7: 06/26/21 09:09 06/26/21 09:09 Labs: Abnormal Lab Results - Last 24 Hours (Table) 06/25/21 06/26/21 06/26/21 Range/Units 20:22 07:07 09:09 MCHC 30.6 L (31.0-37.0) g/dL Chloride (98-107) mmol/L BUN (7-17) mg/dL Glucose (74-99) mg/dL POC Glucose (mg/dL) 140 H 120 H (75-99) mg/dL 06/26/21 06/26/21 Range/Units 09:09 11:17 MCHC (31.0-37.0) g/dL Chloride 115 H (98-107) mmol/L BUN 18 H (7-17) mg/dL Glucose 227 H (74-99) mg/dL POC Glucose (mg/dL) 152 H (75-99) mg/dL Microbiology - Last 24 Hours (Table) 06/23/21 14:34 Urine Culture - Preliminary Urine,Voided Klebsiella pneumoniae
[2021-06-27 07:12] LABS: Glucose,Whole Blood 108 mg/dL (75-99)
[2021-06-27] MEDS: INSULIN ASPART (NovoLOG) 100 UNIT/ML VIAL SQ SCH ×2 (07:36→12:53)
[2021-06-27] MEDS: PANTOPRAZOLE 40 MG/10 ML VIAL IV SCH (08:48)
[2021-06-27] MEDS: NICOTINE 21MG/24HR PATCH TRANSDERM SCH (08:48)
[2021-06-27] MEDS: SERTRALINE 50 MG TAB PO SCH (08:49)
[2021-06-27] MEDS: ISOSORBIDE DINITRATE 10 MG TAB PO SCH (08:50)
[2021-06-27] MEDS: lisinopriL 20 MG TAB PO SCH (08:51)
[2021-06-27] MEDS: GLIMEPIRIDE 2 MG TAB PO SCH (08:51)
[2021-06-27] MEDS: hydrALAZINE HCL 25 MG TAB PO SCH (08:51)
[2021-06-27] MEDS: DOCUSATE 100 MG CAP PO SCH (08:51)
[2021-06-27] MEDS: ASPIRIN 81 MG PO SCH (08:51)
[2021-06-27] MEDS ORDERED: LINAGLIPTIN 5 MG TABLET PO SCH (09:00)
[2021-06-27 09:13] VITALS: RESP 20; TEMP 98.9
[2021-06-27 10:56] VITALS: PULSE 68
[2021-06-27 11:01] VITALS: BP 122/50
[2021-06-27 11:36] LABS: Glucose,Whole Blood 180 mg/dL (75-99)
[2021-06-27] MEDS: PATIENT'S OWN (Empagliflozin [Jardiance] 25 MG Tablet) PO SCH (12:51)
[2021-06-27] MEDS: HEPARIN SODIUM,PORCINE/PF 5,000 UNIT/0.5 ML SYRINGE SQ SCH (12:53)
--- NOTE | 2021-06-27 14:16 | PN ---
PROGRESS NOTE DATE OF SERVICE: 06/27/2021 REASON FOR FOLLOWUP: Klebsiella urinary tract infection. INTERVAL HISTORY: The patient is afebrile. The patient is breathing comfortably. The patient denies having any chest pain, shortness of breath or cough. No abdominal pain. No diarrhea. Wants to go home. PHYSICAL EXAMINATION: Blood pressure 122/60 with a pulse of 50, temperature 99.9. She is 98% on 4 L nasal cannula. GENERAL DESCRIPTION: General description is an elderly female up in the chair in no distress. RESPIRATORY SYSTEM: Unlabored breathing. Clear to auscultation anteriorly. HEART: S1, S2. Regular rate and rhythm. ABDOMEN: Soft. No tenderness. LABS: No new labs been obtained today. DIAGNOSTIC IMPRESSION AND PLAN: Patient with klebsiella and Escherichia coli urinary tract infection; overall improvement on Rocephin. Finishing therapy with oral Ceftin. Ceftin prescription sent to the pharmacy. Close outpatient followup. MMODL / IJN: [id number] /
--- NOTE | 2021-06-28 00:40 | P.DS ---
Providers Date of admission: 06/23/21 18:01 Attending physician: Delmer Graham Consults: 06/25/21 09:47 Consult Physician Routine Consulting Provider: Shoaib Hardy Consult Reason/Comments: depression Do you want consulting provider notified?: Yes 06/26/21 13:37 Consult Physician Urgent Consulting Provider: Jared Armstrong Consult Reason/Comments: uti secondary to mixed bacteria Do you want consulting provider notified?: Yes Primary care physician: Veena Ny Hospital Course: Date of service 06/27/2021 Diagnoses: Acute urinary tract infection secondary to gram-negative bacilli Acute reactive gastroenteritis, resolved Mild COPD exacerbation, improved Chronic hypoxic respiratory failure Diabetes mellitus depression, no suicidal ideation Nicotine dependence Hypertension Hospital course: This is a pleasant 81 years old female with multiple medical problems Presents because of diarrhea 2 days duration with some abdominal cramping associated with mild nausea vomiting, found to have acute gastroenteritis which is reactive to acute UTI she was treated with ceftriaxone and IV hydration her symptoms improved significantly her urine culture came back positive for E. coli and Klebsiella. Patient was discharged on Ceftin oral antibiotics, short course per ID team recommendation On the day of discharge patient back to baseline with no UTI symptoms. No fever. No change in urine or bowel habits. No chest pain or dyspnea. Patient agrees to go home During hospital course she was feeling more depressed and her psychiatrist and double the dose of Romeron and decrease dose of Zoloft. Her glucose was borderline and dropped during hospital course so upon discharge she kept on her home dose of Amaryl 2 mg twice daily while stopping her home dose of the nicotine and metformin and Jardiance's and instructed to follow up as an outpatient while monitor her glucose closely 4 times a day and to come to ED if less than 70 or more than 400. She agrees. She has a glucometer at home Problems and management plan were discussed with the patient and he verbalized understanding and acceptance Patient was found stable and can be discharged home however he needs follow-up as an outpatient. Patient was instructed to follow up with PCP Dr. Ny within one week and patient agrees Physical exam Gen: patient is a AAOx3, no distress CVS: S1-S2, RRR, no murmur Lungs: B/L CTA, no wheezing Abdomen: soft, no distention, no tenderness, positive bowel sounds Extremity: no leg edema or induration Time spent more than 35 minutes Patient Condition at Discharge: Fair Plan - Discharge Summary Discharge Rx Participant: Yes New Discharge Prescriptions: New Sertraline [Zoloft] 150 mg PO DAILY #90 tab Nicotine 21Mg/24Hr Patch [Habitrol] 1 patch TRANSDERM DAILY 5 Days #5 patch Docusate [Colace] 100 mg PO BID PRN #10 cap PRN Reason: Constipation Melatonin 3 mg PO HS #30 tablet Omeprazole Magnesium [PriLOSEC] 20 mg PO DAILY #30 tab Mirtazapine [Remeron] 15 mg PO HS #30 tab Cefuroxime Axetil [Ceftin] 500 mg PO BID 7 Days #14 tab Continue amLODIPine [Norvasc] 10 mg PO HS Isosorbide Dinitrate 10 mg PO BID Glimepiride [Amaryl] 2 mg PO BID clonazePAM 0.25 mg PO BID PRN 3 Days #6 PRN Reason: Anxiety polyethylene glycoL 3350 [Miralax] 17 gm PO DAILY PRN PRN Reason: Constipation Nystatin 1 applic TOPICAL BID PRN PRN Reason: Skin Irritation Aspirin EC [Ecotrin Low Dose] 81 mg PO DAILY lisinopriL 40 mg PO DAILY Acetaminophen Tab [Tylenol] 650 mg PO Q6HR PRN tab PRN Reason: Fever And/ Or Pain hydrALAZINE HCL [Apresoline] 25 mg PO TID Discontinued Mirtazapine 7.5 mg PO HS Empagliflozin [Jardiance] 25 mg PO DAILY traMADol HCL 50 mg PO BID PRN PRN Reason: Pain LORazepam [Ativan] 1 mg PO TID PRN PRN Reason: Anxiety sitaGLIPtin PHOS/metFORMIN HCL [Janumet Xr 50-1,000 mg Tablet] 1 tab PO BID Sertraline HCl [Zoloft] 100 mg PO DAILY Linagliptin [Tradjenta] 5 mg PO DAILY metFORMIN HCL [Glucophage] 500 mg PO BID Discharge Medication List Aspirin EC [Ecotrin Low Dose] 81 mg PO DAILY 05/13/21 [History] Nystatin 1 applic TOPICAL BID PRN 05/13/21 [History] amLODIPine [Norvasc] 10 mg PO HS 05/13/21 [History] polyethylene glycoL 3350 [Miralax] 17 gm PO DAILY PRN 05/13/21 [History] lisinopriL 40 mg PO DAILY 05/20/21 [History] Acetaminophen Tab [Tylenol] 650 mg PO Q6HR PRN tab 06/02/21 [Rx] Glimepiride [Amaryl] 2 mg PO BID 06/23/21 [History] Isosorbide Dinitrate 10 mg PO BID 06/23/21 [History] hydrALAZINE HCL [Apresoline] 25 mg PO TID 06/23/21 [History] Cefuroxime Axetil [Ceftin] 500 mg PO BID 7 Days #14 tab 06/27/21 [Rx] Docusate [Colace] 100 mg PO BID PRN #10 cap 06/27/21 [Rx] Melatonin 3 mg PO HS #30 tablet 06/27/21 [Rx] Mirtazapine [Remeron] 15 mg PO HS #30 tab 06/27/21 [Rx] Nicotine 21Mg/24Hr Patch [Habitrol] 1 patch TRANSDERM DAILY 5 Days #5 patch 06/27/21 [Rx] Omeprazole Magnesium [PriLOSEC] 20 mg PO DAILY #30 tab 06/27/21 [Rx] Sertraline [Zoloft] 150 mg PO DAILY #90 tab 06/27/21 [Rx] clonazePAM 0.25 mg PO BID PRN 3 Days #6 06/27/21 [Rx] Follow up Appointment(s)/Referral(s): Veena Ny DO [Primary Care Provider] - 1-2 days [facility], [NON-STAFF] - Patient Instructions/Handouts: Urinary Tract Infection in Women (DC) Activity/Diet/Wound Care/Special Instructions: low carbohydrate diet activity is restricted till you see your doctor we recommend to check your glucose 4 times a day , before each meal and at bed time. if your glucose is less than 70 or more than 400 then call 911 and come to emergency room keep the result in a log book and bring it to your doctor on your appointment date Discharge Disposition: HOME WITH HOME HEALTH SERVICES
== END 2021-06-27 15:55 | disposition home health service (06) ==
LOC: EC 13:20 → INTOOBSV 18:01 → 4SSUR 18:01 → UNDODISIN 06-27 15:55
PROVIDERS: ADMIT Hospitalist; ATTEND Hospitalist
DX: N39.0 Urinary tract infection, site not specified (principal); K52.9 Noninfective gastroenteritis and colitis, unspecified; J44.1 Chronic obstructive pulmonary disease with (acute) exacerbation; J96.11 Chronic respiratory failure with hypoxia; F32.9 Major depressive disorder, single episode, unspecified; I10 Essential (primary) hypertension; F17.210 Nicotine dependence, cigarettes, uncomplicated; B96.20 Unspecified Escherichia coli [E. coli] as the cause of diseases classified elsewhere; B96.1 Klebsiella pneumoniae [K. pneumoniae] as the cause of diseases classified elsewhere; T68.XXXA Hypothermia, initial encounter; K21.9 Gastro-esophageal reflux disease without esophagitis; E11.40 Type 2 diabetes mellitus with diabetic neuropathy, unspecified; G89.29 Other chronic pain; M54.5 Low back pain; L30.9 Dermatitis, unspecified; R53.1 Weakness; F41.9 Anxiety disorder, unspecified; Z99.81 Dependence on supplemental oxygen; Z87.01 Personal history of pneumonia (recurrent); Z87.19 Personal history of other diseases of the digestive system; Z87.09 Personal history of other diseases of the respiratory system; Z90.49 Acquired absence of other specified parts of digestive tract; Z90.710 Acquired absence of both cervix and uterus; Z79.82 Long term (current) use of aspirin; Z79.899 Other long term (current) drug therapy; Z79.84 Long term (current) use of oral hypoglycemic drugs; Z88.0 Allergy status to penicillin; Z88.2 Allergy status to sulfonamides; Z88.1 Allergy status to other antibiotic agents; Z98.890 Other specified postprocedural states; Z90.89 Acquired absence of other organs; Z82.49 Family history of ischemic heart disease and other diseases of the circulatory system; Z82.3 Family history of stroke; Z80.0 Family history of malignant neoplasm of digestive organs; Z83.438 Family history of other disorder of lipoprotein metabolism and other lipidemia
CPT/HCPCS: 96376 ×4; 96365; 96366 ×3; 96372 ×2; 96375; 96361; 99285; 36415; 94760; 93005; 97116; 97530; 97161; 97165; 80053; 80048 ×2; 83690; 85025 ×3; 81001; 87086; 87077; 87186; 83036; 74177; G0378 ×5; S4990 ×4; J0696 ×4; C9113 ×4; Q9967; J1644 ×2; 96374

== ENCOUNTER 2021-07-08 17:52 | Observation (INO) | payer MEDICARE ==
[2021-07-08] MEDS ORDERED: ASPIRIN 81 MG PO STA (18:23)
[2021-07-08] MEDS ORDERED: SODIUM CHLORIDE 0.9% 500 ML 500 ML IV STA (18:23)
[2021-07-08] MEDS ORDERED: NITROGLYCERIN OINT 1 INCH/GM PACKET TOPICAL STA (18:23)
--- NOTE | 2021-07-08 18:27 | ED ---
General Adult HPI - General Chief complaint: Chest Pain Stated complaint: Chest Pain Time Seen by Provider: 07/08/21 18:00 Source: patient, RN notes reviewed, old records reviewed Mode of arrival: EMS Limitations: physical limitation - History of Present Illness Initial comments: This is an 81-year-old female presents emergency Department with a past medical history significant for smoking diabetes hypertension high cholesterol. Patient states she has a history of angina but today she has significant chest pain that she normally does not have. Patient states it does radiate to her back and she was a little more short of breath than normal. Patient states the pain continues currently but it is improved. Patient denies any recent fever chills or cough. Patient denies any recent injury or trauma. Patient denies abdominal pain patient denies nausea vomiting diarrhea. Patient denies any palpitations. Patient denies any lightheadedness or dizziness. Patient denies headache patient denies numbness weakness. - Related Data Home Medications Medication Instructions Recorded Confirmed Aspirin EC [Ecotrin Low Dose] 81 mg PO DAILY 05/13/21 06/23/21 Nystatin 1 applic TOPICAL BID PRN 05/13/21 06/23/21 amLODIPine [Norvasc] 10 mg PO HS 05/13/21 06/23/21 polyethylene glycoL 3350 [Miralax] 17 gm PO DAILY PRN 05/13/21 06/23/21 lisinopriL 40 mg PO DAILY 05/20/21 06/23/21 Glimepiride [Amaryl] 2 mg PO BID 06/23/21 06/23/21 Isosorbide Dinitrate 10 mg PO BID 06/23/21 06/23/21 hydrALAZINE HCL [Apresoline] 25 mg PO TID 06/23/21 06/23/21 Previous Rx's Medication Instructions Recorded Acetaminophen Tab [Tylenol] 650 mg PO Q6HR PRN tab 06/02/21 Cefuroxime Axetil [Ceftin] 500 mg PO BID 7 Days #14 tab 06/27/21 Docusate [Colace] 100 mg PO BID PRN #10 cap 06/27/21 Melatonin 3 mg PO HS #30 tablet 06/27/21 Mirtazapine [Remeron] 15 mg PO HS #30 tab 06/27/21 Nicotine 21Mg/24Hr Patch [Habitrol] 1 patch TRANSDERM DAILY 5 Days #5 06/27/21 patch Omeprazole Magnesium [PriLOSEC] 20 mg PO DAILY #30 tab 06/27/21 Sertraline [Zoloft] 150 mg PO DAILY #90 tab 06/27/21 clonazePAM 0.25 mg PO BID PRN 3 Days #6 06/27/21 Allergies Allergy/AdvReac Type Severity Reaction Status Date / Time doxycycline Allergy Unknown Verified 06/23/21 17:32 Penicillins Allergy Rash/Hives Verified 06/23/21 17:32 nitrofurantoin AdvReac Nausea & Verified 06/23/21 17:32 [From Macrobid] Vomiting & Diarrhea Sulfa (Sulfonamide AdvReac Nausea & Verified 06/23/21 17:32 Antibiotics) Vomiting & Diarrhea Review of Systems ROS Statement: Those systems with pertinent positive or pertinent negative responses have been documented in the HPI. ROS Other: All systems not noted in ROS Statement are negative. Past Medical History Past Medical History: Asthma, Chest Pain / Angina, COPD, Diabetes Mellitus, MATTHEW D/Reflux, Hypertension, Pneumonia, Respiratory Disorder, Skin Disorder Additional Past Medical History / Comment(s): Home oxygen at 4L/[place] ATC, bronchitis, NIDDM type II, neuropathy bilateral feet, falls, IBS, diverticular disease, hiatal hernia, chronic low back pain, eczema History of Any Multi-Drug Resistant Organisms: None Reported Past Surgical History: Cholecystectomy, Hysterectomy, Tonsillectomy Additional Past Surgical History / Comment(s): colonoscopy. 12/03/2020 surgery for bowel obstruction at [facility] Past Anesthesia/Blood Transfusion Reactions: No Reported Reaction Additional Past Anesthesia/Blood Transfusion Reaction / Comment(s): Pt states she has never received blood. Past Psychological History: Anxiety, Depression Smoking Status: Current every day smoker, Heavy tobacco smoker Past Alcohol Use History: Rare Past Drug Use History: None Reported - Past Family History Father Family Medical History: Cancer Additional Family Medical History / Comment(s): Father of colon cancer at the age of 54 yrs. Mother Family Medical History: CVA/TIA, Hyperlipidemia, Hypertension Additional Family Medical History / Comment(s): Mother lived to be 96yrs old. General Exam - General Exam Comments Initial Comments: GENERAL: Patient is well-developed and well-nourished. Patient is nontoxic and well- hydrated and is in mild distress. ENT: Neck is soft and supple. No significant lymphadenopathy is noted. Oropharynx is clear. Moist mucous membranes. Neck has full range of motion without eliciting any pain. EYES: The sclera were anicteric and conjunctiva were pink and moist. Extraocular movements were intact and pupils were equal round and reactive to light. Eyelids were unremarkable. PULMONARY: Unlabored respirations. Good breath sounds bilaterally. No audible rales rhonchi or wheezing was noted. CARDIOVASCULAR: There is a regular rate and rhythm without any murmurs gallops or rubs. ABDOMEN: Soft and nontender with normal bowel sounds. SKIN: Skin is clear with no lesions or rashes and otherwise unremarkable. NEUROLOGIC: Patient is alert and oriented x3. Cranial nerves II through XII are grossly intact. Motor and sensory are also intact. Normal speech, volume and content. Symmetrical smile. MUSCULOSKELETAL: Normal extremities with adequate strength and full range of motion. No lower extremity swelling or edema. No calf tenderness. LYMPHATICS: No significant lymphadenopathy is noted PSYCHIATRIC: Normal psychiatric evaluation. Limitations: physical limitation Course Vital Signs 07/08/21 17:54 Temperature 98.4 F Pulse Rate 73 Respiratory 16 Rate Blood Pressure 124/45 O2 Sat by Pulse 95 Oximetry Medical Decision Making - Medical Decision Making EKG shows no sinus rhythm at 71 bpm NH interval 250 QRS 130 for QT intervals 462 QTC is 502. Patient's EKG shows no ST segment elevation or depression. Patient does have a right bundle branch block. Chest x-ray shows no acute abnormality. I spoke with the [facility] significant admit the patient admitted the patient wrote admitting orders. - Lab Data Result diagrams: 07/08/21 18:27 07/08/21 18:27 Lab Results 07/08/21 07/08/21 07/08/21 Range/Units 18:27 18:27 18:27 WBC 12.5 H (3.8-10.6) k/uL RBC 4.17 (3.80-5.40) m/uL Hgb 13.1 (11.4-16.0) gm/dL Hct 38.6 (34.0-46.0) % MCV 92.4 (80.0-100.0) fL MCH 31.4 (25.0-35.0) pg MCHC 34.0 (31.0-37.0) g/dL RDW 13.8 (11.5-15.5) % Plt Count 316 (150-450) k/uL MPV 8.4 Neutrophils % 69 % Lymphocytes % 22 % Monocytes % 6 % Eosinophils % 2 % Basophils % 1 % Neutrophils # 8.6 H (1.3-7.7) k/uL Lymphocytes # 2.7 (1.0-4.8) k/uL Monocytes # 0.7 (0-1.0) k/uL Eosinophils # 0.2 (0-0.7) k/uL Basophils # 0.1 (0-0.2) k/uL PT 10.7 (9.0-12.0) sec INR 1.0 (<1.2) APTT 23.1 (22.0-30.0) sec Sodium 139 (137-145) mmol/L Potassium 3.5 (3.5-5.1) mmol/L Chloride 109 H (98-107) mmol/L Carbon Dioxide 23 (22-30) mmol/L Anion Gap 7 mmol/L BUN 26 H (7-17) mg/dL Creatinine 0.83 (0.52-1.04) mg/dL Est GFR (CKD-EPI)AfAm 77 (>60 ml/min/1.73 sqM) Est GFR (CKD-EPI)NonAf 67 (>60 ml/min/1.73 sqM) Glucose 173 H (74-99) mg/dL Calcium 8.9 (8.4-10.2) mg/dL Magnesium 1.8 (1.6-2.3) mg/dL Total Bilirubin <0.1 L (0.2-1.3) mg/dL AST 18 (14-36) U/L ALT 14 (4-34) U/L Alkaline Phosphatase 61 (38-126) U/L Troponin I (0.000-0.034) ng/mL Total Protein 6.2 L (6.3-8.2) g/dL Albumin 3.7 (3.5-5.0) g/dL 07/08/21 Range/Units 18:27 WBC (3.8-10.6) k/uL RBC (3.80-5.40) m/uL Hgb (11.4-16.0) gm/dL Hct (34.0-46.0) % MCV (80.0-100.0) fL MCH (25.0-35.0) pg MCHC (31.0-37.0) g/dL RDW (11.5-15.5) % Plt Count (150-450) k/uL MPV Neutrophils % % Lymphocytes % % Monocytes % % Eosinophils % % Basophils % % Neutrophils # (1.3-7.7) k/uL Lymphocytes # (1.0-4.8) k/uL Monocytes # (0-1.0) k/uL Eosinophils # (0-0.7) k/uL Basophils # (0-0.2) k/uL PT (9.0-12.0) sec INR (<1.2) APTT (22.0-30.0) sec Sodium (137-145) mmol/L Potassium (3.5-5.1) mmol/L Chloride (98-107) mmol/L Carbon Dioxide (22-30) mmol/L Anion Gap mmol/L BUN (7-17) mg/dL Creatinine (0.52-1.04) mg/dL Est GFR (CKD-EPI)AfAm (>60 ml/min/1.73 sqM) Est GFR (CKD-EPI)NonAf (>60 ml/min/1.73 sqM) Glucose (74-99) mg/dL Calcium (8.4-10.2) mg/dL Magnesium (1.6-2.3) mg/dL Total Bilirubin (0.2-1.3) mg/dL AST (14-36) U/L ALT (4-34) U/L Alkaline Phosphatase (38-126) U/L Troponin I <0.012 (0.000-0.034) ng/mL Total Protein (6.3-8.2) g/dL Albumin (3.5-5.0) g/dL Disposition Clinical Impression: Chest pain Disposition: ADMITTED IP TO THIS HOSP Referrals: Veena Spain DO [Primary Care Provider] - 1-2 days Time of Disposition: 19:40
[2021-07-08 18:45] LABS: Basophils # (A) 0.1 k/uL (0-0.2); Basophils % (A) 1 %; Eosinophils # (A) 0.2 k/uL (0-0.7); Eosinophils % (A) 2 %; HCT 38.6 % (34.0-46.0); HGB 13.1 gm/dL (11.4-16.0); Lymphocytes # (A) 2.7 k/uL (1.0-4.8); Lymphocytes % (A) 22 %; MCH 31.4 pg (25.0-35.0); MCV 92.4 fL (80.0-100.0); Mean Platelet Volume 8.4; Monocytes # (A) 0.7 k/uL (0-1.0); Monocytes % (A) 6 %; Neutrophils # (A) 8.6 k/uL (1.3-7.7); Neutrophils % (A) 69 %; Platelet Count 316 k/uL (150-450); RBC 4.17 m/uL (3.80-5.40); RDW 13.8 % (11.5-15.5); WBC 12.5 k/uL (3.8-10.6)
[2021-07-08 18:54] LABS: Partial Thromboplastin Time 23.1 sec (22.0-30.0); Prothrombin Time 10.7 sec (9.0-12.0)
[2021-07-08 18:55] LABS: ALT 14 U/L (4-34); AST 18 U/L (14-36); African American GFR (CKD) 77 (>60 ml/min/1.73 sqM); Albumin 3.7 g/dL (3.5-5.0); Alkaline Phosphatase 61 U/L (38-126); Anion Gap 7 mmol/L; Blood Urea Nitrogen 26 mg/dL (7-17); Calcium 8.9 mg/dL (8.4-10.2); Carbon Dioxide 23 mmol/L (22-30); Chloride 109 mmol/L (98-107); Glucose 173 mg/dL (74-99); Magnesium 1.8 mg/dL (1.6-2.3); Non-African American GFR(CKD) 67 (>60 ml/min/1.73 sqM); Potassium 3.5 mmol/L (3.5-5.1); Sodium 139 mmol/L (137-145); Total Bilirubin <0.1 mg/dL (0.2-1.3); Total Protein 6.2 g/dL (6.3-8.2)
--- NOTE | 2021-07-08 19:01 | XR ---
EXAMINATION TYPE: XR chest 2V DATE OF EXAM: 07/08/2021 COMPARISON: 05/13/2021. HISTORY: Chest pain. TECHNIQUE: Frontal and lateral views of the chest are obtained. FINDINGS: There is no focal air space opacity, pleural effusion, or pneumothorax seen. The cardiac silhouette size is within normal limits. The osseous structures are intact. IMPRESSION: No acute cardiopulmonary process.
[2021-07-08] MEDS ORDERED: NITROGLYCERIN SL TABS 0.4 MG TAB SUBLINGUAL PRN (19:40)
[2021-07-08] MEDS: amLODIPine 10 MG TAB PO SCH ×2 (21:40→21:45)
[2021-07-08] MEDS: MELATONIN 3 MG TABLET PO SCH (21:40)
[2021-07-08] MEDS: MIRTAZAPINE 15 MG TAB PO SCH ×2 (21:40→21:44)
[2021-07-08] MEDS ORDERED: clonazePAM 0.5 MG TAB PO PRN (22:02)
[2021-07-08] MEDS ORDERED: polyethylene glycoL 3350 17 GM POWD.PACK PO PRN (22:02)
[2021-07-09] MEDS: NITROGLYCERIN OINT 1 INCH/GM PACKET TOPICAL SCH ×4 (03:57→18:08)
[2021-07-09] MEDS: ASPIRIN 81 MG PO SCH (08:28)
[2021-07-09] MEDS: GLIMEPIRIDE 2 MG TAB PO SCH ×2 (08:28→21:17)
[2021-07-09 08:30] LABS: Glucose,Whole Blood 182 mg/dL (75-99)
[2021-07-09] MEDS: SERTRALINE 50 MG TAB PO SCH (08:34)
[2021-07-09] MEDS: hydrALAZINE HCL 25 MG TAB PO SCH ×3 (08:34→21:18)
[2021-07-09] MEDS: lisinopriL 20 MG TAB PO SCH (08:34)
[2021-07-09] MEDS: HEPARIN SODIUM,PORCINE/PF 5,000 UNIT/0.5 ML SYRINGE SQ SCH ×2 (08:35→21:19)
[2021-07-09] MEDS ORDERED: DOBUTamine DRIP for NUC MED 500 MG in DEXTROSE/WATER 1 250ML.BAG IV PRN (08:40)
[2021-07-09] MEDS: ISOSORBIDE DINITRATE 10 MG TAB PO SCH ×2 (08:44→21:18)
[2021-07-09] MEDS ORDERED: ASPIRIN 325 MG TAB PO SCH (09:00)
[2021-07-09] MEDS ORDERED: FAMOTIDINE 20 MG/2 ML VIAL IV SCH (09:00)
[2021-07-09 09:22] LABS: Basophils # (A) 0.09 X 10*3/uL (0.00-0.10); Basophils % (A) 0.9 %; Eosinophils # (A) 0.19 X 10*3/uL (0.04-0.35); Eosinophils % (A) 1.9 %; HCT 41.7 % (37.2-46.3); HGB 12.9 g/dL (12.0-15.0); Lymphocytes # (A) 2.51 X 10*3/uL (0.90-5.00); Lymphocytes % (A) 25.6 %; MCH 28.7 pg (27.0-32.0); MCHC 30.9 g/dL (32.0-37.0); MCV 92.9 fL (80.0-97.0); Mean Platelet Volume 11.5 fL (9.5-12.2); Monocytes % (A) 9.2 %; Neutrophils # (A) 6.08 X 10*3/uL (1.80-7.70); Neutrophils % (A) 62.1 %; Platelet Count 312 X 10*3/uL (140-440); RBC 4.49 X 10*6/uL (4.10-5.20); RDW 14.3 % (11.5-14.5)
--- NOTE | 2021-07-09 09:27 | P.HPIM ---
History of Present Illness This is a pleasant 81 years old female with past medical history of diabetes mellitus, hypertension, asthma/COPD, GERD, chronic hypoxic respiratory failure on 4 L oxygen via [place], diabetic neuropathy, chronic back pain and herniated disc. Anxiety and depression. She has multiple hospitalization, this is the third hospitalization in 3 months. She was discharged 06/23-06/26 for UTI This time he presents because of chest pain started yesterday about 8/10 in severity, and the anterior chest, nonradiating felt like rash associated with little dyspnea. No coughing. No diarrhea or abdominal pain. Her tract symptoms/no dysuria or urgency She stated that last time she smoked was last Wednesday, she smokes about 1 pack per day, she has a patch currently. She denies alcohol, illicit drugs, she denies suicidal or homicidal ideation, she has signs and symptoms of mild depression Vitals are stable. Blood pressure slightly elevated this morning 178/71 mild leukocytosis with WBC of 12.5, rest of the CBC, INR, BMP and liver enzymes are unremarkable. Troponin 3 are negative with less than 0.01 EKG showing normal sinus rhythm at 63 with occasional PVC and QTC 487. Chest x-ray: No acute process. In the emergency room patient was started on aspirin and Review of Systems CONSTITUTIONAL: No fever, no malaise, no fatigue. HEENT: No recent visual problems or hearing problems. Denied any sore throat. CARDIOVASCULAR: No orthopnea, PND, no palpitations, no syncope. PULMONARY: No shortness of breath, no cough, no hemoptysis. GASTROINTESTINAL: No diarrhea, no nausea, no vomiting, no abdominal pain. Normoactive bowel sounds. NEUROLOGICAL: No headaches, no weakness, no numbness. HEMATOLOGICAL: Denies any bleeding or petechiae. GENITOURINARY: Denies any burning micturition, frequency, or urgency. MUSCULOSKELETAL/RHEUMATOLOGICAL: Denies any joint pain, swelling, or any muscle pain. ENDOCRINE: Denies any polyuria or polydipsia. Past Medical History Past Medical History: Asthma, Chest Pain / Angina, COPD, Diabetes Mellitus, GERD/Reflux, Hypertension, Pneumonia, Respiratory Disorder, Skin Disorder Additional Past Medical History / Comment(s): Home oxygen at 4L/[place] ATC, bronchitis, NIDDM type II, neuropathy bilateral feet, falls, IBS, diverticular disease, hiatal hernia, chronic low back pain, eczema History of Any Multi-Drug Resistant Organisms: None Reported Past Surgical History: Cholecystectomy, Hysterectomy, Tonsillectomy Additional Past Surgical History / Comment(s): colonoscopy. 12/03/2020 surgery for bowel obstruction at [facility] Past Anesthesia/Blood Transfusion Reactions: No Reported Reaction Additional Past Anesthesia/Blood Transfusion Reaction / Comment(s): Pt states s he has never received blood. Past Psychological History: Anxiety, Depression Smoking Status: Current every day smoker, Heavy tobacco smoker Past Alcohol Use History: Rare Past Drug Use History: None Reported - Past Family History Father Family Medical History: Cancer Additional Family Medical History / Comment(s): Father of colon cancer at the age of 54 yrs. Mother Family Medical History: CVA/TIA, Hyperlipidemia, Hypertension Additional Family Medical History / Comment(s): Mother lived to be 96yrs old. Medications and Allergies Home Medications Medication Instructions Recorded Confirmed Type Aspirin EC [Ecotrin Low Dose] 81 mg PO DAILY 05/13/21 07/08/21 History Nystatin 1 applic TOPICAL BID PRN 05/13/21 07/08/21 History amLODIPine [Norvasc] 10 mg PO HS 05/13/21 07/08/21 History polyethylene glycoL 3350 [Miralax] 17 gm PO DAILY PRN 05/13/21 07/08/21 History lisinopriL 40 mg PO DAILY 05/20/21 07/08/21 History Acetaminophen Tab [Tylenol] 650 mg PO Q6HR PRN tab 06/02/21 07/08/21 Rx Glimepiride [Amaryl] 2 mg PO BID 06/23/21 07/08/21 History Isosorbide Dinitrate 10 mg PO BID 06/23/21 07/08/21 History hydrALAZINE HCL [Apresoline] 25 mg PO TID 06/23/21 07/08/21 History Melatonin 3 mg PO HS #30 tablet 06/27/21 07/08/21 Rx Mirtazapine [Remeron] 15 mg PO HS #30 tab 06/27/21 07/08/21 Rx Omeprazole Magnesium [PriLOSEC] 20 mg PO DAILY #30 tab 06/27/21 07/08/21 Rx Sertraline [Zoloft] 150 mg PO DAILY #90 tab 06/27/21 07/08/21 Rx clonazePAM 0.25 mg PO DAILY 07/08/21 07/08/21 History clonazePAM [KlonoPIN] 0.5 mg PO HS 07/08/21 07/08/21 History Allergies Allergy/AdvReac Type Severity Reaction Status Date / Time doxycycline Allergy Unknown Verified 07/08/21 20:35 Penicillins Allergy Rash/Hives Verified 07/08/21 20:35 nitrofurantoin AdvReac Nausea & Verified 07/08/21 20:35 [From Macrobid] Vomiting & Diarrhea Sulfa (Sulfonamide AdvReac Nausea & Verified 07/08/21 20:35 Antibiotics) Vomiting & Diarrhea Physical Exam Vitals: Vital Signs Temp Pulse Resp BP Pulse Ox 07/09/21 05:50 68 18 178/71 96 07/09/21 04:51 18 07/09/21 03:27 18 07/09/21 01:44 97.5 F L 58 L 16 135/48 94 L 07/08/21 23:00 75 16 125/78 98 07/08/21 20:00 65 120/77 97 07/08/21 17:54 98.4 F 73 16 124/45 95 Intake and Output 07/08/21 07/09/21 07/09/21 22:59 06:59 14:59 Other: Weight 68.039 kg GENERAL: The patient is alert and oriented x3, not in any acute distress. Well developed, well nourished. HEENT: Pupils are round and equally reacting to light. EOMI. No scleral icterus. No conjunctival pallor. Normocephalic, atraumatic. No pharyngeal erythema. No thyromegaly. CARDIOVASCULAR: S1 and S2 present. No murmurs, rubs, or gallops. PULMONARY: Chest is clear to auscultation, no wheezing or crackles. ABDOMEN: Soft, nontender, nondistended, normoactive bowel sounds. No palpable organomegaly. MUSCULOSKELETAL: No joint swelling or deformity. EXTREMITIES: No cyanosis, clubbing, or pedal edema. NEUROLOGICAL: Gross neurological examination did not reveal any focal deficits. SKIN: No rashes. No petechiae Results CBC & Chem 7: 07/09/21 05:43 07/08/21 18:27 Labs: Abnormal Lab Results - Last 24 Hours (Table) 09/07/21 09/07/21 Range/Units 18:27 18:27 WBC 12.5 H (3.8-10.6) k/uL Neutrophils # 8.6 H (1.3-7.7) k/uL Chloride 109 H (98-107) mmol/L BUN 26 H (7-17) mg/dL Glucose 173 H (74-99) mg/dL Total Bilirubin <0.1 L (0.2-1.3) mg/dL Total Protein 6.2 L (6.3-8.2) g/dL Assessment and Plan Assessment: Chest pain, rule out cardiac causes Hypertension Diabetes mellitus History of GERD Hypoxic respiratory failure History of diabetic neuropathy Chronic back pain with her history of herniated disc GI of anxiety and depression, not an active issue COPD/asthma, not in active issue without acute exacerbation Plan: this is a pleasant 81 years old female who presents with chest pain. Troponin, continue with aspirin, derrick man consult Labs and medication were reviewed.. Continue same treatment. Continue with symptomatic treatment. Resume home medication. Monitor lytes and vitals. DVT and GI prophylaxis. Further recommendations depends on the clinical course of t he patient DVT prophylaxis: Subcutaneous heparin GI Prophylaxis: Pepcid PT/OT: Pending Prognosis is guarded
[2021-07-09] MEDS: clonazePAM 0.5 MG TAB PO SCH (09:48)
[2021-07-09 10:49] LABS: African American GFR (CKD) 99.8 (60.0-200.0); Anion Gap 8.7 mmol/L (4.00-12.00); Calcium 8.6 mg/dL (8.7-10.3); Carbon Dioxide 22.3 mmol/L (21.6-31.8); Chol/HDL Ratio 5.22; LDL Cholesterol,Calculated 83.6 mg/dL (0.0-131.0); Non-African American GFR(CKD) 86.1 (60.0-200.0); VLDL Calculation 30.4 mg/dL (5.00-40.00)
--- NOTE | 2021-07-09 12:30 | CONS ---
CONSULTATION CHIEF COMPLAINT: Chest pain. Sabina is an 81-year-old lady who has history of hypertension and non-insulin- dependent diabetes and longstanding history of angina, for which she takes nitrates. She presented to hospital complaining of chest discomfort. Her chest pain is sharp, precordial, mild intensity, and radiates to her back. It is unrelated to exertion and unassociated with diaphoresis. An EKG shows sinus rhythm, right bundle branch block, PVCs and nonspecific ST-T wave changes. Three sets of cardiac enzymes are negative. Creatinine is normal. Blood sugars are poorly controlled and hemoglobin is normal at 13.1. The patient states that she has had chest discomfort for many years now and it has gotten somewhat worse of late. There is no prior history of coronary artery disease. She states that she did not have a cardiac catheterization, angioplasty, bypass surgery. There is no prior history of peripheral arterial disease. She has significant hearing impairment and communication was somewhat difficult. ALLERGIES: PENICILLIN, DOXYCYCLINE, MACROBID AND SULFA. MEDICATIONS: Medications at home include Klonopin, hydralazine 25 t.i.d., lisinopril 40 daily, Prilosec, Remeron, melatonin, Imdur, Amaryl, Norvasc and aspirin. FAMILY HISTORY: Negative for premature coronary artery disease. SOCIAL HISTORY: She denies smoking, ETOH abuse or drug abuse. REVIEW OF SYSTEMS: HEENT is unremarkable. CARDIAC: As described above. RESPIRATORY: As described above. GI: Negative. GENITOURINARY: Negative. ALLERGY/IMMUNOLOGY: Negative. SKIN: Negative. MUSCULOSKELETAL: Negative. ENDOCRINE: Negative. DERMATOLOGY: Negative. CONSTITUTIONAL: Negative. ONCOLOGICAL: Negative. SENIOR FRONT END DEVELOPER: Negative. PHYSICAL EXAMINATION: Comfortable at rest. Heart rate is 60 beats per minute. Blood pressure is 178/70. There is no jugular venous distention. Carotid upstroke is diminished. There is no bruit. Chest exam reveals good air entry bilaterally. Heart exam reveals first and second heart sounds. No gallop. Has an ejection systolic murmur in the aortic area. Abdomen is soft. Examination of extremities did not reveal any edema. Peripheral pulses are palpable. LABS: Labs are as described above. OH is ruled out. ASSESSMENT: 1. Precordial chest pain. Rule out CAD. 2. Abnormal EKG. 3. Hypertension. 4. Diabetes. PLAN: I am going to schedule the patient for a dobutamine stress echo and echocardiogram for further evaluation of her symptoms. LEONILA / PIERCE: [id number] /
[2021-07-09] MEDS: ACETAMINOPHEN TAB 325 MG TAB PO PRN ×2 (14:22→23:21)
[2021-07-09] MEDS: NICOTINE 14MG/24HR PATCH TRANSDERM SCH (15:58)
[2021-07-09 17:20] LABS: Glucose,Whole Blood 84 mg/dL (75-99)
--- NOTE | 2021-07-09 17:32 | ECHOF ---
Referral Reason:cp MEASUREMENTS -------- HEIGHT: 157.5 cm WEIGHT: 68.0 kg BP: IVSd: 2.0 cm (0.6 - 1.1) LVIDd: 3.2 cm (3.9 - 5.3) LVPWd: 1.6 cm (0.6 - 1.1) IVSs: 1.7 cm LVIDs: 1.1 cm LVPWs: 1.5 cm Ao Diam: 2.9 cm (2.0 - 3.7) AV Cusp: 2.1 cm (1.5 - 2.6) LA Diam: 2.1 cm (2.7 - 3.8) MV E Jani: 0.72 m/s MV DecT: 233 ms MV A Jani: 0.99 m/s MV E/A Ratio: 0.73 RAP: 5.00 mmHg RVSP: 16.65 mmHg FINDINGS -------- This was a technically difficult study with suboptimal views. The left ventricular size is normal. There is severe concentric left ventricular hypertrophy. Ove rall left ventricular systolic function is normal with, an EF between 60 - 65 %. LVOT Obstruction w ith a peak gradient of 18mmHg. The RV was not well visualized. The left atrial size is normal. The right atrial size is normal. Lumason used The aortic valve was not well visualized. The mitral valve was not well visualized. The tricuspid valve was not well visualized. Trace tricuspid regurgitation present. Right ventric ular systolic pressure is normal at < 35 mmHg. The pulmonic valve was not well visualized. The aortic root size is normal. IVC Not well visulized. There is no pericardial effusion. CONCLUSIONS -------- 1. The left ventricular size is normal. 2. There is severe concentric left ventricular hypertrophy. 3. Overall left ventricular systolic function is normal with, an EF between 60 - 65 %. 4. LVOT Obstruction with a peak gradient of 18mmHg. 5. Trace tricuspid regurgitation present. 6. There is no pericardial effusion. MESSAGE BROKER DEVELOPER: Candelaria Little [facility]
--- NOTE | 2021-07-09 17:47 | ECHOS ---
STRESS ECHOCARDIOGRAM INDICATIONS: Chest pain. BASELINE HEART RATE: @@ BASELINE BLOOD PRESSURE: @@ MAXIMUM HEART RATE: @@ MAXIMUM BLOOD PRESSURE: @@ 85% MPHR: @@ 100% MPHR: @@ METS: @@ MAXIMUM STAGE REACHED: @@ TOTAL EXERCISE TIME: @@ CLINICAL INFORMATION: Baseline EKG shows sinus rhythm with right bundle branch block. The patient was given intravenous dobutamine over a period of 10 minutes as per protocol, achieving 85% of predicted maximal heart rate without chest pain. At peak exercise there was [address]-segment depression noted. Baseline echo shows normal left ventricular size, wall motion and systolic function. Post dobutamine infusion there is normal hyperdynamic response of all segments of myocardium noted. CONCLUSIONS: 1. Inconclusive EKG part of the stress test due to baseline EKG abnormalities. 2. Negative dobutamine stress echo. LEONILA / PIERCE: [id number] /
[2021-07-09 20:37] LABS: Glucose,Whole Blood 192 mg/dL (75-99)
[2021-07-09] MEDS: MELATONIN 3 MG TABLET PO SCH (21:17)
[2021-07-09] MEDS: FAMOTIDINE 20 MG TAB PO SCH (21:18)
[2021-07-09] MEDS: amLODIPine 10 MG TAB PO SCH (21:19)
[2021-07-10] MEDS: NITROGLYCERIN OINT 1 INCH/GM PACKET TOPICAL SCH ×3 (00:13→12:10)
[2021-07-10] MEDS ORDERED: MELATONIN 3 MG TABLET PO PRN (02:13)
[2021-07-10 02:38] VITALS: PULSE 60
[2021-07-10 07:29] LABS: Glucose,Whole Blood 146 mg/dL (75-99)
[2021-07-10] MEDS: clonazePAM 0.5 MG TAB PO SCH (07:58)
[2021-07-10] MEDS: HYDROcodone/APAP 5-325MG 1 EACH TAB PO PRN ×2 (07:59→14:34)
[2021-07-10] MEDS: HEPARIN SODIUM,PORCINE/PF 5,000 UNIT/0.5 ML SYRINGE SQ SCH (08:01)
[2021-07-10] MEDS: ISOSORBIDE DINITRATE 10 MG TAB PO SCH (08:01)
[2021-07-10] MEDS: lisinopriL 20 MG TAB PO SCH (08:02)
[2021-07-10] MEDS: FAMOTIDINE 20 MG TAB PO SCH (08:02)
[2021-07-10] MEDS: hydrALAZINE HCL 25 MG TAB PO SCH ×2 (08:02→16:37)
[2021-07-10] MEDS: GLIMEPIRIDE 2 MG TAB PO SCH (08:02)
[2021-07-10] MEDS: ASPIRIN 81 MG PO SCH (08:02)
[2021-07-10] MEDS: NICOTINE 14MG/24HR PATCH TRANSDERM SCH (08:03)
[2021-07-10] MEDS: SERTRALINE 50 MG TAB PO SCH (08:42)
[2021-07-10] MEDS ORDERED: LIDOCAINE 5% PATCH TOPICAL SCH (11:15)
--- NOTE | 2021-07-10 11:46 | P.PN ---
Subjective Progress Note Date: 07/10/21 HISTORY OF PRESENT ILLNESS: Patient examined this morning at the bedside. She denies chest pain or pressure. She denies shortness of breath. She underwent dobutamine stress echo yesterday which was negative for ischemia. Echocardiogram completed revealing ejection fraction 60-65%. LVOT obstruction with a peak gradient of 18 mmHg. PHYSICAL EXAM: VITAL SIGNS: Reviewed. GENERAL: Well-developed in no acute distress. NECK: Supple. No JVD or thyromegaly LUNGS: Respirations even and unlabored. Lungs essentially clear to auscultation bilaterally. HEART: Regular rate and rhythm. S1 and S2 heard. EXTREMITIES: Normal range of motion. No clubbing or cyanosis. Peripheral pulses intact. No lower extremity edema ASSESSMENT: Chest pain, stress test negative for ischemia Hypertension Diabetes PLAN: Patient is stable for discharge home today from a cardiac standpoint. We will sign off. Please reconsult if needed. Nurse practitioner note has been reviewed by physician. Signing provider agrees with the documented findings, assessment, and plan of care. Objective - Vital Signs Vital signs: Vital Signs Temp 98 F 07/10/21 07:00 Pulse 60 07/10/21 07:00 Resp 18 07/10/21 08:00 BP 165/57 07/10/21 07:00 Pulse Ox 98 07/10/21 02:05 Intake & Output 07/09/21 07/10/21 07/10/21 18:59 06:59 18:59 Intake Total 240 120 Output Total 300 Balance 240 -180 Weight 68.04 kg Intake: Oral 240 120 Output: Urine 300 Stool 0 Other: Voiding Method Diaper Diaper # Voids 1 4 - Labs CBC & Chem 7: 07/09/21 05:43 07/09/21 05:43 Labs: Abnormal Lab Results - Last 24 Hours (Table) 07/09/21 07/10/21 Range/Units 20:36 07:19 POC Glucose (mg/dL) 192 H 146 H (75-99) mg/dL
[2021-07-10 12:02] LABS: African American GFR (CKD) 99.8 (60.0-200.0); Anion Gap 7.8 mmol/L (4.00-12.00); Carbon Dioxide 23.2 mmol/L (21.6-31.8); Non-African American GFR(CKD) 86.1 (60.0-200.0); Potassium 3.9 mmol/L (3.5-5.5)
[2021-07-10 12:23] LABS: Glucose,Whole Blood 163 mg/dL (75-99)
[2021-07-10 15:06] VITALS: BP 159/58; RESP 16; TEMP 98.4
--- NOTE | 2021-07-10 15:59 | XR ---
EXAMINATION TYPE: XR sacrum coccyx DATE OF EXAM: 07/10/2021 COMPARISON: NONE HISTORY: 81-year-old female with tailbone pain, low back pain TECHNIQUE: 3 views FINDINGS: Degenerative subarticular sclerosis right SI joint. Degenerative changes lower lumbar spine with endp late spondylosis greater toward the left at L5-S1. Osteopenia. Partially visualized screw fixation on the left. Slight delineation to the arcuate lines of the sacrum. There is approximately 4 mm of post erior offset at the distal coccygeal segment on the lateral view. IMPRESSION: 1. 4 mm of posterior offset of the distal coccygeal segment on the lateral view. Correlate for age in determinate minimally displaced tailbone fracture. 2. Asymmetric degenerative change at the right SI joint.
[2021-07-10] MEDS ORDERED: CALCIUM CARB-VIT D 500 MG-5 MCG TAB PO SCH (16:45)
[2021-07-10 17:27] LABS: Glucose,Whole Blood 90 mg/dL (75-99)
--- NOTE | 2021-07-10 22:07 | P.DS ---
Providers Date of admission: 07/08/21 19:40 Attending physician: Nona Meadows Primary care physician: Veena Ny Hospital Course: Diagnoses: Chest pain, cardiac causes were ruled out with negative stress test. Chest pain completely resolved prior to discharge Chronic low back pain with coccygeal x-rays showing 4 mm posterior offset of the distal esophageal segment possible for minimally displaced temporal bone fracture Degenerative changes with osteoarthritis Hypertension Diabetes mellitus History of GERD Hypoxic respiratory failure History of diabetic neuropathy Chronic back pain with her history of herniated disc GI of anxiety and depression, not an active issue COPD/asthma, not in active issue without acute exacerbation Hospital course: This is a pleasant 81 years old female with past medical history of diabetes mellitus, hypertension, asthma/COPD, GERD, chronic hypoxic respiratory failure on 4 L oxygen via [place], diabetic neuropathy, chronic back pain and herniated disc. Anxiety and depression. She has multiple hospitalization, this is the third hospitalization in 3 months. She was discharged 06/23-06/26 for UTI This time he presents because of chest pain of one-day duration. Chest pain completely resolved prior to discharge since yesterday. She has negative stress test and outreach representative cleared her for discharge. She has chronic low back pain which gets worse during the stress test lying down on the table. She is walking at her baseline using her walker, no weakness or numbness in the lower extremities. No urine or bowel incontinence. No saddle anesthesia. PT/OT evaluation recommended home with home health care. X-ray showing 4 mm posterior offset of the distal esophageal segment possible for minimally displaced temporal bone fracture. Patient was started on calcium and vitamin D and referred to orthopedic team as an outpatient with Dr. Balbuena, and also to delivery driver assistant Dr. Salgado for possible osteoporosis Other than that patient clinically stable and she is agreeable and wants to go home today. Again on the day of discharge she denies chest pain, no dyspnea, no change in urine or bowel habits. No abdominal pain. No headache or dizziness. No weakness or numbness. No fever. is cleared for discharge by outreach representative Problems and management plan were discussed with the patient and he verbalized understanding and acceptance Patient was found stable and can be discharged home however he needs follow-up as an outpatient. Patient was instructed to follow up with PCP Dr. Ny within one week and patient agrees Patient was instructed to follow up with Dr. Brantley in one week Instructed to follow up with Dr. monroe orthopedic in one week and Dr. Salgado delivery driver assistant in 1 week as well. Patient agrees to call and make appointments Physical exam Gen: patient is a AAOx3, no distress CVS: S1-S2, RRR, no murmur Lungs: B/L CTA, no wheezing Abdomen: soft, no distention, no tenderness, positive bowel sounds Extremity: no leg edema or induration Gait: Baseline with a walker. Neurological: Alert awake oriented 3, are grossly intact. Strength is 5/5 and sensation is intact in all extremities. Meningeal signs are absent Time spent more than 35 minutes a Plan - Discharge Summary New Discharge Prescriptions: New Lidocaine 5% Patch [Lidoderm 5% Patch] 1 patch TOPICAL DAILY #5 patch Calcium Carb-Vit D 500Mg-5Mcg [Oscal 500+D 5 Mcg (200 Iu)] 1 each PO BID- W/MEALS 20 Days #40 tab Nicotine 21Mg/24Hr Patch [Habitrol] 1 each TRANSDERM DAILY #7 patch Continue amLODIPine [Norvasc] 10 mg PO HS Isosorbide Dinitrate 10 mg PO BID Glimepiride [Amaryl] 2 mg PO BID Sertraline [Zoloft] 150 mg PO DAILY #90 tab clonazePAM 0.25 mg PO DAILY polyethylene glycoL 3350 [Miralax] 17 gm PO DAILY PRN PRN Reason: Constipation Aspirin EC [Ecotrin Low Dose] 81 mg PO DAILY lisinopriL 40 mg PO DAILY Acetaminophen Tab [Tylenol] 650 mg PO Q6HR PRN tab PRN Reason: Fever And/ Or Pain hydrALAZINE HCL [Apresoline] 25 mg PO TID Melatonin 3 mg PO HS #30 tablet Omeprazole Magnesium [PriLOSEC] 20 mg PO DAILY #30 tab Mirtazapine [Remeron] 15 mg PO HS #30 tab clonazePAM [KlonoPIN] 0.5 mg PO HS Discontinued Nystatin 1 applic TOPICAL BID PRN PRN Reason: Skin Irritation Discharge Medication List Aspirin EC [Ecotrin Low Dose] 81 mg PO DAILY 05/13/21 [History] amLODIPine [Norvasc] 10 mg PO HS 05/13/21 [History] polyethylene glycoL 3350 [Miralax] 17 gm PO DAILY PRN 05/13/21 [History] lisinopriL 40 mg PO DAILY 05/20/21 [History] Acetaminophen Tab [Tylenol] 650 mg PO Q6HR PRN tab 06/02/21 [Rx] Glimepiride [Amaryl] 2 mg PO BID 06/23/21 [History] Isosorbide Dinitrate 10 mg PO BID 06/23/21 [History] hydrALAZINE HCL [Apresoline] 25 mg PO TID 06/23/21 [History] Melatonin 3 mg PO HS #30 tablet 06/27/21 [Rx] Mirtazapine [Remeron] 15 mg PO HS #30 tab 06/27/21 [Rx] Omeprazole Magnesium [PriLOSEC] 20 mg PO DAILY #30 tab 06/27/21 [Rx] Sertraline [Zoloft] 150 mg PO DAILY #90 tab 06/27/21 [Rx] clonazePAM 0.25 mg PO DAILY 07/08/21 [History] clonazePAM [KlonoPIN] 0.5 mg PO HS 07/08/21 [History] Calcium Carb-Vit D 500Mg-5Mcg [Oscal 500+D 5 Mcg (200 Iu)] 1 each PO BID-W/MEALS 20 Days #40 tab 07/10/21 [Rx] Lidocaine 5% Patch [Lidoderm 5% Patch] 1 patch TOPICAL DAILY #5 patch 07/10/21 [Rx] Nicotine 21Mg/24Hr Patch [Habitrol] 1 each TRANSDERM DAILY #7 patch 07/10/21 [Rx] Follow up Appointment(s)/Referral(s): Debbie Balbuena DO [Doctor of Osteopathic Medicine] - 1 Week (orthopedic for your coccygeral fracture) Veena Ny DO [Primary Care Provider] - 1-2 days Lj Brantley MD [STAFF PHYSICIAN] - 1 Week Bri Salgado MD [STAFF PHYSICIAN] - 1 Week (delivery driver assistant ) Patient Instructions/Handouts: Pain Management (GEN), Sacral Fracture (GEN) Activity/Diet/Wound Care/Special Instructions: Heart healthy diet Activity is restricted till you see your doctor Discharge Disposition: HOME WITH HOME HEALTH SERVICES
== END 2021-07-10 17:51 | disposition home health service (06) ==
LOC: EC 17:52 → 6NMEDSUR 19:40
PROVIDERS: ADMIT Internal Medicine; ATTEND Internal Medicine
DX: R07.89 Other chest pain (principal); I45.10 Unspecified right bundle-branch block; I11.9 Hypertensive heart disease without heart failure; I49.3 Ventricular premature depolarization; E11.42 Type 2 diabetes mellitus with diabetic polyneuropathy; D72.829 Elevated white blood cell count, unspecified; J96.11 Chronic respiratory failure with hypoxia; G89.29 Other chronic pain; M47.817 Spondylosis without myelopathy or radiculopathy, lumbosacral region; M19.90 Unspecified osteoarthritis, unspecified site; F32.9 Major depressive disorder, single episode, unspecified; F41.9 Anxiety disorder, unspecified; J44.9 Chronic obstructive pulmonary disease, unspecified; M85.88 Other specified disorders of bone density and structure, other site; K21.9 Gastro-esophageal reflux disease without esophagitis; E78.00 Pure hypercholesterolemia, unspecified; K57.90 Diverticulosis of intestine, part unspecified, without perforation or abscess without bleeding; K58.9 Irritable bowel syndrome, unspecified; L30.9 Dermatitis, unspecified; F17.210 Nicotine dependence, cigarettes, uncomplicated; H91.90 Unspecified hearing loss, unspecified ear; K44.9 Diaphragmatic hernia without obstruction or gangrene; Z79.82 Long term (current) use of aspirin; Z79.84 Long term (current) use of oral hypoglycemic drugs; Z79.899 Other long term (current) drug therapy; Z88.1 Allergy status to other antibiotic agents; Z88.0 Allergy status to penicillin; Z88.2 Allergy status to sulfonamides; Z88.8 Allergy status to other drugs, medicaments and biological substances; Z87.01 Personal history of pneumonia (recurrent); Z91.81 History of falling; Z90.49 Acquired absence of other specified parts of digestive tract; Z90.710 Acquired absence of both cervix and uterus; Z98.890 Other specified postprocedural states; Z87.440 Personal history of urinary (tract) infections; Z86.79 Personal history of other diseases of the circulatory system; Z80.0 Family history of malignant neoplasm of digestive organs; Z82.49 Family history of ischemic heart disease and other diseases of the circulatory system; Z82.3 Family history of stroke; Z83.49 Family history of other endocrine, nutritional and metabolic diseases
CPT/HCPCS: 96372 ×2; 96374; 99285; 36415; 93005 ×2; 93351; 97161; 97165; 80061; 80053; 80048 ×2; 83735; 84484 ×2; 85025 ×2; 85610; 85730; 72220; 71046; G0378 ×3; C8929; S4990 ×2; Q9950; J1644 ×2; 93306

== ENCOUNTER 2021-07-17 18:36 | Emergency (ER) | payer MEDICARE ==
[2021-07-17 19:44] VITALS: RESP 18; TEMP 98
--- NOTE | 2021-07-17 19:59 | ED ---
Nausea/Vomiting/Diarrhea HPI - General Chief complaint: Nausea/Vomiting/Diarrhea Stated complaint: diarrhea Time Seen by Provider: 07/17/21 19:09 Source: patient, EMS Mode of arrival: EMS Limitations: no limitations - History of Present Illness Initial comments: Patient is an 81-year-old female with history of COPD, normally a 4 L of home O2, diabetic, hypertensive, presenting to the emergency department via EMS because she was having diarrhea since about noon today. She states she's had about 4 bowel movements. She is complaining of some lower abdominal cramping. No fevers or chills, no chest pain or shortness of breath more unusual. She denies any dysuria but states she was recently treated for UTI. She denies any upper abdominal pain, no coughing. She denies history of C. diff. She has no further complaints at this time. Her vitals are stable upon arrival. - Related Data Home Medications Medication Instructions Recorded Confirmed Aspirin EC [Ecotrin Low Dose] 81 mg PO DAILY 05/13/21 07/08/21 amLODIPine [Norvasc] 10 mg PO HS 05/13/21 07/08/21 polyethylene glycoL 3350 [Miralax] 17 gm PO DAILY PRN 05/13/21 07/08/21 lisinopriL 40 mg PO DAILY 05/20/21 07/08/21 Glimepiride [Amaryl] 2 mg PO BID 06/23/21 07/08/21 Isosorbide Dinitrate 10 mg PO BID 06/23/21 07/08/21 hydrALAZINE HCL [Apresoline] 25 mg PO TID 06/23/21 07/08/21 clonazePAM 0.25 mg PO DAILY 07/08/21 07/08/21 clonazePAM [KlonoPIN] 0.5 mg PO HS 07/08/21 07/08/21 Previous Rx's Medication Instructions Recorded Acetaminophen Tab [Tylenol] 650 mg PO Q6HR PRN tab 06/02/21 Melatonin 3 mg PO HS #30 tablet 06/27/21 Mirtazapine [Remeron] 15 mg PO HS #30 tab 06/27/21 Omeprazole Magnesium [PriLOSEC] 20 mg PO DAILY #30 tab 06/27/21 Sertraline [Zoloft] 150 mg PO DAILY #90 tab 06/27/21 Calcium Carb-Vit D 500Mg-5Mcg 1 each PO BID-W/MEALS 20 Days #40 07/10/21 [Oscal 500+D 5 Mcg (200 Iu)] tab Lidocaine 5% Patch [Lidoderm 5% 1 patch TOPICAL DAILY #5 patch 07/10/21 Patch] Nicotine 21Mg/24Hr Patch [Habitrol] 1 each TRANSDERM DAILY #7 patch 07/10/21 Cephalexin [Keflex] 500 mg PO BID 7 Days #14 cap 07/17/21 Allergies Allergy/AdvReac Type Severity Reaction Status Date / Time doxycycline Allergy Unknown Verified 07/17/21 19:39 Penicillins Allergy Rash/Hives Verified 07/17/21 19:39 nitrofurantoin AdvReac Nausea & Verified 07/17/21 19:39 [From Macrobid] Vomiting & Diarrhea Sulfa (Sulfonamide AdvReac Nausea & Verified 07/17/21 19:39 Antibiotics) Vomiting & Diarrhea Review of Systems ROS Statement: Those systems with pertinent positive or pertinent negative responses have been documented in the HPI. ROS Other: All systems not noted in ROS Statement are negative. Past Medical History Past Medical History: Asthma, Chest Pain / Angina, COPD, Diabetes Mellitus, GERD/Reflux, Hypertension, Pneumonia, Respiratory Disorder, Skin Disorder Additional Past Medical History / Comment(s): Home oxygen at 4L/[place] ATC, bronchitis, NIDDM type II, neuropathy bilateral feet, falls, IBS, diverticular disease, hiatal hernia, chronic low back pain, eczema History of Any Multi-Drug Resistant Organisms: None Reported Past Surgical History: Cholecystectomy, Hysterectomy, Tonsillectomy Additional Past Surgical History / Comment(s): colonoscopy. 12/03/2020 surgery for bowel obstruction at [facility] Past Anesthesia/Blood Transfusion Reactions: No Reported Reaction Additional Past Anesthesia/Blood Transfusion Reaction / Comment(s): Pt states she has never received blood. Past Psychological History: Anxiety, Depression Smoking Status: Current every day smoker, Heavy tobacco smoker Past Alcohol Use History: Rare Past Drug Use History: None Reported - Past Family History Father Family Medical History: Cancer Additional Family Medical History / Comment(s): Father of colon cancer at the age of 54 yrs. Mother Family Medical History: CVA/TIA, Hyperlipidemia, Hypertension Additional Family Medical History / Comment(s): Mother lived to be 96yrs old. General Exam - General Exam Comments Initial Comments: GENERAL: Patient is well-developed and well-nourished. Patient is nontoxic and in no acute distress, very hard of hearing. HEAD: Atraumatic, normocephalic. EYES: Pupils equal round and reactive to light, extraocular movements intact, sclera anicteric, conjunctiva are normal. Eyelids were unremarkable. ENT: TMs normal, nares patent, oropharynx clear without exudates. Moist mucous membranes. NECK: Normal range of motion, supple without lymphadenopathy or JVD. LUNGS: Unlabored respirations. Scattered wheezes throughout, history of COPD. HEART: Regular rate and rhythm without murmurs, rubs or gallops. ABDOMEN: Soft, nontender, normoactive bowel sounds. No guarding, no rebound. No masses appreciated. : Deferred MUSCULOSKELETAL: Normal extremities with adequate strength and normal range of motion, no pitting or edema. No clubbing or cyanosis. NEUROLOGICAL: Patient is alert and oriented x 3. Motor and sensory are also intact. Cranial nerves II through XII grossly intact. Symmetrical smile. Normal speech, normal gait. PSYCH: Normal mood, normal affect. SKIN: Warm, Dry, normal turgor, no rashes or lesions noted. Limitations: no limitations Course Vital Signs 07/17/21 19:39 Temperature 98 F Pulse Rate 60 Respiratory 18 Rate Blood Pressure 141/50 O2 Sat by Pulse 91 L Oximetry Medical Decision Making - Medical Decision Making Patient is an 81-year-old female presenting via EMS with complaints of diarrhea that started about noon today. She's had 4 episodes of home. Some mild lower abdominal cramping but no severe abdominal pain. Her vitals are stable. Exam reveals no abdominal tenderness, labs show a normal white count, everything else within normal limits. Urine shows positive nitrates, WBC clumps and many bacteria. Urine culture is pending. Patient's vital signs remained stable. He is resting comfortably, no acute distress. Discussed with her that she has a UTI. I will give her 1 g of Rocephin here in the ER and she'll be discharged home on Keflex. Patient gave lots of push back about going home however I told patient that this can be treated as an outpatient, she needs to go strip picker her antibiotics in the morning. She is agreeable to this and is stable for discharge. Case discussed with Dr. Camara. - Lab Data Result diagrams: 07/17/21 20:30 07/17/21 20:30 Lab Results 07/17/21 07/17/21 07/17/21 Range/Units 20:30 20:30 20:30 WBC 5.4 (3.8-10.6) k/uL RBC 4.47 (3.80-5.40) m/uL Hgb 13.4 (11.4-16.0) gm/dL Hct 41.4 (34.0-46.0) % MCV 92.7 (80.0-100.0) fL MCH 30.0 (25.0-35.0) pg MCHC 32.4 (31.0-37.0) g/dL RDW 14.2 (11.5-15.5) % Plt Count 199 (150-450) k/uL MPV 9.1 Neutrophils % 52 % Lymphocytes % 37 % Monocytes % 8 % Eosinophils % 1 % Basophils % 1 % Neutrophils # 2.8 (1.3-7.7) k/uL Lymphocytes # 2.0 (1.0-4.8) k/uL Monocytes # 0.4 (0-1.0) k/uL Eosinophils # 0.1 (0-0.7) k/uL Basophils # 0.0 (0-0.2) k/uL Sodium 143 (137-145) mmol/L Potassium 3.4 L (3.5-5.1) mmol/L Chloride 112 H (98-107) mmol/L Carbon Dioxide 23 (22-30) mmol/L Anion Gap 8 mmol/L BUN 13 (7-17) mg/dL Creatinine 0.50 L (0.52-1.04) mg/dL Est GFR (CKD-EPI)AfAm >90 (>60 ml/min/1.73 sqM) Est GFR (CKD-EPI)NonAf >90 (>60 ml/min/1.73 sqM) Glucose 119 H (74-99) mg/dL Plasma Lactic Acid Collins 0.8 (0.7-2.0) mmol/L Calcium 8.2 L (8.4-10.2) mg/dL Total Bilirubin 0.3 (0.2-1.3) mg/dL AST 24 (14-36) U/L ALT 16 (4-34) U/L Alkaline Phosphatase 47 (38-126) U/L Total Protein 6.4 (6.3-8.2) g/dL Albumin 3.6 (3.5-5.0) g/dL Lipase 65 (23-300) U/L Urine Color Urine Appearance (Clear) Urine pH (5.0-8.0) Ur Specific [place] (1.001-1.035) Urine Protein (Negative) Urine Glucose (UA) (Negative) Urine Ketones (Negative) Urine Blood (Negative) Urine Nitrite (Negative) Urine Bilirubin (Negative) Urine Urobilinogen (<2.0) mg/dL Ur Leukocyte Esterase (Negative) Urine RBC (0-5) /hpf Urine WBC (0-5) /hpf Urine WBC Clumps (None) /hpf Ur Squamous Epith Cells (0-4) /hpf Urine Bacteria (None) /hpf Urine Mucus (None) /hpf 07/17/21 Range/Units 21:53 WBC (3.8-10.6) k/uL RBC (3.80-5.40) m/uL Hgb (11.4-16.0) gm/dL Hct (34.0-46.0) % MCV (80.0-100.0) fL MCH (25.0-35.0) pg MCHC (31.0-37.0) g/dL RDW (11.5-15.5) % Plt Count (150-450) k/uL MPV Neutrophils % % Lymphocytes % % Monocytes % % Eosinophils % % Basophils % % Neutrophils # (1.3-7.7) k/uL Lymphocytes # (1.0-4.8) k/uL Monocytes # (0-1.0) k/uL Eosinophils # (0-0.7) k/uL Basophils # (0-0.2) k/uL Sodium (137-145) mmol/L Potassium (3.5-5.1) mmol/L Chloride (98-107) mmol/L Carbon Dioxide (22-30) mmol/L Anion Gap mmol/L BUN (7-17) mg/dL Creatinine (0.52-1.04) mg/dL Est GFR (CKD-EPI)AfAm (>60 ml/min/1.73 sqM) Est GFR (CKD-EPI)NonAf (>60 ml/min/1.73 sqM) Glucose (74-99) mg/dL Plasma Lactic Acid Collins (0.7-2.0) mmol/L Calcium (8.4-10.2) mg/dL Total Bilirubin (0.2-1.3) mg/dL AST (14-36) U/L ALT (4-34) U/L Alkaline Phosphatase (38-126) U/L Total Protein (6.3-8.2) g/dL Albumin (3.5-5.0) g/dL Lipase (23-300) U/L Urine Color Yellow Urine Appearance Cloudy H (Clear) Urine pH 6.0 (5.0-8.0) Ur Specific [place] 1.017 (1.001-1.035) Urine Protein 1+ H (Negative) Urine Glucose (UA) Negative (Negative) Urine Ketones Negative (Negative) Urine Blood Negative (Negative) Urine Nitrite Positive H (Negative) Urine Bilirubin Negative (Negative) Urine Urobilinogen <2.0 (<2.0) mg/dL Ur Leukocyte Esterase Large H (Negative) Urine RBC 3 (0-5) /hpf Urine WBC 54 H (0-5) /hpf Urine WBC Clumps Few H (None) /hpf Ur Squamous Epith Cells <1 (0-4) /hpf Urine Bacteria Many H (None) /hpf Urine Mucus Rare H (None) /hpf Disposition Clinical Impression: Diarrhea, UTI (urinary tract infection) Disposition: HOME SELF-CARE Condition: Stable Instructions (If sedation given, give patient instructions): Urinary Tract Infection in Women (ED) Additional Instructions: Please return to the Emergency Department if symptoms worsen or any other concerns. Please take your antibiotics as prescribed starting tomorrow. Follow-up with your primary care doctor. Prescriptions: Cephalexin [Keflex] 500 mg PO BID 7 Days #14 cap Is patient prescribed a controlled substance at d/c from ED?: No Referrals: Veena Spain DO [Primary Care Provider] - 1-2 days Time of Disposition: 22:59
[2021-07-17 20:39] LABS: Basophils % (A) 1 %; Eosinophils # (A) 0.1 k/uL (0-0.7); Eosinophils % (A) 1 %; HCT 41.4 % (34.0-46.0); HGB 13.4 gm/dL (11.4-16.0); Lymphocytes % (A) 37 %; MCHC 32.4 g/dL (31.0-37.0); MCV 92.7 fL (80.0-100.0); Mean Platelet Volume 9.1; Monocytes # (A) 0.4 k/uL (0-1.0); Monocytes % (A) 8 %; Neutrophils # (A) 2.8 k/uL (1.3-7.7); Neutrophils % (A) 52 %; Platelet Count 199 k/uL (150-450); RBC 4.47 m/uL (3.80-5.40); RDW 14.2 % (11.5-15.5); WBC 5.4 k/uL (3.8-10.6)
[2021-07-17 20:49] LABS: ALT 16 U/L (4-34); AST 24 U/L (14-36); African American GFR (CKD) >90 (>60 ml/min/1.73 sqM); Albumin 3.6 g/dL (3.5-5.0); Alkaline Phosphatase 47 U/L (38-126); Anion Gap 8 mmol/L; Blood Urea Nitrogen 13 mg/dL (7-17); Calcium 8.2 mg/dL (8.4-10.2); Carbon Dioxide 23 mmol/L (22-30); Chloride 112 mmol/L (98-107); Glucose 119 mg/dL (74-99); Lipase 65 U/L (23-300); Non-African American GFR(CKD) >90 (>60 ml/min/1.73 sqM); Potassium 3.4 mmol/L (3.5-5.1); Sodium 143 mmol/L (137-145); Total Bilirubin 0.3 mg/dL (0.2-1.3); Total Protein 6.4 g/dL (6.3-8.2)
--- NOTE | 2021-07-17 21:25 | XR ---
EXAMINATION TYPE: XR KUB UPRIGHT DATE OF EXAM: 07/17/2021 at 8:10 PM CLINICAL HISTORY: Diarrhea, cramping TECHNIQUE: Single upright KUB image of the abdomen is obtained. COMPARISON: None. FINDINGS: Visualized lung bases and pleural spaces are negative for acute findings. Scattered gas is seen in non-distended small bowel loops. Gas and fecal material is seen in non-diste nded colon. There is no visceromegaly, pneumoperitoneum, or abnormal calcification appreciated. IMPRESSION: No acute radiographic process
[2021-07-17 22:01] LABS: Appearance,Urine Cloudy (Clear); Bacteria,Urine Many /hpf; Bilirubin,Urine Negative (Negative); Blood,Urine Negative (Negative); Color,Urine Yellow; Glucose,Urine (UA) Negative (Negative); Ketones,Urine Negative (Negative); Leukocyte Esterase,Urine Large (Negative); Mucus,Urine Rare /hpf; Nitrite,Urine Positive (Negative); Protein,Urine 1+ (Negative); RBC,Urine 3 /hpf (0-5); Specific Gravity,Urine 1.017 (1.001-1.035); Squamous Epithelial Cell,Urine <1 /hpf (0-4); Urobilinogen,Urine <2.0 mg/dL (<2.0); WBC,Urine 54 /hpf (0-5)
[2021-07-17] MEDS ORDERED: cefTRIAXone IN SWFI 1,000 MG/10 ML SYRINGE IVP STA (22:43)
[2021-07-18 02:47] VITALS: BP 155/65; PULSE 62
== END 2021-07-18 02:47 | disposition home or self-care (01) ==
LOC: EC 18:36
DX: R19.7 Diarrhea, unspecified (principal); N39.0 Urinary tract infection, site not specified; E11.40 Type 2 diabetes mellitus with diabetic neuropathy, unspecified; I10 Essential (primary) hypertension; J44.9 Chronic obstructive pulmonary disease, unspecified; K21.9 Gastro-esophageal reflux disease without esophagitis; F17.200 Nicotine dependence, unspecified, uncomplicated; Z82.49 Family history of ischemic heart disease and other diseases of the circulatory system; Z79.84 Long term (current) use of oral hypoglycemic drugs; Z79.82 Long term (current) use of aspirin; Z79.899 Other long term (current) drug therapy; Z88.0 Allergy status to penicillin; Z88.2 Allergy status to sulfonamides
CPT/HCPCS: 36415; 80053; 83605; 83690; 85025; 81001; 87324; 87086; 74018; 96374; 99284; J0696

== ENCOUNTER 2021-07-19 15:05 | Inpatient (IN) | payer MEDICARE ==
[2021-07-19] MEDS ORDERED: ACETAMINOPHEN TAB 500 MG TAB PO STA (15:38)
[2021-07-19] MEDS ORDERED: ONDANSETRON 4 MG/2 ML VIAL IVP STA (15:38)
--- NOTE | 2021-07-19 16:25 | ED ---
SOB HPI - General Chief Complaint: Shortness of Breath Stated Complaint: DANIELA Time Seen by Provider: 07/19/21 15:29 Source: EMS Mode of arrival: EMS Limitations: no limitations - History of Present Illness Initial Comments: Patient is an 81-year-old female with history of COPD, normally on 4 L at home, diabetic, hypertensive, presenting to the emergency department via EMS with complaints of increased shortness of breath at home as well as nausea started a few hours prior to arrival. She states that her recently tested positive for covid. She does not think she's had any fevers. She does admit to some mild lower abdominal pressure/cramping however she was diagnosed with a UTI 2 days ago. She states she did nut picker the antibiotics and has been taking them. She denies any chest pains, she states she's been wheezing a lot and feels more short of breath than usual. She denies any vomiting, she does admit to some mild nausea, she has been having some diarrhea as well, she was checked for C. diff 2 days ago that was negative. She denies any dizziness or lightheadedness. She has no further complaints at this time. Upon arrival to the ER, she is slightly febrile at 99.7, 88% on room air. - Related Data Home Medications Medication Instructions Recorded Confirmed Aspirin EC [Ecotrin Low Dose] 81 mg PO DAILY 05/13/21 07/19/21 amLODIPine [Norvasc] 10 mg PO HS 05/13/21 07/19/21 polyethylene glycoL 3350 [Miralax] 17 gm PO DAILY PRN 05/13/21 07/19/21 lisinopriL 40 mg PO DAILY 05/20/21 07/19/21 Glimepiride [Amaryl] 2 mg PO BID 06/23/21 07/19/21 Isosorbide Dinitrate 10 mg PO BID 06/23/21 07/19/21 hydrALAZINE HCL [Apresoline] 25 mg PO TID 06/23/21 07/19/21 clonazePAM 0.25 mg PO DAILY 07/08/21 07/19/21 clonazePAM [KlonoPIN] 0.5 mg PO HS 07/08/21 07/19/21 Calcium Carb-Vit D 500Mg-5Mcg 1 tab PO BID-W/MEALS 07/19/21 07/19/21 [Oscal 500+D 5 Mcg (200 Iu)] Lidocaine 5% Patch [Lidoderm 5% 1 patch TOPICAL DAILY PRN 07/19/21 07/19/21 Patch] Previous Rx's Medication Instructions Recorded Acetaminophen Tab [Tylenol] 650 mg PO Q6HR PRN tab 06/02/21 Melatonin 3 mg PO HS #30 tablet 06/27/21 Mirtazapine [Remeron] 15 mg PO HS #30 tab 06/27/21 Omeprazole Magnesium [PriLOSEC] 20 mg PO DAILY #30 tab 06/27/21 Sertraline [Zoloft] 150 mg PO DAILY #90 tab 06/27/21 Cephalexin [Keflex] 500 mg PO BID 7 Days #14 cap 07/17/21 Allergies Allergy/AdvReac Type Severity Reaction Status Date / Time doxycycline Allergy Unknown Verified 07/19/21 17:28 Penicillins Allergy Rash/Hives Verified 07/19/21 17:28 nitrofurantoin AdvReac Nausea & Verified 07/19/21 17:28 [From Macrobid] Vomiting & Diarrhea Sulfa (Sulfonamide AdvReac Nausea & Verified 07/19/21 17:28 Antibiotics) Vomiting & Diarrhea Review of Systems ROS Statement: Those systems with pertinent positive or pertinent negative responses have been documented in the HPI. ROS Other: All systems not noted in ROS Statement are negative. Past Medical History Past Medical History: Asthma, Chest Pain / Angina, COPD, Diabetes Mellitus, GERD/Reflux, Hypertension, Pneumonia, Respiratory Disorder, Skin Disorder Additional Past Medical History / Comment(s): Home oxygen at 4L/[place] ATC, bron chitis, NIDDM type II, neuropathy bilateral feet, falls, IBS, diverticular disease, hiatal hernia, chronic low back pain, eczema History of Any Multi-Drug Resistant Organisms: None Reported Past Surgical History: Cholecystectomy, Hysterectomy, Tonsillectomy Additional Past Surgical History / Comment(s): colonoscopy. 12/03/2020 surgery for bowel obstruction at [facility] Past Anesthesia/Blood Transfusion Reactions: No Reported Reaction Additional Past Anesthesia/Blood Transfusion Reaction / Comment(s): Pt states she has never received blood. Past Psychological History: Anxiety, Depression Smoking Status: Current every day smoker, Heavy tobacco smoker Past Alcohol Use History: Rare Past Drug Use History: None Reported - Past Family History Father Family Medical History: Cancer Additional Family Medical History / Comment(s): Father of colon cancer at the age of 54 yrs. Mother Family Medical History: CVA/TIA, Hyperlipidemia, Hypertension Additional Family Medical History / Comment(s): Mother lived to be 96yrs old. General Exam - General Exam Comments Initial Comments: GENERAL: Patient appears disheveled. Patient is nontoxic and in mild distress. HEAD: Atraumatic, normocephalic. EYES: Pupils equal round and reactive to light, extraocular movements intact, sclera anicteric, conjunctiva are normal. Eyelids were unremarkable. ENT: TMs normal, nares patent, oropharynx clear without exudates. Moist mucous membranes. NECK: Normal range of motion, supple without lymphadenopathy or JVD. LUNGS: Mildly labored respirations. Scattered wheezes and crackles throughout. HEART: Regular rate and rhythm without murmurs, rubs or gallops. ABDOMEN: Soft, nontender, normoactive bowel sounds. No guarding, no rebound. No masses appreciated. : Deferred MUSCULOSKELETAL: Normal extremities with adequate strength and normal range of motion, no pitting or edema. No clubbing or cyanosis. NEUROLOGICAL: Patient is alert and oriented x 3. Motor and sensory are also intact. Cranial nerves II through XII grossly intact. Symmetrical smile. Normal speech, normal gait. PSYCH: Normal mood, normal affect. SKIN: Warm, Dry, normal turgor, no rashes or lesions noted. Limitations: no limitations Course Vital Signs 07/19/21 07/19/21 07/19/21 15:18 15:30 19:10 Temperature 99.7 F H Pulse Rate 70 74 Respiratory 18 20 Rate Blood Pressure 148/58 165/82 O2 Sat by Pulse 88 L 97 97 Oximetry Medical Decision Making - Medical Decision Making Patient is an 81-year-old female with multiple, but is including COPD normally on 4 L at home, presenting via EMS with complaints of increased shortness of breath and some mild nausea started today. Her recently tested positive for covid. She was slightly febrile upon arrival at 99.7, 88% on room air. Scattered wheezes and crackles throughout. She is currently on antibiotics secondary to UTI diagnosed 2 days ago. Also complaining of some mild diarrhea, she was sent for C. diff 2 days ago and that was negative. Left facial a normal white count, potassium is low at 3.2, kidney function is stable, lactic acid is normal. LDH is elevated at 634, CRP is 4.4, troponin 0.019. Covid is positive today. Patient will be admitted for Covid hypoxia, COPD exacerbation. I will start her on steroids. Patient except as by Link Alvarez, for Dr. Graham's group. I will consult pulmonology. Patient is agreeable to this. I also gave patient Tylenol for her fever. Case discussed with Dr. Saunders. - Lab Data Result diagrams: 07/19/21 16:22 07/19/21 16:22 Lab Results 07/19/21 07/19/21 07/19/21 Range/Units 16:22 16:22 16:22 WBC 5.8 (3.8-10.6) k/uL RBC 4.33 (3.80-5.40) m/uL Hgb 12.9 (11.4-16.0) gm/dL Hct 39.8 (34.0-46.0) % MCV 92.0 (80.0-100.0) fL MCH 29.7 (25.0-35.0) pg MCHC 32.3 (31.0-37.0) g/dL RDW 14.3 (11.5-15.5) % Plt Count 221 (150-450) k/uL MPV 9.0 Neutrophils % 62 % Lymphocytes % 26 % Monocytes % 9 % Eosinophils % 1 % Basophils % 1 % Neutrophils # 3.6 (1.3-7.7) k/uL Lymphocytes # 1.5 (1.0-4.8) k/uL Monocytes # 0.5 (0-1.0) k/uL Eosinophils # 0.0 (0-0.7) k/uL Basophils # 0.0 (0-0.2) k/uL PT 10.4 (9.0-12.0) sec INR 1.0 (<1.2) APTT 26.1 (22.0-30.0) sec Sodium 144 (137-145) mmol/L Potassium 3.2 L (3.5-5.1) mmol/L Chloride 114 H (98-107) mmol/L Carbon Dioxide 21 L (22-30) mmol/L Anion Gap 9 mmol/L BUN 16 (7-17) mg/dL Creatinine 0.48 L (0.52-1.04) mg/dL Est GFR (CKD-EPI)AfAm >90 (>60 ml/min/1.73 sqM) Est GFR (CKD-EPI)NonAf >90 (>60 ml/min/1.73 sqM) Glucose 132 H (74-99) mg/dL Plasma Lactic Acid Collins (0.7-2.0) mmol/L Calcium 8.1 L (8.4-10.2) mg/dL Magnesium 1.9 (1.6-2.3) mg/dL Total Bilirubin 0.4 (0.2-1.3) mg/dL AST 27 (14-36) U/L ALT 15 (4-34) U/L Alkaline Phosphatase 47 (38-126) U/L Lactate Dehydrogenase 634 H (313-618) U/L Troponin I (0.000-0.034) ng/mL C-Reactive Protein 4.4 H (<1.0) mg/dL NT-Pro-B Natriuret Pep pg/mL Total Protein 6.4 (6.3-8.2) g/dL Albumin 3.6 (3.5-5.0) g/dL Coronavirus (PCR) (Not Detectd) 07/19/21 07/19/21 07/19/21 Range/Units 16:22 16:22 16:22 WBC (3.8-10.6) k/uL RBC (3.80-5.40) m/uL Hgb (11.4-16.0) gm/dL Hct (34.0-46.0) % MCV (80.0-100.0) fL MCH (25.0-35.0) pg MCHC (31.0-37.0) g/dL RDW (11.5-15.5) % Plt Count (150-450) k/uL MPV Neutrophils % % Lymphocytes % % Monocytes % % Eosinophils % % Basophils % % Neutrophils # (1.3-7.7) k/uL Lymphocytes # (1.0-4.8) k/uL Monocytes # (0-1.0) k/uL Eosinophils # (0-0.7) k/uL Basophils # (0-0.2) k/uL PT (9.0-12.0) sec INR (<1.2) APTT (22.0-30.0) sec Sodium (137-145) mmol/L Potassium (3.5-5.1) mmol/L Chloride (98-107) mmol/L Carbon Dioxide (22-30) mmol/L Anion Gap mmol/L BUN (7-17) mg/dL Creatinine (0.52-1.04) mg/dL Est GFR (CKD-EPI)AfAm (>60 ml/min/1.73 sqM) Est GFR (CKD-EPI)NonAf (>60 ml/min/1.73 sqM) Glucose (74-99) mg/dL Plasma Lactic Acid Collins 0.9 (0.7-2.0) mmol/L Calcium (8.4-10.2) mg/dL Magnesium (1.6-2.3) mg/dL Total Bilirubin (0.2-1.3) mg/dL AST (14-36) U/L ALT (4-34) U/L Alkaline Phosphatase (38-126) U/L Lactate Dehydrogenase (313-618) U/L Troponin I 0.019 (0.000-0.034) ng/mL C-Reactive Protein (<1.0) mg/dL NT-Pro-B Natriuret Pep 671 pg/mL Total Protein (6.3-8.2) g/dL Albumin (3.5-5.0) g/dL Coronavirus (PCR) (Not Detectd) 07/19/21 Range/Units 16:22 WBC (3.8-10.6) k/uL RBC (3.80-5.40) m/uL Hgb (11.4-16.0) gm/dL Hct (34.0-46.0) % MCV (80.0-100.0) fL MCH (25.0-35.0) pg MCHC (31.0-37.0) g/dL RDW (11.5-15.5) % Plt Count (150-450) k/uL MPV Neutrophils % % Lymphocytes % % Monocytes % % Eosinophils % % Basophils % % Neutrophils # (1.3-7.7) k/uL Lymphocytes # (1.0-4.8) k/uL Monocytes # (0-1.0) k/uL Eosinophils # (0-0.7) k/uL Basophils # (0-0.2) k/uL PT (9.0-12.0) sec INR (<1.2) APTT (22.0-30.0) sec Sodium (137-145) mmol/L Potassium (3.5-5.1) mmol/L Chloride (98-107) mmol/L Carbon Dioxide (22-30) mmol/L Anion Gap mmol/L BUN (7-17) mg/dL Creatinine (0.52-1.04) mg/dL Est GFR (CKD-EPI)AfAm (>60 ml/min/1.73 sqM) Est GFR (CKD-EPI)NonAf (>60 ml/min/1.73 sqM) Glucose (74-99) mg/dL Plasma Lactic Acid Collins (0.7-2.0) mmol/L Calcium (8.4-10.2) mg/dL Magnesium (1.6-2.3) mg/dL Total Bilirubin (0.2-1.3) mg/dL AST (14-36) U/L ALT (4-34) U/L Alkaline Phosphatase (38-126) U/L Lactate Dehydrogenase (313-618) U/L Troponin I (0.000-0.034) ng/mL C-Reactive Protein (<1.0) mg/dL NT-Pro-B Natriuret Pep pg/mL Total Protein (6.3-8.2) g/dL Albumin (3.5-5.0) g/dL Coronavirus (PCR) Detected A (Not Detectd) - EKG Data EKG Comments: Normal sinus rhythm, RBBB, no signs of acute ST segment elevation. Ventricular rate 61, AR interval 144, QT 474. Similar to previous on 07/08/2021. Disposition Clinical Impression: COVID-19, Hypoxia, COPD exacerbation Disposition: ADMITTED IP TO THIS HOSP Condition: Fair Decision Date: 07/19/21 Decision Time: 18:00
[2021-07-19 16:34] LABS: Basophils % (A) 1 %; Eosinophils % (A) 1 %; HCT 39.8 % (34.0-46.0); HGB 12.9 gm/dL (11.4-16.0); Lymphocytes # (A) 1.5 k/uL (1.0-4.8); Lymphocytes % (A) 26 %; MCH 29.7 pg (25.0-35.0); MCHC 32.3 g/dL (31.0-37.0); Monocytes # (A) 0.5 k/uL (0-1.0); Monocytes % (A) 9 %; Neutrophils # (A) 3.6 k/uL (1.3-7.7); Neutrophils % (A) 62 %; Platelet Count 221 k/uL (150-450); RBC 4.33 m/uL (3.80-5.40); RDW 14.3 % (11.5-15.5); WBC 5.8 k/uL (3.8-10.6)
[2021-07-19 16:47] LABS: ALT 15 U/L (4-34); AST 27 U/L (14-36); African American GFR (CKD) >90 (>60 ml/min/1.73 sqM); Albumin 3.6 g/dL (3.5-5.0); Alkaline Phosphatase 47 U/L (38-126); Anion Gap 9 mmol/L; Blood Urea Nitrogen 16 mg/dL (7-17); C Reactive Protein 4.4 mg/dL (<1.0); Calcium 8.1 mg/dL (8.4-10.2); Carbon Dioxide 21 mmol/L (22-30); Chloride 114 mmol/L (98-107); Glucose 132 mg/dL (74-99); LDH 634 U/L (313-618); Magnesium 1.9 mg/dL (1.6-2.3); Non-African American GFR(CKD) >90 (>60 ml/min/1.73 sqM); Potassium 3.2 mmol/L (3.5-5.1); Sodium 144 mmol/L (137-145); Total Bilirubin 0.4 mg/dL (0.2-1.3); Total Protein 6.4 g/dL (6.3-8.2)
--- NOTE | 2021-07-19 16:59 | XR ---
EXAMINATION TYPE: XR chest 1V portable DATE OF EXAM: 07/19/2021 COMPARISON: 07/08/2021 HISTORY: Chest pain TECHNIQUE: Single view FINDINGS: There is no heart failure nor confluent pneumonic infiltrate. Costophrenic angles are fairl y clear. There are chest leads. There are no hilar masses. There is some mild reticular infiltrate in the right midlung and also above the left pulmonary hilum. There is no pleural effusion. IMPRESSION: There are new minimal bilateral infiltrates as above compared to old exam. No heart failu re.
[2021-07-19 17:20] LABS: Partial Thromboplastin Time 26.1 sec (22.0-30.0); Prothrombin Time 10.4 sec (9.0-12.0)
[2021-07-19] MEDS ORDERED: ONDANSETRON 4 MG/2 ML VIAL IVP PRN (17:58)
[2021-07-19] MEDS: DEXAMETHASONE SOD PHOSPHATE 10 MG/ML 1 ML VIAL IV SCH (18:52)
[2021-07-19] MEDS: SODIUM CHLORIDE 0.9% 1,000 ML IV SCH (18:52)
[2021-07-19 21:06] LABS: Glucose,Whole Blood 112 mg/dL (75-99)
[2021-07-19] MEDS: INSULIN ASPART (NovoLOG) 100 UNIT/ML VIAL SQ SCH (21:09)
[2021-07-19] MEDS ORDERED: Potassium Replacement Protocol 1 EACH MISC MISCELLANE PRN (21:34)
[2021-07-19] MEDS: POTASSIUM CHLORIDE ER 20 MEQ TAB.ER PO SCH (23:03)
[2021-07-20] MEDS: POTASSIUM CHLORIDE ER 20 MEQ TAB.ER PO SCH (01:10)
[2021-07-20 03:40] LABS: ALT 13 U/L (4-34); AST 27 U/L (14-36); African American GFR (CKD) >90 (>60 ml/min/1.73 sqM); Albumin 3.1 g/dL (3.5-5.0); Albumin/Globulin Ratio 1.1; Alkaline Phosphatase 33 U/L (38-126); Anion Gap 9 mmol/L; Blood Urea Nitrogen 18 mg/dL (7-17); Calcium 7.6 mg/dL (8.4-10.2); Carbon Dioxide 17 mmol/L (22-30); Chloride 115 mmol/L (98-107); Globulin 2.7 g/dL; Glucose 271 mg/dL (74-99); Non-African American GFR(CKD) >90 (>60 ml/min/1.73 sqM); Potassium 4.1 mmol/L (3.5-5.1); Sodium 141 mmol/L (137-145); Total Bilirubin 0.4 mg/dL (0.2-1.3); Total Protein 5.8 g/dL (6.3-8.2)
[2021-07-20 07:03] LABS: Glucose,Whole Blood 186 mg/dL (75-99)
[2021-07-20] MEDS: DEXAMETHASONE SOD PHOSPHATE 10 MG/ML 1 ML VIAL IV SCH (08:09)
[2021-07-20] MEDS: INSULIN ASPART (NovoLOG) 100 UNIT/ML VIAL SQ SCH ×4 (08:09→21:24)
[2021-07-20] MEDS: SODIUM CHLORIDE 0.9% 1,000 ML IV SCH ×2 (08:15→21:26)
[2021-07-20] MEDS: GLIMEPIRIDE 2 MG TAB PO SCH (08:47)
[2021-07-20] MEDS: ACETAMINOPHEN TAB 325 MG TAB PO PRN ×2 (08:47→21:44)
[2021-07-20] MEDS ORDERED: polyethylene glycoL 3350 17 GM POWD.PACK PO PRN (09:33)
[2021-07-20] MEDS ORDERED: ACETAMINOPHEN TAB 325 MG TAB PO PRN (09:33)
[2021-07-20] MEDS: SERTRALINE 50 MG TAB PO SCH (10:04)
[2021-07-20] MEDS: PANTOPRAZOLE 40 MG TABLET PO SCH (10:04)
[2021-07-20] MEDS: lisinopriL 20 MG TAB PO SCH (10:04)
[2021-07-20] MEDS: ISOSORBIDE DINITRATE 10 MG TAB PO SCH ×2 (10:08→21:26)
[2021-07-20 11:11] LABS: Glucose,Whole Blood 178 mg/dL (75-99)
[2021-07-20] MEDS ORDERED: REMDESIVIR 200 MG in SODIUM CHLORIDE 0.9% 250 ML IVPB ONE (12:00)
[2021-07-20] MEDS: ALBUTEROL HFA INHALER INHALATION SCH ×3 (12:06→21:44)
[2021-07-20] MEDS: NICOTINE 14MG/24HR PATCH TRANSDERM SCH (12:11)
[2021-07-20] MEDS: methylPREDNISolone SOD SUCCI 125 MG/2 ML VIAL IV SCH ×2 (12:11→18:11)
--- NOTE | 2021-07-20 12:26 | P.CNPUL ---
History of Present Illness Consult date: 07/20/21 Requesting physician: Delmer Graham Reason for consult: dyspnea, hypoxemia, abnormal CXR/CT Chief complaint: Shortness of breath History of present illness: This is an 81-year-old female patient who follows with Dr. Ny as her primary care provider. She has a history of oxygen dependent chronic obstructive pulmonary disease normally on oxygen at 4-5 L at home, diabetes mellitus, hypertension and gastroesophageal reflux disease, diabetic neuropathy, irritable bowel syndrome, chronic and ongoing tobacco dependence. She was just discharged from here on July 10 following a episode of chest pain cardiac disease was ruled out. He was in the emergency room 2 days ago with symptoms of urinary tract infection and discharged home. She had not picked up her antibiotics. She presented here yesterday with complaints of increasing shortness of breath cough and congested. Her recently tested positive for COVID-19. She is found to be COVID-19 positive as well. Unvaccinated. White count 5.8. Hemoglobin 12.9. Lymphocytes 1.5. Sodium 141 potassium 4.1. Bicarb 17. Creatinine 0.43. Glucose 186. LDH 634. C-reactive protein 4.4. Chest x-ray does show new minimal bilateral infiltrates compared to previous on 07/08/2021. She is seen today in consultation on the regular medical floor. She is awake and alert. Very hard of hearing. Denies any worsening shortness of breath at this time. Maintaining O2 saturations in the 90s on 3 L/m per nasal cannula. Afebrile. Hemodynamically stable. Review of Systems REVIEW OF SYSTEMS: CONSTITUTIONAL: Denies any recent significant weight loss or weight gain. EYES: Denies change in vision. EARS, NOSE, MOUTH, THROAT: Denies headaches, denies sore throat. CARDIOVASCULAR: Denies chest pain, palpitations or syncopal episodes. RESPIRATORY: Positive for shortness of breath, cough, congestion no hemoptysis. GASTROINTESTINAL: Denies change in appetite, denies abdominal pain GENITOURINARY: Denies hematuria, denies infections. MUSKULOSKELETAL: Denies pain, denies swelling. INTEGUMENTARY: Denies rash, denies eczema. NEUROLOGICAL: Denies recent memory loss, no recent seizure activity. PSYCHIATRIC: Denies anxiety, denies depression. HEMATOLOGIC/LYMPHATIC: Denies anemia, denies enlarged lymph nodes. Past Medical History Past Medical History: Asthma, Chest Pain / Angina, COPD, Diabetes Mellitus, GERD/Reflux, Hypertension, Pneumonia, Respiratory Disorder, Skin Disorder Additional Past Medical History / Comment(s): Home oxygen at 4L/[place] ATC, bronchitis, NIDDM type II, neuropathy bilateral feet, falls, IBS, diverticular disease, hiatal hernia, chronic low back pain, eczema History of Any Multi-Drug Resistant Organisms: None Reported Past Surgical History: Cholecystectomy, Hysterectomy, Tonsillectomy Additional Past Surgical History / Comment(s): colonoscopy. 12/03/2020 surgery for bowel obstruction at [facility] Past Anesthesia/Blood Transfusion Reactions: No Reported Reaction Additional Past Anesthesia/Blood Transfusion Reaction / Comment(s): Pt states she has never received blood. Past Psychological History: Anxiety, Depression Smoking Status: Current every day smoker, Heavy tobacco smoker Past Alcohol Use History: Rare Past Drug Use History: None Reported - Past Family History Father Family Medical History: Cancer Additional Family Medical History / Comment(s): Father of colon cancer at the age of 54 yrs. Mother Family Medical History: CVA/TIA, Hyperlipidemia, Hypertension Additional Family Medical History / Comment(s): Mother lived to be 96yrs old. Medications and Allergies Home Medications Medication Instructions Recorded Confirmed Type Aspirin EC [Ecotrin Low Dose] 81 mg PO DAILY 05/13/21 07/19/21 History amLODIPine [Norvasc] 10 mg PO HS 05/13/21 07/19/21 History polyethylene glycoL 3350 [Miralax] 17 gm PO DAILY PRN 05/13/21 07/19/21 History lisinopriL 40 mg PO DAILY 05/20/21 07/19/21 History Acetaminophen Tab [Tylenol] 650 mg PO Q6HR PRN tab 06/02/21 07/19/21 Rx Glimepiride [Amaryl] 2 mg PO BID 06/23/21 07/19/21 History Isosorbide Dinitrate 10 mg PO BID 06/23/21 07/19/21 History hydrALAZINE HCL [Apresoline] 25 mg PO TID 06/23/21 07/19/21 History Melatonin 3 mg PO HS #30 tablet 06/27/21 07/19/21 Rx Mirtazapine [Remeron] 15 mg PO HS #30 tab 06/27/21 07/19/21 Rx Omeprazole Magnesium [PriLOSEC] 20 mg PO DAILY #30 tab 06/27/21 07/19/21 Rx Sertraline [Zoloft] 150 mg PO DAILY #90 tab 06/27/21 07/19/21 Rx clonazePAM 0.25 mg PO DAILY 07/08/21 07/19/21 History clonazePAM [KlonoPIN] 0.5 mg PO HS 07/08/21 07/19/21 History Cephalexin [Keflex] 500 mg PO BID 7 Days #14 cap 07/17/21 07/19/21 Rx Calcium Carb-Vit D 500Mg-5Mcg 1 tab PO BID-W/MEALS 07/19/21 07/19/21 History [Oscal 500+D 5 Mcg (200 Iu)] Lidocaine 5% Patch [Lidoderm 5% 1 patch TOPICAL DAILY PRN 07/19/21 07/19/21 History Patch] Allergies Allergy/AdvReac Type Severity Reaction Status Date / Time doxycycline Allergy Unknown Verified 07/19/21 17:28 Penicillins Allergy Rash/Hives Verified 07/19/21 17:28 nitrofurantoin AdvReac Nausea & Verified 07/19/21 17:28 [From Macrobid] Vomiting & Diarrhea Sulfa (Sulfonamide AdvReac Nausea & Verified 07/19/21 17:28 Antibiotics) Vomiting & Diarrhea Physical Exam Vitals: Vital Signs Temp Pulse Pulse Resp BP BP Pulse Ox 07/20/21 06:20 97.4 F L 57 L 18 166/52 96 07/20/21 03:03 98.2 F 56 L 19 141/87 92 L 07/19/21 22:04 98.2 F 66 18 154/67 90 L 07/19/21 19:55 98.1 F 60 19 150/63 91 L 07/19/21 19:10 74 20 165/82 97 07/19/21 15:30 97 07/19/21 15:18 99.7 F H 70 18 148/58 88 L Intake and Output 07/19/21 07/20/21 07/20/21 22:59 06:59 14:59 Other: Voiding Method Diaper Bedside Commode Incontinent Diaper Weight 54.431 kg GENERAL EXAM: Alert, very hard of hearing 81-year-old female patient, on 3 L nasal cannula, fairly comfortable in no apparent distress. HEAD: Normocephalic. EYES: Normal reaction of pupils, equal size. NOSE: Clear with pink turbinates. THROAT: No erythema or exudates. NECK: No masses, no JVD. CHEST: No chest wall deformity. LUNGS: Equal air entry with crackles in the posterior bases, end extremity wheezing, diminished. CVS: S1 and S2 normal with no audible murmur, regular rhythm. ABDOMEN: No hepatosplenomegaly, normal bowel sounds, no guarding or rigidity. SPINE: No scoliosis or deformity SKIN: No rashes CENTRAL NERVOUS SYSTEM: No focal deficits, tone is normal in all 4 extremities. EXTREMITIES: There is no peripheral edema. No clubbing, no cyanosis. Periphe ral pulses are intact. Results - Laboratory Findings CBC and BMP: 07/19/21 16:22 07/20/21 02:40 PT/INR, D-dimer PT 10.4 sec (9.0-12.0) 07/19/21 16: INR 1.0 (<1.2) 07/19/21 16:22 Abnormal lab findings: Abnormal Labs 07/19/21 07/19/21 07/19/21 16:22 16:22 21:05 Potassium 3.2 L Chloride 114 H Carbon Dioxide 21 L BUN Creatinine 0.48 L Glucose 132 H POC Glucose (mg/dL) 112 H Calcium 8.1 L Alkaline Phosphatase Lactate Dehydrogenase 634 H C-Reactive Protein 4.4 H Total Protein Albumin Coronavirus (PCR) Detected A 07/20/21 07/20/21 07/20/21 02:40 07:00 11:09 Potassium Chloride 115 H Carbon Dioxide 17 L BUN 18 H Creatinine 0.43 L Glucose 271 H POC Glucose (mg/dL) 186 H 178 H Calcium 7.6 L Alkaline Phosphatase 33 L Lactate Dehydrogenase C-Reactive Protein Total Protein 5.8 L Albumin 3.1 L Coronavirus (PCR) - Diagnostic Findings Chest x-ray: image reviewed Assessment and Plan Assessment: 1 Acute on chronic hypoxemic respiratory failure secondary to COVID-19 pneumonia in addition to COPD exacerbation 2 Acute exacerbation of chronic obstructive pulmonary disease, oxygen dependent 3 Recent admission for chest pain, cardiac disease ruled out 4 Chronic and ongoing tobacco dependence of greater than 50 years 5 Recent urinary tract infection 6 Hypertension 7 Diabetes mellitus 8 Diabetic neuropathy 9 Anxiety/depression 10 Gastroesophageal reflux disease 11 Irritable bowel syndrome with previous bowel surgery Plan: The patient was seen and evaluated by Dr. Romo Initiate Remdesivir Discontinue Decadron, start IV segmental 6 mg every 6 hours Initiate Symbicort, albuterol Initiate Lovenox will obtain a d-dimer Obtain a pro-calcitonin Educated regarding importance of complete smoking cessation Initiate NicoDerm Titrate the FiO2 as tolerated Follow-up chest x-ray in a.m. Follow-up inflammatory markers in a.m. We will continue to follow and make further recommendations based on her clinica l status I, the cosigning physician, performed a history & physical examination of the patient. Lungs sounds with crackles in the posterior bases, bilateral end expiratory wheeze, diminished. Maintaining good O2 saturations in the 90s on 2 L/m per nasal cannula. I discussed the assessment and plan of care with my nurse practitioner, Karen Barahona. I attest to the above consultation as dictated by her. Time with Patient: Greater than 30
[2021-07-20] MEDS ORDERED: IPRATROPIUM 0.5 MG/2.5 ML NEBU INHALATION SCH (13:00)
[2021-07-20] MEDS: ENOXAPARIN 40 MG/0.4 ML SYRINGE SQ SCH (13:03)
[2021-07-20] MEDS: ZINC SULFATE 220 MG CAP PO SCH (13:03)
[2021-07-20] MEDS: CHOLECALCIFEROL 25 MCG (1000 IU) TABLET PO SCH (13:03)
[2021-07-20] MEDS: ASCORBIC ACID 500 MG TAB PO SCH (13:03)
[2021-07-20] MEDS: traMADol-ACETAMINOP 37.5-325MG 1 EACH TAB PO PRN ×2 (13:04→16:48)
[2021-07-20] MEDS: hydrALAZINE HCL 25 MG TAB PO SCH ×2 (15:44→21:26)
[2021-07-20 16:57] LABS: Glucose,Whole Blood 239 mg/dL (75-99)
[2021-07-20] MEDS: CALCIUM CARB-VIT D 500 MG-5 MCG TAB PO SCH (17:05)
[2021-07-20 19:29] LABS: Hemoglobin A1C 7.5 % (4.0-6.0)
--- NOTE | 2021-07-20 19:31 | P.HPIM ---
History of Present Illness H&P Date: 07/20/21 Chief Complaint: Shortness of Breath 81-year-old female with history of COPD, normally on 4 L at home, diabetic, hypertensive, presenting to the emergency department via EMS with complaints of increased shortness of breath at home as well as nausea started a few hours prior to arrival. She states that her recently tested positive for covid. She does not think she's had any fevers. She does admit to some mild lower abdominal pressure/cramping however she was diagnosed with a UTI 2 days ago. 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 She denies any chest pains, she states she's been wheezing a lot and feels more short of breath than usual. She denies any vomiting, she does admit to some mild nausea, she has been having some diarrhea as well, she was checked for C. diff 2 days ago that was negative. She denies any dizziness or lightheadedness. She has no further complaints at this time. Upon arrival to the ER, she is slightly febrile at 99.7, 88% on room air. Her recently tested positive for COVID-19. She is found to be COVID-19 positive as well. Unvaccinated. White count 5.8. Hemoglobin 12.9. Lymphocytes 1.5. Sodium 141 potassium 4.1. Bicarb 17. Creatinine 0.43. Glucose 186. LDH 634. C-reactive protein 4.4. Chest x-ray does show new minimal bilateral infiltrates compared to previous on 07/08/2021. She is seen today in consultation on the regular medical floor. She is awake and alert. Very hard of hearing. Denies any worsening shortness of breath at this time. Maintaining O2 saturations in the 90s on 3 L/m per nasal cannula. Afebrile. Hemodynamically stable. Review of Systems CONSTITUTIONAL: Denies any recent significant weight loss or weight gain. EYES: Denies change in vision. EARS, NOSE, MOUTH, THROAT: Denies headaches, denies sore throat. CARDIOVASCULAR: Denies chest pain, palpitations or syncopal episodes. RESPIRATORY: Positive for shortness of breath, cough, congestion no hemoptysis. GASTROINTESTINAL: Denies change in appetite, denies abdominal pain GENITOURINARY: Denies hematuria, denies infections. MUSKULOSKELETAL: Denies pain, denies swelling. INTEGUMENTARY: Denies rash, denies eczema. NEUROLOGICAL: Denies recent memory loss, no recent seizure activity. PSYCHIATRIC: Denies anxiety, denies depression. HEMATOLOGIC/LYMPHATIC: Denies anemia, denies enlarged lymph nodes. Past Medical History Past Medical History: Asthma, Chest Pain / Angina, COPD, Diabetes Mellitus, GERD/Reflux, Hypertension, Pneumonia, Respiratory Disorder, Skin Disorder Additional Past Medical History / Comment(s): Home oxygen at 4L/NC ATC, bronchitis, NIDDM type II, neuropathy bilateral feet, falls, IBS, diverticular disease, hiatal hernia, chronic low back pain, eczema History of Any Multi-Drug Resistant Organisms: None Reported Past Surgical History: Cholecystectomy, Hysterectomy, Tonsillectomy Additional Past Surgical History / Comment(s): colonoscopy. 12/03/2020 surgery for bowel obstruction at [facility] Past Anesthesia/Blood Transfusion Reactions: No Reported Reaction Additional Past Anesthesia/Blood Transfusion Reaction / Comment(s): Pt states she has never received blood. Past Psychological History: Anxiety, Depression Smoking Status: Current every day smoker, Heavy tobacco smoker Past Alcohol Use History: Rare Past Drug Use History: None Reported - Past Family History Father Family Medical History: Cancer Additional Family Medical History / Comment(s): Father of colon cancer at the age of 54 yrs. Mother Family Medical History: CVA/TIA, Hyperlipidemia, Hypertension Additional Family Medical History / Comment(s): Mother lived to be 96yrs old. Medications and Allergies Home Medications Medication Instructions Recorded Confirmed Type Aspirin EC [Ecotrin Low Dose] 81 mg PO DAILY 05/13/21 07/19/21 History amLODIPine [Norvasc] 10 mg PO HS 05/13/21 07/19/21 History polyethylene glycoL 3350 [Miralax] 17 gm PO DAILY PRN 05/13/21 07/19/21 History lisinopriL 40 mg PO DAILY 05/20/21 07/19/21 History Acetaminophen Tab [Tylenol] 650 mg PO Q6HR PRN tab 06/02/21 07/19/21 Rx Glimepiride [Amaryl] 2 mg PO BID 06/23/21 07/19/21 History Isosorbide Dinitrate 10 mg PO BID 06/23/21 07/19/21 History hydrALAZINE HCL [Apresoline] 25 mg PO TID 06/23/21 07/19/21 History Melatonin 3 mg PO HS #30 tablet 06/27/21 07/19/21 Rx Mirtazapine [Remeron] 15 mg PO HS #30 tab 06/27/21 07/19/21 Rx Omeprazole Magnesium [PriLOSEC] 20 mg PO DAILY #30 tab 06/27/21 07/19/21 Rx Sertraline [Zoloft] 150 mg PO DAILY #90 tab 06/27/21 07/19/21 Rx clonazePAM 0.25 mg PO DAILY 07/08/21 07/19/21 History clonazePAM [KlonoPIN] 0.5 mg PO HS 07/08/21 07/19/21 History Cephalexin [Keflex] 500 mg PO BID 7 Days #14 cap 07/17/21 07/19/21 Rx Calcium Carb-Vit D 500Mg-5Mcg 1 tab PO BID-W/MEALS 07/19/21 07/19/21 History [Oscal 500+D 5 Mcg (200 Iu)] Lidocaine 5% Patch [Lidoderm 5% 1 patch TOPICAL DAILY PRN 07/19/21 07/19/21 History Patch] Allergies Allergy/AdvReac Type Severity Reaction Status Date / Time doxycycline Allergy Unknown Verified 07/19/21 17:28 Penicillins Allergy Rash/Hives Verified 07/19/21 17:28 nitrofurantoin AdvReac Nausea & Verified 07/19/21 17:28 [From Macrobid] Vomiting & Diarrhea Sulfa (Sulfonamide AdvReac Nausea & Verified 07/19/21 17:28 Antibiotics) Vomiting & Diarrhea Physical Exam Vitals: Vital Signs Temp Pulse Pulse Resp BP BP Pulse Ox 07/20/21 06:20 97.4 F L 57 L 18 166/52 96 07/20/21 03:03 98.2 F 56 L 19 141/87 92 L 07/19/21 22:04 98.2 F 66 18 154/67 90 L 07/19/21 19:55 98.1 F 60 19 150/63 91 L 07/19/21 19:10 74 20 165/82 97 07/19/21 15:30 97 07/19/21 15:18 99.7 F H 70 18 148/58 88 L Intake and Output 07/19/21 07/20/21 07/20/21 22:59 06:59 14:59 Other: Voiding Method Diaper Bedside Commode Incontinent Diaper Weight 54.431 kg Results CBC & Chem 7: 07/19/21 16:22 07/20/21 02:40 Labs: Abnormal Lab Results - Last 24 Hours (Table) 07/19/21 07/19/21 07/19/21 Range/Units 16:22 16:22 21:05 Potassium 3.2 L (3.5-5.1) mmol/L Chloride 114 H (98-107) mmol/L Carbon Dioxide 21 L (22-30) mmol/L BUN (7-17) mg/dL Creatinine 0.48 L (0.52-1.04) mg/dL Glucose 132 H (74-99) mg/dL POC Glucose (mg/dL) 112 H (75-99) mg/dL Calcium 8.1 L (8.4-10.2) mg/dL Alkaline Phosphatase (38-126) U/L Lactate Dehydrogenase 634 H (313-618) U/L C-Reactive Protein 4.4 H (<1.0) mg/dL Total Protein (6.3-8.2) g/dL Albumin (3.5-5.0) g/dL Coronavirus (PCR) Detected A (Not Detectd) 07/20/21 07/20/21 07/20/21 Range/Units 02:40 07:00 11:09 Potassium (3.5-5.1) mmol/L Chloride 115 H (98-107) mmol/L Carbon Dioxide 17 L (22-30) mmol/L BUN 18 H (7-17) mg/dL Creatinine 0.43 L (0.52-1.04) mg/dL Glucose 271 H (74-99) mg/dL POC Glucose (mg/dL) 186 H 178 H (75-99) mg/dL Calcium 7.6 L (8.4-10.2) mg/dL Alkaline Phosphatase 33 L (38-126) U/L Lactate Dehydrogenase (313-618) U/L C-Reactive Protein (<1.0) mg/dL Total Protein 5.8 L (6.3-8.2) g/dL Albumin 3.1 L (3.5-5.0) g/dL Coronavirus (PCR) (Not Detectd) Thrombosis Risk Factor Assmnt - Choose All That Apply Each Risk Factor Represents 3 Points: Age 75 years or older Thrombosis Risk Factor Assessment Total Risk Factor Score: 3 Thrombosis Risk Factor Assessment Level: Moderate Risk Assessment and Plan Assessment: 1. Acute on chronic hypoxemic respiratory failure secondary to COVID-19 pneumonia in addition to COPD exacerbation - Patient has been evaluated by pulmonary service and has been started on trend as severe, IV Decadron 6 mg, IV Solu-Medrol 60 mg every 6 hours, Symbicort and albuterol inhaler, subcu Lovenox; further workup with d-dimer and pro-calcitonin has been ordered - Continue with above regimen with plans to follow-up on chest x-ray and inflammatory markers 2. Acute exacerbation of chronic obstructive pulmonary disease, oxygen dependent - Continue with oxygen per nasal cannula and titrate as needed; Solu-Medrol 60 mg IV every 6 hours; Symbicort and albuterol inhalers 3. Hypertension; amlodipine 10 mg daily along with lisinopril 40 mg daily, hydralazine 25 mg 3 times a day and Isordil 10 mg twice a day 4. Diabetes mellitus2; continue with home dose of glimepiride and metformin; monitor Accu-Cheks before meals and at bedtime with insulin sliding scale 5. History of coronary artery disease; Isordil 10 mg twice a day 6. Anxiety/depression; Zoloft 150 mg daily and Remeron 15 mg by mouth daily at bedtime 7. Tobacco abuse; nicotine patch DVT prophylaxis; SCDs/subcu Lovenox CODE STATUS; full code
[2021-07-20 21:01] LABS: Glucose,Whole Blood 277 mg/dL (75-99)
[2021-07-20] MEDS: MELATONIN 3 MG TABLET PO SCH (21:25)
[2021-07-20] MEDS: clonazePAM 0.5 MG TAB PO SCH (21:25)
[2021-07-20] MEDS: MIRTAZAPINE 15 MG TAB PO SCH (21:25)
[2021-07-20] MEDS: amLODIPine 10 MG TAB PO SCH (21:26)
[2021-07-20] MEDS: SYMBICORT 160-4.5 MCG INHALER INHALATION SCH (21:45)
[2021-07-21] MEDS: methylPREDNISolone SOD SUCCI 125 MG/2 ML VIAL IV SCH ×5 (01:02→23:31)
[2021-07-21 08:18] LABS: Glucose,Whole Blood 268 mg/dL (75-99)
[2021-07-21] MEDS: SYMBICORT 160-4.5 MCG INHALER INHALATION SCH ×2 (08:36→21:51)
[2021-07-21] MEDS: ALBUTEROL HFA INHALER INHALATION SCH ×4 (08:36→21:51)
[2021-07-21] MEDS: SERTRALINE 50 MG TAB PO SCH (09:36)
[2021-07-21] MEDS: lisinopriL 20 MG TAB PO SCH (09:36)
[2021-07-21] MEDS: clonazePAM 0.5 MG TAB PO SCH ×2 (09:37→20:34)
[2021-07-21] MEDS: PANTOPRAZOLE 40 MG TABLET PO SCH (09:37)
[2021-07-21] MEDS: GLIMEPIRIDE 2 MG TAB PO SCH (09:37)
[2021-07-21] MEDS: ASCORBIC ACID 500 MG TAB PO SCH (09:37)
[2021-07-21] MEDS: hydrALAZINE HCL 25 MG TAB PO SCH ×3 (09:38→20:34)
[2021-07-21] MEDS: CALCIUM CARB-VIT D 500 MG-5 MCG TAB PO SCH ×2 (09:38→17:54)
[2021-07-21] MEDS: ZINC SULFATE 220 MG CAP PO SCH (09:38)
[2021-07-21] MEDS: NICOTINE 14MG/24HR PATCH TRANSDERM SCH (09:38)
[2021-07-21] MEDS: ASPIRIN 81 MG PO SCH (09:38)
[2021-07-21] MEDS: CHOLECALCIFEROL 25 MCG (1000 IU) TABLET PO SCH (09:38)
[2021-07-21] MEDS: ENOXAPARIN 40 MG/0.4 ML SYRINGE SQ SCH (09:39)
[2021-07-21] MEDS: INSULIN ASPART (NovoLOG) 100 UNIT/ML VIAL SQ SCH ×4 (09:39→21:29)
[2021-07-21] MEDS: ISOSORBIDE DINITRATE 10 MG TAB PO SCH ×2 (09:42→20:34)
[2021-07-21] MEDS: SODIUM CHLORIDE 0.9% 1,000 ML IV SCH ×2 (09:43→23:32)
[2021-07-21 09:59] LABS: Basophils % (A) 0 %; Eosinophils % (A) 0 %; HCT 39.6 % (34.0-46.0); HGB 12.5 gm/dL (11.4-16.0); Hypochromasia Slight; Lymphocytes # (A) 1.2 k/uL (1.0-4.8); Lymphocytes % (A) 18 %; MCH 29.7 pg (25.0-35.0); MCHC 31.5 g/dL (31.0-37.0); MCV 94.5 fL (80.0-100.0); Mean Platelet Volume 10.1; Monocytes # (A) 0.5 k/uL (0-1.0); Monocytes % (A) 7 %; Neutrophils # (A) 4.7 k/uL (1.3-7.7); Neutrophils % (A) 72 %; Platelet Count 232 k/uL (150-450); RBC 4.19 m/uL (3.80-5.40); RDW 14.4 % (11.5-15.5); WBC 6.5 k/uL (3.8-10.6)
[2021-07-21 10:14] LABS: African American GFR (CKD) >90 (>60 ml/min/1.73 sqM); Anion Gap 4 mmol/L; Blood Urea Nitrogen 21 mg/dL (7-17); Carbon Dioxide 23 mmol/L (22-30); Chloride 115 mmol/L (98-107); Glucose 308 mg/dL (74-99); Magnesium 1.9 mg/dL (1.6-2.3); Non-African American GFR(CKD) >90 (>60 ml/min/1.73 sqM); Sodium 142 mmol/L (137-145)
[2021-07-21 10:55] LABS: C Reactive Protein 1.4 mg/dL (0.0-0.8)
[2021-07-21 12:11] LABS: Glucose,Whole Blood 330 mg/dL (75-99)
[2021-07-21] MEDS: REMDESIVIR 100 MG in SODIUM CHLORIDE 0.9% 250 ML IVPB SCH (12:59)
--- NOTE | 2021-07-21 14:14 | P.PN ---
Subjective Progress Note Date: 07/21/21 Principal diagnosis: Coronavirus infection/pneumonia. This is an 81-year-old female patient who follows with Dr. Ny as her primary care provider. She has a history of oxygen dependent chronic obstructive pulmonary disease normally on oxygen at 4-5 L at home, diabetes mellitus, hypertension and gastroesophageal reflux disease, diabetic neuropathy, irritable bowel syndrome, chronic and ongoing tobacco dependence. She was just discharged from here on July 10 following a episode of chest pain cardiac disease was ruled out. He was in the emergency room 2 days ago with symptoms of urinary tract infection and discharged home. She had not picked up her antibiotics. She presented here yesterday with complaints of increasing shortness of breath cough and congested. Her recently tested positive for COVID-19. She is found to be COVID-19 positive as well. Unvaccinated. White count 5.8. Hemoglobin 12.9. Lymphocytes 1.5. Sodium 141 potassium 4.1. Bicarb 17. Creatinine 0.43. Glucose 186. LDH 634. C-reactive protein 4.4. Chest x-ray does show new minimal bilateral infiltrates compared to previous on 07/08/2021. She is seen today in consultation on the regular medical floor. She is awake and alert. Very hard of hearing. Denies any worsening shortness of breath at this time. Maintaining O2 saturations in the 90s on 3 L/m per nasal cannula. Afebrile. Hemodynamically stable. Progress note dated 07/21/2021. 81-year-old female sees a family doctor out in [place], [place]. The patient has a history of severe oxygen-dependent COPD. She uses about 4 L at home on a regular and chronic basis. She also has a history of diabetes mellitus, hypertension, gastroesophageal reflux disease, diabetic neuropathy, irritable bowel syndrome, and ongoing tobacco dependence. She also has a history of deafness. She came into the emergency department with complaints of shortness of breath and chest congestion. She also recently was in the emergency room for a urinary tract infection. She was discharged home on some oral medications but apparently never picked up the medication from the pharmacy. The patient's primary complaints include shortness of breath chest congestion and chest tightness. She denies any urinary complaints. The patient was started on REM by our nurse practitioner yesterday. White count 6.5, hemoglobin 12.5, h ematocrit 39.6, and platelet count 232,000. D-dimer was 0.43. Sodium 142, potassium 4, chlorides 1:15, CO2 23, anion gap 4, BUN 21, creatinine 0.48. Chest x-ray was mostly unimpressive. Objective - Vital Signs Vital signs: Vital Signs Temp 97.4 F L 07/21/21 10:00 Pulse 82 07/21/21 10:00 Resp 14 07/21/21 10:00 BP 148/52 07/21/21 10:00 Pulse Ox 92 L 07/21/21 10:00 Intake & Output 07/20/21 07/21/21 07/21/21 18:59 06:59 18:59 Other: Voiding Method Bedside Commode Bedside Commode Incontinent Diaper Diaper External Catheter External Catheter # Voids 1 2 - Exam No acute distress, oriented 3. Currently on 3 L nasal cannula. Saturations are in the low 90s. No use of accessory muscles. HEENT examination is grossly unremarkable. Neck supple. Full range of motion. No adenopathy thyromegaly or neck vein distention. Cardiovascular examination reveals regular rhythm rate. S1-S2 normal. No S3 or S4. No discernible murmur noted. Heart sounds are distant. Heart rate 82 bpm. Lungs reveal scattered expiratory rhonchi and expiratory wheezes. Breath sounds are diminished throughout. No crackles. Prolongation on forced maneuver noted. Abdomen soft bowel sounds are heard. No masses or tenderness. Extremities are intact. No cyanosis clubbing or edema. Skin is without rash or lesion. Neurologic examination is brief but nonfocal. The patient is very hard of hearing. - Labs CBC & Chem 7: 07/21/21 07:08 07/21/21 07:08 Labs: Abnormal Lab Results - Last 24 Hours (Table) 07/20/21 07/20/21 07/20/21 Range/Units 02:40 16:56 20:54 Chloride (98-107) mmol/L BUN (7-17) mg/dL Creatinine (0.52-1.04) mg/dL Glucose (74-99) mg/dL POC Glucose (mg/dL) 239 H 277 H (75-99) mg/dL Hemoglobin A1c 7.5 H (4.0-6.0) % Calcium (8.4-10.2) mg/dL C-Reactive Protein (0.0-0.8) mg/dL 07/21/21 07/21/21 07/21/21 Range/Units 07:08 07:08 08:15 Chloride 115 H (98-107) mmol/L BUN 21 H (7-17) mg/dL Creatinine 0.48 L (0.52-1.04) mg/dL Glucose 308 H (74-99) mg/dL POC Glucose (mg/dL) 268 H (75-99) mg/dL Hemoglobin A1c (4.0-6.0) % Calcium 8.0 L (8.4-10.2) mg/dL C-Reactive Protein 1.4 H (0.0-0.8) mg/dL 07/21/21 Range/Units 11:43 Chloride (98-107) mmol/L BUN (7-17) mg/dL Creatinine (0.52-1.04) mg/dL Glucose (74-99) mg/dL POC Glucose (mg/dL) 330 H (75-99) mg/dL Hemoglobin A1c (4.0-6.0) % Calcium (8.4-10.2) mg/dL C-Reactive Protein (0.0-0.8) mg/dL Assessment and Plan Assessment: Acute on chronic hypoxemic respiratory failure, likely most related to underlying COPD exacerbation and very unlikely related to significant coronavirus associated pneumonia. Acute coronavirus infection, doubt significant COVID 19 pneumonia. Recent admission for chest pain, with cardiac disease ruled out. Chronic and ongoing tobacco dependence for greater than 50 years. History of recent ESBL urinary tract infection. History of hypertension. History of diabetes mellitus and diabetic neuropathy. History of anxiety/depression. History of gastroesophageal reflux disease. Irritable bowel syndrome. Plan: Plan dated 07/21/2021. The patient COPD medications are reviewed. Everything seems to be appropriate. We will continue to follow make recommendations were appropriate. The patient is currently on Symbicort, and also Solu-Medrol, and albuterol inhaler. Additional recommendations and suggestions are forthcoming. Nicotine patch was placed. The patient continues on REM. That can probably be discontinued tomorrow. Time with Patient: Less than 30
[2021-07-21] MEDS ORDERED: clonazePAM 0.5 MG TAB PO STA (14:41)
[2021-07-21] MEDS: traMADol-ACETAMINOP 37.5-325MG 1 EACH TAB PO PRN (15:24)
[2021-07-21 15:36] LABS: Appearance,Urine Clear (Clear); Bilirubin,Urine Negative (Negative); Blood,Urine Negative (Negative); Color,Urine Light Yellow; Glucose,Urine (UA) 4+ (Negative); Ketones,Urine Negative (Negative); Leukocyte Esterase,Urine Negative (Negative); Nitrite,Urine Negative (Negative); Protein,Urine Trace (Negative); Specific Gravity,Urine 1.011 (1.001-1.035); Urobilinogen,Urine <2.0 mg/dL (<2.0)
[2021-07-21 16:54] LABS: Glucose,Whole Blood 253 mg/dL (75-99)
[2021-07-21] MEDS: DOCUSATE 100 MG CAP PO PRN (18:04)
--- NOTE | 2021-07-21 18:59 | P.PN ---
Subjective Progress Note Date: 07/21/21 H&P Date: 07/20/21 Chief Complaint: Shortness of Breath 81-year-old female with history of COPD, normally on 4 L at home, diabetic, hypertensive, presenting to the emergency department via EMS with complaints of increased shortness of breath at home as well as nausea started a few hours prior to arrival. She states that her recently tested positive for covid. She does not think she's had any fevers. She does admit to some mild lower abdominal pressure/cramping however she was diagnosed with a UTI 2 days ago. 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 She denies any chest pains, she states she's been wheezing a lot and feels more short of breath than usual. She denies any vomiting, she does admit to some mil d nausea, she has been having some diarrhea as well, she was checked for C. diff 2 days ago that was negative. She denies any dizziness or lightheadedness. She has no further complaints at this time. Upon arrival to the ER, she is slightly febrile at 99.7, 88% on room air. Her recently tested positive for COVID-19. She is found to be COVID-19 positive as well. Unvaccinated. White count 5.8. Hemoglobin 12.9. Lymphocytes 1.5. Sodium 141 potassium 4.1. Bicarb 17. Creatinine 0.43. Glucose 186. LDH 634. C-reactive protein 4.4. Chest x-ray does show new minimal bilateral infiltrates compared to previous on 07/08/2021. She is seen today in consultation on the regular medical floor. She is awake and alert. Very hard of hearing. Denies any worsening shortness of breath at this time. Maintaining O2 saturations in the 90s on 3 L/m per nasal cannula. Afebrile. Hemodynamically stable. 07/21/2021 Patient is evaluated at the bedside today. She is resting on 3L NC, she does wear oxygen at home, around 4L for history of COPD. Pt is positive for COVID pneumonia, has received 2 bags of IV remdesivir. She is on IV steroids and is hyperglycemic. Medications will be adjusted. Pt was in the EC recently and diagnosed with a UTI with ESBL, she never started antibiotics. In addition, pt was admitted 2 weeks ago for chest pain with a negative work-up. Urine was checked today, negative for infection, positive for protein and glucose. No need for ABX currently, pt denies dysuria, urgency, frequency. She currently denies any CP, palpitations. Pt does report cough with sputum production, which she states is phlegm. Pt is being followed closely by pulmonary services. Continue with current medications. RN states that pt has not had a BM in quite a few days, ABD soft; non-tender, with positive bowel sounds, in addition to PRN miralax, added docusate daily prn. encourage ambulation as tolerated. ROS Constitutional: Denied any fatigue denied any fever. Cardio vascular: denied any chest pain, palpitations Gastrointestinal denied any nausea vomiting Pulmonary: Reports cough and dyspnea with exertion Neurologic denied any new focal deficits All inpatient medications were reviewed and appropriate changes in these medications as dictated in the interval history and assessment and plan. PHYSICAL EXAMINATION: GENERAL: The patient is alert and oriented x3, not in any acute distress. Well developed, well nourished. HEENT: Pupils are round and equally reacting to light. EOMI. [place]. CARDIOVASCULAR: S1 and S2 present. No murmurs, rubs, or gallops. PULMONARY: Expiratory wheezing ABDOMEN: Soft, nontender, nondistended, normoactive bowel sounds. No palpable organomegaly. MUSCULOSKELETAL: No joint swelling or deformity. EXTREMITIES: No cyanosis, clubbing, or pedal edema. NEUROLOGICAL: Gross neurological examination did not reveal any focal deficits. SKIN: No rashes. Assessment and Plan Assessment: 1. Acute on chronic hypoxemic respiratory failure secondary to COVID-19 infection in addition to COPD exacerbation - Patient has been evaluated by pulmonary service and has been started on Remdesivir, IV Solu-Medrol 60 mg every 6 hours, Symbicort and albuterol inhaler, subcu Lovenox; DD WNL at 0.43 - Continue with above regimen with plans to follow-up on chest x-ray and inflam matory markers, CRP mildly elevated at 1.4, LDH WNL 215 2. Acute exacerbation of chronic obstructive pulmonary disease, oxygen dependent - Continue with oxygen per nasal cannula and titrate as needed; Solu-Medrol 60 mg IV every 6 hours; Symbicort and albuterol inhalers 3. Hypertension; amlodipine 10 mg daily along with lisinopril 40 mg daily, hydralazine 25 mg 3 times a day and Isordil 10 mg twice a day 4. Diabetes mellitus2; continue with home dose of glimepiride and metformin; monitor Accu-Cheks before meals and at bedtime with insulin sliding scale, 5. History of coronary artery disease; Isordil 10 mg twice a day 6. Anxiety/depression; Zoloft 150 mg daily and Remeron 15 mg by mouth daily at bedtime, Klonopin BID, extra dose given today. 7. Tobacco abuse; nicotine patch GI prophylaxis: Protonix DVT prophylaxis; SCDs/subcu Lovenox CODE STATUS; full code Levemir has been added for hyperglycemia d/t IV steriods, cont to monitor closely. Objective - Vital Signs Vital signs: Vital Signs Temp 97.4 F L 07/21/21 10:00 Pulse 82 07/21/21 10:00 Resp 14 07/21/21 10:00 BP 148/52 07/21/21 10:00 Pulse Ox 92 L 07/21/21 10:00 Intake & Output 07/20/21 07/21/21 07/21/21 18:59 06:59 18:59 Other: Voiding Method Bedside Commode Bedside Commode Incontinent Diaper Diaper External Catheter External Catheter # Voids 1 2 - Labs CBC & Chem 7: 07/21/21 07:08 07/21/21 07:08 Labs: Abnormal Lab Results - Last 24 Hours (Table) 07/20/21 07/20/21 07/20/21 Range/Units 02:40 16:56 20:54 Chloride (98-107) mmol/L BUN (7-17) mg/dL Creatinine (0.52-1.04) mg/dL Glucose (74-99) mg/dL POC Glucose (mg/dL) 239 H 277 H (75-99) mg/dL Hemoglobin A1c 7.5 H (4.0-6.0) % Calcium (8.4-10.2) mg/dL C-Reactive Protein (0.0-0.8) mg/dL 07/21/21 07/21/21 07/21/21 Range/Units 07:08 07:08 08:15 Chloride 115 H (98-107) mmol/L BUN 21 H (7-17) mg/dL Creatinine 0.48 L (0.52-1.04) mg/dL Glucose 308 H (74-99) mg/dL POC Glucose (mg/dL) 268 H (75-99) mg/dL Hemoglobin A1c (4.0-6.0) % Calcium 8.0 L (8.4-10.2) mg/dL C-Reactive Protein 1.4 H (0.0-0.8) mg/dL 07/21/21 Range/Units 11:43 Chloride (98-107) mmol/L BUN (7-17) mg/dL Creatinine (0.52-1.04) mg/dL Glucose (74-99) mg/dL POC Glucose (mg/dL) 330 H (75-99) mg/dL Hemoglobin A1c (4.0-6.0) % Calcium (8.4-10.2) mg/dL C-Reactive Protein (0.0-0.8) mg/dL
[2021-07-21] MEDS: amLODIPine 10 MG TAB PO SCH (20:34)
[2021-07-21] MEDS: MELATONIN 3 MG TABLET PO SCH (20:34)
[2021-07-21] MEDS: MIRTAZAPINE 15 MG TAB PO SCH (20:34)
[2021-07-21 20:40] LABS: Glucose,Whole Blood 335 mg/dL (75-99)
[2021-07-21] MEDS: INSULIN DETEMIR (LEVEMIR) 100 UNIT/ML SYR SQ SCH (21:29)
[2021-07-22] MEDS: methylPREDNISolone SOD SUCCI 125 MG/2 ML VIAL IV SCH ×2 (05:07→14:25)
[2021-07-22 07:29] LABS: Glucose,Whole Blood 282 mg/dL (75-99)
[2021-07-22] MEDS: ZINC SULFATE 220 MG CAP PO SCH (08:16)
[2021-07-22] MEDS: lisinopriL 20 MG TAB PO SCH (08:16)
[2021-07-22] MEDS: SERTRALINE 50 MG TAB PO SCH (08:16)
[2021-07-22] MEDS: PANTOPRAZOLE 40 MG TABLET PO SCH (08:16)
[2021-07-22] MEDS: clonazePAM 0.5 MG TAB PO SCH ×2 (08:16→19:30)
[2021-07-22] MEDS: hydrALAZINE HCL 25 MG TAB PO SCH ×3 (08:16→19:29)
[2021-07-22] MEDS: traMADol-ACETAMINOP 37.5-325MG 1 EACH TAB PO PRN ×2 (08:17→17:29)
[2021-07-22] MEDS: ASCORBIC ACID 500 MG TAB PO SCH (08:17)
[2021-07-22] MEDS: CALCIUM CARB-VIT D 500 MG-5 MCG TAB PO SCH ×2 (08:17→17:30)
[2021-07-22] MEDS: CHOLECALCIFEROL 25 MCG (1000 IU) TABLET PO SCH (08:17)
[2021-07-22] MEDS: INSULIN ASPART (NovoLOG) 100 UNIT/ML VIAL SQ SCH ×5 (08:18→21:15)
[2021-07-22] MEDS: ASPIRIN 81 MG PO SCH (08:18)
[2021-07-22] MEDS: NICOTINE 14MG/24HR PATCH TRANSDERM SCH (08:18)
[2021-07-22] MEDS: GLIMEPIRIDE 2 MG TAB PO SCH (08:18)
[2021-07-22] MEDS: ENOXAPARIN 40 MG/0.4 ML SYRINGE SQ SCH (08:19)
[2021-07-22] MEDS: ISOSORBIDE DINITRATE 10 MG TAB PO SCH ×2 (08:19→21:15)
[2021-07-22] MEDS: ALBUTEROL HFA INHALER INHALATION SCH ×4 (08:35→20:50)
[2021-07-22] MEDS: SYMBICORT 160-4.5 MCG INHALER INHALATION SCH ×2 (08:35→20:50)
--- NOTE | 2021-07-22 11:00 | P.PN ---
Subjective Progress Note Date: 07/22/21 Principal diagnosis: Coronavirus infection/pneumonia. This is an 81-year-old female patient who follows with Dr. Ny as her primary care provider. She has a history of oxygen dependent chronic obstructive pulmonary disease normally on oxygen at 4-5 L at home, diabetes mellitus, hypertension and gastroesophageal reflux disease, diabetic neuropathy, irritable bowel syndrome, chronic and ongoing tobacco dependence. She was just discharged from here on July 10 following a episode of chest pain cardiac disease was ruled out. He was in the emergency room 2 days ago with symptoms of urinary tract infection and discharged home. She had not picked up her antibiotics. She presented here yesterday with complaints of increasing shortness of breath cough and congested. Her recently tested positive for COVID-19. She is found to be COVID-19 positive as well. Unvaccinated. White count 5.8. Hemoglobin 12.9. Lymphocytes 1.5. Sodium 141 potassium 4.1. Bicarb 17. Creatinine 0.43. Glucose 186. LDH 634. C-reactive protein 4.4. Chest x-ray does show new minimal bilateral infiltrates compared to previous on 07/08/2021. She is seen today in consultation on the regular medical floor. She is awake and alert. Very hard of hearing. Denies any worsening shortness of breath at this time. Maintaining O2 saturations in the 90s on 3 L/m per nasal cannula. Afebrile. Hemodynamically stable. Progress note dated 07/21/2021. 81-year-old female sees a family doctor out in [place], [place]. The patient has a history of severe oxygen-dependent COPD. She uses about 4 L at home on a regular and chronic basis. She also has a history of diabetes mellitus, hypertension, gastroesophageal reflux disease, diabetic neuropathy, irritable bowel syndrome, and ongoing tobacco dependence. She also has a history of deafness. She came into the emergency department with complaints of shortness of breath and chest congestion. She also recently was in the emergency room for a urinary tract infection. She was discharged home on some oral medications but apparently never picked up the medication from the pharmacy. The patient's primary complaints include shortness of breath chest congestion and chest tightness. She denies any urinary complaints. The patient was started on REM by our nurse practitioner yesterday. White count 6.5, hemoglobin 12.5, h ematocrit 39.6, and platelet count 232,000. D-dimer was 0.43. Sodium 142, potassium 4, chlorides 1:15, CO2 23, anion gap 4, BUN 21, creatinine 0.48. Chest x-ray was mostly unimpressive. Progress note dated 07/22/2021. 81-year-old female, again seen for 83. The patient does have a history of [place] oxygen-dependent COPD. She uses oxygen at 4 L/m, at home. She also has a history of diabetes mellitus, hypertension, GERD, diabetic neuropathy, irritable bowel syndrome, and ongoing tobacco use and dependence. She also is very deaf. Today, she is doing a bit better. She apparently is much less short of breath. She was actually sitting up in a chair. No new labs today. [facility], was negative for infection. Objective - Vital Signs Vital signs: Vital Signs Temp 97.7 F 07/22/21 06:15 Pulse 80 07/22/21 06:15 Resp 16 07/22/21 06:15 BP 177/65 07/22/21 06:15 Pulse Ox 94 L 07/22/21 06:15 Intake & Output 07/21/21 07/22/21 07/22/21 18:59 06:59 18:59 Output Total 500 Balance -500 Output: Urine 500 Other: Voiding Method Incontinent Incontinent External Catheter External Catheter # Voids 4 - Exam No acute distress, oriented 3. Currently on 3 L nasal cannula. Saturations are 94% No use of accessory muscles. HEENT examination is grossly unremarkable. Neck supple. Full range of motion. No adenopathy thyromegaly or neck vein distention. Cardiovascular examination reveals regular rhythm rate. S1-S2 normal. No S3 or S4. No discernible murmur noted. Heart sounds are distant. Heart rate 80 bpm. Lungs reveal scattered expiratory rhonchi and expiratory wheezes. Breath sounds are diminished throughout. No crackles. Prolongation on forced maneuver noted. Abdomen soft bowel sounds are heard. No masses or tenderness. Extremities are intact. No cyanosis clubbing or edema. Skin is without rash or lesion. Neurologic examination is brief but nonfocal. The patient is very hard of hearing. - Labs CBC & Chem 7: 07/21/21 07:08 07/21/21 07:08 Labs: Abnormal Lab Results - Last 24 Hours (Table) 07/21/21 07/21/21 07/21/21 Range/Units 07:08 11:43 16:40 POC Glucose (mg/dL) 330 H 253 H (75-99) mg/dL C-Reactive Protein 1.4 H (0.0-0.8) mg/dL Urine Protein (Negative) Urine Glucose (UA) (Negative) 07/21/21 07/21/21 07/22/21 Range/Units 20:39 Unknown 07:27 POC Glucose (mg/dL) 335 H 282 H (75-99) mg/dL C-Reactive Protein (0.0-0.8) mg/dL Urine Protein Trace H (Negative) Urine Glucose (UA) 4+ H (Negative) Assessment and Plan Assessment: Acute on chronic hypoxemic respiratory failure, likely most related to underlying COPD exacerbation and very unlikely related to significant coronavirus associated pneumonia. Acute coronavirus infection, doubt significant COVID 19 pneumonia. Recent admission for chest pain, with cardiac disease ruled out. Chronic and ongoing tobacco dependence for greater than 50 years. History of recent ESBL urinary tract infection. History of hypertension. History of diabetes mellitus and diabetic neuropathy. History of anxiety/depression. History of gastroesophageal reflux disease. Irritable bowel syndrome. Plan: Plan dated 07/21/2021. The patient COPD medications are reviewed. Everything seems to be appropriate. We will continue to follow make recommendations were appropriate. The patient is currently on Symbicort, and also Solu-Medrol, and albuterol inhaler. Additional recommendations and suggestions are forthcoming. Nicotine patch was placed. The patient continues on REM. That can probably be discontinued tomorrow. Plan dated 07/22/2021. The patient's medications are reviewed. She is not everything that is appropriate for her diagnosis of COPD exacerbation. She remains on Symbicort and Solu-Medrol. She is also on albuterol inhaler. A nicotine patch was placed. The patient continues on REM. The patient could probably be discharged home in the next 24 hours. No additional recommendations are made. In my opinion, her current situation is more a reflection of COPD exacerbation rather than coronavirus associated pneumonia. Time with Patient: Less than 30
[2021-07-22 11:46] LABS: Glucose,Whole Blood 316 mg/dL (75-99)
[2021-07-22 11:47] LABS: Basophils # (A) 0.03 X 10*3/uL (0.00-0.10); Basophils % (A) 0.2 %; Eosinophils # (A) 0 X 10*3/uL (0.04-0.35); Eosinophils % (A) 0 %; HCT 40.8 % (37.2-46.3); HGB 12.7 g/dL (12.0-15.0); Lymphocytes # (A) 1.05 X 10*3/uL (0.90-5.00); Lymphocytes % (A) 7.2 %; MCHC 31.1 g/dL (32.0-37.0); MCV 93.2 fL (80.0-97.0); Mean Platelet Volume 12.1 fL (9.5-12.2); Monocytes # (A) 0.88 X 10*3/uL (0.20-1.00); Monocytes % (A) 6.1 %; Neutrophils # (A) 12.47 X 10*3/uL (1.80-7.70); Neutrophils % (A) 85.9 %; Platelet Count 280 X 10*3/uL (140-440); RBC 4.38 X 10*6/uL (4.10-5.20); WBC 14.51 X 10*3/uL (4.50-10.00)
--- NOTE | 2021-07-22 13:24 | P.PN ---
Subjective Progress Note Date: 07/22/21 H&P Date: 07/20/21 Chief Complaint: Shortness of Breath 81-year-old female with history of COPD, normally on 4 L at home, diabetic, hypertensive, presenting to the emergency department via EMS with complaints of increased shortness of breath at home as well as nausea started a few hours prior to arrival. She states that her recently tested positive for covid. She does not think she's had any fevers. She does admit to some mild lower abdominal pressure/cramping however she was diagnosed with a UTI 2 days ago. 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 She denies any chest pains, she states she's been wheezing a lot and feels more short of breath than usual. She denies any vomiting, she does admit to some mil d nausea, she has been having some diarrhea as well, she was checked for C. diff 2 days ago that was negative. She denies any dizziness or lightheadedness. She has no further complaints at this time. Upon arrival to the ER, she is slightly febrile at 99.7, 88% on room air. Her recently tested positive for COVID-19. She is found to be COVID-19 positive as well. Unvaccinated. White count 5.8. Hemoglobin 12.9. Lymphocytes 1.5. Sodium 141 potassium 4.1. Bicarb 17. Creatinine 0.43. Glucose 186. LDH 634. C-reactive protein 4.4. Chest x-ray does show new minimal bilateral infiltrates compared to previous on 07/08/2021. She is seen today in consultation on the regular medical floor. She is awake and alert. Very hard of hearing. Denies any worsening shortness of breath at this time. Maintaining O2 saturations in the 90s on 3 L/m per nasal cannula. Afebrile. Hemodynamically stable. 07/21/2021 Patient is evaluated at the bedside today. She is resting on 3L NC, she does wear oxygen at home, around 4L for history of COPD. Pt is positive for COVID pneumonia, has received 2 bags of IV remdesivir. She is on IV steroids and is hyperglycemic. Medications will be adjusted. Pt was in the [facility] recently and diagnosed with a UTI with ESBL, she never started antibiotics. In addition, pt was admitted 2 weeks ago for chest pain with a negative work-up. Urine was checked today, negative for infection, positive for protein and glucose. No need for ABX currently, pt denies dysuria, urgency, frequency. She currently denies any CP, palpitations. Pt does report cough with sputum production, which she states is phlegm. Pt is being followed closely by pulmonary services. Continue with current medications. RN states that pt has not had a BM in quite a few days, ABD soft; non-tender, with positive bowel sounds, in addition to PRN miralax, added docusate daily prn. encourage ambulation as tolerated. 07/22/2021 Extensive conversation with patient at bedside regarding ongoing tobacco use, despite wearing oxygen at home. Patient states that the condenser is in her bedroom and she smokes in the kitchen however she does report to smoking cigarettes while wearing her nasal cannula. Per case management family states that patient takes off her oxygen when she is smoking. CODE STATUS was discussed with patient at this time patient is wishing to be a full code she states that she does want CPR, medications and intubation as necessary. It was explained to patient that with her chronic tobacco use and history of COPD oxygen dependent that she needs to think strongly about her desire to have a better quality of life and smoking cessation. Patient is being treated for a COPD exacerbation with IV steroids. Pro-calcitonin is not indicative of a bacterial infection. Patient continues on IV Remdesivir protocol for an active coronavirus infection. Patient is being followed along by pulmonary services who has cleared patient for discharge from pulmonary standpoint. Patient denies any chest pain, palpitations. She does report a intermittent productive cough with "phlegm". Upon discussion with patient she states that she is having trouble sleeping, patient is resumed on all her home medications. It was explained to patient that due to her COPD exacerbation and coronarvirus infection we are avoiding excessive sedation. Patient is on a combination of mirtazapine, melatonin, Klonopin at bedtime. Vital signs have remained stable, patient is afebrile at this time, patient is maintaining oxygen saturation on 2- 3L nasal cannula, 94%. This is at patient's baseline is she wears 4 L home O2. Repeat urinalysis was negative for infection. No need for further antibiotic coverage. Per RN patient has a making comments today about "not wanting to go on". Writing provider discussed with patient at the bedside and she expressed feelings about her quality of life, her current debilitated status. She states that she feels weak and is frustrated and that she misses her family. Patient denies any feelings of wanting to harm herself, and states that although she does not want to continue on she does not have any active plans in place for a desire to harm herself. Psychiatry was consulted to review patient's antidepressive medications and make further recommendations. Patient was evaluated by PT today who is recommending subacute rehab on discharge. Social work is on the case. ROS Constitutional: Denied any fatigue denied any fever. Cardio vascular: denied any chest pain, palpitations Gastrointestinal denied any nausea vomiting Pulmonary: Reports cough and dyspnea with exertion Neurologic denied any new focal deficits All inpatient medications were reviewed and appropriate changes in these medications as dictated in the interval history and assessment and plan. PHYSICAL EXAMINATION: GENERAL: The patient is alert and oriented x3, not in any acute distress. Well developed, well nourished. HEENT: Pupils are round and equally reacting to light. EOMI. [place]. CARDIOVASCULAR: S1 and S2 present. No murmurs, rubs, or gallops. PULMONARY: Expiratory wheezing ABDOMEN: Soft, nontender, nondistended, normoactive bowel sounds. No palpable organomegaly. MUSCULOSKELETAL: No joint swelling or deformity. EXTREMITIES: No cyanosis, clubbing, or pedal edema. NEUROLOGICAL: Gross neurological examination did not reveal any focal deficits. SKIN: No rashes. Assessment and Plan Assessment: 1. Acute on chronic hypoxemic respiratory failure secondary to COVID-19 in fection in addition to COPD exacerbation - Patient has been evaluated by pulmonary service and has been started on Remdesivir, IV Solu-Medrol 60 mg every 6 hours, Symbicort and albuterol inhaler, subcu Lovenox; DD WNL at 0.43 2. Acute exacerbation of chronic obstructive pulmonary disease, oxygen dependent, due to active coronavirus infection. Patient is not in acute COVID- 19 pneumonia. - Continue with oxygen per nasal cannula and titrate as needed; Solu-Medrol 60 mg IV every 6 hours; Symbicort and albuterol inhalers, continue incentive spirometer. 3. Hypertension; amlodipine 10 mg daily along with lisinopril 40 mg daily, hydralazine 25 mg 3 times a day and Isordil 10 mg twice a day 4. Diabetes mellitus type with hyperglycemia exacerbated by IV steriods; continue with home dose of glimepiride. Metformin is placed on hold. Patient will continue on NovoLog sliding scale, 10 units of Levemir at bedtime and 2 units of NovoLog with meals has been added today for hyperglycemia. 5. History of coronary artery disease; Isordil 10 mg twice a day 6. Anxiety/depression; Zoloft 150 mg daily and Remeron 15 mg by mouth daily at bedtime, Klonopin BID, extra dose given today. Psychiatry consult placed to review medications. 7. Tobacco abuse; nicotine patch, patient wears 4 L nasal cannula, tobacco cessation discussed. GI prophylaxis: Protonix DVT prophylaxis; SCDs/subcu Lovenox CODE STATUS; full code NovoLog scheduled with meals has been added for hyperglycemia, transition to oral steroids. Patient is pending a psychiatric evaluation to review her current antidepressive medications. Patient is expressing increased depressive thinking. Denies suicidal ideations at this time. Patient is recommended for subacute rehab on discharge. Pending labs in the morning, possible discharge tomorrow. Continue to encourage ambulation, continue to encourage IS. Objective - Vital Signs Vital signs: Vital Signs Temp 96.2 F L 07/22/21 08:00 Pulse 89 07/22/21 08:00 Resp 18 07/22/21 08:00 BP 118/70 07/22/21 08:00 Pulse Ox 89 L 07/22/21 08:00 Intake & Output 07/21/21 07/22/21 07/22/21 18:59 06:59 18:59 Output Total 500 Balance -500 Output: Urine 500 Other: Voiding Method Incontinent Incontinent External Catheter External Catheter # Voids 4 - Labs CBC & Chem 7: 07/22/21 06:47 07/21/21 07:08 Labs: Abnormal Lab Results - Last 24 Hours (Table) 07/21/21 07/21/21 07/21/21 Range/Units 16:40 20:39 Unknown WBC (4.50-10.00) X 10*3/uL MCHC (32.0-37.0) g/dL RDW (11.5-14.5) % Immature Gran # (0.00-0.04) X 10*3/uL Neutrophils # (1.80-7.70) X 10*3/uL Eosinophils # (0.04-0.35) X 10*3/uL POC Glucose (mg/dL) 253 H 335 H (75-99) mg/dL Urine Protein Trace H (Negative) Urine Glucose (UA) 4+ H (Negative) 07/22/21 07/22/21 07/22/21 Range/Units 06:47 07:27 11:45 WBC 14.51 H (4.50-10.00) X 10*3/uL MCHC 31.1 L (32.0-37.0) g/dL RDW 15.0 H (11.5-14.5) % Immature Gran # 0.08 H (0.00-0.04) X 10*3/uL Neutrophils # 12.47 H (1.80-7.70) X 10*3/uL Eosinophils # 0 L (0.04-0.35) X 10*3/uL POC Glucose (mg/dL) 282 H 316 H (75-99) mg/dL Urine Protein (Negative) Urine Glucose (UA) (Negative)
[2021-07-22] MEDS: REMDESIVIR 100 MG in SODIUM CHLORIDE 0.9% 250 ML IVPB SCH (14:20)
[2021-07-22] MEDS: SODIUM CHLORIDE 0.9% 1,000 ML IV SCH ×2 (14:21→19:27)
--- NOTE | 2021-07-22 14:32 | P.CN ---
Psychiatric Consult - . Consult date: 07/22/21 Consult:: 07/22/21 13:21 IDENTIFYING DATA: This patient is a 81-year-old female who is currently lives with her in a house and has severe COPD O2 dependent. REASON FOR REFERRAL: Psychiatry was consulted for suicidal ideations with no plan HISTORY OF PRESENT ILLNESS: The patient presented to the hospital on 07/19 for shortness of breath and nausea. Patient had reported at the time that her tested positive for covid. Patient has a history of COPD severe and currently on home oxygen. Patient has been treating for covid pneumonia. Patient apparently was making suicidal statements according to ER report however when asked about a plan patient did not mention one. Patient's nurse claims that patient has been endorsing depression and has severe COPD. Patient was seen at the bedside and was agreeable to speak to conventional underwriter. She claims that she is "doing not so good" and spoke significantly about her depression and feeling "mixed up in my head". She states that she is finding it difficult to concentra te and can't sleep at home. She claims that the hospital has gotten her "pills all mixed up". She states that she wants to "go to sleep for a while" however states that she does not want to harm herself. She complained of significant pain in her legs. She states that her family is concerned about her well-being and that she is taking her medications at home. She states that she has a poor appetite at this time. He claims that her sleep is poor. At this time patient denies any current suicidal intent or plan but does have ideations at times. she denies any HI. Patient denies any auditory, visual hallucinations and denies any paranoia or delusions. Patients admits to using cigarettes daily. PAST PSYCHIATRIC HISTORY: Patient has a a history of depression and anxiety. Patient was previously on Klonopin, Zoloft, Remeron. Patient was recently psychiatrically hospitalized in [facility] in [place] last over a month ago last. Patient was about to follow-up at [facility] for psychiatric care however did not make it to her appointment. Patient denies any history of suicide attempts in the past. Past Medical History: Asthma, Chest Pain / Angina, COPD, Diabetes Mellitus, G ERD/Reflux, Hypertension, Pneumonia, Respiratory Disorder, Skin Disorder Additional Past Medical History / Comment(s): Home oxygen at 4L/NC ATC, bronchitis, NIDDM type II, neuropathy bilateral feet, falls, IBS, diverticular disease, hiatal hernia, chronic low back pain, eczema ALLERGIES: as per EMR. CHEMICAL DEPENDENCY HISTORY: as per HPI. FAMILY PSYCHIATRIC/SUBSTANCE USE HISTORY: She states that her father was [facility] SOCIAL HISTORY: Patient was born and raised in [place]. She states that she completed high school and worked for a gas company afterwards. 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 She is currently living with her in a house and her son and has 3 kids total. MENTAL STATUS EXAM: General Appearance: Patient appears to be elderly, unkempt, stated age is alert, attempts to cooperate. Patient appears to have poor hygiene and grooming wearing hospital gown with fair eye contact. Behavior: Patient is calmly lying in bed without any agitated behavior. Attempts cooperate Speech: Patient's speech is fluent and nonpressured. Hesitant Mood/Affect: Patient reports their mood is "depressed and anxious", affect is congruent Suicidality/Homicidality: Patient denies having any suicidal or homicidal ideation intent or plan. Perceptions: Patient denies any visual hallucinations and denies any auditory hallucinations Though content/process: There is no evidence of any delusional thought content and thought process is linear and goal-directed. Rambles at times Memory and concentration: AOX3, grossly intact for the purposes of this session. Can spell "WORLD" backwards Judgment and insight: poor IMPRESSIONS: Major depressive disorder unspecified Nicotine dependence PLAN: -At this time patient DOES NOT meet criteria for inpatient psychiatric admission. -Delirium precautions recommended with patient including - avoiding use of narcotics and GLUER MACHINE OPERATOR sedatives, limit anticholinergic medications when possible, frequent re-orientation, minimize use of restraints, open window shades during the day and close them at night -Would recommend the following medication changes/additions: Increase Zoloft to 200 mg daily for mood/anxiety. increase Remeron to 30 mg daily at bedtime for insomnia/mood/appetitge. continue with melatonin 3 mg qhs for sleep. can continue with klonopin as perscribed. -sw to help with disposition and look into patients home situation. -Would suggest to consider hospice or palliative due to patients severe COPD and deteriorating medical condition. -Communicated plan to patient's nurse -Will continue to follow along -Please contact with any questions. 07/22/21 14:25
[2021-07-22 15:28] LABS: African American GFR (CKD) 105.9 (60.0-200.0); Anion Gap 11.3 mmol/L (4.00-12.00); Calcium 7.9 mg/dL (8.7-10.3); Carbon Dioxide 21.7 mmol/L (21.6-31.8); Non-African American GFR(CKD) 91.4 (60.0-200.0); Potassium 3.5 mmol/L (3.5-5.5)
[2021-07-22 16:45] LABS: Glucose,Whole Blood 336 mg/dL (75-99)
[2021-07-22] MEDS ORDERED: QUEtiapine 25 MG TAB PO PRN (18:24)
[2021-07-22] MEDS: DOCUSATE 100 MG CAP PO PRN (19:28)
[2021-07-22] MEDS: methylPREDNISolone SOD SUCCI 40 MG/ML 1 ML VIAL IV SCH (19:28)
[2021-07-22] MEDS: amLODIPine 10 MG TAB PO SCH (19:29)
[2021-07-22] MEDS: MELATONIN 3 MG TABLET PO SCH (19:29)
[2021-07-22] MEDS ORDERED: MIRTAZAPINE 15 MG TAB PO SCH (21:00)
[2021-07-22 21:06] LABS: Glucose,Whole Blood 220 mg/dL (75-99)
[2021-07-22] MEDS: INSULIN DETEMIR (LEVEMIR) 100 UNIT/ML SYR SQ SCH (21:15)
[2021-07-23] MEDS: traMADol-ACETAMINOP 37.5-325MG 1 EACH TAB PO PRN ×4 (00:57→16:15)
[2021-07-23] MEDS: SODIUM CHLORIDE 0.9% 1,000 ML IV SCH (06:41)
[2021-07-23 07:07] LABS: Glucose,Whole Blood 191 mg/dL (75-99)
[2021-07-23] MEDS: ALBUTEROL HFA INHALER INHALATION SCH ×3 (07:18→15:32)
[2021-07-23] MEDS: SYMBICORT 160-4.5 MCG INHALER INHALATION SCH (07:19)
[2021-07-23] MEDS ORDERED: SERTRALINE 100 MG TAB PO SCH (09:00)
[2021-07-23] MEDS: clonazePAM 0.5 MG TAB PO SCH (09:37)
[2021-07-23] MEDS: ENOXAPARIN 40 MG/0.4 ML SYRINGE SQ SCH (09:37)
[2021-07-23] MEDS: methylPREDNISolone SOD SUCCI 40 MG/ML 1 ML VIAL IV SCH (09:37)
[2021-07-23] MEDS: ASPIRIN 81 MG PO SCH (09:37)
[2021-07-23] MEDS: PANTOPRAZOLE 40 MG TABLET PO SCH (09:38)
[2021-07-23] MEDS: NICOTINE 14MG/24HR PATCH TRANSDERM SCH (09:38)
[2021-07-23] MEDS: ZINC SULFATE 220 MG CAP PO SCH (09:38)
[2021-07-23] MEDS: hydrALAZINE HCL 25 MG TAB PO SCH ×2 (09:38→16:07)
[2021-07-23] MEDS: ASCORBIC ACID 500 MG TAB PO SCH (09:38)
[2021-07-23] MEDS: lisinopriL 20 MG TAB PO SCH (09:38)
[2021-07-23] MEDS: GLIMEPIRIDE 2 MG TAB PO SCH (09:38)
[2021-07-23] MEDS: CHOLECALCIFEROL 25 MCG (1000 IU) TABLET PO SCH (09:39)
[2021-07-23] MEDS: INSULIN ASPART (NovoLOG) 100 UNIT/ML VIAL SQ SCH ×6 (09:39→17:30)
[2021-07-23] MEDS: CALCIUM CARB-VIT D 500 MG-5 MCG TAB PO SCH ×2 (09:39→17:33)
[2021-07-23] MEDS: ISOSORBIDE DINITRATE 10 MG TAB PO SCH (09:40)
[2021-07-23 11:04] VITALS: RESP 18
[2021-07-23 11:24] LABS: Basophils # (A) 0.03 X 10*3/uL (0.00-0.10); Basophils % (A) 0.3 %; Eosinophils # (A) 0 X 10*3/uL (0.04-0.35); Eosinophils % (A) 0 %; HCT 38.3 % (37.2-46.3); Lymphocytes # (A) 1.39 X 10*3/uL (0.90-5.00); Lymphocytes % (A) 11.9 %; MCH 29.2 pg (27.0-32.0); MCHC 31.3 g/dL (32.0-37.0); MCV 93.2 fL (80.0-97.0); Mean Platelet Volume 12.3 fL (9.5-12.2); Monocytes # (A) 1.14 X 10*3/uL (0.20-1.00); Monocytes % (A) 9.8 %; Neutrophils # (A) 9.05 X 10*3/uL (1.80-7.70); Neutrophils % (A) 77.4 %; Platelet Count 290 X 10*3/uL (140-440); RBC 4.11 X 10*6/uL (4.10-5.20); RDW 15.1 % (11.5-14.5); WBC 11.68 X 10*3/uL (4.50-10.00)
--- NOTE | 2021-07-23 11:28 | P.PN ---
Subjective Progress Note Date: 07/23/21 Principal diagnosis: Coronavirus infection/pneumonia. This is an 81-year-old female patient who follows with Dr. Ny as her primary care provider. She has a history of oxygen dependent chronic obstructive pulmonary disease normally on oxygen at 4-5 L at home, diabetes mellitus, hypertension and gastroesophageal reflux disease, diabetic neuropathy, irritable bowel syndrome, chronic and ongoing tobacco dependence. She was just discharged from here on July 10 following a episode of chest pain cardiac disease was ruled out. He was in the emergency room 2 days ago with symptoms of urinary tract infection and discharged home. She had not picked up her antibiotics. She presented here yesterday with complaints of increasing shortness of breath cough and congested. Her recently tested positive for COVID-19. She is found to be COVID-19 positive as well. Unvaccinated. White count 5.8. Hemoglobin 12.9. Lymphocytes 1.5. Sodium 141 potassium 4.1. Bicarb 17. Creatinine 0.43. Glucose 186. LDH 634. C-reactive protein 4.4. Chest x-ray does show new minimal bilateral infiltrates compared to previous on 07/08/2021. She is seen today in consultation on the regular medical floor. She is awake and alert. Very hard of hearing. Denies any worsening shortness of breath at this time. Maintaining O2 saturations in the 90s on 3 L/m per nasal cannula. Afebrile. Hemodynamically stable. Progress note dated 07/21/2021. 81-year-old female sees a family doctor out in [place], [place]. The patient has a history of severe oxygen-dependent COPD. She uses about 4 L at home on a regular and chronic basis. She also has a history of diabetes mellitus, hypertension, gastroesophageal reflux disease, diabetic neuropathy, irritable bowel syndrome, and ongoing tobacco dependence. She also has a history of deafness. She came into the emergency department with complaints of shortness of breath and chest congestion. She also recently was in the emergency room for a urinary tract infection. She was discharged home on some oral medications but apparently never picked up the medication from the pharmacy. The patient's primary complaints include shortness of breath chest congestion and chest tightness. She denies any urinary complaints. The patient was started on REM by our nurse practitioner yesterday. White count 6.5, hemoglobin 12.5, h ematocrit 39.6, and platelet count 232,000. D-dimer was 0.43. Sodium 142, potassium 4, chlorides 1:15, CO2 23, anion gap 4, BUN 21, creatinine 0.48. Chest x-ray was mostly unimpressive. Progress note dated 07/22/2021. 81-year-old female, again seen for 83. The patient does have a history of [place] oxygen-dependent COPD. She uses oxygen at 4 L/m, at home. She also has a history of diabetes mellitus, hypertension, GERD, diabetic neuropathy, irritable bowel syndrome, and ongoing tobacco use and dependence. She also is very deaf. Today, she is doing a bit better. She apparently is much less short of breath. She was actually sitting up in a chair. No new labs today. Urine from [facility], was negative for infection. Progress note dated 07/23/2021. 81-year-old female, again seen in room 483. The patient is ready for possible discharge from the hospital. Unfortunately, placement has become an issue. The patient does have a history of severe oxygen-dependent COPD. She uses oxygen 24/05, at 4 L. She also carries with her a diagnosis of diabetes mellitus, hypertension, gastroesophageal reflux disease, diabetic neuropathy, irritable bowel syndrome, and ongoing tobacco use with nicotine dependence. There are no new laboratory data for today. The patient remains a full code. It would be disastrous of this patient ended up on the ventilator. She was also seen by psychiatry. Objective - Vital Signs Vital signs: Vital Signs Temp 97.6 F 07/23/21 10:00 Pulse 86 07/23/21 10:00 Resp 18 07/23/21 10:00 BP 122/62 07/23/21 10:00 Pulse Ox 93 L 07/23/21 10:00 Intake & Output 07/22/21 07/23/21 07/23/21 18:59 06:59 18:59 Other: Voiding Method Incontinent External Catheter # Voids 4 2 - Exam No acute distress, oriented 3. Currently on 3 L nasal cannula. Saturations are 93 % No use of accessory muscles. HEENT examination is grossly unremarkable. Neck supple. Full range of motion. No adenopathy thyromegaly or neck vein distention. Cardiovascular examination reveals regular rhythm rate. S1-S2 normal. No S3 or S4. No discernible murmur noted. Heart sounds are distant. Heart rate 86 bpm. Lungs reveal scattered expiratory rhonchi and expiratory wheezes. Breath sounds are diminished throughout. No crackles. Prolongation on forced maneuver noted. Abdomen soft bowel sounds are heard. No masses or tenderness. Extremities are intact. No cyanosis clubbing or edema. Skin is without rash or lesion. Neurologic examination is brief but nonfocal. The patient is very hard of hearing. - Labs CBC & Chem 7: 07/22/21 06:47 07/22/21 06:47 Labs: Abnormal Lab Results - Last 24 Hours (Table) 07/22/21 07/22/21 07/22/21 Range/Units 06:47 06:47 11:45 WBC 14.51 H (4.50-10.00) X 10*3/uL MCHC 31.1 L (32.0-37.0) g/dL RDW 15.0 H (11.5-14.5) % Immature Gran # 0.08 H (0.00-0.04) X 10*3/uL Neutrophils # 12.47 H (1.80-7.70) X 10*3/uL Eosinophils # 0 L (0.04-0.35) X 10*3/uL Sodium 148 H (135-145) mmol/L Chloride 115 H (96-109) mmol/L Creatinine 0.5 L (0.6-1.5) mg/dL BUN/Creatinine Ratio 36.00 H (12.00-20.00) Ratio Glucose 241 H (70-110) mg/dL POC Glucose (mg/dL) 316 H (75-99) mg/dL Calcium 7.9 L (8.7-10.3) mg/dL 07/22/21 07/22/21 07/23/21 Range/Units 16:44 21:05 07:04 WBC (4.50-10.00) X 10*3/uL MCHC (32.0-37.0) g/dL RDW (11.5-14.5) % Immature Gran # (0.00-0.04) X 10*3/uL Neutrophils # (1.80-7.70) X 10*3/uL Eosinophils # (0.04-0.35) X 10*3/uL Sodium (135-145) mmol/L Chloride (96-109) mmol/L Creatinine (0.6-1.5) mg/dL BUN/Creatinine Ratio (12.00-20.00) Ratio Glucose (70-110) mg/dL POC Glucose (mg/dL) 336 H 220 H 191 H (75-99) mg/dL Calcium (8.7-10.3) mg/dL Assessment and Plan Assessment: Acute on chronic hypoxemic respiratory failure, likely most related to underlying COPD exacerbation and very unlikely related to significant coronavirus associated pneumonia. Acute coronavirus infection, doubt significant COVID 19 pneumonia. Recent admission for chest pain, with cardiac disease ruled out. Chronic and ongoing tobacco dependence for greater than 50 years. History of recent ESBL urinary tract infection. History of hypertension. History of diabetes mellitus and diabetic neuropathy. History of anxiety/depression. History of gastroesophageal reflux disease. Irritable bowel syndrome. Plan: Plan dated 07/21/2021. The patient COPD medications are reviewed. Everything seems to be appropriate. We will continue to follow make recommendations were appropriate. The patient is currently on Symbicort, and also Solu-Medrol, and albuterol inhaler. Additional recommendations and suggestions are forthcoming. Nicotine patch was placed. The patient continues on REM. That can probably be discontinued tomorrow. Plan dated 07/22/2021. The patient's medications are reviewed. She is not everything that is approp riate for her diagnosis of COPD exacerbation. She remains on Symbicort and Solu-Medrol. She is also on albuterol inhaler. A nicotine patch was placed. The patient continues on REM. The patient could probably be discharged home in the next 24 hours. No additional recommendations are made. In my opinion, her current situation is more a reflection of COPD exacerbation rather than coronavirus associated pneumonia. Plan dated 07/23/2021. Currently, the patient remains on albuterol sulfate inhaler, Symbicort, and Solu-Medrol. The Solu-Medrol will be switched to prednisone. The patient is still receiving REM, which will end tomorrow. Clinically, the patient could be discharged. I believe she is at baseline. Placement has become an issue. We will continue to follow make recommendations where appropriate. Time with Patient: Less than 30
[2021-07-23 12:02] LABS: Glucose,Whole Blood 132 mg/dL (75-99)
[2021-07-23] MEDS: REMDESIVIR 100 MG in SODIUM CHLORIDE 0.9% 250 ML IVPB SCH (12:55)
--- NOTE | 2021-07-23 13:22 | P.DS ---
Providers Date of admission: 07/19/21 17:43 Attending physician: Delmer Graham Consults: 07/19/21 17:57 Consult Physician Urgent Consulting Provider: Lyudmila Khoury Consult Reason/Comments: Covid +, hypoxia, COPD Do you want consulting provider notified?: Yes 07/22/21 10:00 Consult Physician Routine Consulting Provider: Shoaib Hardy Consult Reason/Comments: Pt making comments, "I do not want to go on", states she has no intent/plan Do you want consulting provider notified?: Yes Primary care physician: Veena Spain [facility] Course: Final diagnosis 1. Acute on chronic hypoxemic respiratory failure secondary to COVID-19 infection in addition to COPD exacerbation -Patient discharge on oral steroid taper 2. Acute exacerbation of chronic obstructive pulmonary disease, oxygen dependent, due to active coronavirus infection. Patient is not in acute COVID- 19 pneumonia. -Continue on symbicort and albuterol inhalers, oral steroid taper on discharge 3. Hypertension; amlodipine 10 mg daily along with lisinopril 40 mg daily, hydralazine 25 mg 3 times a day and Isordil 10 mg twice a day 4. Diabetes mellitus type with hyperglycemia exacerbated by IV steriods; meds resumed on discharge, continue Levemir 5. History of coronary artery disease; Isordil 10 mg twice a day 6. Anxiety/depression; Zoloft 200 mg daily and Remeron 30 mg by mouth daily at bedtime, Klonopin BID, extra dose given today. 7. Tobacco abuse; nicotine patch, patient wears 4 L nasal cannula, tobacco cessation discussed. Discharge disposition patient is medically cleared for discharge to a rehabilitation facility. Patient is being treated for a COPD exacerbation which has contributed to an acute on chronic respiratory failure also has a component of acute coronary virus infection. clinical picture does not present for an acute COVID-19 pneumonia. Patient will continue a steroid taper, continue inhaled steroids and breathers. patient is a oxygen dependent this 3-4 L at home. patient would like to be a full code this is discussed in extent with patient regarding prognosis for ventilation due to her respiratory status. this seems to be revisited with patient. She is alert and oriented at this time and was evaluated by psychiatry. her antidepressant medication was increased. Patient is cleared medically for rehabilitation. Hospital course Patient was admitted on 07/20/2012 for a chief complaint of shortness of breath. This is an 81-year-old female with a history of CBD, she was 4 L nasal cannula at home, diabetes with type II, hypertension. She presented to emergency room with shortness of breath at home as well as nausea. She states that her recently tested positive for Covid patient denies any fevers, chest pain, palpitations. Patient was evaluated pulmonary services who felt this is nonactive chronic pneumonia however she is positive for the coronavirus. Patient was started on IV steroids and has been transitioned to an oral steroid taper on discharge. Patient did have some hyperglycemia and was started on Levemir 10 units daily at bedtime, she can continue this on discharge if she is having hyperglycemia. Patient was evaluated by psychiatry for depressive disorder, she was making statements about not wanting to go on however she denied any suicidal ideations or plan. Psychiatry evaluation stated the patient was not meeting criteria for inpatient however he did recommend increasing her Zoloft and Remeron. Patient does have a poor living situation, she states that her and her son and her altogether reliable each other for care however neither one of them drive. I'll continue smoke in the home. Patient was counseled extensively on smoking cessation regarded to home oxygen use and the risk. Patient was on a nicotine patch. Patient was evaluated by PT OT who is agreeing for rehab on discharge. Overall patient's presentation today is improved she is alert and oriented 3, lungs are mild expiratory wheezing expected for a patient with COPD. Vital signs are stable, afebrile, sinus rhythm. 07/23/21 Patient is sitting up in the chair eating. She states that she is feeling better just a little fatigued. She is alert and oriented still having some mild expiratory wheezing continues on breathing treatments and home oxygen. This is expected in a patient with a long history of tobacco abuse, and history of COPD. Patient is medically clear for discharge to rehabilitation facility on home oxygen and all of her current medications. Please continue with the increase in her antidepressant medications. Please see medication with insulation for list of current medications. Thank you for allowing us to participate in the care of this patient. Patient Condition at Discharge: Fair Plan - Discharge Summary Discharge Rx Participant: Yes New Discharge Prescriptions: New Glimepiride [Amaryl] 2 mg PO AC-BRKFST tab Nicotine 14Mg/24Hr Patch [Habitrol] 1 patch TRANSDERM DAILY patch INSULIN ASPART (NovoLOG) [NovoLOG (formulary)] 0 unit SQ ACHS ml Zinc Sulfate [Orazinc] 220 mg PO DAILY cap Calcium Carb-Vit D 500Mg-5Mcg [Oscal 500+D 5 Mcg (200 Iu)] 1 each PO BID- W/MEALS tab Albuterol Inhaler [Ventolin Hfa Inhaler] 1 puff INHALATION RT-QID gm Ascorbic Acid [Vitamin C] 1,000 mg PO DAILY tab Cholecalciferol [Vitamin D3 (25 Mcg = 1000 Iu)] 25 mcg PO DAILY tablet Sertraline [Zoloft] 200 mg PO DAILY tab Docusate [Colace] 100 mg PO DAILY PRN cap PRN Reason: Constipation Insulin Detemir (Levemir) [Levemir] 10 unit SQ HS ml Mirtazapine [Remeron] 30 mg PO HS tab QUEtiapine [SEROquel] 25 mg PO BID PRN tab PRN Reason: Anxiety Budesonide-Formot 160-4.5 Mcg [Symbicort 160-4.5 Mcg Inhaler] 2 puff INHALATION RT-BID gm lisinopriL [Zestril] 40 mg PO DAILY tab Continue amLODIPine [Norvasc] 10 mg PO HS Isosorbide Dinitrate 10 mg PO BID Sertraline [Zoloft] 150 mg PO DAILY #90 tab clonazePAM 0.25 mg PO DAILY Calcium Carb-Vit D 500Mg-5Mcg [Oscal 500+D 5 Mcg (200 Iu)] 1 tab PO BID-W/M EALS Lidocaine 5% Patch [Lidoderm 5% Patch] 1 patch TOPICAL DAILY PRN PRN Reason: Pain polyethylene glycoL 3350 [Miralax] 17 gm PO DAILY PRN PRN Reason: Constipation Aspirin EC [Ecotrin Low Dose] 81 mg PO DAILY Acetaminophen Tab [Tylenol] 650 mg PO Q6HR PRN tab PRN Reason: Fever And/ Or Pain hydrALAZINE HCL [Apresoline] 25 mg PO TID Melatonin 3 mg PO HS #30 tablet Omeprazole Magnesium [PriLOSEC] 20 mg PO DAILY #30 tab clonazePAM [KlonoPIN] 0.5 mg PO HS Discontinued Glimepiride [Amaryl] 2 mg PO BID lisinopriL 40 mg PO DAILY Mirtazapine [Remeron] 15 mg PO HS #30 tab Cephalexin [Keflex] 500 mg PO BID 7 Days #14 cap Discharge Medication List Aspirin EC [Ecotrin Low Dose] 81 mg PO DAILY 05/13/21 [History] amLODIPine [Norvasc] 10 mg PO HS 05/13/21 [History] polyethylene glycoL 3350 [Miralax] 17 gm PO DAILY PRN 05/13/21 [History] Acetaminophen Tab [Tylenol] 650 mg PO Q6HR PRN tab 06/02/21 [Rx] Isosorbide Dinitrate 10 mg PO BID 06/23/21 [History] hydrALAZINE HCL [Apresoline] 25 mg PO TID 06/23/21 [History] Melatonin 3 mg PO HS #30 tablet 06/27/21 [Rx] Omeprazole Magnesium [PriLOSEC] 20 mg PO DAILY #30 tab 06/27/21 [Rx] Sertraline [Zoloft] 150 mg PO DAILY #90 tab 06/27/21 [Rx] clonazePAM 0.25 mg PO DAILY 07/08/21 [History] clonazePAM [KlonoPIN] 0.5 mg PO HS 07/08/21 [History] Calcium Carb-Vit D 500Mg-5Mcg [Oscal 500+D 5 Mcg (200 Iu)] 1 tab PO BID-W/MEALS 07/19/21 [History] Lidocaine 5% Patch [Lidoderm 5% Patch] 1 patch TOPICAL DAILY PRN 07/19/21 [History] Albuterol Inhaler [Ventolin Hfa Inhaler] 1 puff INHALATION RT-QID gm 07/23/21 [Rx] Ascorbic Acid [Vitamin C] 1,000 mg PO DAILY tab 07/23/21 [Rx] Budesonide-Formot 160-4.5 Mcg [Symbicort 160-4.5 Mcg Inhaler] 2 puff INHALATION RT-BID gm 07/23/21 [Rx] Calcium Carb-Vit D 500Mg-5Mcg [Oscal 500+D 5 Mcg (200 Iu)] 1 each PO BID-W/MEALS tab 07/23/21 [Rx] Cholecalciferol [Vitamin D3 (25 Mcg = 1000 Iu)] 25 mcg PO DAILY tablet 07/23/21 [Rx] Docusate [Colace] 100 mg PO DAILY PRN cap 07/23/21 [Rx] Glimepiride [Amaryl] 2 mg PO AC-BRKFST tab 07/23/21 [Rx] INSULIN ASPART (NovoLOG) [NovoLOG (formulary)] 0 unit SQ ACHS ml 07/23/21 [Rx] Insulin Detemir (Levemir) [Levemir] 10 unit SQ HS ml 07/23/21 [Rx] Mirtazapine [Remeron] 30 mg PO HS tab 07/23/21 [Rx] Nicotine 14Mg/24Hr Patch [Habitrol] 1 patch TRANSDERM DAILY patch 07/23/21 [Rx] QUEtiapine [SEROquel] 25 mg PO BID PRN tab 07/23/21 [Rx] Sertraline [Zoloft] 200 mg PO DAILY tab 07/23/21 [Rx] Zinc Sulfate [Orazinc] 220 mg PO DAILY cap 07/23/21 [Rx] lisinopriL [Zestril] 40 mg PO DAILY tab 07/23/21 [Rx] Follow up Appointment(s)/Referral(s): Veena Spain DO [Primary Care Provider] - 1-2 days Activity/Diet/Wound Care/Special Instructions: please finish steroid taper no need for ongoing steroid therapy Monitor blood sugars before meals and at bedtime continue with Levemir for hyperglycemia continue on home Amaryl Discharge Disposition: TRANSFER TO SNF/ECF
[2021-07-23 14:11] LABS: African American GFR (CKD) 105.9 (60.0-200.0); Anion Gap 8.4 mmol/L (4.00-12.00); Calcium 7.8 mg/dL (8.7-10.3); Carbon Dioxide 26.6 mmol/L (21.6-31.8); Non-African American GFR(CKD) 91.4 (60.0-200.0); Potassium 3.2 mmol/L (3.5-5.5)
[2021-07-23] MEDS ORDERED: QUEtiapine 25 MG TAB PO PRN (15:13)
--- NOTE | 2021-07-23 15:13 | P.PN ---
Progress Note - Text Progress Note Date: 07/23/21 Interval History: Patient was seen today for psychiatric follow-up regarding patient's depression. Patient had her Remeron and Zoloft increased yesterday. Also, Seroquel was initiated as a prn due to patient's overwhelming anxiety and agitation yesterday. According to nurse taking care of patient claims that patient has been doing much better today and was alert and oriented earlier and not endorsing any suicidal thoughts. Patient was seen at the bedside today and was difficult to awaken however did wake up briefly and answered a few questions. She claims that she is doing better today. She also denied any suicidal or homicidal ideations intent or plan. She states that she is feeling tired at this time however is glad to be getting discharged later on. Patient denies any side effects from the medications and has been compliant with meds. Mental Status Exam: General Appearance: Patient appears to be elderly, stated age is lethargic, attempts to cooperate. Patient appears to have improving hygiene and grooming wearing hospital gown with fair eye contact. Behavior: Patient is calmly lying in bed without any agitated behavior. Attempts cooperate Speech: Patient's speech is fluent and nonpressured. Mood/Affect: Patient reports their mood is "ok", affect is congruent and constricted Suicidality/Homicidality: Patient denies having any suicidal or homicidal ideation intent or plan. Perceptions: Patient denies any visual hallucinations and denies any auditory hallucinations Though content/process: Celestine today. Not endorsing any delusions or paranoia. Memory and concentration: Unable to assess Judgment and insight: Improving mildly IMPRESSIONS: Major depressive disorder unspecified Nicotine dependence PLAN: -At this time patient DOES NOT meet criteria for inpatient psychiatric admission. -Delirium precautions recommended with patient including - avoiding use of narcotics and [employer] SERVICES [employer] sedatives, limit anticholinergic medications when possible, frequent re-orientation, minimize use of restraints, open window shades during the day and close them at night -Would recommend the following medication changes/additions: Zoloft 200 mg daily for mood/anxiety. Remeron to 30 mg daily at bedtime for insomnia/mood/appetitge. continue with melatonin 3 mg qhs for sleep. can continue with klonopin as perscribed. Decreased Seroquel to 25 mg daily when necessary for agitation or acute anxiety. -Patient apparently will be accepted at [facility] today. -Communicated plan to patient's nurse -At this time psychiatry will sign off. -Please contact with any questions.
[2021-07-23 15:41] VITALS: BP 161/62; PULSE 80; TEMP 98
[2021-07-23] MEDS ORDERED: Potassium Replacement Protocol 1 EACH MISC MISCELLANE PRN (15:57)
[2021-07-23] MEDS: POTASSIUM CHLORIDE ER 20 MEQ TAB.ER PO SCH (16:07)
[2021-07-24] MEDS ORDERED: predniSONE 10 MG TAB PO SCH (09:00)
== END 2021-07-23 17:52 | DRG 177 ==
LOC: EC 15:05 → 4SSUR 17:43
PROVIDERS: ADMIT Hospitalist; ATTEND Hospitalist
PROC: XW033E5 Introduction of Remdesivir Anti-infective into Peripheral Vein, Percutaneous Approach, New Technology Group 5 (ICD-10-PCS; principal; 2021-07-19)
DX: U07.1 COVID-19 (principal); J12.82 Pneumonia due to coronavirus disease 2019; J96.21 Acute and chronic respiratory failure with hypoxia; N39.0 Urinary tract infection, site not specified; Z16.12 Extended spectrum beta lactamase (ESBL) resistance; J44.1 Chronic obstructive pulmonary disease with (acute) exacerbation; E11.40 Type 2 diabetes mellitus with diabetic neuropathy, unspecified; E11.65 Type 2 diabetes mellitus with hyperglycemia; F17.210 Nicotine dependence, cigarettes, uncomplicated; F32.9 Major depressive disorder, single episode, unspecified; F41.9 Anxiety disorder, unspecified; I25.10 Atherosclerotic heart disease of native coronary artery without angina pectoris; I10 Essential (primary) hypertension; K21.9 Gastro-esophageal reflux disease without esophagitis; M54.5 Low back pain; G89.29 Other chronic pain; G62.9 Polyneuropathy, unspecified; K44.9 Diaphragmatic hernia without obstruction or gangrene; H91.90 Unspecified hearing loss, unspecified ear; Z71.51 Drug abuse counseling and surveillance of drug abuser; Z79.82 Long term (current) use of aspirin; Z79.84 Long term (current) use of oral hypoglycemic drugs; Z79.899 Other long term (current) drug therapy; Z80.0 Family history of malignant neoplasm of digestive organs; Z82.49 Family history of ischemic heart disease and other diseases of the circulatory system; Z90.710 Acquired absence of both cervix and uterus; Z99.81 Dependence on supplemental oxygen
CPT/HCPCS: 36415; 71045; 80048; 80053; 81003; 83036; 83605; 83615; 83735; 83880; 84145; 84484; 85025; 85379; 85610; 85730; 86140; 87635; 93005; 94640; 94760; 96374; 99285